=== PATIENT | female | born 1980 | race Caucasian/White ===

== ENCOUNTER 2023-03-09 13:12 | Emergency (ER) | payer OTHER, SELFPAY ==
[2023-03-09 13:35] VITALS: BP 120/80; PULSE 74; RESP 18; TEMP 36.5; O2SAT 100; BMI 46.7
--- NOTE | 2023-03-09 13:49 | ED.EXTPRO1 ---
HPI - Extremity Problem General Chief complaint: Extremity Problem, Nontraumatic Stated complaint: LOWER EXTREMITY PAIN TO RIGHT KNEE Time Seen by Provider: 03/09/23 13:18 Source: patient Mode of arrival: walk-in Limitations: no limitations History of Present Illness HPI Narrative: Patient is a 42-year-old female who presents to the emergency department for the evaluation of right knee pain for the last 3 days. She has a history of arthritis to the right knee, she has had previous imaging and MRI of the right knee and currently sees pain management. She states she is waiting for them to burn the veins in her right knee like they did in her left knee previously. She denies any new mechanism of injury or trauma. She has not had any new noted swelling or redness to the right knee. She has been using naproxen without improvement. She denies a concern for . Related Data Previous Rx's Medication Instructions Recorded ketorolac 10 mg tablet 10 mg PO TID PRN pain #10 tabs 03/09/23 methocarbamol 750 mg tablet 750 mg PO TID PRN pain #20 tabs 03/09/23 methylprednisolone 4 mg tablets in See Rx Instructions .Route 03/09/23 a dose pack (Medrol (Meliton)) .COMPLEX #21 ea Allergies Allergy/AdvReac Type Severity Reaction Status Date / Time No Known Drug Allergies Allergy Verified 03/09/23 13:42 Review of Systems ROS Constitutional Denies: fever or chills Ears, nose, mouth, and throat Denies: throat pain Cardiovascular Denies: chest pain Respiratory Denies: shortness of breath or cough Gastrointestinal Denies: nausea or vomiting Musculoskeletal Reports: extremity pain and joint pain; Denies: back pain or neck pain Integumentary/Breast Denies: rash Neurological Denies: headache Hematologic/Lymphatic Denies: easy bruising PFSH PFSH Social History Smoking status: Never smoker Exam Narrative Exam Narrative: Gen.: Awake, alert, in no distress Head: Normocephalic, atraumatic ENT: Moist mucous membranes Respiratory: No respiratory distress Extremities: Pain with flexion and extension of the right knee, no laxity of the right patella. Diffusely tender to palpation in the right anterior knee with no palpable joint effusion. No erythema or swelling of the joint. No calf tenderness of the right leg Psych: Normal mood and affect Neuro: No focal neuro deficit Skin: Warm, dry, intact Constitutional Vital Signs, click to edit/add: Last Vital Signs Temp 97.7 F 03/09/23 13:35 Pulse 74 03/09/23 13:35 Resp 18 03/09/23 13:35 BP 120/80 03/09/23 13:35 Pulse Ox 100 03/09/23 13:35 O2 Del Method Room Air 03/09/23 13:35 Course Vital Signs Vital signs: Vital Signs Temperature 97.7 F 03/09/23 13:35 Pulse Rate 74 03/09/23 13:35 Respiratory Rate 18 03/09/23 13:35 Blood Pressure 120/80 03/09/23 13:35 Pulse Oximetry 100 03/09/23 13:35 Oxygen Delivery Method Room Air 03/09/23 13:35 Temperature 97.7 F 03/09/23 13:35 Pulse Rate 74 03/09/23 13:35 Respiratory Rate 18 03/09/23 13:35 Blood Pressure 120/80 03/09/23 13:35 Pulse Oximetry 100 03/09/23 13:35 Oxygen Delivery Method Room Air 03/09/23 13:35 MDM - Extremity (Nontraumatic) MDM Narrative Medical decision making narrative: Patient with no new injury or trauma to warrant x-rays. 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 She is placed in an George bandage, and knee immobilizer will likely not fit the patient due to her body habitus. She is neurovascularly intact pre and post George wrap application. Rest, ice, elevate. She is given a Medrol Dosepak, anti-inflammatories and muscle relaxants. Follow-up with pain management and return to the ER if symptoms change or worsen. Medical Records Attestation: I reviewed the patient's medical records. Discharge Plan Discharge Chief Complaint: Extremity Problem, Nontraumatic Clinical Impression: Acute pain of right knee Patient Disposition: Home, Self-Care Time of Disposition Decision: 13:47 Condition: Good Prescriptions / Home Meds: New ketorolac 10 mg tablet 10 mg PO TID PRN (Reason: pain) Qty: 10 0RF methocarbamol 750 mg tablet 750 mg PO TID PRN (Reason: pain) Qty: 20 0RF methylprednisolone [Medrol (Meliton)] 4 mg tablets,dose pack See Rx Instructions .ROUTE .COMPLEX Qty: 21 0RF Rx Instructions: Taper as directed Instructions: Knee Pain (ED), Arthralgia (ED) Additional Instructions: Follow up with your 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
== END 2023-03-09 13:56 | disposition home or self-care (01) ==
PROVIDERS: Emergency Provider Emergency Medicine Emergency Medical Services; PCP Physician Assistant
DX: M25.561 Pain in right knee (principal)
CPT/HCPCS: 99283

== ENCOUNTER 2023-04-09 16:41 | Emergency (ER) | payer OTHER, SELFPAY ==
[2023-04-09 16:45] VITALS: BP 150/90; PULSE 76; RESP 20; TEMP 36.5; O2SAT 99; BMI 46.7
--- OUTSIDE RECORDS SUMMARY | 2023-04-09 16:55 | XMS_ITS | CCD ---
Author Name Unknown Address [address] [place] [address] Organization [facility] Care Team Providers Care Cyber Security Instructor Name Role Phone PHYSICIAN, DEFAULT Unavailable Unavailable PHYSICIAN, DEFAULT Unavailable Unavailable DANA, SUMMON Unavailable Unavailable DANA, SUMMON Unavailable Unavailable SELF, REFERRED Unavailable Unavailable SELF, REFERRED Unavailable Unavailable NON, STAFF, Primary Care Provider Unavailabl e [facility] Unava ilable KAYLEN, DR SWANN Admitting Unavailable KAYLEN, DR SWANN Attending Unavailable USAMA, DR VIRGILIO Gupta Consulting Unavailable CLAUDE MAYORGA Consulting Unavailable [facility] Unava ilable APRIL, DR ELODIA Gupta Admitting Unavailable APRIL, DR ELODIA Gupta Attending Unavailable APRIL, DR ELODIA Gupta Consulting Unavailable [facility] Unava ilable MARKER, DR LONG Admitting Unavailable MARKER, DR LONG Attending Unavailable MARKER, DR LONG Consulting Unavailable JAYLA KEBEDE Consulting Unavailable Laverne Emerson Unavailable Chiki Coombs Attending Unavailable Corin, Chiki Choudhury [facility] Unavailable Chiki Coombs Admitting Unavailable Unavailable Unavailable Unavailable Medications Current Medications Medication Drug Class(es) Dates Sig (Normalized) Sig (Original) ferrous sulfate (2 sources) Ferrous Sulfate Active 24 hr metFORMIN hydrochloride 500 mg extended release oral tablet (2 sources) Biguanide Start: 10-05-2022 take 1 tablet by mouth every week at dinner, then take 2 tablets by mouth once daily metFORMIN HCl ER 500 MG 1 tablet with evening meal 1st week, then 2 tablets with evening meal Orally Once a day for 30 day(s) Oct, Active methocarbamol 750 mg oral tablet (2 sources) Muscle Relaxant Start: 02-28-2020 take 1 tablet by mouth every eight hours Methocarbamol (Robaxin-750) 750 mg tablet Active 750 MG PO Q8H 9 3 February 28, 2020 2:02pm naproxen 500 mg oral tablet (4 sources) Nonsteroidal Anti-inflammatory Drug take 1 tablet by mouth every twenty-four hours Naproxen 375 MG 1 Tablet Orally daily Active take 1 tablet by katherine th every twelve hours at mealtime as needed Naproxen 500 MG 1 tablet with food or milk as needed Orally every 12 hrs PRN Active triamcinolone acetonide 1 mg /ml topical cream (2 sources) Corticosteroid Triamcinolone Ac etonide 0.1 % APPLY 1 APPLICATION TO AFFECTED AREA EXTERNALLY TWICE A DAY FOR 14 DAYS External for 30 Days Active Completed/Discontinued Medications Medication Drug Class(es) Dates Sig (Normalized) Sig (Original) ibuprofen 400 mg oral tablet (2 sources) Nonsteroidal Anti-inflammatory Drug Start: 12-12-2013 take 1 tablet by mouth every six hours at mealtime Ibuprofen 400 MG 1 tablet Orally every 6 hrs,ttake with food, over alcohol and all other NSAIDs while taking this medication for 10 days Dec, Not-Taking penicillin v potassium 500 mg oral tablet (2 sources) Start: 12-12-2013 take 1 tablet by mouth every eight hours Penicillin V Potassium 500 MG 1 tablet Orally Three times a day for 10 days Dec, Not-Taking Problems Active Problems Problem Classification Problem Date Documented Date Episodic/Chronic Anxiety disorders (6 sources) Anxiety; Translations: [Anxiety disorder, unspecified] Chronic Coma; stupor; and brain damage (3 sources) Excessive daytime sleepiness - normal night sleep; Translations: [Somnolence] Episodic Deficiency and other anemia (1 source) Anemia, unspecified Episodic E Codes: Natural/environment (1 source) Overexertion from strenuous movement or load, initial encounter; Translations: [OVEREXERT STRENUOUS MVMT/LOAD INIT] Onset: 02-02-2022 Episodic Mood disorders (6 sources) Bipolar disorder; Translations: [Bipolar disorder, unspecified] Chronic Osteoarthritis (7 sources) Bilateral primary osteoarthritis of knee; Translations: [Unspecified osteoarthritis, unspecified site] Onset: 10-17-2017 Chronic Other aftercare (1 source) Other fpc (current) drug therapy; Translations: [OTH MAINSPRING REVERSE WINDER CURRENT DRUG THERAPY] Onset: 02-02-2022 Episodic Other connective tissue disease (3 sources) Pain in left leg; Translations: [PAIN IN LEFT LEG] Onset: 01-17-2022 Episodic Other lower respiratory disease (1 source) Snoring Episodic Other nervous system disorders (1 source) Other chronic pain; Translations: [OTHER CHRONIC PAIN] Onset: 01-18-2022 Chronic Other non-traumatic joint disorders (3 sources) Pain in unspecified knee; Translations: [PAIN IN UNSPECIFIED KNEE] Onset: 10-17-2017 Episodic Other non-traumatic joint disorders (4 sources) Pain in right shoulder; Translations: [Acute pain of right shoulder] Onset: 02-01-2022 Episodic Other non-traumatic joint disorders (1 source) Pain in left knee; Translations: [PAIN IN LEFT KNEE] Onset: 01-18-2022 Episodic Other non-traumatic joint disorders (5 sources) Pain in right knee; Translations: [PAIN IN RIGHT KNEE] Onset: 10-19-2021 Episodic Other nutritional; endocrine; and metabolic disorders (1 source) Morbid (severe) obesity due to excess calories; Translations: [MORBID SEVERE OBES D/T EXCESS SCOTTIE] Onset: 02-02-2022 Chronic Other nutritional; endocrine; and metabolic disorders (1 source) Body mass index (BMI) 50.0-59.9, adult; Translations: [BODY MASS INDEX BMI 50.0-59.9 ADULT] Onset: 02-02-2022 Chronic Other nutritional; endocrine; and metabolic disorders (2 sources) Obesity; Translations: [Obesity, unspecified] Chronic Other nutritional; endocrine; and metabolic disorders (1 source) Obesity, unspecified Chronic Sprains and strains (1 source) Strain of unspecified muscle, fascia and tendon at shoulder and upper arm level, right arm, initial encounter; Translations: [STRN UNS MSC F TND SHLDR UA RA INIT] Onset: 02-02-2022 Episodic Unclassified (2 sources) Unknown / UNK(Unknown) Onset: 10-17-2017 Unclassified (1 source) Dietary counseling and surveillance; Translations: [Dietary counseling and surveillance] Onset: 10-05-2022 Past or Other Problems Problem Classification Problem Date Documented Da te Episodic/Chronic Other non-traumatic joint disorders (1 source) Shoulder pain; Translations: [Acute pain of right shoulder] Episodic Results Test Name Value Interpretation Reference Range Facil ity XR SHOULDER RT 2V or >on XR SHOULDER RT 2V or > EXAM: XR SHOULDER RT 2V or > HISTORY: The patient is a 41-year-old female with three-day history of right shoulder pain. COMPARISON: 04/17/2015. FINDINGS: The right shoulder is radiographically negative with no evidence of fracture, dislocation, calcific tendonitis, or other osseous or articular abnormalities. The glenohumeral joint is maintained. The acromioclavicular joint is maintained. The subacromial space is maintained. IMPRESSION: Negative. Electronically authenticated by: JAYLA KEBEDE Date: 2022-02-01 00:56 Normal [facility] KNEE LEFT 4VWSon 10-17-2017 KNEE LEFT 4VWS [facility] [address] [place] [address] ==Patient Name: DIANE HANDLEY : 1980Sex: FAge: Race: WhiteMRN: [id number]. Location: 93Patient Status: OVisit #: [id number] Date: 10/17/2017 3:25:00 PMCompleted Date: 10/17/2017 03:47 PMRequesting Provider: JOSUE CORTEZ Attending Provider: JOSUE CORTEZ Report Copy To: SELF, REFERRED Signs & Symptoms: M25.569 Pain in unspecified knee [id number]: AthenaComments: , Views (X-RAY, KNEE): AP, Lateral, Tunnel, Juarez , Weight Bearing?: Y , With Magnification Marker?: N , Views (X-RAY, KNEE): AP, Lateral, Tunnel, Juarez , Weight Bearing?: Y , With Magnification Marker?: N , , , Ordering Provider - JOSUE CORTEZ MD , Exam: KNEE LEFT 4VWSAccession #: [id number] =========PELVIS 1 OR 2 VWS, KNEE LEFT 4VWS, KNEE RIGHT 4 VWS 10/17/2017 3:47 PM EDT SIGNS AND SYMPTOMS: M25.569 Pain in unspecified knee I10 TECHNOLOGIST COMMENTS: Patient complains of severe bilateral knee pain for ten years. No known trauma. QUESTION FOR THE RADIOLOGIST: , Views (X-RAY, PELVIS): AP , Weight Bearing?: Y , With Magnification Marker?: Y , Views (X-RAY, PELVIS): AP , Weight Bearing?: Y , With Magnification Marker?: Y , , ...More In Sending System PROTOCOL: AP(PA) view was obtained. (accession [id number]), AP,Lateral,Tunnel and Tangential views were obtained. (accession [id number]), AP,Lateral,Tunnel and Tangential views were obtained. (accession [id number]) COMPARISON: None FINDINGS: Pelvis: No acute abnormality. Minimal SI joint and hip degenerative change Bilateral knees: Severe bilateral medial weightbearing osteoarthritis, worse on the right with complete joint space loss. Both sides show varus deformity and lateral subluxation of tibia on femur. Posterior sides show effusion, slightly greater on the right. IMPRESSION: 1. Bilateral severe medial weightbearing osteoarthritis, worse on the right with complete joint space loss2. Intact pelvis and hips Electronically signed by:Ernie Albert. Transcribed by: [email or web address], User Resident: Electronically Signed by: ERNIE ALBERT @ 10/17/2017 04:35 PM Normal [facility] Comment on above: Order Comment: , Views (X-RAY, KNEE): AP , Lateral, Tunnel, Juarez , Weight Bearing?: Y , With Magnification Marker?: N , Views (X-RAY, KNEE): AP, Lateral, Tunnel, Juarez , Weight Bearing?: Y , With Magnification Marker?: N , , , Ordering Provider - JOSUE CORTEZ MD , KNEE RIGHT 4 Son 8 KNEE RIGHT 4 [facility] [address] [place] [address] ==Patient Name: DIANE HANDLEY : 1980Sex: FAge: Race: WhiteMRN: [id number]. Location: 93Patient Status: OVisit #: [id number] Date: 10/17/2017 3:25:00 PMCompleted Date: 10/17/2017 03:40 PMRequesting Provider: JOSUE CORTEZ Attending Provider: JOSUE CORTEZ Report Copy To: SELF, REFERRED Signs & Symptoms: M25.569 Pain in unspecified knee [id number]: AthenaComments: , Views (X-RAY, KNEE): AP, Lateral, Tunnel, Juarez , Weight Bearing?: Y , With Magnification Marker?: N , Views (X-RAY, KNEE): AP, Lateral, Tunnel, Juarez , Weight Bearing?: Y , With Magnification Marker?: N , , , Ordering Provider - JOSUE CORTEZ MD , Exam: KNEE RIGHT 4 VWSAccession #: [id number] =========PELVIS 1 OR 2 VWS, KNEE LEFT 4VWS, KNEE RIGHT 4 VWS 10/17/2017 3:47 PM EDT SIGNS AND SYMPTOMS: M25.569 Pain in unspecified knee I10 TECHNOLOGIST COMMENTS: Patient complains of severe bilateral knee pain for ten years. No known trauma. QUESTION FOR THE RADIOLOGIST: , Views (X-RAY, PELVIS): AP , Weight Bearing?: Y , With Magnification Marker?: Y , Views (X-RAY, PELVIS): AP , Weight Bearing?: Y , With Magnification Marker?: Y , , ...More In Sending System PROTOCOL: AP(PA) view was obtained. (accession [id number]), AP,Lateral,Tunnel and Tangential views were obtained. (accession [id number]), AP,Lateral,Tunnel and Tangential views were obtained. (accession [id number]) COMPARISON: None FINDINGS: Pelvis: No acute abnormality. Minimal SI joint and hip degenerative change Bilateral knees: Severe bilateral medial weightbearing osteoarthritis, worse on the right with complete joint space loss. Both sides show varus deformity and lateral subluxation of tibia on femur. Posterior sides show effusion, slightly greater on the right. IMPRESSION: 1. Bilateral severe medial weightbearing osteoarthritis, worse on the right with complete joint space loss2. Intact pelvis and hips Electronically signed by:Ernie Albert. Transcribed by: [email or web address], User Resident: Electronically Signed by: ERNIE ALBERT @ 10/17/2017 04:35 PM Normal [facility] Comment on above: Order Comment: , Views (X-RAY, KNEE): AP , Lateral, Tunnel, Juarez , Weight Bearing?: Y , With Magnification Marker?: N , Views (X-RAY, KNEE): AP, Lateral, Tunnel, Juarez , Weight Bearing?: Y , With Magnification Marker?: N , , , Ordering Provider - JOSUE CORTEZ MD , PELVIS 1 OR 2 [facility] 10-18-19 18 PELVIS 1 OR 2 [facility] [address] [place] [address] ==Patient Name: DIANE HANDLEY : 1980Sex: FAge: Race: WhiteMRN: [id number]. Location: 93Patient Status: OVisit #: [id number] Date: 10/17/2017 3:25:00 PMCompleted Date: 10/17/2017 03:40 PMRequesting Provider: JOSUE CORTEZ Attending Provider: JOSUE CORTEZ Report Copy To: SELF, REFERRED Signs & Symptoms: M25.569 Pain in unspecified knee Q96Brnpevn: AthenaComments: , Views (X-RAY, PELVIS): AP , Weight Bearing?: Y , With Magnification Marker?: Y , Views (X-RAY, PELVIS): AP , Weight Bearing?: Y , With Magnification Marker?: Y , , , Ordering Provider - JOSUE CORTZE MD , Exam: PELVIS 1 OR 2 VWSAccession #: [id number] =========PELVIS 1 OR 2 VWS, KNEE LEFT 4VWS, KNEE RIGHT 4 VWS 10/17/2017 3:47 PM EDT SIGNS AND SYMPTOMS: M25.569 Pain in unspecified knee I10 TECHNOLOGIST COMMENTS: Patient complains of severe bilateral knee pain for ten years. No known trauma. QUESTION FOR THE RADIOLOGIST: , Views (X-RAY, PELVIS): AP , Weight Bearing?: Y , With Magnification Marker?: Y , Views (X-RAY, PELVIS): AP , Weight Bearing?: Y , With Magnification Marker?: Y , , ...More In Sending System PROTOCOL: AP(PA) view was obtained. (accession [id number]), AP,Lateral,Tunnel and Tangential views were obtained. (accession [id number]), AP,Lateral,Tunnel and Tangential views were obtained. (accession [id number]) COMPARISON: None FINDINGS: Pelvis: No acute abnormality. Minimal SI joint and hip degenerative change Bilateral knees: Severe bilateral medial weightbearing osteoarthritis, worse on the right with complete joint space loss. Both sides show varus deformity and lateral subluxation of tibia on femur. Posterior sides show effusion, slightly greater on the right. IMPRESSION: 1. Bilateral severe medial weightbearing osteoarthritis, worse on the right with complete joint space loss2. Intact pelvis and hips Electronically signed by:Ernie Albert. Transcribed by: [email or web address], User Resident: Electronically Signed by: ERNIE ALBERT @ 10/17/2017 04:35 PM Normal [facility] Comment on above: Order Comment: , Views (X-RAY, PELVIS): AP , Weight Bearing?: Y , With Magnification Marker?: Y , Views (X-RAY, PELVIS): AP , Weight Bearing?: Y , With Magnification Marker?: Y , , , Ordering Provider - JOSUE CORTEZ MD , Vital Signs Date Time Vital Sign Value Performing Clinician Facility 10-05-2022 13:15-0400 Body height 152.4 cm Laverne Missler Other [facility] Other 10-05-2022 13:15-0400 Body mass index (BMI) [Ratio] 48.25 kg/m2 Laverne Missler Other [facility] Other 10-05-2022 13:15-0400 Body weight 112.08 kg Laverne Missler Other [facility] Other 10-05-2022 13:15-0400 Diastolic blood pressure 76 mm[Hg] Laverne Missler Other [facility] Other 10-05-2022 13:15-0400 Respiratory rate 20 /min Laverne Missler Other [facility] Other 10-05-2022 13:15-0400 SaO2% (BldA) [Mass fraction] 97 % Laverne Missler Other [facility] Other 10-05-2022 13:15-0400 Systolic blood pressure 122 mm[Hg] Laverne Missler Other [facility] Other 02-28-2020 13:09-0500 Body Temperature 97.5 [degF] STAFF, [facility] 02-28-2020 13:09-0500 BP Diastolic 83 mm[Hg] STAFF, [facility] 02-28-2020 13:090500 BP Systolic 149 mm[Hg] STAFF, [facility] 02-28-2020 13:09-0500 Pulse (Heart Rate) 83 /min STAFF, [facility] 02-28-2020 13:09-0500 Pulse Oximetry 98 % STAFF, [facility] 02-28-2020 13:09-0500 Respiratory Rate 18 /min STAFF, [facility] 02-28-2020 13:06-0500 BMI (Body Mass Index) 46.3 kg/m2 STAFF, [facility] 02-28-2020 13:06-0500 Body weight 111.13 kg STAFF, [facility] 02-28-2020 13:060500 Height 154.94 cm STAFF, [facility] Encounters Encounter Date Encounter Type Care Provider Facility Start: 11-16-2022 End: 11-16-2022 ambulatory Laverne Emerson Other [facility] Other Start: 11-16-2022 Telephone encounter Laverne [facility] Start: 10-05-2022 End: 10-06-[address] [facility] Other Start: 10-05-2022 Nutrition therapy Laverne [facility] Start: 02-01-2022 End: 02-01-2022 ambulatory [facility] Facility:[facility] Start: 01-17-2022 End: 01-17-2022 ambulatory [facility] Facility:[facility] Start: 10-19-2021 End: 10-20-2021 ambulatory [facility] Facility:[facility] Start: 02-28-2020 End: 02-28-2020 Emergency department patient visit STAFF, [facility] Start: 10-17-2017 End: 10-18-2017 Patient encounter TANIA CORTEZ Facility:[facility] Start: 02-07-2017 End: 02-08-2017 Patient encounter DEFAULT PHYSICIAN Facility:[facility] Plan of Treatment Date Care Activity Detail Author Patient Education Shoulder Pain (ED) [facility] Patient referral [facility] Payers Date Payer Category Payer Medicaid [id number] 2. [id number] 2022 Self-pay [id number] 1980 Unknown [id number] [id number] 1980 Unknown [id number] 1980 Unknown [id number] [id number] [id number] 1961 Medicaid [id number] Unknown Unknown [id number] 2.16.8 [id number] Social History Date Type Detail Facility Tobacco smoking status NHIS Unknown if ever smoked [facility] Start: 1980 Sex Assigned At Female F [facility] Sex Assigned At Sex Assigned At [facility] Other Goals Date Patient Goal Desired Activity /State Evaluation note 10-05-2022 Note Date & Type Note Facility 10-05-2022 Evaluation note Encounter Date Diagnosis Assessment Notes Oct, Obesity (ICD-10 - E66.9) Findings consistent with obesity. Patient understands that this increases risk of multiple comorbidities associated with weight gain especially if there is a genetic predisposition. Discussed the complexity behind obesity and its multifactorial causes including genetics, the biological changes that occur with processed foods as well as lack of physical activity. We will assess for underlying causes of abnormal weight gain including thyroid dysfunction, poor sleep, medications, diet, etc. Discussed importance of adopting a healthier lifestyle in order to decrease or eliminate risk of impending diseases associated with excessive weight. Initial goal of modest weight loss approximately 3 to 5% can help to improve risk factors and some comorbidities. Our second goal of 10 to 15% weight loss can result in even more potentially disease modifying, remission, or improved mortality benefits. Raised patient and her efforts and success so far with the near 20 pound weight loss over the last couple months by decreasing portion sizes and eliminating Mountain Dew from her diet Initial goals include consistent mealtimes and snacks throughout the day. Concern for extreme calorie deficit as patient is only getting about 1 meal a day currently. She does struggle a little bit with decreased appetite, concern for mood disturbance Encouraged to adjust sleep schedule as feasible may be even trying to stay up until 11 or 12 noon and getting adequate consistent 7 hours of sleep instead of broken sleep and a total of 10 hours. We did discuss the U-shaped curve and detrimental effects of having excessive sleep We set a goal of 15 to 20 minutes of purposeful exercise 1 to 2 days a week initially and working up as feasible Consider mental health professional and/or counseling Oct, Anxiety (ICD-10 - F41.9) Oct, Depression (ICD-10 - F32.9) Initial PHQ-9 is positive for mild to moderate depression with a score of 7 most notable for every day of feeling down depressed or hopeless and feeling tired or little energy. Patient states mood is stable overall today and denies any significant mood swings or depressive thoughts. Continued vigilance throughout our weight loss journey. Patient is to inform provider immediately if any extreme mood changes occur or severe depressive thoughts. Mood can play a role in eating habits, food choices and overall weight regulation. Oct, Panic attacks (ICD-10 - F41.0) With her history of anxiety and panic attacks would likely avoid or use extreme caution with any phentermine containing products. Oct, Arthritis of knee (ICD-10 - M19.90) Patient admits to pain which is likely exacerbated/secon aarti to increased weight. Treat with exercise incorporating low impact exercises or modifications as needed. Advised that there are multiple different exercise programs available, many of which can be done within the home that required little to no impact. Encouraged swimming as feasible. Slowly increase activity over time to reach goal of 30 minutes most days of the week. Strongly encouraged to take advantage of our can top setter available at [facility] that can help work around limitations. Each pound of weight loss is exponentially beneficial for weight bearing joints. Oct, Daytime sleepiness (ICD-10 - R40.0) Oct, Anemia (ICD-10 - D64.9) Oct, Bipolar disorder (ICD-10 - F31.9) With history of bipolar disorder would avoid or use extreme caution with any bupropion containing products. We did briefly discuss bipolar disorder and the chemical imbalance that ensues. Despite patient stating that she is handling things on her own we did discuss and advise connecting with appropriate mental health professionals to help improve her quality of life. I do feel that she is still struggling with some depression,, sleep disturbance etc. Oct, Snoring (ICD-10 - R06.83) Patient has not had a formal sleep study. We did briefly discuss sleep apnea patient understands that sleep apnea significantly increases risk of cardiac complications as well as hypertension, daytime fatigue, and brain fog among others. Educated that CPAP compliance is of utmost importance to help prevent related comorbidities. Treat with weight loss with a goal of less positive pressure needed. Pt understands that even with moderate weight loss, often a positive pressure device may still be necessary. We will perform surveillance through out our visits. [facility] Other Clinical Note 10-20-2021 Note Date & Type Note Facility 10-20-2021 Note PROCEDURE: XR KNEE R T 4V or > HISTORY: Pain in lower limb ; chronic right knee pain increased in severity COMPARISON: XR knee right 07/18/2014 FINDINGS: BONES:Marked narrowing of the medial joint space. Moderate size degenerative osteophytes along the articular margins of all 3 compartments. No fracture, dislocation, or bone lesion. SOFT TISSUES:No visible soft tissue swelling. EFFUSION:None visible. OTHER: Negative. IMPRESSION: 1. No acute bone abnormality. 2. Moderate marked degenerative joint disease of the right knee, greatest involving the medial compartment. Electronically authenticated by: VIRGILIO FORRESTER Date: 2021-10-19 22:25 [facility] Evaluation note Note Date & Type Note Facility Evaluation note No Information [facility] Other Evaluation note Note Date & Type Note Facility Evaluation note No assessment information availa [facility] Work Phone: History general Narrative - Reported Note Date & Type Note Facility History general Narrative - Reported Type Medical History Osteoarthritis Medical History Anxiety Medical History Arthritis of bilateral knees Medical History Depression Medical History Panic attacks Medical History Anemia Medical History Bipolar Surgical History tubal ligation Surgical History Uterine ablation 11/2019 Surgical History M[place]oy teeth extraction Hospitalization History child Hospitalization History See above [facility] Other Summary Purpose Family History No Family History Records FoundNo Family History Records FoundNo Family History Records Found Advance Directives No Advanced Directives Records Found Advance Directive Response Recorded Date/ Time Advance Directives No February 1:20pm Chief Complaint and Reason for Visit Chief Complaint Right shoulder pain Assessments No Assessments Information Available Discharge Instructions Additional Instructions Use [id number] pain control as needed Robaxin is a muscle relaxer and can make you drowsy. Do not drive or drink alcohol on this medication. Follow-up with your family doctor Additional Source Comments INFORMATION SOURCE (unrecogn ized section and content) DATE CREATED AUTHOR 10/21/2017 [facility] DATE CREATED AUTHOR AUTHOR'S ORGANIZ ATION 03/02/2022 [facility] DATE CREATED AUTHOR AUTHOR'S ORGANIZ ATION 04/03/2023 [facility] REASON FOR VISIT (unrecogniz ed section and content) Initial [facility] Goals (unrecognized section and content) Goals may be documented in a n alternate section FOR RECORDS PERTAINING TO PATIENTS WHO ARE OR HAVE BEEN ENROLLED IN A CHEMICAL DEPENDENCY/SUBSTANCEABUSE PROGRAM, SOME INFORMATION MAY BE OMITTED. This clinical summary was aggregated from multiple sources. Caution should be exercised in using it in the provision of clinical care. This summary normalizes information from multiple sources, and as a consequence, information in this document may materially change the coding, format and clinical context of patient data. In addition, data may be omitted in some cases. CLINICAL DECISIONS SHOULD BE BASED ON THE PRIMARY CLINICAL RECORDS. [employer] provides no warranty or guarantee of the accuracy or completeness of information in this document.
--- NOTE | 2023-04-09 17:36 | ED_ITS ---
HPI - URI/Sore Throat General Chief Complaint: Upper Respiratory Infection Stated Complaint: SINUS Time Seen by Provider: 04/09/23 17:23 Source: patient Limitations: no limitations History of Present Illness HPI Narrative: patient is a 42-year-old female presents to the Emergency Room with concerns of nasal congestion, mild cough. States she lives with people who have been sick with upper respiratory infections and mentioned covid exposure at work. Symptoms started three days ago.she denies chest pain. Patient does not smoke or have any underlying lung conditions. She reports sinus drainage, denies significant pain. Patient appears in no distress speaking in full sentences. I just can't breathe through my nose. MD elicited complaint: Reports cough, sore throat, rhinorrhea and nasal congestion; Denies fever or sinus pain Onset (ago): day(s) (3) Severity: mild Able to tolerate fluids by mouth: Yes Exacerbating factors: Reports nothing Relieving factors: Reports nothing Context: Reports sick contacts Related Data Previous Rx's Medication Instructions Recorded ketorolac 10 mg tablet 10 mg PO TID PRN pain #10 tabs 03/09/23 methocarbamol 750 mg tablet 750 mg PO TID PRN pain #20 tabs 03/09/23 methylprednisolone 4 mg tablets in See Rx Instructions .Route 03/09/23 a dose pack (Medrol (Meliton)) .COMPLEX #21 ea Allergies Allergy/AdvReac Type Severity Reaction Status Date / Time No Known Drug Allergies Allergy Verified 03/09/23 13:42 Review of Systems ROS Constitutional Denies: fever or chills Eyes Denies: change in vision or blurry vision Ears, nose, mouth, and throat Reports: throat pain, nasal discharge and nasal congestion; Denies: neck pain, throat swelling, dry mouth or ear discharge Cardiovascular Denies: chest pain or palpitations Respiratory Reports: cough; Denies: shortness of breath or wheezing Gastrointestinal Denies: abdominal pain, nausea or vomiting Genitourinary Denies: painful urination Musculoskeletal Denies: back pain Integumentary/Breast Denies: rash Neurological Denies: headache Psychiatric Denies: anxiety Allergic/Immunologic Denies: hives PFSH [facility] Social History Smoking status: Never smoker Exam Narrative Exam Narrative: Nurses notes and vital signs reviewed and patient is not hypoxic. General: The patient appears well and in no apparent distress. Patient is resting comfortably on cart. Skin: Warm, dry, no pallor noted. Head: Normocephalic, atraumatic Neck: Supple, trachea mid-line, no tenderness, no lymphadenopathy Eye: Pupils are equal, round and reactive to light, EOMI Ears, Nose, Mouth, and Throat: TM obstructed bilaterally. Moderate cerumen. recommended [id number] disimpaction drops ( debrox) no auricle or tragal tenderness, positive postnasal drip. oral mucosa is moist, no posterior oropharynx erythema or hypertrophy, uvula is mid-line Cardiovascular: Regular Rate and Rhythm Respiratory: Patient is in no distress, no accessory muscle use, lungs are clear to auscultation, no wheezing, rales or rhonchi. Chest Wall: no tenderness Back: non-tender, no CVA tenderness Musculoskeletal: normal ROM, no tenderness, no swelling GI: Normal bowel sounds, no tenderness to palpation, no masses appreciated. No rebound, guarding, or rigidity noted. Neurological: A&O x4 Psychiatric: Cooperative Constitutional Vital Signs, click to edit/add: Last Vital Signs Temp 97.7 F 04/09/23 16:45 Pulse 76 04/09/23 16:45 Resp 20 04/09/23 16:45 BP 150/90 H 04/09/23 16:45 Pulse Ox 99 04/09/23 16:45 O2 Del Method Room Air 04/09/23 16:45 Course Vital Signs Vital signs: Vital Signs Temperature 97.7 F 04/09/23 16:45 Pulse Rate 76 04/09/23 16:45 Respiratory Rate 20 04/09/23 16:45 Blood Pressure 150/90 H 04/09/23 16:45 Pulse Oximetry 99 04/09/23 16:45 Oxygen Delivery Method Room Air 04/09/23 16:45 Temperature 97.7 F 04/09/23 16:45 Pulse Rate 76 04/09/23 16:45 Respiratory Rate 20 04/09/23 16:45 Blood Pressure 150/90 H 04/09/23 16:45 Pulse Oximetry 99 04/09/23 16:45 Oxygen Delivery Method Room Air 04/09/23 16:45 MDM - URI/Sore Throat MDM Narrative Medical decision making narrative: reviewed nasal swabs, positive for covid consistent with patient's upper respiratory infection symptoms. Do not recommend antibiotics at this time. Patient be given a note off work for the next five days. Symptoms have been present for three days. 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 We discussed exposures at home, wear a mask, wash hands. She'll avoid contact with a three month old that is living with her. Patient has other family members present. The patient is to followup with primary care physician in next 2-3 days or to return to the emergency department should any of the signs or symptoms worsen or new symptoms develop. Patient had questions answered. The patient agrees with the following Diagnosis and Treatment plan and the patient will be discharged home. Lab Data Labs: Lab Results 04/09/23 Range/Units 17:15 SARS-CoV-2 (PCR) Positive A (NEGATIVE) Influenza Type A Ag Negative Influenza Type B Ag Negative Discharge Plan Discharge Chief Complaint: Upper Respiratory Infection Clinical Impression: COVID, Upper respiratory infection Patient Disposition: Home, Self-Care Time of Disposition Decision: 17:50 Condition: Good Prescriptions / Home Meds: No Action ketorolac 10 mg tablet 10 mg PO TID PRN (Reason: pain) Qty: 10 0RF methocarbamol 750 mg tablet 750 mg PO TID PRN (Reason: pain) Qty: 20 0RF methylprednisolone [Medrol (Meliton)] 4 mg tablets,dose pack See Rx Instructions .ROUTE .COMPLEX Qty: 21 0RF Rx Instructions: Taper as directed Instructions: COVID-19 (Coronavirus Disease 2019) (ED), How to Recover from COVID-19 at Home (ED) Stand Alone Forms: Portal Instructions Referrals: Chiki Coombs [Primary Care Provider] - 1 week
[2023-04-09 17:38] LABS: Influenza Virus A Antigen Negative; Influenza Virus B Antigen Negative; Internal Control Within Normal Limits
[2023-04-09 17:39] LABS: SARS-CoV-2 Ag POSITIVE (NEGATIVE)
== END 2023-04-09 17:53 | disposition home or self-care (01) ==
PROVIDERS: Emergency Provider Emergency Medicine; PCP Physician Assistant
DX: U07.1 COVID-19 (principal); J06.9 Acute upper respiratory infection, unspecified
CPT/HCPCS: 87804; 87811; 99283

== ENCOUNTER 2023-04-23 12:37 | Emergency (ER) | payer OTHER, SELFPAY ==
[2023-04-23 12:41] VITALS: BP 138/70; PULSE 75; RESP 18; TEMP 37.2; O2SAT 97; BMI 48.2
--- NOTE | 2023-04-23 12:45 | XR_ITS ---
The [address] [address] Patient Name: MARIBELL HANDLEY MRN: [id number] date: 1980 Sex: F Assigned Patient Location: ER Current Patient Location: Accession/Order Number: [id number] Exam Date: 04/23/2023 12:50 Report Date: 04/23/2023 13:17 At the request of: ERNESTO BRUNNER Procedure: XR knee RT 2V EXAM: XR knee RT 2V HISTORY: pain COMPARISON: None. FINDINGS: 2 radiographs of the right knee were obtained. No acute fracture or dislocation. Severe degenerative changes to the patellofemoral joint. Moderate degenerative changes to the medial and lateral compartments. No joint effusion. 1 cm calcific fragment adjacent to the mid fibula, likely the sequela of remote trauma. XR/XR knee RT 2V IMPRESSION: No acute fracture or dislocation. Electronically authenticated by: AGAPITO PUGH Date: 04/23/2023 13:17
--- NOTE | 2023-04-23 12:50 | ED.LOWEXI1 ---
HPI - Extremity Injury (Lower) General Chief Complaint: Extremity Injury, Lower Stated Complaint: LOWER EXTREMITY INJURY/ FALL Time Seen by Provider: 04/23/23 12:44 Source: patient Mode of arrival: walk-in Limitations: no limitations History of Present Illness HPI Narrative: 42-year-old female presents for right knee pain. It gave out today and she twisted it. She didn't sustain any other injury. She states she has problems with her knees, arthritis, and they often give out. She sees pain management. No pain in the hip or ankle. She's been able to walk and the pain is moderate. Related Data Home Medications Medication Instructions Recorded Confirmed aripiprazole 2 mg tablet 2 mg PO .QHS 04/23/23 04/23/23 cholecalciferol (vitamin D3) 10 20 mcg PO DAILY 04/23/23 04/23/23 mcg (400 unit) tablet (Vitamin D3) duloxetine 30 mg capsule,delayed 30 mg PO DAILY 04/23/23 04/23/23 release Allergies Allergy/AdvReac Type Severity Reaction Status Date / Time No Known Drug Allergies Allergy Verified 04/23/23 12:41 Review of Systems ROS Narrative A ten point review of systems is negative except as noted above. PFSH PFSH Social History Smoking status: Never smoker Exam Narrative Exam Narrative: Nurses note and vital signs reviewed and patient is not hypoxic. General: The patient appears well and in no apparent distress. Patient is resting comfortably on cart. Skin: Warm, dry, no pallor noted. There is no rash noted. Head: Normocephalic, atraumatic Eye: Normal conjunctiva, no drainage Ears, Nose, Mouth, and Throat: oral mucosa is moist. Nares patent. Cardiovascular: Regular Rate and Rhythm Respiratory: Patient is in no distress, no accessory muscle use Back: non-tender GI: nontender Musculoskeletal: the right knee is not erythematous or visibly swollen. No bruising rash or abrasion. The knee joint is stable. Neurological: A&O, normal speech Psychiatric: Cooperative Constitutional Vital Signs, click to edit/add: Last Vital Signs Temp 98.9 F 04/23/23 12:41 Pulse 75 04/23/23 12:41 Resp 18 04/23/23 12:41 BP 138/70 04/23/23 12:41 Pulse Ox 97 04/23/23 12:41 O2 Del Method Room Air 04/23/23 12:41 Course Vital Signs Vital signs: Vital Signs Temperature 98.9 F 04/23/23 12:41 Pulse Rate 75 04/23/23 12:41 Respiratory Rate 18 04/23/23 12:41 Blood Pressure 138/70 04/23/23 12:41 Pulse Oximetry 97 04/23/23 12:41 Oxygen Delivery Method Room Air 04/23/23 12:41 Temperature 98.9 F 04/23/23 12:41 Pulse Rate 75 04/23/23 12:41 Respiratory Rate 18 04/23/23 12:41 Blood Pressure 138/70 04/23/23 12:41 Pulse Oximetry 97 04/23/23 12:41 Oxygen Delivery Method Room Air 04/23/23 12:41 MDM - Extremity Injury (Lower) MDM Narrative Medical decision making narrative: x-ray findings are discussed with the patient. George wrap applied. Application checked by me and found to be appropriate, she is neurovascularly intact. She'll follow-up with her pain management physician. Treatment diagnosis and follow-up were discussed with the patient. Differential Diagnosis Differential diagnosis: Likely other (knee sprain, knee strain, knee fracture, arthritis) Imaging Data knee x-ray: Radiologist's impression: ITS Impressions Knee X-Ray 04/23/23 12:45 IMPRESSION: No acute fracture or dislocation. Electronically authenticated by: AGAPITO PUGH Date: 04/23/2023 13:17 Discharge Plan Discharge Chief Complaint: Extremity Injury, Lower Clinical Impression: Acute pain of right knee Patient Disposition: Home, Self-Care Time of Disposition Decision: 13:26 Condition: Good Mode of Transportation: Private Vehicle Prescriptions / Home Meds: No Action aripiprazole 2 mg tablet 2 mg PO .QHS cholecalciferol (vitamin D3) [Vitamin D3] 10 mcg (400 unit) tablet 20 mcg PO DAILY duloxetine 30 mg capsule,delayed release(DR/EC) 30 mg PO DAILY Instructions: Knee Pain (ED) Stand Alone Forms: Portal Instructions Referrals: Chiki Coombs [Primary Care Provider] - 1 week
--- OUTSIDE RECORDS SUMMARY | 2023-04-23 12:56 | XMS_ITS | CCD ---
Author Name Unknown Address [address] [place] [address] Organization [facility] Care Team Providers Care Airconditioning Drafting Officer Name Role Phone PHYSICIAN, DEFAULT Unavailable Unavailable PHYSICIAN, DEFAULT Unavailable Unavailable DANA, SUMMON Unavailable Unavailable DANA, SUMMON Unavailable Unavailable SELF, REFERRED Unavailable Unavailable SELF, REFERRED Unavailable Unavailable NON, STAFF, Primary Care Provider Unavailabl e [facility] Unava ilable KAYLEN, DR SWANN Admitting Unavailable KAYLEN, DR SWANN Attending Unavailable USAMA, DR VIRGILIO Gupta Consulting Unavailable CLAUDE MAYORGA Consulting Unavailable [facility] Unava ilable APRIL, DR ELODIA Gupta Admitting Unavailable CHEN, DR ELODIA Gupta Attending Unavailable APRIL, DR ELODIA Gupta Consulting Unavailable [facility] Unava ilable MARKER, DR LONG Admitting Unavailable MARKER, DR LONG Attending Unavailable MARKER, DR LONG Consulting Unavailable JAYLA KEBEDE Consulting Unavailable Laverne Emerson Unavailable Chiki Coombs Attending Unavailable Chiki Coombs Primary Care Unavailable Chiki Coombs Admitting Unavailable Chiki Coombs PA-C Primary Care Provider Unavailable Unavailable Unavailable Medications Current Medications Medication Drug Class(es) Dates Sig (Normalized) Sig (Original) cyclobenzaprine hydrochloride 10 mg oral tablet (1 source) Muscle Relaxant cyclobenzap-irri tant cntr irr2 10 mg kit 1 tablet 0 Active diclofenac sodium 0.01 mg/mg topical gel (1 source) Nonsteroidal Anti-inflammatory Drug Start: 10-28-2022 diclofenac sodium (VOLTAREN) 1 % gel Apply 2 g topically in the morning and 2 g at noon and 2 g in the evening and 2 g before bedtime. 100 g 0 10/28/2022 Active dicyclomine hydrochloride 20 mg oral tablet (1 source) Anticholinergic Start: 08-30-2022 take 1 tablet by mouth in the morning, then take 1 tablet by mouth at bedtime dicyclomine (BENTYL) 20 mg tablet Take 1 tablet (20 mg total) by mouth in the morning and 1 tablet (20 mg total) before bedtime. 20 tablet 0 08/30/2022 Active docusate sodium 100 mg oral capsule (1 source) Start: 10-14-2019 docusate sodium (COLACE) 100 mg capsule ferrous sulfate 325 mg oral tablet (3 sources) Start: 10-08-2019 ferrous sulfate 325 (65 FE) mg tablet Ferrous Sulfate Active fluticasone propionate 0.05 mg/actuat metered dose nasal spray (1 source) Corticosteroid Start: 04-14-2021 take 1 spray(s) nasal route once daily fluticasone propionate (FLONASE) 50 mcg/actuation nasal spray Administer 1 spray into each nostril daily. 16 g 0 04/14/2021 Active ibuprofen 600 mg oral tablet (3 sources) Nonsteroidal Anti-inflammatory Drug Start: 10-28-2022 take 1 tablet by mouth every eight hours as needed for pain ibuprofen (MOTRIN) 600 mg tablet Take 1 tablet (600 mg total) by mouth every 8 (eight) hours as needed for pain. 30 tablet 0 10/28/2022 Active Start: 12-12-2013 take 1 tablet by katherine th every six hours at mealtime Ibuprofen 400 MG 1 tablet Orally every 6 hrs,ttake with food, over alcohol and all other NSAIDs while taking this medication for 10 days Dec, Not-Taking 24 hr metFORMIN hydrochloride 500 mg extended [...] 2020 2:02pm naproxen 500 mg oral tablet (5 sources) Nonsteroidal Anti-inflammatory Drug Start: 01-05-2023 take 1 tablet by mouth in the morning, then take 1 tablet by mouth at mealtime naproxen (NAPROSYN) 500 mg tablet Take 1 tablet (500 mg total) by mouth in the morning and 1 tablet (500 mg total) in the evening. Take with meals. 60 tablet 1 01/05/2023 Active take 1 tablet by katherine th every twenty-four hours Naproxen 375 MG 1 Tablet Orally daily Active take 1 tablet by katherine th every twelve hours at mealtime as needed Naproxen 500 MG 1 tablet with food or milk as needed Orally every 12 hrs PRN Active ondansetron 4 mg disintegrating oral tablet (1 source) Serotonin-3 Receptor Antagonist Start: 03-13-2023 take 1 tablet by mouth every eight hours as needed for nausea ondansetron ODT (ZOFRAN ODT) 4 mg disintegrating tablet Dissolve 1 tablet (4 mg total) on tongue every 8 (eight) hours as needed for nausea for up to 10 doses. 10 tablet 0 03/13/2023 Active sertraline 50 mg oral tablet (1 source) Serotonin Reuptake Inhibitor take 1 tablet by mouth in the morning sertraline (ZOLOFT) 50 mg tablet Take 1 tablet (50 mg total) by mouth in the morning. 0 Active triamcinolone acetonide 1 mg/ml topical cream (2 sources) Corticosteroid Triamcinolone Acetonide 0.1 % APPLY 1 APPLICATION TO AFFECTED AREA EXTERNALLY TWICE A DAY FOR 14 DAYS External for 30 Days Active Completed/Discontinued Medications Medication Drug Class(es) Dates Sig (Normalized) Sig (Original) penicillin v potassium 500 mg oral tablet [...] MVMT/LOAD INIT] Onset: 02-02-2022 Episodic Mood disorders (7 sources) Bipolar disorder; Translations: [Bipolar disorder, unspecified] Onset: 12-04-2019 Chronic Osteoarthritis (10 sources) Bilateral primary osteoarthritis of knee; Translations: [Unspecified osteoarthritis, unspecified site] Onset: 10-17-2017 Chronic Other aftercare (1 source) Other terminal manager (current) drug therapy; Translations: [OTH RESIDENTIAL CURRENT DRUG THERAPY] Onset: 02-02-2022 Episodic Other connective tissue disease (3 sources) Pain in left leg; Translations: [PAIN IN LEFT LEG] Onset: 01-17-2022 Episodic Other female genital disorders (1 source) Abnormal uterine bleeding; Translations: [Abnormal uterine and vaginal bleeding, unspecified] Onset: 05-10-2019 05-10-2019 Chronic Other lower respiratory disease (1 source) Snoring [...] IN LEFT KNEE] Onset: 01-18-2022 Episodic Other nutritional; endocrine; and metabolic disorders [...] metabolic disorders (1 source) Obesity, unspecified Chronic Other nutritional; endocrine; and metabolic disorders (1 source) Body mass index 40+ - severely obese; Translations: [Morbid (severe) obesity due to excess calories] Onset: 06-02-2020 06-02-2020 Chronic Sprains and strains (1 source) Strain [...] Classification Problem Date Documented Da te Episodic/Chronic Intestinal infection (1 source) Viral gastroenteritis; Translations: [Viral intestinal infection, unspecified] Onset: 05-25-2022 05-25-2022 Episodic Other non-traumatic joint disorders (1 source) Shoulder pain; Translations: [Acute pain of right shoulder] Episodic Other non-traumatic joint disorders (6 sources) Pain in right knee; Translations: [Pain in joint, lower leg] Onset: 10-22-2017 Episodic Results Test Name Value Interpretation Reference [...] JAYLA KEBEDE Date: 2022-02-01 00:56 Normal [facility] KNEE LEFT 4VWSon 10-17-2017 KNEE LEFT 4[facility]WS [facility] [address] [place] [address] ==Patient Name: DIANE HANDLEY : 1980Sex: FAge: Race: WhiteMRN: [id number]. Location: 93Patient Status: OVisit #: [id number] Date: 10/17/2017 3:25:00 PMCompleted Date: 10/17/2017 03:47 PMRequesting Provider: JOSUE CORTEZ Attending Provider: JOSUE CORTEZ Report Copy To: SELF, REFERRED Signs & Symptoms: M25.569 Pain in unspecified knee [id number]: AthenaComments: , Views (X-RAY, KNEE): AP, Lateral, Tunnel, [place] , Weight Bearing?: Y , With Magnification Marker?: N , Views (X-RAY, KNEE): AP, Lateral, Tunnel, [place] , Weight Bearing?: Y , With Magnification Marker?: N , , , Ordering Provider - JOSUE CORTEZ MD , Exam: KNEE LEFT 4VWSAccession #: [id number] =========PELVIS 1 OR 2 VWS, KNEE LEFT [...] System PROTOCOL: AP(PA) view was obtained. (accession [id number]), AP,Lateral,Tunnel and Tangential views were obtained. (accession [id number]), AP,Lateral,Tunnel and Tangential views were obtained. (accession [id number]) COMPARISON: None FINDINGS: Pelvis: No acute abnormality. [...] hips Electronically signed by:Ernie Albert. Transcribed by: [email or web address], User Resident: Electronically Signed by: ERNIE ALBERT @ 10/17/2017 04:35 PM Normal [facility] Comment on above: Order Comment: , Views (X-RAY, KNEE): AP , Lateral, Tunnel, [place] , Weight Bearing?: Y , With Magnification Marker?: N , Views (X-RAY, KNEE): AP, Lateral, Tunnel, [place] , Weight Bearing?: Y , With Magnification Marker?: N , , , Ordering Provider - JOSUE CORTEZ MD , KNEE RIGHT 4 [facility] 8 KNEE RIGHT 4 [facility] [address] [place], [place] [address] ==Patient Name: DIANE HANDLEY : 1980Sex: FAge: Race: WhiteMRN: [id number]. Location: 93Patient Status: OVisit #: [id number] Date: 10/17/2017 3:25:00 PMCompleted Date: 10/17/2017 03:40 PMRequesting Provider: JOSUE CORTEZ Attending Provider: JOSUE CORTEZ Report Copy To: SELF, REFERRED Signs & Symptoms: M25.569 Pain in unspecified knee T60Hzkumat: AthenaComments: , Views (X-RAY, KNEE): AP, Lateral, Tunnel, [place] , Weight Bearing?: Y , With Magnification Marker?: N , Views (X-RAY, KNEE): AP, Lateral, Tunnel, [place] , Weight Bearing?: Y , With Magnification Marker?: N , , , Ordering Provider - JOSUE CORTEZ MD , Exam: KNEE RIGHT 4 VWSAccession #: [id number] =========PELVIS 1 OR 2 VWS, KNEE LEFT [...] System PROTOCOL: AP(PA) view was obtained. (accession [id number]), AP,Lateral,Tunnel and Tangential views were obtained. (accession [id number]), AP,Lateral,Tunnel and Tangential views were obtained. (accession [id number]) COMPARISON: None FINDINGS: Pelvis: No acute abnormality. [...] hips Electronically signed by:Ernie Albert. Transcribed by: [email or web address], User Resident: Electronically Signed by: ERNIE ALBERT @ 10/17/2017 04:35 PM Normal [facility] Comment on above: Order Comment: , Views (X-RAY, KNEE): AP , Lateral, Tunnel, [place] , Weight Bearing?: Y , With Magnification Marker?: N , Views (X-RAY, KNEE): AP, Lateral, Tunnel, [place] , Weight Bearing?: Y , With Magnification Marker?: N , , , Ordering Provider - JOSUE CORTEZ MD , PELVIS 1 OR 2 VWSon 10-18-19 18 PELVIS 1 OR 2 VWS [facility] [address] [place] [address] ==Patient Name: DIANE HANDLEY : 1980Sex: FAge: Race: WhiteMRN: [id number]. Location: 93Patient Status: OVisit #: [id number] Date: 10/17/2017 3:25:00 PMCompleted Date: 10/17/2017 03:40 PMRequesting Provider: JOSUE CORTEZ Attending Provider: JOSUE CORTEZ Report Copy To: SELF, REFERRED Signs & Symptoms: M25.569 Pain in unspecified knee V82Stttosi: AthenaComments: , Views (X-RAY, PELVIS): AP , Weight Bearing?: Y , With Magnification Marker?: Y , Views (X-RAY, PELVIS): AP , Weight Bearing?: Y , With Magnification Marker?: Y , , , Ordering Provider - JOSUE CORTEZ MD , Exam: PELVIS 1 OR 2 VWSAccession #: [id number] =========PELVIS 1 OR 2 VWS, KNEE LEFT [...] System PROTOCOL: AP(PA) view was obtained. (accession [id number]), AP,Lateral,Tunnel and Tangential views were obtained. (accession [id number]), AP,Lateral,Tunnel and Tangential views were obtained. (accession [id number]) COMPARISON: None FINDINGS: Pelvis: No acute abnormality. [...] hips Electronically signed by:Ernie Albert. Transcribed by: [email or web address], User Resident: Electronically Signed by: ERNIE ALBERT @ 10/17/2017 04:35 PM Normal [facility] Comment on above: Order Comment: , Views (X-RAY, PELVIS): AP , Weight Bearing?: Y , With Magnification Marker?: Y , Views (X-RAY, PELVIS): AP , Weight Bearing?: Y , With Magnification Marker?: Y , , , Ordering Provider - JOSUE CORTEZ MD , Vital Signs Date Time Vital Sign Value Performing Clinician Facility 10-05-2022 13:15-0400 Body height 152.4 cm Laverne Emerson Other [facility] Other 10-05-2022 13:15-0400 Body mass index (BMI) [Ratio] 48.25 kg/m2 Laverne Emerson Other [facility] Other 10-05-2022 13:15-0400 Body weight 112.08 kg Laverne Missler Other [facility] Other 10-05-2022 13:15-0400 Diastolic blood pressure 76 mm[Hg] Laverne Missler Other [facility] Other 10-05-2022 13:15-0400 Respiratory rate 20 /min Laverne Missler Other [facility] Other 10-05-2022 13:15-0400 SaO2% (BldA) [Mass fraction] 97 % Laverne Missler Other [facility] Other 10-05-2022 13:15-0400 Systolic blood pressure 122 mm[Hg] Laverne Missler Other [facility] Other 02-28-2020 13:09-0500 Body Temperature 97.5 [degF] STAFF, [facility] 02-28-2020 13:09-0500 BP Diastolic 83 mm[Hg] STAFF, [facility] 02-28-2020 13:09-0500 BP Systolic 149 mm[Hg] STAFF, [facility] 02-28-2020 13:09-0500 [facility]ulse ([facility] Rate) 83 /[facility]-28-2020 13:09-0500 Pulse Oximetry 98 % STAFF, [facility] 02-28-2020 13:09-0500 [facility] Rate 18 /[facility]-28-2020 13:06-0500 BMI (Body Mass Index) 46.3 kg/m2 [facility] 02-28-2020 13:06-0500 Body weight 111.13 kg STAFF, [facility] 02-28-2020 13:06-0500 Height 154.94 cm [facility]FF, [facility] Encounters Encounter Date Encounter Type Care Provider Facility Start: 03-22-2023 Telephone encounter Imani Wood RN [facility] Start: 11-16-2022 End: 11-16-2022 ambulatory Laverne Emerson Other [facility] Audience Other Start: 11-16-2022 Telephone encounter Laverne [facility] Start: 10-05-2022 End: 10-06-2022 ambulatory Chiki Coombs [facility] Cursogram Other Start: 10-05-2022 Nutrition therapy Laverne Emerson [facility] Start: 02-01-2022 End: 02-01-2022 [facility] Facility:H[facility] Start: 01-17-2022 End: 01-17-2022 [facility] Facility:H[facility] Start: 10-19-2021 End: 10-20-2021 [facility] Facility:[facility] Start: 02-28-2020 End: 02-28-2020 Emergency department patient visit STAFF, [facility] Start: 10-17-2017 End: 10-18-2017 Patient encounter CARMENKIMBERLY DANA Facility:[facility] Start: 02-07-2017 End: 02-08-2017 Patient encounter DEFAULT PHYSICIAN Facility:[facility] Plan of Treatment Date Care Activity Detail Author Start: 03-22-2024 Tobacco Screening Tobacco Screening [facility] Start: 03-13-2024 Adult BMI Screening Adult BMI Screening [facility] Start: 12-02-2022 Influenza vaccination Influenza Vaccine [facility] Start: 11-03-1999 Screening for malignant neoplasm of cervix Pap Smear [facility] Start: 1997 DTaP,Tdap and Td Vaccines ( - Tdap) DTaP,Tdap and Td Vaccines ( - Tdap) [facility] Start: 1996 Adult BMI Follow Up Plan Adult BMI Follow Up Plan [facility] Start: 1990 Depression Screening Depression Screening [facility] Injection aa&/strd genicular nrv branches w/img INJECTION BLOCK NERVE KNEE Primary osteoarthritis of right knee [facility] Patient Education Shoulder Pain (ED) [facility] Patient referral [facility] Payers Date Payer Category Payer Medicaid [id number] 2022 Self-pay [id number] 2022 [facility] MEDICA[facility] [id number] 2022-Present [phone] [address] [place] [address] [id number] 1980 Unknown [id number] 1980 Unknown [id number] 1980 Unknown [id number] 1961 Medicaid [id number] Unknown Unknown [id number] Social History Date Type Detail [facility] Start: 1980 Sex Assigned At Female [facility] Start: 05-14-2020 End: 03-22-2023 Sex Assigned At [facility] [employer] Other Start: 01-26-2022 [facility] Start: 01-26-2022 Tobacco use and exposure Smokeless tobacco non-user [facility] Start: 03-22-2023 Alcohol intake Current non-dr cell liner of alcohol (finding) [facility] Start: 05-14-2020 End: 03-22-2023 History of Social function [facility] Housing Instability Unknown [facility] Start: 08-02-1979 Sex Assigned At Not on file [facility] Goals Date Patient Goal Desired Activity /State Note 03-22-2023 Telephone Encounter - Imani Wood RN - 03/22/2023 1:42 PM EST Note Date & Type Note Facility 03-22-2023 Miscellaneous Notes Formattin g of this note might be different from the original. Patient called to request a work note for today. Patient states she did not go to work today. Disbursing Officer spoke with [employer] who approves work note for today. Patient asks that note be sent to [email or web address] Assignment. Done. documented in this encounter [facility] [employer] [facility] Telephone encounter Note 03-22-2023 Telephone Encounter - Imani Wood RN - 03/22/2023 1:42 PM EST Note Date & Type Note Facility 03-22-2023 Telephone encount er Note Patient called to request a work note for today. Patient states she did not go to work today. Disbursing Officer spoke with [employer] who approves work note for today. Patient asks that note be sent to [email or web address] Assignment. Done. [facility] [employer] [facility] Evaluation note 10-05-2022 Note Date & Type [...] Strongly encouraged to take advantage of our appellate law clerk available at [facility] that can help work around limitations. Each [...] will perform surveillance through out our visits. [facility] [facility] Other Clinical Note 10-20-2021 Note Date & [...] involving the medial compartment. Electronically authenticated by: VRIGILIO FORRESTER Date: 2021-10-19 22:25 [facility] Evaluation note Note Date & Type Note Facility Evaluation note No Information [employer] Other Evaluation note Note Date & Type Note Facility Evaluation note No assessment information [facility] Work Phone: History general Narrative - Reported Note Date & Type Note Facility History general Narrative - Reported Type Medical History Osteoarthritis Medical History Anxiety Medical History Arthritis of bilateral knees Medical History Depression Medical History Panic attacks Medical History Anemia Medical History Bipolar Surgical History tubal ligation Surgical History Uterine ablation 11/2019 Surgical History [place] teeth extraction Hospitalization History child Hospitalization History See above [facility] [facility] Other Instructions Note Date & Type Note Facility Instructions Not on filedocumented in this en counter [facility] Summary Purpose Family History No Family History Records FoundNo Family History Records FoundNo Family History Records Found Advance Directives Advance Directive Response Recorded Date/ Time Advance Directives No February 1:20pm Chief Complaint and Reason for Visit Chief Complaint Right shoulder pain Assessments No Assessments Information Available Discharge Instructions Additional Instructions Use [id number] pain control as needed Robaxin is a muscle relaxer and can make you drowsy. Do not drive or drink alcohol on this medication. Follow-up with your family doctor Additional Source Comments INFORMATION SOURCE (unrecogn ized section and content) DATE CREATED AUTHOR 10/21/2017 [facility] DATE CREATED AUTHOR AUTHOR'S ORGANIZ ATION 03/02/2022 [facility] DATE CREATED AUTHOR AUTHOR'S ORGANIZ ATION 04/03/2023 [facility] REASON FOR VISIT (unrecogniz ed section and content) Initial [facility] Goals (unrecognized section and content) Goals may be documented in a n alternate section Care Teams (unrecognized sec tion and content) Airconditioning Drafting Officer Relationship Specialty Start Date End Date Chiki Coombs PA-C [address] [place], [place] [id number] PCP - General Physician Certified First Assistant 09/06/22 FOR RECORDS PERTAINING TO PATIENTS WHO ARE [...] BE BASED ON THE PRIMARY CLINICAL RECORDS. [employer] [facility]. provides no warranty or guarantee of the accuracy or completeness of information in this document.
[2023-04-23] MEDS: KETOROLAC TROMETHAMINE 60 MG/2 ML VIAL IM (13:48)
== END 2023-04-23 13:50 | disposition home or self-care (01) ==
PROVIDERS: Emergency Provider Emergency Medicine; PCP Physician Assistant
DX: M25.561 Pain in right knee (principal); Z79.899 Other long term (current) drug therapy
CPT/HCPCS: 73560; 96372; 99284; J1885

== ENCOUNTER 2023-05-09 22:28 | Outpatient (REF) | payer OTHER, SELFPAY ==
--- OUTSIDE RECORDS SUMMARY | 2023-05-09 22:32 | XMS_ITS | CCD ---
Author Name Unknown Address [address] [place] [address] Organization [facility] Care Team Providers Care Home Day Care Provider Name Role Phone PHYSICIAN, DEFAULT Unavailable Unavailable PHYSICIAN, DEFAULT Unavailable Unavailable DANA, SUMMON Unavailable Unavailable DANA, SUMMON Unavailable Unavailable SELF, REFERRED Unavailable Unavailable SELF, REFERRED Unavailable Unavailable NON, STAFF, Primary Care Provider Unavailabl e [facility] Unava ilable KAYLEN, DR SWANN Admitting Unavailable KAYLEN, DR SWANN Attending Unavailable USAMA, DR VIRGILIO Gupta Consulting Unavailable CLAUDE MAYORGA Consulting Unavailable [facility] Unava ilable APRIL, DR ELODIA Gupta Admitting Unavailable CHEN, DR ELODIA Gupta Attending Unavailable APRIL, DR ELODIA Gupta Consulting Unavailable [facility] Unava ilable MARKER, DR LONG Admitting Unavailable MARKER, DR LONG Attending Unavailable MARKER, DR LONG Consulting Unavailable JAYLA KEBEDE Consulting Unavailable Laverne Emerson Unavailable Belem Coombs Attending Unavailable Belem Coombs Primary Care Unavailable Belem Coombs Admitting Unavailable Belem Coombs PA-C Primary Care Provider [phone] ILIANA MCWILLIAMS Attending Unavailable BELEM COOMBS Referring Unavailable BELEM COOMBS Primary Care Unavailable ELMO GIRON Attending Unavailable BELEM COOMBS Referring Unavailable BELEM COOMBS Primary Care Unavailable BELEM COOMBS Referring Unavailable BELEM COOMBS Primary Care Unavailable MIGUEL ACEVEDO Admitting Unavailable MIGUEL ACEVEDO Attending Unavailable BELEM COOMBS Referring Unavailable BELEM COOMBS Primary Care Unavailable MIGUEL ACEVEDO Attending Unavailable MIGUEL ACEVEDO Referring Unavailable BELEM COOMBS Primary Care Unavailable GIACOMO PICKARD Attending Unavailable BELEM COOMBS Primary Care Unavailable Unavailable Unavailable Unavailable Medications Current Medications [...] tablet Active 750 MG PO Q8H 9 February 28, 2020 2:02pm naproxen 500 mg [...] [Bipolar disorder, unspecified] Onset: 12-04-2019 Chronic Osteoarthritis (12 sources) Bilateral primary osteoarthritis of knee; Translations: [Unspecified osteoarthritis, unspecified site] Onset: 10-17-2017 Chronic Other aftercare (1 source) Other [place] ([facility] drug therapy; Translations: [OTH JAIL CURRENT DRUG THERAPY] Onset: 02-02-2022 Episodic Other [...] Onset: 01-18-2022 Episodic Other non-traumatic joint disorders (1 source) Knee pain Onset: 03-22-2023 Episodic Other nutritional; endocrine; and metabolic disorders [...] to excess calories] Onset: 06-02-2020 06-02-2020 Chronic Other screening for suspected conditions (not mental disorders or infectious disease) (1 source) Encounter for screening mammogram for malignant neoplasm of breast; Translations: [Encounter for screening mammogram for malignant neoplasm of breast] Onset: 04-28-2023 Episodic Sprains and strains (1 source) Strain of unspecified muscle, fascia and tendon at shoulder and upper arm level, right arm, initial encounter; Translations: [STRN UNS MSC F TND SHLDR UA RA INIT] Onset: 02-02-2022 Episodic Unclassified (2 sources) Unknown / UNK(Unknown) Onset: 10-17-2017 Unclassified (1 source) Dietary counseling and surveillance; Translations: [Dietary counseling and surveillance] Onset: 10-05-2022 Unclassified (1 source) Primary osteoarthritis of right knee [M17.11] Onset: 05-05-2023 Past or Other Problems Problem Classification Problem [...] Name Value Interpretation Reference Range Facil ity MAMM SCREENING BILATERAL W C agronomist 05-01-2023 MAMM SCREENING BILATERAL W CAD MAMM SCREENING BILATERAL W CAD EXAM: MAMM SCREENING BILATERAL W CAD, 04/28/2023 9:13 AM CLINICAL INDICATIONS: Screening, Visit for screening mammogram. COMPARISON: No prior studies currently available for comparison. TECHNIQUE: Bilateral digital tomosynthesis MLO and CC views of the breasts were obtained, with creation of synthetic 2D views. Computer aided detection was utilized. FINDINGS: There are scattered areas of fibroglandular density. There is a 4 mm mass within the 9:00 left breast 3 cm from the nipple. There are no other suspicious masses, calcifications, or areas of architectural distortions. IMPRESSION: There is a 4 mm mass within the medial left breast for which spot compression views and possible ultrasound are recommended for further characterization. BI-RADS: BI-RADS 0 - Incomplete. Needs additional imaging evaluation. Recommendation: Additional imaging required. Finalized by Irina Cuello MD on 05/01/2023 3:33 PM 0A b ADDITIONAL I Normal [facility] XR SHOULDER RT 2V or >on XR [...] by: JAYLA KEBEDE Date: 2022-02-01 00:56 Normal [facility] KNEE LEFT 4VWSon 10-17-2017 KNEE [facility] [address] [place] [address] =====Patient Name: MARIBELL HANDLEY : 1980Sex: FAge: Race: WhiteMRN: [id number]. Location: 93Patient Status: OVisit #: [id number] Date: 10/17/2017 3:25:00 PMCompleted Date: 10/17/2017 03:47 PMRequesting Provider: JOSUE CORTEZ Attending Provider: JSOUE CORTEZ Report Copy To: SELF, REFERRED Signs & Symptoms: M25.569 Pain in unspecified knee [id number]: AthenaComments: , Views (X-RAY, KNEE): AP, Lateral, Tunnel, [place] , Weight Bearing?: Y , With Magnification Marker?: N , Views (X-RAY, KNEE): AP, Lateral, Tunnel, [place] , Weight Bearing?: Y , With Magnification Marker?: N , , , Ordering Provider - JOSUE CORTEZ MD , Exam: KNEE LEFT 4VWSAccession #: [id number] PELVIS 1 OR 2 VWS, KNEE LEFT 4VWS, [...] System PROTOCOL: AP(PA) view was obtained. (accession [id number]), AP,Lateral,Tunnel and Tangential views were obtained. (accession [id number]), AP,Lateral,Tunnel and Tangential views were obtained. (accession [id number]) COMPARISON: None FINDINGS: Pelvis: No acute abnormality. [...] hips Electronically signed by:Ernie Albert. Transcribed by: [email or web address], User Resident: Electronically Signed by: ERNIE ALBERT @ 10/17/2017 04:35 PM Normal [facility] Comment on above: Order Comment: , Views (X-RAY, KNEE): AP , Lateral, Tunnel, [place] , Weight Bearing?: Y , With Magnification Marker?: N , Views (X-RAY, KNEE): AP, Lateral, Tunnel, [place] , Weight Bearing?: Y , With Magnification Marker?: N , , , Ordering Provider - JOSUE CORTEZ MD , [facility]NEE RIGHT 4 [facility] [address] [place] [address] =====Patient Name: MARIBELL HANDLEY : 1980Sex: FAge: Race: WhiteMRN: [id number]. Location: 93Patient Status: OVisit #: [id number] Date: 10/17/2017 3:25:00 PMCompleted Date: 10/17/2017 03:40 PMRequesting Provider: JOSUE CORTEZ Attending Provider: JOSUE CORTEZ Report Copy To: SELF, REFERRED Signs & Symptoms: M25.569 Pain in unspecified knee [id number]: AthenaComments: , Views (X-RAY, KNEE): AP, Lateral, Tunnel, [place] , Weight Bearing?: Y , With Magnification Marker?: N , Views (X-RAY, KNEE): AP, Lateral, Tunnel, [place] , Weight Bearing?: Y , With Magnification Marker?: N , , , Ordering Provider - JOSUE CORTEZ MD , Exam: KNEE RIGHT 4 VWSAccession #: [id number] PELVIS 1 OR 2 VWS, KNEE LEFT 4VWS, [...] System PROTOCOL: AP(PA) view was obtained. (accession [id number]), AP,Lateral,Tunnel and Tangential views were obtained. (accession [id number]), AP,Lateral,Tunnel and Tangential views were obtained. (accession [id number]) COMPARISON: None FINDINGS: Pelvis: No acute abnormality. [...] hips Electronically signed by:Ernie Albert. Transcribed by: [email or web address], User Resident: Electronically Signed by: ERNIE ALBERT @ 10/17/2017 04:35 PM Normal [facility] Comment on above: Order Comment: , Views (X-RAY, KNEE): AP , Lateral, Tunnel, [place] , Weight Bearing?: Y , With Magnification Marker?: N , Views (X-RAY, KNEE): AP, Lateral, Tunnel, [place] , Weight Bearing?: Y , With Magnification Marker?: N , , , Ordering Provider - JOSUE CORTEZ MD , PELVIS 1 OR 2 VWSon 10-18-19 18 PELVIS 1 OR 2 VWS [facility] [address] [place] [address] =====Patient Name: MARIBELL HANDLEY : 1980Sex: FAge: Race: WhiteMRN: [id number]. Location: 93Patient Status: OVisit #: [id number] Date: 10/17/2017 3:25:00 PMCompleted Date: 10/17/2017 03:40 PMRequesting Provider: JOSUE CORTEZ Attending Provider: JOSUE CORTEZ Report Copy To: SELF, REFERRED Signs & Symptoms: M25.569 Pain in unspecified knee [id number]: AthenaComments: , Views (X-RAY, PELVIS): AP , Weight Bearing?: Y , With Magnification Marker?: Y , Views (X-RAY, PELVIS): AP , Weight Bearing?: Y , With Magnification Marker?: Y , , , Ordering Provider - JOSUE CORTEZ MD , Exam: PELVIS 1 OR 2 VWSAccession #: [id number] PELVIS 1 OR 2 VWS, KNEE LEFT 4VWS, [...] System PROTOCOL: AP(PA) view was obtained. (accession [id number]), AP,Lateral,Tunnel and Tangential views were obtained. (accession [id number]), AP,Lateral,Tunnel and Tangential views were obtained. (accession [id number]) COMPARISON: None FINDINGS: Pelvis: No acute abnormality. [...] hips Electronically signed by:Ernie Albert. Transcribed by: [email or web address], User Resident: Electronically Signed by: ERNIE ALBERT @ 10/17/2017 04:35 PM Normal [facility] Comment on above: Order Comment: , Views (X-RAY, PELVIS): AP , Weight Bearing?: Y , With Magnification Marker?: Y , Views (X-RAY, PELVIS): AP , Weight Bearing?: Y , With Magnification Marker?: Y , , , Ordering Provider - JOSUE CORTEZ MD , Vital Signs Date Time Vital Sign Value Performing Clinician Facility 10-05-2022 13:15-0400 Body height 152.4 cm Laverne Emerson Other [facility] Other 10-05-2022 13:15-0400 Body mass index (BMI) [Ratio] 48.25 kg/m2 Laverne Emerson Other [facility] Other 10-05-2022 13:15-0400 Body weight 112.08 kg Laverneher Emerson Other [facility] Other 10-05-2022 13:15-0400 Diastolic blood pressure 76 mm[Hg] Laverne Missler Other [facility] Other 10-05-2022 13:15-0400 Respiratory rate 20 /min Laverne Missler Other [facility] Other 10-05-2022 13:15-0400 SaO2% (BldA) [Mass fraction] 97 % Laverne Missler Other [facility] Other 10-05-2022 13:15-0400 Systolic blood pressure 122 mm[Hg] Laverne ler Other [facility] Other 02-28-2020 13:09-0500 Body Temperature 97.5 [degF] STAFF, [facility] 02-28-2020 13:09-0500 BP Diastolic 83 mm[Hg] STAFF, [facility] 02-28-2020 13:09-0500 BP Systolic 149 mm[Hg] STAFF, [facility] 02-28-2020 13:09-0500 Pulse (Heart Rate) 83 /min STAFF, [facility] 02-28-2020 13:09-0500 Pulse Oximetry 98 % STAFF, [facility] 02-28-2020 13:09-0500 Respiratory Rate 18 /min STAFF, [facility] 02-28-2020 13:06-0500 BMI (Body Mass Index) 46.3 kg/m2 STAFF, [facility] 02-28-2020 13:06-0500 Body weight 111.13 kg STAFF, [facility] 02-28-2020 13:06-0500 Height 154.94 cm STAFF, [facility] Encounters Encounter Date Encounter Type Care Provider Facility Start: 05-06-2023 End: 05-06-2023 ambulatory GIACOMO PICKARD [facility] Start: 05-05-2023 End: 05-06-2023 ambulatory MIGUEL Santana ACEVEDO [facility] Start: 04-28-2023 End: 04-29-2023 ambulatory BELEM COOMBS [facility] Start: 04-25-2023 ambulatory ILIANA MCWILLIAMS [facility] Start: 03-22-2023 Telephone encounter Imani Wood RN [facility] Start: 03-22-2023 End: 03-22-2023 ambulatory ELMO N BREE [facility] Start: 11-16-2022 End: 11-16-2022 ambulatory Laverne Emerson Other [facility] Other Start: 11-16-2022 Telephone encounter Laverne Emerson [facility] Start: 10-05-2022 End: 10-06-2022 ambulatory Belem Choudhury Coombs [facility] Other Start: 10-05-2022 Nutrition therapy Laverne Emerson [facility] Start: 02-01-2022 End: 02-01-2022 [facility] Start: 01-17-2022 End: 01-17-2022 [facility]ulatory [facility] Start: 10-19-2021 End: 10-20-2021 ambulatory [facility] Start: 02-28-2020 End: 02-28-2020 Emergency department patient visit STAFF, [facility] Start: 10-17-2017 End: 10-18-2017 Patient encounter SUMMON DANA Facility:[facility] Start: 02-07-2017 End: 02-08-2017 Patient encounter DEFAULT PHYSICIAN Facility:[facility] Plan of Treatment Date Care Activity Detail Author Start: 03-22-2024 Tobacco Screening Tobacco Screening [facility] Start: 03-13-2024 Adult BMI Screening Adult BMI Screening [facility] Start: 12-02-2022 Influenza vaccination Influenza Vaccine [facility] Start: 11-03-1999 Screening for malignant neoplasm of cervix Pap Smear [facility] Start: 1997 DTaP,Tdap and Td Vaccines (1 - Tdap) DTaP,Tdap and Td Vaccines (1 - Tdap) [facility] Start: 1996 Adult BMI Follow Up Plan Adult BMI Follow Up Plan [facility] Start: 1990 Depression Screening Depression Screening [facility] Injection aa&/strd genicular nrv branches w/img INJECTION BLOCK NERVE KNEE Primary osteoarthritis of right knee [facility] Patient Education Shoulder Pain (ED) [facility] Patient referral [facility] Payers Date Payer Category Payer Self-pay [id number] 2022 Medicaid [id number] 2022 Medicaid [employer] O [id number] 2022-Present [phone] [address] [place] [address] [id number] 1980 Unknown [id number] 1980 Unknown [id number] [id number] 1980 Unknown [id number] [id number] 1980 Unknown [id number] [id number] 1980 Unknown [id number] [id number] 1978 Unknown [id number] [id number] 1980 Unknown [id number] [id number] 1980 Unknown [id number] [id number] 1978 Unknown [id number] 2.16.840.1.598438.3.579.2.1286 1978 Unknown [id number] [id number] 1961 Medicaid [id number] Unknown Unknown [id number] Social History Date Type Detail Facility [facility] Start: 1980 Sex Assigned At Female F [facility] Start: 05-14-2020 End: 03-22-2023 Sex Assigned At [facility] [employer] Other Start: 01-26-2022 Tobacco smoking stat [facility] Never smoked tobacco [facility] Start: 01-26-2022 Tobacco use and exposure Smokeless tobacco non-user [facility] Start: 03-22-2023 Alcohol intake 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 Goals Date Patient Goal Desired Activity /State Note 03-22-2023 Telephone Encounter - Imani Wood RN - 03/22/2023 1:42 PM EST Note Date & Type Note Facility 03-22-2023 Miscellaneous Notes Formattin g of this note might be different from the original. Patient called to request a work note for today. Patient states she did not go to work today. [employer] Assistant spoke with Elmo who approves work note for today. Patient asks that note be sent to [email or web address]. Done. documented in this encounter [facility] Telephone encounter Note 03-22-2023 Telephone Encounter - Imani Wood RN - 03/22/2023 1:42 PM EST Note Date & Type Note Facility 03-22-2023 Telephone encount er Note Patient called to request a work note for today. Patient states she did not go to work today. [employer] Assistant spoke with Elmo who approves work note for today. Patient asks that note be sent to [email or web address]. Done. [facility] Evaluation note 10-05-2022 Note Date & Type [...] Strongly encouraged to take advantage of our health technician hearing available at [facility] that can help work around limitations. Each [...] will perform surveillance through out our visits. [facility] Other Clinical Note 10-20-2021 Note Date & [...] by: VIRGILIO FORRESTER Date: 2021-10-19 22:25 [facility] Evaluation note Note Date & Type Note Facility Evaluation note No Information [employer] Other Evaluation note Note Date & Type Note Facility Evaluation note No assessment information [facility] Work Phone: History general Narrative - Reported Note Date & Type Note Facility History general Narrative - Reported Type Medical History Osteoarthritis Medical History Anxiety Medical History Arthritis of bilateral knees Medical History Depression Medical History Panic attacks Medical History Anemia Medical History Bipolar Surgical History tubal ligation Surgical History Uterine ablation 11/2019 Surgical History [place] teeth extraction Hospitalization History child Hospitalization History See above [facility] Other Instructions Note Date & Type Note [...] Information Available Discharge Instructions Additional Instructions Use [id number] pain control as needed Robaxin is a muscle relaxer and can make you drowsy. Do not drive or drink alcohol on this medication. Follow-up with your family doctor Additional Source Comments INFORMATION SOURCE (unrecogn ized section and content) DATE CREATED AUTHOR 10/21/[address] [facility] DATE CREATED AUTHOR AUTHOR'S ORGANIZ ATION 03/02/2022 [facility] DATE CREATED AUTHOR AUTHOR'S ORGANIZ ATION 04/03/2023 [facility] DATE CREATED AUTHOR AUTHOR'S ORGANIZ ATION 05/07/2023 [facility] REASON FOR VISIT (unrecogniz ed section and content) Initial [facility] Goals (unrecognized section and content) Goals may be documented in a n alternate section Care Teams (unrecognized sec tion and content) Home Day Care Provider Relationship Specialty Start Date End Date Belem Coombs PA-C [address] [place] [address] PCP - General Physician Special Education Curriculum Specialist 09/06/22 FOR RECORDS PERTAINING TO PATIENTS WHO [...] BE BASED ON THE PRIMARY CLINICAL RECORDS. [employer] [facility]. provides no warranty or guarantee of the accuracy or completeness of information in this document.
== END 2023-05-09 22:29 | disposition home or self-care (01) ==
LOC: LAB 22:28
PROVIDERS: PCP Physician Assistant; Visit Provider Physician Assistant
DX: N39.0 Urinary tract infection, site not specified (principal)
CPT/HCPCS: 87086; 87150; 87186

== ENCOUNTER 2023-06-08 08:15 | Emergency (ER) | payer OTHER, SELFPAY ==
[2023-06-08 08:20] VITALS: BP 135/76; PULSE 68; RESP 18; TEMP 36.6; O2SAT 97; BMI 49.1
--- OUTSIDE RECORDS SUMMARY | 2023-06-08 08:24 | XMS_ITS | CCD ---
Author Name Unknown Address [address] [place] [address] Organization [facility] Care Team Providers Care Olive Brine Tester Name Role Phone PHYSICIAN, DEFAULT Unavailable Unavailable PHYSICIAN, DEFAULT Unavailable Unavailable DANA, SUMMON Unavailable Unavailable DANA, SUMMON Unavailable Unavailable SELF, REFERRED Unavailable Unavailable SELF, REFERRED Unavailable Unavailable NON, STAFF, Primary Care Provider Unavailabl e [facility] Unava ilable KAYLEN, DR SWANN Admitting Unavailable KAYLEN, DR SWANN Attending Unavailable USAMA, DR VIRGILIO Gupta Consulting Unavailable CLAUDE MAYORGA Consulting Unavailable [facility] Unava ilable APRIL, DR ELODIA Gupta Admitting Unavailable APRIL, DR ELODIA Gupta Attending Unavailable APRIL, DR ELODIA Gupta Consulting Unavailable [facility] Unava ilable MARKER, DR LONG Admitting Unavailable MARKER, DR LONG Attending Unavailable MARKER, DR LONG Consulting Unavailable JAYLA KEBEDE Consulting Unavailable Laverne Emerson Unavailable Belem Coombs Attending Unavailable Belem Coombs Primary Care Unavailable Belem Coombs Admitting Unavailable Belem Coombs PA-C Primary Care Provider [phone] Belem Coombs PA-C Primary Care Provider [phone] ILIANA STEVENS Attending Unavailable BELEM COOMBS Referring Unavailable BELEM COOMBS Primary Care Unavailable ELMO GIRON Attending Unavailable BELEM COOMBS Referring Unavailable BELEM COOMBS Primary Care Unavailable BELEM COOMBS Referring Unavailable BELEM COOMBS Primary Care Unavailable MIGUEL MENDEZ Admitting Unavailable MIGUEL MENDEZ Attending Unavailable BELEM COOMBS Referring Unavailable BELEM COOMBS Primary Care Unavailable MIGUEL MENDEZ Attending Unavailable MIGUEL MENDEZ Referring Unavailable BELEM COOMBS Primary Care Unavailable GIACOMO PICKARD Attending Unavailable BELEM COOMBS Primary Care Unavailable BELEM COOMBS Primary Care Unavailable RICA BRENNER Attending Unavailable RICA BRENNER Attending Unavailable RICA BRENNER Referring Unavailable BELEM COOMBS Primary Care Unavailable ILIANA STEVENS Attending Unavailable BELEM COOMBS Referring Unavailable BELEM COOMBS Primary Care Unavailable KADIE SHAH Attending Unavailable Unavailable Unavailable Unavailable Medications Current Medications Medication Drug Class(es) Dates Sig (Normalized) Sig (Original) acetaminophen 500 mg oral tablet (1 source) Start: 05-15-2023 take 2 tablets by mouth every six hours as needed for pain acetaminophen (TYLENOL EXTRA STRENGTH) 500 mg tablet Take 2 tablets (1,000 mg total) by mouth every 6 (six) hours as needed for pain. 30 tablet 0 05/15/2023 Active cyclobenzaprine hydrochloride 10 mg oral tablet (2 sources) Muscle Relaxant cyclobenzap-irri ta nt cntr irr2 10 mg kit 1 tablet 0 Active diclofenac sodium 0.01 mg/mg topical gel (2 sources) Nonsteroidal Anti-inflammatory Drug Start: 10-28-2022 diclofenac sodium (VOLTAREN) 1 % gel Apply 2 g topically in the morning and 2 g at noon and 2 g in the evening and 2 g before bedtime. 100 g 0 10/28/2022 Active dicyclomine hydrochloride 20 mg oral tablet (2 sources) Anticholinergic Start: 08-30-2022 take 1 tablet by mouth in the morning, then take 1 tablet by mouth at bedtime dicyclomine (BENTYL) 20 mg tablet Take 1 tablet (20 mg total) by mouth in the morning and 1 tablet (20 mg total) before bedtime. 20 tablet 0 08/30/2022 Active docusate sodium 100 mg oral capsule (2 sources) Start: 10-14-2019 docusate sodium (COLACE) 100 mg capsule ferrous sulfate 325 mg oral tablet (4 sources) Start: 10-08-2019 ferrous sulfate 325 (65 FE) mg tablet Ferrous Sulfate Active fluticasone propionate 0.05 mg/actuat metered dose nasal spray (2 sources) Corticosteroid Start: 04-14-2021 take 1 spray(s) nasal route once daily fluticasone propionate (FLONASE) 50 mcg/actuation nasal spray Administer 1 spray into each nostril daily. 16 g 0 04/14/2021 Active ibuprofen 600 mg oral tablet (4 sources) Nonsteroidal Anti-inflammatory Drug Start: 10-28-2022 take [...] 2020 2:02pm naproxen 500 mg oral tablet (6 sources) Nonsteroidal Anti-inflammatory Drug Start: 01-05-2023 take [...] Active ondansetron 4 mg disintegrating oral tablet (2 sources) Serotonin-3 Receptor Antagonist Start: 03-13-2023 take 1 tablet by mouth every eight hours as needed for nausea ondansetron ODT (ZOFRAN ODT) 4 mg disintegrating tablet Dissolve 1 tablet (4 mg total) on tongue every 8 (eight) hours as needed for nausea for up to 10 doses. 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) drug therapy; Translations: [OTH MCC CURRENT DRUG THERAPY] Onset: 02-02-2022 Episodic Other connective tissue disease (3 sources) Pain in left leg; Translations: [PAIN IN LEFT LEG] Onset: 01-17-2022 Episodic Other female genital disorders (2 sources) Abnormal uterine bleeding; Translations: [Abnormal uterine and vaginal bleeding, unspecified] Onset: 05-10-2019 05-10-2019 Chronic Other lower respiratory disease (1 source) Snoring Episodic Other nervous system disorders (2 sources) Other chronic pain; Translations: [OTHER CHRONIC PAIN] [...] Onset: 01-18-2022 Episodic Other non-traumatic joint disorders (8 sources) Pain in right knee; Translations: [Pain in joint, lower leg] Onset: 10-22-2017 Episodic Other non-traumatic joint disorders (1 source) [...] nutritional; endocrine; and metabolic disorders (2 sources) Body mass index 40+ - severely obese; [...] Date Documented Da te Episodic/Chronic Intestinal infection (2 sources) Viral gastroenteritis; Translations: [Viral intestinal infection, unspecified] Onset: 05-25-2022 05-25-2022 Episodic Other non-traumatic joint disorders (1 source) Shoulder pain; Translations: [Acute pain of right shoulder] Episodic Results Test Name Value Interpretation Reference Range Facil ity XR KNEE RT 3 VWSon 4 XR KNEE RT 3 VWS XR KNEE RT 3 VWS XR KNEE RT 3 VWS Clinical history:Chronic right knee pain, fell 2 weeks ago injuring the knee further acute knee pain, fall Comparison: 01/19/2022 Findings: Tricompartmental joint degenerative change and joint space loss and narrowing osteophyte formation of all 3 compartments. No joint effusion fracture or dislocation. Impression: Severe tricompartmental joint degenerative change without acute process identified. 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 Location: 93Patient Status: OVisit #: [id number] Date: 10/17/2017 3:25:00 PMCompleted Date: 10/17/2017 03:47 PMRequesting Provider: JOSUE CORTEZ Attending Provider: JOSUE CORTEZ Report Copy To: SELF, REFERRED Signs & Symptoms: M25.569 Pain in unspecified knee [id number]: AthenaComments: , Views (X-RAY, KNEE): AP, Lateral, Tunnel, [place] , Weight Bearing?: Y , With Magnification Marker?: N , Views (X-RAY, KNEE): AP, Lateral, Tunnel, [place] , Weight Bearing?: Y , With Magnification Marker?: N , , , Ordering Provider - JOSUE CORTEZ MD , Exam: KNEE LEFT 4VWSAccession #: [id number] PELVIS 1 OR 2 VWS, KNEE LEFT [...] System PROTOCOL: AP(PA) view was obtained. (accession [id number]), AP,Lateral,Tunnel and Tangential views were obtained. (accession [id number]), AP,Lateral,Tunnel and Tangential views were obtained. (accession [id number]) COMPARISON: None FINDINGS: Pelvis: No acute abnormality. [...] hips Electronically signed by:Ernie Albert. Transcribed by: [email or web address], User Resident: Electronically Signed by: ERNIE ALBERT @ 10/17/2017 04:35 PM Normal [facility] Comment on above: Order Comment: , Views (X-RAY, KNEE): AP , Lateral, Tunnel, [place] , Weight Bearing?: Y , With Magnification Marker?: N , Views (X-RAY, KNEE): AP, Lateral, Tunnel, [place] , Weight Bearing?: Y , With Magnification Marker?: N , , , Ordering Provider - JOSUE CORTEZ MD , KNEE RIGHT 4 VWSon 8 KNEE RIGHT 4 VWS [facility] [address] [place] [address] =====Patient Name: DIANE HANDLEY : 1980Sex: FAge: Race: WhiteMRN: [id number]. Location: 93Patient Status: OVisit #: [id number] Date: 10/17/2017 3:25:00 PMCompleted Date: 10/17/2017 03:40 PMRequesting Provider: JOSUE CORTEZ Attending Provider: JOSUE CORTEZ Report Copy To: SELF, REFERRED Signs & Symptoms: M25.569 Pain in unspecified knee [id number]: AthenaComments: , Views (X-RAY, KNEE): AP, Lateral, Tunnel, [place] , Weight Bearing?: Y , With Magnification Marker?: N , Views (X-RAY, KNEE): AP, Lateral, Tunnel, [place] , Weight Bearing?: Y , With Magnification Marker?: N , , , Ordering Provider - JOSUE CORTEZ MD , Exam: KNEE RIGHT 4 VWSAccession #: [id number] PELVIS 1 OR 2 VWS, KNEE LEFT [...] System PROTOCOL: AP(PA) view was obtained. (accession [id number]), AP,Lateral,Tunnel and Tangential views were obtained. (accession [id number]), AP,Lateral,Tunnel and Tangential views were obtained. (accession [id number]) COMPARISON: None FINDINGS: Pelvis: No acute abnormality. [...] hips Electronically signed by:Ernie Albert. Transcribed by: [email or web address], User Resident: Electronically Signed by: ERNIE ALBERT @ 10/17/2017 04:35 PM Normal [facility] Comment on above: Order Comment: , Views (X-RAY, KNEE): AP , Lateral, Tunnel, [place] , Weight Bearing?: Y , With Magnification Marker?: N , Views (X-RAY, KNEE): AP, Lateral, Tunnel, [place] , Weight Bearing?: Y , With Magnification Marker?: N , , , Ordering Provider - JOSUE CORTEZ MD , PELVIS 1 OR 2 [facility] 10-18-19 18 PELVIS 1 OR 2 [facility] [address] [place] [address] =====Patient Name: DIANE HANDLEY : 1980Sex: FAge: Race: WhiteMRN: [id number]. Location: 93Patient Status: OVisit #: [id number] Date: 10/17/2017 3:25:00 PMCompleted Date: 10/17/2017 03:40 PMRequesting Provider: JOSUE CORTEZ Attending Provider: JOSUE CORTEZ Report Copy To: SELF, REFERRED Signs & Symptoms: M25.569 Pain in unspecified knee [id number]: AthenaComments: , Views (X-RAY, PELVIS): AP , Weight Bearing?: Y , With Magnification Marker?: Y , Views (X-RAY, PELVIS): AP , Weight Bearing?: Y , With Magnification Marker?: Y , , , Ordering Provider - JOSUE CORTEZ MD , Exam: PELVIS 1 OR 2 VWSAccession #: [id number] PELVIS 1 OR 2 VWS, KNEE LEFT [...] System PROTOCOL: AP(PA) view was obtained. (accession [id number]), AP,Lateral,Tunnel and Tangential views were obtained. (accession [id number]), AP,Lateral,Tunnel and Tangential views were obtained. (accession [id number]) COMPARISON: None FINDINGS: Pelvis: No acute abnormality. [...] hips Electronically signed by:Ernie Albert. Transcribed by: [email or web address], User Resident: Electronically Signed by: ERNIE ALBERT @ 10/17/2017 04:35 PM Normal [facility] Comment on above: Order Comment: , Views (X-RAY, PELVIS): AP , Weight Bearing?: Y , With Magnification Marker?: Y , Views (X-RAY, PELVIS): AP , Weight Bearing?: Y , With Magnification Marker?: Y , , , Ordering Provider - JOSUE CORTEZ MD , Vital Signs Date Time Vital Sign Value Performing Clinician Facility 05-18-2023 12:56-0500 Diastolic blood pressure 89 mm[Hg] [facility] 05-18-2023 12:56-0500 Heart rate 85 /min Iliana ARCE [facility] 05-18-2023 12:56-0500 Respiratory rate 16 /min Iliana ARCE [facility] 05-18-2023 12:56-0500 SaO2% (BldA) [Mass fraction] 100 % Iliana ARCE Work Phone: [facility] 05-18-2023 12:56-0500 Systolic blood pressure 137 mm[Hg] Iliana ARCE Work Phone: [employer] 10-05-2022 13:15-0400 Body height 152.4 cm Laverne Emerson Other [facility] Other 10-05-2022 13:15-0400 Body mass index (BMI) [Ratio] 48.25 kg/m2 Laverne Emerson Other [facility] Other 10-05-2022 13:15-0400 Body weight 112.08 kg Laverneher Emerson Other [facility] Other 10-05-2022 13:15-0400 Diastolic blood pressure 76 mm[Hg] Laverne Missler Other [facility] Other 10-05-2022 13:15-0400 Respiratory rate 20 /min Laverne Missler Other [facility] Other 10-05-2022 13:15-0400 SaO2% (BldA) [Mass fraction] 97 % Laverne Missler Other [facility] Other 10-05-2022 13:15-0400 Systolic blood pressure 122 mm[Hg] Laverne ler Other [facility] Other 02-28-2020 13:09-0500 Body Temperature 97.5 [degF] STAFF, [facility] 02-28-2020 13:09-0500 BP Diastolic 83 mm[Hg] STAFF, [facility] 02-28-2020 13:09-0500 BP Systolic 149 mm[Hg] STAFF, [facility] 02-28-2020 13:09-0500 Pulse (Heart Rate) 83 /min STAFF, [facility] 02-28-2020 13:09-0500 Pulse Oximetry 98 % STAFF, [facility] 02-28-2020 13:09-0500 Respiratory Rate 18 /min STAFF, [facility] 02-28-2020 13:06-0500 BMI (Body Mass Index) [facility]-28-[facility] 13:06-0500 Body weight 111.13 kg STAFF, [facility] 02-28-2020 13:06-0500 Height 154.94 cm STAFF, [facility] Encounters Encounter Date Encounter Type Care Provider Facility Start: 05-22-2023 End: 05-22-2023 ambulatory KADIE SHAH Not Available Start: 05-18-2023 End: 05-18-2023 ambulatory ILIANA STEVENS [facility] Start: 05-18-2023 End: 05-18-2023 Office outpatient visit 25 minutes Iliana Stevens PA Work Phone: [facility] Comment on above: Primary osteoarthrit is of right knee (Primary Dx) Start: 05-16-2023 End: 05-16-2023 Emergency department patient visit RICA Pennington ELIDIA [facility] Start: 05-06-2023 End: 05-06-2023 ambulatory GIACOMO PICKARD [facility] Start: 05-05-2023 End: 05-06-2023 ambulatory MIGUEL MENDEZ [facility] Start: 04-28-2023 End: 04-29-2023 ambulatory BELEM COOMBS [facility] Start: 04-25-2023 ambulatory ILIANA Mendoza [facility] Start: 03-22-2023 Telephone encounter Imani Wood RN [facility] Start: 03-22-2023 End: 03-22-2023 ambulatory ELMO GIRON [facility] Start: 11-16-2022 End: 11-16-2022 ambulatory Laverne Emerson Other [facility] Other Start: 11-16-2022 Telephone encounter Laverne Emerson [facility] Start: 10-05-2022 End: 10-06-2022 ambulatory Belem Coombs [facility] Other Start: 10-05-2022 Nutrition therapy [facility] Start: 02-01-2022 End: 02-01-2022 ambulatory [facility] Facility:H1 Start: 01-17-2022 End: 01-17-2022 ambulatory [facility] Facility:[facility] Start: 10-19-2021 End: 10-20-2021 ambulatory [facility] Facility:[facility]1 Start: 02-28-2020 End: 02-28-2020 Emergency department patient visit STAFF, NON [facility] Start: 10-17-2017 End: 10-18-2017 Patient encounter TANIA CORTEZ Facility:[facility] Start: 02-07-2017 End: 02-08-2017 Patient encounter DEFAULT PHYSICIAN Facility:[facility] Plan of Treatment Date Care Activity Detail Author Start: 05-18-2024 Tobacco Screening Tobacco Screening [facility] Start: 05-15-2024 Adult BMI Screening Adult BMI Screening [facility] Start: 03-22-2024 Tobacco Screening Tobacco Screening [facility] Start: 03-13-2024 Adult BMI Screening Adult BMI Screening [facility] Start: 05-30-2023 End: 05-30-2023 Patient encounter procedure [facility]A Start: 12-02-2022 Influenza vaccination Influenza Vaccine [facility] Start: 11-03-1999 Screening for malignant neoplasm of cervix Pap Smear [facility] Start: 1997 DTaP,Tdap and Td Vaccines (1 - Tdap) DTaP,Tdap and Td Vaccines (1 - Tdap) [facility] Start: 1996 Adult BMI Follow Up Plan Adult BMI Follow Up Plan [facility] Start: 1990 Depression Screening Depression Screening [facility] Injection aa&/strd genicular nrv branches w/img INJECTION BLOCK NERVE KNEE Primary osteoarthritis of right knee [facility] Patient Education Shoulder Pain (ED) [facility] Patient referral [facility] Payers Date Payer Category Payer Self-pay [id number] 2022 Medicaid [id number] 2022 Medicaid [employer] HMO [id number] 2022-Present [phone] [address] [place] [address] [id number] 1980 Unknown [id number] 1980 Unknown [id number] [id number] 1978 Unknown [id number] [id number] 1978 Unknown [id number] [id number] 1978 Unknown [id number] 2.840.1.474822.3.579.2.1286 1978 Unknown [id number] 2.840.1.747643.3.579.2.1286 1978 Unknown [id number] 2.840.1.887322.3.579.2.1286 1978 Unknown [id number] 2.0.1.773851.3.579.2.1286 1978 Unknown [id number] 2.840.1.787525.3.579.2.1286 1978 Unknown [id number] 2.840.1.564810.3.579.2.1286 1978 Unknown [id number] 2.840.1.792192.3.579.2.1286 1978 Unknown [id number] 2.840.1.341815.3.579.2.1286 1978 Unknown [id number] 2.840.1.403658.3.579.2.1286 1980 Unknown [id number] 2.840.1.658041.3.579.2.1259 1961 Medicaid [id number] Unknown Unknown [id number] [id number] Social History Date Type Detail Facility Tobacco smoking stat [facility] Unknown if ever smoked [facility] Start: 1980 Sex Assigned At Female F [facility] Start: 05-14-2020 End: 03-22-2023 Sex Assigned At [facility] Aleksandra [facility] Other Start: 01-26-2022 Tobacco smoking stat [facility] Never smoked tobacco [facility] Start: 01-26-2022 Tobacco use and exposure Smokeless tobacco non-user [facility] Start: 03-22-2023 End: 05-18-2023 Alcohol intake Current non-drinker of alcohol (finding) [facility] Start: 05-14-2020 End: 03-22-2023 History of Social function [facility] Housing Instability Unknown [facility] Start: 1980 Sex Assigned At Not on file P [facility] Goals Date Patient Goal Desired Activity /State Clinical Notes 10-20-2021 to 05-18-2023 CLAUDE Ivan - 05/18/2023 12:45 PM ESTPatient InstructionsTelephone Encounter - Imani Wood RN - 03/22/2023 1:42 PM EST Note Date & Type Note Facility 05-18-2023 History of Presen t illness Narrative [facility] [address] [place] [address] Patient: Diane Handley Sex: female : 1980 Age: 42 y.o. PCP: Belem Coombs PA-C 05/18/2023 Diane Handley is here for a(n) post procedure follow up 05/05/2023 right genicular nerve block with 100% relief thru 05/14/2023. Patient reports pain returned suddenly on 05/15/2023. The pain was so severe that she went to the ED to seek treatment. Pre-procedural pain was reported as 01/10. Chief Complaint Patient presents with Knee Pain HPI: 05/05/2023 right genicular nerve block with 100% relief thru 05/14/2023 pre-proc pain 01/1012-14-22 bilateral steroid knee injections in clinic with 0% relief 04/29/2022 Left Genicular inj - no relief Patient reports she does HEP 2-3 times per week since January 2023 Patient reports she takes Naproxen with very mild relief. She has tried and failed Mobic, Ibuprofen, Voltaren gel, Flexeril. Lyrica and Zanaflex. Knee Pain Incident onset: 2007 The injury mechanism is unknown. The pain is present in the left knee and right knee (Rt > Lt). The quality of the pain is described as aching (sharp shooting down from right knee to foot). The pain is at a severity of 10/10. The pain is severe. The pain has been Worsening (wakes her up at night) since onset. Associated symptoms include an inability to bear weight (BLE) and muscle weakness (BLE). Pertinent negatives include no numbness or tingling. It is unknown if a foreign body is present. The symptoms are aggravated by movement, weight bearing and palpation. Treatments tried: Synvisc, cortisone inj,NSAIDs: (meloxicam, naproxen,volteran) ibuprofen, tiz/flexiril, with no relief. 11/15/2019 Left knee NB 80-90% relief, anibal no relief, lyrica. mobic no relief. The treatment provided no relief. The effect of pain on patient's ADLS: Severe Impairment. Past Medical History: Diagnosis Date Arthritis Arthritis Chronic pain disorder Depression Joint pain marcia knees Knee pain Migraines Obesity Past Surgical History: Procedure Laterality Date ABLATION ENDOMETRIAL NOVASURE N/A 05/10/2019 Performed by Josefina Murguia MD at [facility] D AND C HYSTEROSCOPY N/A 05/10/2019 Performed by Josefina Murguia MD at [facility] D AND C HYSTEROSCOPY N/A 03/08/2019 Performed by Josefina Murguia MD at [facility] INJECTION BLOCK KNEE GENICULAR Left 11/15/2019 Performed by Miguel Mendez MD at [facility] INJECTION BLOCK NERVE KNEE Right Genicular Right 05/05/2023 Performed by Miguel Mendez MD at [facility] INJECTION BLOCK NERVE KNEE Left Genicular Left 03/04/2022 Performed by Miguel Mendez MD at [facility] INJECTION BLOCK NERVE KNEE Left Genicular Left 06/25/2021 Performed by Miguel Mendez MD at [facility] RADIOFREQUENCY ABLATION GENICULAR Left 04/29/2022 Performed by Miguel Mendez MD at [facility] TUBAL LIGATION No Known Allergies Family History Problem Relation Age of Onset Hypertension Mother No Known Problems Father Breast cancer Neg Hx Social History Socioeconomic History Marital status: Spouse name: Not on file Number of children: Not on file Years of education: Not on file Highest education level: Not on file Occupational History Not on file Tobacco Use Smoking status: Never Smokeless tobacco: Never Vaping Use Vaping Use: Never used Substance and Sexual Activity Alcohol use: No Drug use: No Sexual activity: Defer Other Topics Concern Not on file Social History Narrative Not on file Social Determinants of Health Financial Resource Strain: Not on file Food Insecurity: No Food Insecurity (05/18/2023) Hunger Screening Food Insecurity - Worry: Never True Food Insecurity - Inability: Never True Transportation Needs: Not on file Physical Activity: Not on file Stress: Not on file Social Connections: Not on file Interpersonal Safety: Not on file Housing Instability: Not on file Review of Systems HENT: Negative. Respiratory: Negative for cough and shortness of breath. Cardiovascular: Negative for chest pain. Gastrointestinal: Negative for constipation and diarrhea. Genitourinary: Negative for difficulty urinating and frequency. Musculoskeletal: Knee pain bilaterally Skin: Negative for rash and wound. Neurological: Positive for weakness (legs). Negative for tingling and numbness. Psychiatric/Behavioral: Negative for agitation and suicidal ideas. Vital Signs: BP 137/89 Pulse 85 Resp 16 SpO2 100% Physical Exam: GENERAL - Healthy patient that appears stated age. HEENT - Normocephalic / Atraumatic, Extraoccular movements intact, trachea midline, thyroid within normal limits. CV - pulse regular, Warm extremities with appropriate color of nailbeds. RESP - No obvious wheezing, No Shortness of Breath, No overexertion response to exam maneuvers. COORDINATION - remains intact. PSYCH - Alert and Oriented x4, Attentive and appropriate, constitutionally normal, displays normal mood and affect per situation, answered questions appropriately during examination, demonstrated appropriate attention during discussion, demonstrated appropriate cognitive reasoning and understanding of the medical condition by asking appropriate questions regarding the diagnosis and risks/benefits/alternatives of treatment modalities. No obvious deficits in memory, reasoning, or intellect. Distal Joint Exam - Lower Extremity: SKIN - No rashes or bruising in the area of the patient s pain. EXTREMITIES - Lower extremities are warm, with minimal edema and palpable pulses. Strength is 5/5 all muscle groups of the bilateral lower extremities. There is no obvious atrophy, fasciculations, or spasms. There are no notable sensory deficits in the overlying dermatomal distributions. Gait remains antalgic and assisted with ambulatory aid(s): W/C. Examination of the Right knee reveals tenderness to palpation over the superior, inferior, lateral, and medial aspect of the knee. Some swelling is noted without significant erythema. Pain is elicited with flexion and extension of the knee both actively and passively. Some grinding is noted with these motions. There is no notable ligamental laxity or instability and drawer test is negative. Assessment/Treatment Plan: Diane was seen today for knee pain. Diagnoses and all orders for this visit: Primary osteoarthritis of right knee - Case request operating room: INJECTION BLOCK NERVE KNEE Right Genicular Nerve Block - under fluoroscopy It is hopeful that the described procedure will provide symptomatic pain relief. It is felt to be medically necessary noting that the patient has tried and failed more conservative modalities of therapy and this is the next most appropriate step. The procedure was described in detail to the patient as well as the potential benefits of pain reduction alongside risks of the procedure and alternatives. Risks were described as including, but not limited to bleeding, infection, nerve damage, spinal cord injury, paralysis, stroke, dural puncture headache, and medication reaction. The patient expressed understanding regarding the risks and benefits and wishes to proceed. Diagnostic Genicular Nerve injections should provide information to confirm that the noted knee arthropathy and associated genicular neuritis is the most significant pain generator. If this provides significant but only temporary pain relief, the patient may in the future be a candidate for radiofrequency denervation of the Genicular Nerves to provide pain relief for approximately 1 year. Follow up 2 weeks after procedure DISCUSSION: Treatment options discussed with patient and all questions answered to patient's satisfaction. Discussed the rules and regulations surrounding prescription of opioids and compliance at length. Failure to follow the rules and regulation will result in tapering and discontinuation of medications if applicable. Prescribed medication that requires intensive monitoring for toxicity We do not currently prescribe any controlled substance from this practice. Treatment plans discussed but not opted for at this time: Genicular RFA. Patient would like to proceed with the current outlined treatment plan before moving forward with any other options. It is noted that the patient did have good response from the previously performed procedure. It is felt that the patient would benefit from an additional procedure of the same nature in that the same symptoms have returned. It is hopeful that this additional injection will provide additional benefit and duration when combined with the previous injection. Xray was reviewed and used to explain the condition. Chronic conditions not treated during this visit that affected my overall medical decision making: Comorbidity- Obesity The patient does have a comorbid condition of obesity. This will be taken into account in that obesity will contribute to certain pain conditions. It can contribute to pain from degenerative disc disease as well as osteoarthritis of the joints. Many neuropathic symptoms are also amplified due to axial spine loading. Special benefits will also need to be given to procedures. Many procedures are technically more difficult in the light of severe obesity. I will also consider the possibility of undiagnosed obstructive sleep apnea (which often accompanies obesity) when prescribing any narcotic medications. I will weigh the risks and benefits and fully discuss them with the patient for these reasons. Comorbidity- Depression The patient has an ongoing issue with depression and currently feels these symptoms are under control and further feels that appropriate pain management would also help these symptoms. The patient is optimistic about the treatment plan we have laid out. We will continue to monitor these symptoms and remain cogniscent that they may affect the patients perceived improvement from the treatment and willingness to pursue further treatment. At this time the patient appears to be mentally and emotionally stable to undergo procedural and medical therapy. If any warning signs become present, I may refer the patient to a mental health professional for further evaluation. OARRS: Reviewed. Scribe Statement: Scribed for and in the presence of CLAUDE IVAN by Dorcas Gottlieb CNA. Provider Statement: I, CLAUDE IVAN, personally performed the services described in the documentation, as scribed by Dorcas Gottlieb CNA in my presence, and it is both accurate and complete. Dorcas Gottlieb CNA 05/18/23 1401 CLAUDE Ivan 05/18/23 1536 documented in this encounter [facility] 05-18-2023 Instructions Dorcas Gottlieb CNA - 05/18/2023 12:45 PM EST Epidural Steroid Injection (TONYA) / Nerve Root Injection / Nerve Block These procedure(s) involve the injection of a steroid and anesthetic into the epidural space or the nerve sheath that is both diagnostic and potentially therapeutic for alleviating discomfort of the legs and arms secondary to compression of the respective nerves due to bulging discs, bone spurs and other potential causes. Steroids are potent anti-inflammatory drugs that act to decrease the swollen and inflamed nerves thus relieving your clinical symptoms. How Long Will This Procedure Last? The extent and duration of pain relief may depend on the amount of inflammation and how many areas are involved. Other coexisting factors may be responsible for your pain. You and your physician will discuss expected results of procedure(s). After Your Injection You may experience soreness and tenderness at the area of treatment. This pain may not occur until later today after the numbing medicine wears off. The steroid can take 3-5 days to work and provide noticeable improvement. Activity You may feel temporary numbness, weakness or tingling: In the neck, arm, or fingertips (if your procedure was done in your neck) In the legs (if your procedure was done in your lower back) These symptoms are normal, and should subside within 3-4 hours. In that time, be careful to avoid falls. As a safety precaution, you must have a tour driver after a lumbar nerve root injection, even if you do not receive sedation. Resume activity as tolerated when function has returned. Medications Resume your routine medications after your procedure. You may resume blood thinners per your regular schedule after the procedure. If you received sedation: If you received sedation for your procedure, you may feel sleepy or not yourself for several hours today. For the next 24 hours avoid activities that requires alertness or coordination. This includes: Driving or operating heavy machinery Using power tools Consuming alcohol Do not make important or complex decisions or sign legal documents in the next 24 hours. Other Instructions: If you feel severe pain at the injection site with swelling and redness, increased leg weakness, a fever of 101 or higher, headache (or worsening headache), changes in vision or urinary retention: Please call the office at , or have someone take you to the nearest emergency room. Tell the emergency room staff that you recently had a spine injection. A doctor must evaluate you for bleeding and injection complications. If you lose control over bowel, bladder, or legs: Go to the nearest emergency room. If you are diabetic, the steroids used in this procedure can increase your blood sugar. If your blood sugar is 250mg/dL or higher, contact your primary care physician, or the doctor who manages your diabetes, to discuss how to get it back to normal. documented in this encounter [facility] 03-22-2023 Miscellaneous Notes Patient called to request a work note for today. Patient states she did not go to work today. Chief Communications Officer spoke with Elmo who approves work note for today. Patient asks that note be sent to [email or web address]. Done. documented in this encounter [facility] [employer] [facility] 03-22-2023 Telephone encounter Note Patient called to request a work note for today. Patient states she did not go to work today. Chief Communications Officer spoke with Elmo who approves work note for today. Patient asks that note be sent to [email or web address]. Done. 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 Each [...] will perform surveillance through out our visits. [facility] Other 07-20-2022 NotePROCEDURE: XR KNEE RT 4V or > HISTORY: Pain in lower [...] Electronically authenticated by: VIRGILIO FORRESTER Date: 2021-10-19 22:25[facility] noteNo InformationNort [employer] Other Evaluation noteNo assessment information available [facility] Work Phone: Evaluation note* Diagnosis Primary osteoarthritis of right knee- Primary [facility] - [facility]* Type Description Date Medical History Osteoarthritis Medical History Anxiety Medical History Arthritis of bilateral knees Medical History Depression Medical History Panic attacks Medical History Anemia Medical History Bipolar Surgical History tubal ligation Surgical History Uterine ablation 11/2019 Surgical History [place] teeth extraction Hospitalization History child Hospitalization History See above [facility] Other InstructionsNot on filedocumented in this encounter [facility] [employer] [facility] Summary Purpose Family History No Family [...] Information Available Discharge Instructions Additional Instructions Use [id number] pain control as needed Robaxin is a muscle relaxer and can make you drowsy. Do not drive or drink alcohol on this medication. Follow-up with your family doctor Reason for Referral Specialty Diagnoses / Procedures Referred By Alexandr berman Referred To Contact Diagnoses Primary osteoarthritis of right knee Procedures Case request operating room: INJECTION BLOCK NERVE KNEE Iliana Stevens PA [address] [place] [address] Referral ID Status Reason Start Date Expiration Date V isits Requested Visits Authorized [id number] Pending Review 05/18/2023 05/17/2024 1 1 Additional Source Comments INFORMATION SOURCE (unrecogn ized section and content) DATE CREATED AUTHOR 10/21/2017 [facility] DATE CREATED AUTHOR AUTHOR'S ORGANIZ ATION 03/02/2022 [facility] DATE CREATED AUTHOR AUTHOR'S ORGANIZ ATION 04/03/2023 [facility] DATE CREATED AUTHOR AUTHOR'S ORGANIZ ATION 05/20/2023 [facility] DATE CREATED AUTHOR AUTHOR'S ORGANIZ ATION 05/22/2023 [facility] EPIC REASON FOR VISIT (unrecogniz ed section and content) Reason Comments Knee Pain Goals (unrecognized section and content) Goals may be documented in a n alternate section Care Teams (unrecognized sec tion and content) [employer] Br[employer] Tester Relationship Specialty Start Date End Date Belem Coombs PA-C [address] [place] [address] PCP - General Physician [employer] 09/06/22 Olive Brine Tester Relationship Specialty Start Date End Date Belem Coombs PA-C [address] [place], [place] [id number] PCP - General Physician [employer] 05/15/23 FOR RECORDS PERTAINING TO PATIENTS WHO ARE [...] BE BASED ON THE PRIMARY CLINICAL RECORDS. [employer] [facility]. provides no warranty or guarantee of the accuracy or completeness of information in this document.
--- NOTE | 2023-06-08 08:48 | ED.GENADUL1 ---
HPI - General Adult General Chief complaint: Nausea/Vomiting/Diarrhea Stated complaint: NAUSEA/WEAKNESS Time Seen by Provider: 06/08/23 08:32 Source: patient Mode of arrival: walk-in History of Present Illness HPI narrative: The patient here complaining of nausea. She came to emergency room because she does not have insurance and the family doctor makes theraplay. Nausea is the isolated symptom. No other family members are ill. They all ate and she had the same fluid. She has not had any vomiting. She has not had upper respiratory symptoms such as cough runny nose sore throat headache or influenza aches and pains are all negative. She has not had previous hepatitis gastritis pancreatitis or bowel problems. Her bowel movements are normal in color shape size and consistency. She has no urinary symptomatology such as frequency urgency or dysuria. She has not had any surgeries to her abdomen. She has no abdominal pain cramping or discomfort. She has no travel history. She has not been on any antibiotics recently. She did denies , had her tubal ligation a number of years ago and absolutely denies any possibility of nausea of . She does not have any vaginal bleeding or spotting. Does not have any chest pain or shortness of breath. There is no change in the color of her urine. She denies any type of drug or alcohol use in the past. Related Data Home Medications Medication Instructions Recorded Confirmed aripiprazole 2 mg tablet 2 mg PO .QHS 04/23/23 04/23/23 cholecalciferol (vitamin D3) 10 20 mcg PO DAILY 04/23/23 04/23/23 mcg (400 unit) tablet (Vitamin D3) duloxetine 30 mg capsule,delayed 30 mg PO DAILY 04/23/23 04/23/23 release Allergies Allergy/AdvReac Type Severity Reaction Status Date / Time No Known Drug Allergies Allergy Verified 04/23/23 12:41 [facility] Social History Smoking status: Never smoker Exam Narrative Exam Narrative: Awake alert appears in no distress. Moves about comfortably. Her vital signs are stable. HEENT showed no evidence of scleral icterus or anemia. Her lungs were clear there is no respiratory distress or coughing. Her abdomen is benign with no guarding rebound rigidity. She has normal bowel sounds. Johnson sign is negative there is no appreciable splenomegaly. There is no peritoneal findings or rebound. No tenderness to palpation in the left or the right lower quadrants. Constitutional Vital Signs, click to edit/add: Last Vital Signs Temp 97.8 F 06/08/23 08:20 Pulse 68 06/08/23 08:20 Resp 18 06/08/23 08:20 BP 135/76 06/08/23 08:20 Pulse Ox 97 06/08/23 08:20 O2 Del Method Room Air 06/08/23 08:20 Course Vital Signs Vital signs: Vital Signs Temperature 97.8 F 06/08/23 08:20 Pulse Rate 68 06/08/23 08:20 Respiratory Rate 18 06/08/23 08:20 Blood Pressure 135/76 06/08/23 08:20 Pulse Oximetry 97 06/08/23 08:20 Oxygen Delivery Method Room Air 06/08/23 08:20 Temperature 97.8 F 06/08/23 08:20 Pulse Rate 68 06/08/23 08:20 Respiratory Rate 18 06/08/23 08:20 Blood Pressure 135/76 06/08/23 08:20 Pulse Oximetry 97 06/08/23 08:20 Oxygen Delivery Method Room Air 06/08/23 08:20 Medical Decision Making MDM Narrative Medical decision making narrative: This patient has isolated finding of nausea without vomiting and no other symptoms whatsoever. Her screening laboratory test did not disclose any obvious abnormalities. I am will treat her with some Zofran. If symptoms were to persist she should probably have GI referral but her laboratory testing does not disclose any immediate concerns. Discharge Plan Discharge Chief Complaint: Nausea/Vomiting/Diarrhea Clinical Impression: Nausea Patient Disposition: Home, Self-Care Time of Disposition Decision: 11:20 Prescriptions / Home Meds: No Action aripiprazole 2 mg tablet 2 mg PO .QHS cholecalciferol (vitamin D3) [Vitamin D3] 10 mcg (400 unit) tablet 20 mcg PO DAILY duloxetine 30 mg capsule,delayed release(DR/EC) 30 mg PO DAILY Additional Instructions: May use Zofran as needed for nausea. Follow-up with GI if symptoms persist. Clear fluid diet only today Referrals: Chiki Coombs [Primary Care Provider] - 1 week Stand Alone Forms: Portal Instructions
[2023-06-08 09:34] LABS: Basophils Absolute Auto 0.1 10^3/uL (0.0-0.1); Basophils Percent Auto 0.9 % (0.2-2.0); Eosinophils Absolute Auto 0.1 10^3/uL (0.0-0.7); Eosinophils Percent Auto 1.9 % (0.9-7.0); Hematocrit 36.3 % (36.0-48.0); Hemoglobin 11.7 g/dL (12.0-16.0); Immature Granulocytes Abs Auto 0.02 10^3/uL (0.00-0.03); Immature Granulocytes Pct Auto 0.3 % (0.0-0.5); Lymphocytes Absolute Auto 1.9 10^3/uL (1.2-3.8); Lymphocytes Percent Auto 28.1 % (20.5-60.0); Mean Corpuscular HGB Conc 32.2 g/dL (29.9-35.2); Mean Corpuscular Hemoglobin 30.2 pg (26.7-34.0); Mean Corpuscular Volume 93.6 fL (81.0-99.0); Mean Platelet Volume 9.7 fL (9.5-13.5); Monocytes Absolute Auto 0.7 10^3/uL (0.3-0.8); Monocytes Percent Auto 10.1 % (1.7-12.0); Neutrophils Percent Auto 58.7 % (43.0-75.0); Platelet Count 292 10^3/uL (150-450); Red Blood Count 3.88 10^6/uL (4.20-5.40); Red Cell Distribution Width 12.5 % (11.0-15.0); White Blood Count 6.9 10^3/uL (4.0-11.0)
[2023-06-08 09:54] LABS: Lactate/Lactic Acid 0.7 mmol/L (0.4-2.0)
[2023-06-08 10:08] LABS: Bilirubin Urine NEGATIVE (NEGATIVE); Blood Urine NEGATIVE (NEGATIVE); Clarity Urine CLEAR (CLEAR); Color Urine YELLOW (YELLOW); Glucose Urine UA NEGATIVE (NEGATIVE); Ketones Urine TRACE mg/dL (NEGATIVE); Leukocyte Esterase Urine NEGATIVE (NEGATIVE); Nitrite Urine POSITIVE (NEGATIVE); Protein Urine NEGATIVE (NEG/TRACE); Specific Gravity Urine >=1.030 (1.005-1.025); Urobilinogen Urine 0.2 EU/dL (0.2-1.0); pH Urine 5.5 (5.0-9.0)
[2023-06-08 10:09] LABS: HCG Qualitative Urine* NEGATIVE (NEGATIVE)
[2023-06-08 10:10] LABS: Urine Microscopic Indicated YES
[2023-06-08 10:20] LABS: Bacteria Urine MODERATE #/HPF (NONE SEEN); Cast Seen? NONE SEEN #/LPF (NONE SEEN); Crystals Seen? None Seen #/HPF (None Seen); Mucus Urine SMALL (NONE SEEN); RBC Urine 0-2 #/HPF (0-2); Squamous Epithelial Cell Urine MANY #/LPF (NONE/RARE); Urine Culture Indicated YES; WBC Urine 0-2 #/HPF (NONE SEEN)
[2023-06-08 10:35] LABS: Alanine Aminotransferase 18 U/L (14-59); Albumin Globulin Ratio 0.8; Alkaline Phosphatase 83 U/L (46-116); Anion Gap 12.4; Aspartate Amino Transferase 16 U/L (15-37); BUN Creatinine Ratio 23.8; Bilirubin Total 0.4 mg/dL (0.2-1.0); Calcium 8.3 mg/dL (8.5-10.1); Carbon Dioxide 28.2 mmol/L (21.0-32.0); Chloride 105 mmol/L (98-107); Estimated GFR (African America >60 (>=60); Estimated GFR (Non-African Ame >60 (>=60); Glucose 80 mg/dL (74-106); Potassium 3.6 mmol/L (3.5-5.1); Sodium 142 mmol/L (136-145)
--- NOTE | 2023-06-10 09:50 | PC.NURSE ---
06/10/23 0981 called pt updated on UTI, called in Levquin 500 mg po daily times [address] mata to [facility] in [place]. pt denies any further needs or concerns at this time. Reji Garza RN
== END 2023-06-08 11:31 | disposition home or self-care (01) ==
PROVIDERS: Emergency Provider Emergency Medicine Emergency Medical Services; PCP Physician Assistant
DX: R11.0 Nausea (principal); Z79.899 Other long term (current) drug therapy
CPT/HCPCS: 36415; 80053; 81001; 83605; 83690; 84703; 85025; 87086; 87150; 87186; 99283

== ENCOUNTER 2023-06-28 02:21 | Emergency (ER) | payer OTHER, MEDICAID, SELFPAY ==
[2023-06-28 02:23] VITALS: BP 116/76; PULSE 83; RESP 16; TEMP 36.4; O2SAT 98; BMI 51.0
[2023-06-28 02:30] VITALS: PULSE 82
--- OUTSIDE RECORDS SUMMARY | 2023-06-28 02:30 | XMS_ITS | CCD ---
Author Organization [facility] Care Team Providers Care Fruit Or Nut Picker Name Role Phone PHYSICIAN, DEFAULT Unavailable Unavailable PHYSICIAN, DEFAULT Unavailable Unavailable DANA, SUMMON Unavailable Unavailable DANA, SUMMON Unavailable Unavailable SELF, REFERRED Unavailable Unavailable SELF, REFERRED Unavailable Unavailable NON, STAFF, Primary Care Provider Unavailabl e [facility] Unava ilable KAYLEN, DR SWANN Admitting Unavailable KAYLEN, DR WSANN Attending Unavailable USAMA, DR VIRGILIO Gupta Consulting Unavailable CLAUDE MAYORGA Consulting Unavailable [facility] Unava ilable APRIL, DR ELODIA Gupta Admitting Unavailable APRIL, DR ELODIA Gupta Attending Unavailable APRIL, DR ELODIA Gupta Consulting Unavailable [facility] Unava ilable MARKER, DR LONG Admitting Unavailable MARKER, DR LONG Attending Unavailable MARKER, DR LONG Consulting Unavailable JAYLA KEBEDE Consulting Unavailable Laverne Emerson Unavailable Belem Coombs Attending Unavailable Belem Coombs Primary Care Unavailable Belem Coombs Admitting Unavailable Belem Coombs PA-C Primary Care Provider [phone] Belem Coombs PA-C Primary Care Provider ILIANA STEVENS Attending Unavailable BELEM COOMBS Referring [...] Attending Unavailable BELEM COOMBS Primary Care Unavailable COOMBS, BELEM A Primary Care Unavailable RICA BRENNER Attending Unavailable [...] 10-17-2017 Chronic Other aftercare (1 source) Other senior living (current) drug therapy; Translations: [OTH LONGTERM CURRENT DRUG THERAPY] Onset: 02-02-2022 Episodic Other [...] Facil ity XR KNEE RT 3 VWSon XR KNEE RT 3 VWS XR KNEE [...] Marion MD on 05/15/2023 10:58 PM Normal [facility] 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 Location: 93Patient Status: OVisit #: [id number] Date: 10/17/2017 3:25:00 PMCompleted Date: 10/17/2017 03:47 PMRequesting Provider: JOSUE CORTEZ Attending Provider: JOSUE CORTEZ Report Copy To: SELF, REFERRED Signs & Symptoms: M25.569 Pain in unspecified knee O07Objhacb: AthenaComments: , Views (X-RAY, KNEE): AP, Lateral, Tunnel, [place] , Weight Bearing?: Y , With Magnification Marker?: N , Views (X-RAY, KNEE): AP, Lateral, Tunnel, [place] , Weight Bearing?: Y , With Magnification Marker?: N , , , Ordering Provider - JOSUE CORTEZ MD , Exam: KNEE LEFT 4VWSAccession #: [id number] PELVIS 1 OR 2 VWS, KNEE LEFT [...] System PROTOCOL: AP(PA) view was obtained. (accession [id number]), AP,Lateral,Tunnel and Tangential views were obtained. (accession [id number]), AP,Lateral,Tunnel and Tangential views were obtained. (accession [id number]) COMPARISON: None FINDINGS: Pelvis: No acute abnormality. [...] hips Electronically signed by:Ernie Albert. Transcribed by: [email or web address], User Resident: Electronically Signed by: ERNIE ALBERT @ 10/17/2017 04:35 PM Normal [facility] Comment on above: Order Comment: , Views (X-RAY, KNEE): AP , Lateral, Tunnel, [place] , Weight Bearing?: Y , With Magnification Marker?: N , Views (X-RAY, KNEE): AP, Lateral, Tunnel, [place] , Weight Bearing?: Y , With Magnification Marker?: N , , , Ordering Provider - JOSUE CORTEZ MD , KNEE RIGHT [address] [facility] 8 KNEE RIGHT 4 [facility] [address] [place] [address] =====Patient Name: DIANE HANDLEY : 1980Sex: FAge: Race: WhiteMRN: [id number]. Location: 93Patient Status: OVisit #: [id number] Date: 10/17/2017 3:25:00 PMCompleted Date: 10/17/2017 03:40 PMRequesting Provider: JOSUE CORTEZ Attending Provider: JOSUE CORTEZ Report Copy To: SELF, REFERRED Signs & Symptoms: M25.569 Pain in unspecified knee D33Yeqmtev: AthenaComments: , Views (X-RAY, KNEE): AP, Lateral, Tunnel, [place] , Weight Bearing?: Y , With Magnification Marker?: N , Views (X-RAY, KNEE): AP, Lateral, Tunnel, [place] , Weight Bearing?: Y , With Magnification Marker?: N , , , Ordering Provider - JOSUE CORTEZ MD , Exam: KNEE RIGHT 4 VWSAccession #: [id number] PELVIS 1 OR 2 VWS, KNEE LEFT [...] System PROTOCOL: AP(PA) view was obtained. (accession [id number]), AP,Lateral,Tunnel and Tangential views were obtained. (accession [id number]), AP,Lateral,Tunnel and Tangential views were obtained. (accession [id number]) COMPARISON: None FINDINGS: Pelvis: No acute abnormality. [...] hips Electronically signed by:Ernie Albert. Transcribed by: [email or web address], User Resident: Electronically Signed by: ERNIE ALBERT @ 10/17/2017 04:35 PM Normal [facility] Comment on above: Order Comment: , Views (X-RAY, KNEE): AP , Lateral, Tunnel, [place] , Weight Bearing?: Y , With Magnification Marker?: N , Views (X-RAY, KNEE): AP, Lateral, Tunnel, [place] , Weight Bearing?: Y , With Magnification Marker?: N , , , Ordering Provider - JOSUE CORTEZ MD , PELVIS 1 OR [address] [facility] 10-18-19 18 PELVIS 1 OR 2 [facility] [address] [place] [address] =====Patient Name: DIANE HANDLEY : 1980Sex: FAge: Race: WhiteMRN: [id number]. Location: 93Patient Status: OVisit #: [id number] Date: 10/17/2017 3:25:00 PMCompleted Date: 10/17/2017 03:40 PMRequesting Provider: JOSUE CORTEZ Attending Provider: JOSUE CORTEZ Report Copy To: SELF, REFERRED Signs & Symptoms: M25.569 Pain in unspecified knee A10Rgtidvh: AthenaComments: , Views (X-RAY, PELVIS): AP , Weight Bearing?: Y , With Magnification Marker?: Y , Views (X-RAY, PELVIS): AP , Weight Bearing?: Y , With Magnification Marker?: Y , , , Ordering Provider - JOSUE CORTEZ MD , Exam: PELVIS 1 OR 2 VWSAccession #: [id number] PELVIS 1 OR 2 VWS, KNEE LEFT [...] System PROTOCOL: AP(PA) view was obtained. (accession [id number]), AP,Lateral,Tunnel and Tangential views were obtained. (accession [id number]), AP,Lateral,Tunnel and Tangential views were obtained. (accession [id number]) COMPARISON: None FINDINGS: Pelvis: No acute abnormality. [...] hips Electronically signed by:Ernie Albert. Transcribed by: [email or web address], User Resident: Electronically Signed by: ERNIE ALBERT @ 10/17/2017 04:35 PM Normal [facility] Comment on above: Order Comment: [...] pressure 89 mm[Hg] Iliana ARCE Work Phone: [employer] 05-18-2023 12:56-0500 Heart rate 85 /min Iliana ARCE Work Phone: [employer] 05-18-2023 12:56-0500 Respiratory rate 16 /min Iliana ARCE Work Phone: [employer] 05-18-2023 12:56-0500 SaO2% (BldA) [Mass fraction] 100 % Iliana ARCE Work Phone: [employer] 05-18-2023 12:56-0500 Systolic blood pressure 137 mm[Hg] Iliana ARCE Work Phone: [employer] 10-05-2022 13:15-0400 Body height 152.4 cm Laverne Emerson Other [employer] Other 10-05-2022 13:15-0400 Body mass index (BMI) [Ratio] 48.25 kg/m2 Laverne Rogelgale Other [employer] Other 10-05-2022 13:15-0400 Body weight 112.08 kg Laverneher Rogelgale Other [employer] Other 10-05-2022 13:15-0400 Diastolic blood pressure 76 mm[Hg] Laverne Missler Other [employer] Other 10-05-2022 13:15-0400 Respiratory rate 20 /min Laverne Missler Other [employer] Other 10-05-2022 13:15-0400 SaO2% (BldA) [Mass fraction] 97 % Laverne Missler Other [employer] Other 10-05-2022 13:15-0400 Systolic blood pressure 122 mm[Hg] Laverne Missler Other [employer] Other 02-28-2020 13:09-0500 Body Temperature 97.5 [degF] STAFF, [facility] 02-28-2020 13:09-0500 BP Diastolic 83 mm[Hg] STAFF, [facility] 02-28-2020 13:09-0500 BP Systolic 149 mm[Hg] STAFF, [facility] 02-28-2020 13:09-0500 Pulse (Heart Rate) 83 /min STAFF, [place] [facility] 02-28-2020 13:09-0500 Pulse Oximetry 98 % STAFF, [facility] 02-28-2020 13:09-0500 Respiratory Rate 18 /min STAFF, [facility] 02-28-2020 13:06-0500 BMI (Body Mass Index) 46.3 kg/m2 STAFF, [facility] 02-28-2020 13:06-0500 Body weight 111.13 kg STAFF, [facility] 02-28-2020 13:06-0500 Height 154.94 cm STAFF, [facility] Encounters Encounter Date Encounter Type Care Provider Facility Start: 05-22-2023 End: 05-22-2023 ambulatory KADIE SHAH Not Available Start: 05-18-2023 End: 05-18-2023 ambulatory ILIANA Reji POPPY [facility] Start: 05-18-2023 End: 05-18-2023 Office outpatient visit 25 minutes Iliana ARCE Work Phone: [facility] Comment on above: Primary osteoarthrit is of right knee (Primary Dx) Start: 05-16-2023 End: 05-16-2023 Emergency department patient visit RICA BRENNER [facility] Start: 05-06-2023 End: 05-06-2023 ambulatory GIACOMO PICKARD [facility] Start: 05-05-2023 End: 05-06-2023 ambulatory MIGUEL MENDEZ [facility] Start: 04-28-2023 End: 04-29-2023 ambulatory BELEM COOMBS [facility] Start: 04-25-2023 ambulatory ILIANA STEVENS [facility] Start: 03-22-2023 Telephone encounter Imani Wood RN [facility] Start: 03-22-2023 End: 03-22-2023 ambulatory ELMO EDMONDSPAT [facility] Start: 11-16-2022 End: 11-16-2022 ambulatory Laverne Emerson Other [facility] [employer] Other Start: 11-16-2022 [facility] Start: 10-05-2022 End: 10-06-2022 ambulatory Belem Coombs [facility] [employer] Other Start: 10-05-2022 Nutrition therapy Laverne Emerson [employer] [facility] Start: 02-01-2022 End: 02-01-2022 ambulatory [facility] Facility:[facility] Start: 01-17-2022 End: 01-17-2022 ambulatory [facility] Facility:[facility] Start: 10-19-2021 End: 10-20-2021 ambulatory [facility] Facility:[facility] Start: 02-28-2020 End: 02-28-2020 Emergency department patient visit STAFF, [facility] Start: 10-17-2017 End: 10-18-2017 Patient encounter TANIA CORTEZ Facility:[facility] Start: 02-07-2017 End: 02-08-2017 Patient encounter DEFAULT PHYSICIAN Facility:[facility] Plan of Treatment Date Care Activity Detail Author Start: 05-18-2024 Tobacco Screening Tobacco Screening [facility] Start: 05-15-2024 Adult BMI Screening Adult BMI Screening [facility] Start: 03-22-2024 Tobacco Screening Tobacco Screening [facility] Start: 03-13-2024 Adult BMI Screening Adult BMI Screening [facility] Start: 05-30-2023 End: 05-30-2023 Patient encounter procedure [facility] DEXA Start: 12-02-2022 Influenza vaccination Influenza Vaccine [facility] Start: 11-03-1999 Screening for malignant neoplasm of cervix Pap Smear [facility] Start: 1997 DTaP,Tdap and Td Vaccines (1 - Tdap) DTaP,Tdap and Td Vaccines (1 - Tdap) [facility] Start: 1996 Adult BMI Follow Up Plan Adult BMI Follow Up Plan [facility] Start: 1990 Depression Screening Depression Screening [facility] Injection aa&/strd genicular nrv branches w/img INJECTION BLOCK NERVE KNEE Primary osteoarthritis of right knee [facility] Patient Education Shoulder Pain (ED) [facility] Patient referral [facility] Payers Date Payer Category Payer Self-pay [id number] 2022 Medicaid [id number] 2022 Medicaid [employer] HMO [id number] 2022-Present [phone] [address] [place] [address] [id number] 1978 Unknown [id number] [id number] 1978 Unknown [id number] [id number]3 1978 Unknown [id number] 2.16.840.1.250381.3.579.2.593 1978 Unknown [id number] 2.16.840.1.307236.3.579.2.1286 1978 Unknown [id number] 2.16.840.1.654847.3.579.2.1286 1978 Unknown [id number] 2.16.840.1.744744.3.579.2.1286 1978 Unknown [id number] 2.16840.1.734961.3.579.2.1286 1978 Unknown [id number] 2.16840.1.368086.3.579.2.1286 1978 Unknown [id number] 2.16840.1.834050.3.579.2.1286 1978 Unknown [id number] 2.16840.1.045735.3.579.2.1286 1978 Unknown [id number] 2.16.840.1.090097.3.579.2.1286 1978 Unknown [id number] 2.16840.1.981546.3.579.2.1286 1978 Unknown [id number] 2.16840.1.192066.3.579.2.1286 1978 Unknown [id number] 2.16840.1.163907.3.579.2.1259 1959 Medicaid [id number] Unknown Unknown [id number] [id number] Social History Date Type Detail [facility] Start: 1980 Sex Assigned At Female [facility] Start: 05-14-2020 End: 03-22-2023 Sex Assigned At [facility] [employer] Other Start: 01-26-2022 Tobacco smoking stat [facility] Never smoked tobacco [facility] Start: 01-26-2022 Tobacco use and exposure Smokeless tobacco non-user [facility] Start: 03-22-2023 End: 05-18-2023 Alcohol intake Current non-drinker of alcohol (finding) [facility] Start: 05-14-2020 End: 03-22-2023 History of Social function [facility] Housing Instability Unknown [facility] Start: 1980 Sex Assigned At Not on file [facility] Goals Date Patient Goal Desired Activity /State Clinical Notes 10-20-2021 to 05-18-2023 CLAUDE Ivan - 05/18/2023 12:45 PM ESTPatient InstructionsTelephone Encounter - Imani Wood RN - 03/22/2023 1:42 PM EST Note Date & Type Note Facility 05-18-2023 History of Presen t illness Narrative [facility] [address] [place] [address] Patient: Diane Handley Sex: female : 1980 [...] 05/10/2019 Performed by Josefina Murguia MD at [facility] D AND C HYSTEROSCOPY N/A 05/10/2019 Performed by Josefina Murguia MD at [facility] D AND C HYSTEROSCOPY N/A 03/08/2019 Performed by Josefina Murguia MD at [facility] INJECTION BLOCK KNEE GENICULAR Left 11/15/2019 Performed by Miguel Mendez MD at [facility] INJECTION BLOCK NERVE KNEE Right Genicular Right 05/05/2023 Performed by Miguel Mendez MD at [facility] INJECTION BLOCK NERVE KNEE Left Genicular Left 03/04/2022 Performed by Miguel Mendez MD at [facility] INJECTION BLOCK NERVE KNEE Left Genicular Left 06/25/2021 Performed by Miguel Mendez MD at [facility] RADIOFREQUENCY ABLATION GENICULAR Left 04/29/2022 Performed by Miguel Mendez MD at [facility] TUBAL LIGATION No Known Allergies Family [...] Ivan 05/18/23 1536 [facility] this [facility] [employer] 05-18-2023 Instructions Dorcas Gottlieb CNA - 05/18/2023 [...] a safety precaution, you must have a minibus driver after a lumbar nerve root injection, [...] back to normal. [facility] Miscellaneous Notes Patient called to request a work note for today. Patient states she did not go to work today. [employer] Director spoke with Elmo who approves work note for today. Patient asks that note be sent to [email or web address]. Done. [facility] Telephone encounter Note Patient called to request a work note for today. Patient states she did not go to work today. [employer] Director spoke with Elmo who approves work note for today. Patient asks that note be sent to [email or web address]. Done. [facility]-2022 Evaluation note Encounter Date Diagnosis Assessment [...] Strongly encouraged to take advantage of our supplier quality engineering manager available at [facility] that can help work around limitations. [...] will perform surveillance through out our visits. [employer] Other 07-20-2022 NotePROCEDURE: XR KNEE RT 4V [...] authenticated by: VIRGILIO FORRESTER Date: 2021-10-19 22:25[facility] noteNo InformationNort Mandae Other Evaluation noteNo assessment information available [facility] Work Phone: Evaluation note* Diagnosis Primary osteoarthritis of right knee- Primary documented in this encounter [facility] general Narrative - Reported* Type Description Date Medical History Osteoarthritis Medical History Anxiety Medical History Arthritis of bilateral knees Medical History Depression Medical History Panic attacks Medical History Anemia Medical History Bipolar Surgical History tubal ligation Surgical History Uterine ablation 11/2019 Surgical History [place] teeth extraction Hospitalization History child Hospitalization History See above [employer] Other InstructionsNot on filedocumented in this encounter [facility] Summary Purpose Family History No Family History [...] Information Available Discharge Instructions Additional Instructions Use [id number] pain control as needed Robaxin is a [...] PA [address] [place] [address] Referral ID Status Reason Start Date Expiration Date V isits Requested Visits Authorized [id number] Pending Review 05/18/2023 05/17/2024 1 1 Additional Source Comments INFORMATION SOURCE (unrecogn ized section and content) DATE CREATED AUTHOR 10/21/2017 [facility] DATE CREATED AUTHOR AUTHOR'S ORGANIZ ATION 03/02/2022 [facility] DATE CREATED AUTHOR AUTHOR'S ORGANIZ ATION 04/03/2023 [facility] DATE CREATED AUTHOR AUTHOR'S ORGANIZ ATION 05/20/2023 [facility] DATE CREATED AUTHOR AUTHOR'S ORGANIZ ATION 05/22/2023 [facility] dical Specialists EPIC REASON FOR VISIT (unrecogniz ed section and content) Reason Comments Knee Pain Goals (unrecognized section and content) Goals may be documented in a n alternate section Care Teams (unrecognized sec tion and content) [employer] Relationship Specialty Start Date End Date Belem Coombs PA-C [address] [place] [address] [phone] PCP - General Physician Die Repairer Forging 09/06/22 [employer] Nut [employer] Relationship Specialty Start Date End Date Belem Coombs PA-C [address] [place] [address] [phone] PCP - General Physician Die Repairer Forging 05/15/23 FOR RECORDS PERTAINING TO PATIENTS WHO [...] BE BASED ON THE PRIMARY CLINICAL RECORDS. [facility] [employer] [facility]. provides no warranty or guarantee of the accuracy or completeness of information in this document.
--- NOTE | 2023-06-28 02:32 | ED_ITS ---
HPI - Dizziness General Chief Complaint: Dizziness Stated Complaint: light headed Time Seen by Provider: 06/28/23 02:26 Source: patient Mode of arrival: walk-in Limitations: no limitations History of Present Illness HPI Narrative: [id number] female presents for dizziness. She felt like she was going to pass out but did not. She was not spinning. No palpitations or chest pain. No recent fever or vomiting or diarrhea and she had a normal day. She was at work when this started. 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 Related Data Home Medications ?Medication ?Instructions ?Recorded ?Confirmed aripiprazole 2 mg tablet 2 mg PO .QHS 04/23/23 04/23/23 cholecalciferol (vitamin D3) 10 20 mcg PO DAILY 04/23/23 04/23/23 mcg (400 unit) tablet (Vitamin D3) duloxetine 30 mg capsule,delayed 30 mg PO DAILY 04/23/23 04/23/23 release acetaminophen 500 mg tablet mg 06/28/23 aripiprazole 5 mg tablet mg 06/28/23 duloxetine 60 mg capsule,delayed mg PO 06/28/23 release hydroxyzine pamoate 25 mg capsule mg 06/28/23 Allergies Allergy/AdvReac Type Severity Reaction Status Date / Time No Known Drug Allergies Allergy Verified 06/28/23 02:26 Review of Systems ROS Narrative A ten point review of systems is negative except as noted above. PFSH PFS Social History Smoking status: Never smoker Exam Narrative Exam Narrative: Nurses note and vital signs reviewed and patient is not hypoxic. General: The patient appears well and in no apparent distress. Patient is resting comfortably on cart. Skin: Warm, dry, no pallor noted. There is no rash noted. Head: Normocephalic, atraumatic Eye: Normal conjunctiva, no drainage Ears, Nose, Mouth, and Throat: oral mucosa is moist. Nares patent. Cardiovascular: Regular Rate and Rhythm Respiratory: Patient is in no distress, no accessory muscle use, lungs are clear to auscultation, no wheezing, rales or rhonchi Back: non-tender GI: Soft and nontender Musculoskeletal: The patient has no evidence of calf tenderness, no pitting edema, symmetrical pulses noted bilaterally Neurological: A&O, normal speech, upper and lower extremity strength symmetric and intact Psychiatric: Cooperative Constitutional Vital Signs, click to edit/add: Last Vital Signs Temp 97.6 F 06/28/23 02:23 Pulse 83 06/28/23 02:23 Resp 16 06/28/23 02:23 BP 116/76 06/28/23 02:23 Pulse Ox 98 06/28/23 02:23 O2 Del Method Room Air 06/28/23 02:23 Course Vital Signs Vital signs: Vital Signs Temperature 97.6 F 06/28/23 02:23 Pulse Rate 83 06/28/23 02:23 Respiratory Rate 16 06/28/23 02:23 Blood Pressure 116/76 06/28/23 02:23 Pulse Oximetry 98 06/28/23 02:23 Oxygen Delivery Method Room Air 06/28/23 02:23 Temperature 97.6 F 06/28/23 02:23 Pulse Rate 83 06/28/23 02:23 Respiratory Rate 16 06/28/23 02:23 Blood Pressure 116/76 06/28/23 02:23 Pulse Oximetry 98 06/28/23 02:23 Oxygen Delivery Method Room Air 06/28/23 02:23 MDM - Dizziness MDM Narrative Medical decision making narrative: Her workup including EKG and blood work is negative. She feels a little better after being given some IV fluids and she is able to be discharged home. Treatment diagnosis and follow-up were discussed with the patient. Differential Diagnosis Differential diagnosis: Likely benign paroxysmal positional vertigo, orthostatic hypotension and other (Anemia, dehydration) Lab Data Attestation: I reviewed the patient's lab results. Labs: Lab Results 06/28/23 Range/Units 02:52 WBC 8.7 (4.0-11.0) 10^3/uL RBC 4.70 (4.20-5.40) 10^6/uL Hgb 14.2 (12.0-16.0) g/dL Hct 43.7 (36.0-48.0) % MCV 93.0 (81.0-99.0) fL MCH 30.2 (26.7-34.0) pg MCHC 32.5 (29.9-35.2) g/dL RDW 12.2 (11.0-15.0) % Plt Count 308 (150-450) 10^3/uL MPV 9.7 (9.5-13.5) fL Neut % (Auto) 52.9 (43.0-75.0) % Lymph % (Auto) 33.4 (20.5-60.0) % [place] % (Auto) 10.8 (1.7-12.0) % Eos % (Auto) 1.5 (0.9-7.0) % Baso % (Auto) 1.2 (0.2-2.0) % Neut # (Auto) 4.6 (1.4-6.5) 10^3/uL Lymph # (Auto) 2.9 (1.2-3.8) 10^3/uL [place] # (Auto) 0.9 H (0.3-0.8) 10^3/uL Eos # (Auto) 0.1 (0.0-0.7) 10^3/uL Baso # (Auto) 0.1 (0.0-0.1) 10^3/uL Abs Immat Gran (auto) 0.02 (0.00-0.03) 10^3/uL Imm/Tot Granulo (auto) 0.2 (0.0-0.5) % Sodium 139 (136-145) mmol/L Potassium 3.7 (3.5-5.1) mmol/L Chloride 105 (98-107) mmol/L Carbon Dioxide 22.6 (21.0-32.0) mmol/L Anion Gap 15.1 BUN 20.0 H (7.0-18.0) mg/dL Creatinine 0.90 (0.55-1.02) mg/dL Est GFR ( Amer) >60 (>=60) Est GFR (Non-Af Amer) >60 (>=60) BUN/Creatinine Ratio 22.2 Glucose 81 (74-106) mg/dL Calcium 9.2 (8.5-10.1) mg/dL Serum HCG, Qual Negative (NEGATIVE) ECG Data Attestation: I personally reviewed and interpreted this ECG as follows: (EKG on my interpretation shows normal sinus rhythm with a rate of 82.) Discharge Plan Discharge Stand Alone Forms: Portal Instructions Chief Complaint: Dizziness Clinical Impression: Dizziness Patient Disposition: Home, Self-Care Time of Disposition Decision: 03:18 Condition: Good Mode of Transportation: Private Vehicle Prescriptions / Home Meds: No Action arimarisaprazole 2 mg tablet 2 mg PO .QHS cholecalciferol (vitamin D3) [Vitamin D3] 10 mcg (400 unit) tablet 20 mcg PO DAILY duloxetine 30 mg capsule,delayed release(DR/EC) 30 mg PO DAILY acetaminophen 500 mg tablet hydroxyzine pamoate 25 mg capsule aripiprazole 5 mg tablet duloxetine 60 mg capsule,delayed release(DR/EC) PO Print Language: Syriac Instructions: Dizziness (ED) Referrals: Chiki Coombs [Primary Care Provider] - 1 week
--- NOTE | 2023-06-28 02:32 | ECG_ITS ---
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
[2023-06-28] MEDS: 0.9 % SODIUM CHLORIDE 1,000 ML 1000 ML IV (02:48)
[2023-06-28 03:01] LABS: Basophils Absolute Auto 0.1 10^3/uL (0.0-0.1); Basophils Percent Auto 1.2 % (0.2-2.0); Eosinophils Absolute Auto 0.1 10^3/uL (0.0-0.7); Eosinophils Percent Auto 1.5 % (0.9-7.0); Hematocrit 43.7 % (36.0-48.0); Hemoglobin 14.2 g/dL (12.0-16.0); Immature Granulocytes Abs Auto 0.02 10^3/uL (0.00-0.03); Immature Granulocytes Pct Auto 0.2 % (0.0-0.5); Lymphocytes Absolute Auto 2.9 10^3/uL (1.2-3.8); Lymphocytes Percent Auto 33.4 % (20.5-60.0); Mean Corpuscular HGB Conc 32.5 g/dL (29.9-35.2); Mean Corpuscular Hemoglobin 30.2 pg (26.7-34.0); Mean Platelet Volume 9.7 fL (9.5-13.5); Monocytes Absolute Auto 0.9 10^3/uL (0.3-0.8); Monocytes Percent Auto 10.8 % (1.7-12.0); Neutrophils Absolute Auto 4.6 10^3/uL (1.4-6.5); Neutrophils Percent Auto 52.9 % (43.0-75.0); Platelet Count 308 10^3/uL (150-450); Red Cell Distribution Width 12.2 % (11.0-15.0); White Blood Count 8.7 10^3/uL (4.0-11.0)
[2023-06-28 03:10] LABS: Anion Gap 15.1; BUN Creatinine Ratio 22.2; Calcium 9.2 mg/dL (8.5-10.1); Carbon Dioxide 22.6 mmol/L (21.0-32.0); Chloride 105 mmol/L (98-107); Estimated GFR (African America >60 (>=60); Estimated GFR (Non-African Ame >60 (>=60); Glucose 81 mg/dL (74-106); Potassium 3.7 mmol/L (3.5-5.1); Sodium 139 mmol/L (136-145)
[2023-06-28 03:11] LABS: HCG Qualitative NEGATIVE (NEGATIVE)
[2023-06-28 03:34] VITALS: RESP 16; O2SAT 99
== END 2023-06-28 03:36 | disposition home or self-care (01) ==
PROVIDERS: Emergency Provider Emergency Medicine; PCP Physician Assistant
DX: R42 Dizziness and giddiness (principal); Z79.899 Other long term (current) drug therapy
CPT/HCPCS: 36415; 80048; 84703; 85025; 93005; 99284

== ENCOUNTER 2023-08-04 02:14 | Emergency (ER) | payer OTHER, SELFPAY ==
[2023-08-04 02:18] VITALS: BP 150/88; PULSE 79; TEMP 36.3; O2SAT 96; BMI 48.8
--- NOTE | 2023-08-04 02:25 | XR_ITS ---
The [address] [address] Patient Name: MARIBELL HANDLEY MRN: [id number] date: 1980 Sex: F Assigned Patient Location: ER Current Patient Location: Accession/Order Number: [id number] Exam Date: 08/04/2023 02:35 Report Date: 08/04/2023 03:44 At the request of: ERNESTO BRUNNER Procedure: XR abdomen 1V EXAM: XR abdomen 1V HISTORY: Possible constipation . Right read blood in stools since 0100 hours COMPARISON: Abdominal x-rays, 10/13/2019. TECHNIQUE: AP abdominal x-ray. FINDINGS: There is a large volume of colonic stool extending from the ascending colon to the rectum. The bowel gas pattern is otherwise unremarkable. There is no bowel wall thickening, pneumatosis or free air. No urinary tract calculi are seen. The imaged lung bases are clear. The imaged axial skeleton appears intact. XR/XR abdomen 1V IMPRESSION: 1. Large volume of colonic stool. 2. No acute findings. Electronically authenticated by: MIGUEL MONIQUE Date: 08/04/2023 03:44
--- NOTE | 2023-08-04 02:26 | ED.GENADUL1 ---
HPI HPI - General Adult General Chief complaint: GI Bleed Stated complaint: constipation Time Seen by Provider: 08/04/23 02:22 Source: patient Mode of arrival: ambulance History of Present Illness HPI narrative: 42-year-old female presents for possible constipation. She has a pressure at her rectum. No abdominal pain vomiting fever or dysuria. She had a bowel movement yesterday. Related Data Home Medications ?Medication ?Instructions ?Recorded ?Confirmed aripiprazole 2 mg tablet 2 mg PO .QHS 04/23/23 04/23/23 cholecalciferol (vitamin D3) 10 20 mcg PO DAILY 04/23/23 04/23/23 mcg (400 unit) tablet (Vitamin D3) duloxetine 30 mg capsule,delayed 30 mg PO DAILY 04/23/23 04/23/23 release acetaminophen 500 mg tablet mg 06/28/23 aripiprazole 5 mg tablet mg 06/28/23 duloxetine 60 mg capsule,delayed mg PO 06/28/23 release hydroxyzine pamoate 25 mg capsule mg 06/28/23 Allergies Allergy/AdvReac Type Severity Reaction Status Date / Time No Known Drug Allergies Allergy Verified 08/04/23 02:25 Opioid HPI Opioid Management Most Recent Opioid Data: Last Pain Scale 4 03/09/23 13:44 Review of Systems ROS Narrative A ten point review of systems is negative except as noted above. PFSH PFSH Social History Smoking status: Never smoker Exam Narrative Exam Narrative: Nurses note and vital signs reviewed and patient is not hypoxic. General: The patient appears well and in no apparent distress. Skin: Warm, dry, no pallor noted. There is no rash noted. Head: Normocephalic, atraumatic Eye: Normal conjunctiva, no drainage Ears, Nose, Mouth, and Throat: oral mucosa is moist. Nares patent. Cardiovascular: Regular Rate and Rhythm Respiratory: Patient is in no distress, no accessory muscle use, lungs are clear to auscultation, no wheezing, rales or rhonchi Back: non-tender GI: Obese soft and nontender. No external hemorrhoids Musculoskeletal: The patient has no evidence of calf tenderness, no pitting edema, symmetrical pulses noted bilaterally Neurological: A&O, normal speech Psychiatric: Cooperative Constitutional Vital Signs, click to edit/add: Last Vital Signs Temp 97.4 F L 08/04/23 02:18 Pulse 79 08/04/23 02:18 Resp 18 08/04/23 02:18 BP 150/88 H 08/04/23 02:18 Pulse Ox 96 08/04/23 02:18 O2 Del Method Room Air 08/04/23 02:18 Course Vital Signs Vital signs: Vital Signs Temperature 97.4 F L 08/04/23 02:18 Pulse Rate 79 08/04/23 02:18 Respiratory Rate 18 08/04/23 02:18 Blood Pressure 150/88 H 08/04/23 02:18 Pulse Oximetry 96 08/04/23 02:18 Oxygen Delivery Method Room Air 08/04/23 02:18 Temperature 97.4 F L 08/04/23 02:18 Pulse Rate 79 08/04/23 02:18 Respiratory Rate 18 08/04/23 02:18 Blood Pressure 150/88 H 08/04/23 02:18 Pulse Oximetry 96 08/04/23 02:18 Oxygen Delivery Method Room Air 08/04/23 02:18 Medical Decision Making MDM Narrative Medical decision making narrative: Abdominal x-ray my interpretation shows constipation. She was given Dulcolax here and a bottle of magnesium citrate to take home with her. Treatment diagnosis and follow-up were discussed with the patient. Differential Diagnosis Differential Diagnosis: Constipation Imaging Data Abdominal x-ray: My impression: Constipation Discharge Plan Discharge Stand Alone Forms: Portal Instructions Chief Complaint: GI Bleed Clinical Impression: Constipation Patient Disposition: Home, Self-Care Time of Disposition Decision: 02:47 Condition: Good Mode of Transportation: Private Vehicle Prescriptions / Home Meds: No Action aripiprazole 2 mg tablet 2 mg PO .QHS cholecalciferol (vitamin D3) [Vitamin D3] 10 mcg (400 unit) tablet 20 mcg PO DAILY duloxetine 30 mg capsule,delayed release(DR/EC) 30 mg PO DAILY acetaminophen 500 mg tablet hydroxyzine pamoate 25 mg capsule aripiprazole 5 mg tablet duloxetine 60 mg capsule,delayed release(DR/EC) PO Print Language: Citizen Of [place] Instructions: Constipation (ED) Referrals: Chiki Coombs [Primary Care Provider] - 1 week
--- OUTSIDE RECORDS SUMMARY | 2023-08-04 02:26 | XMS_ITS | CCD ---
Author Organization [facility] Care Team Providers Care Warp Worker Name Role Phone PHYSICIAN, DEFAULT Unavailable Unavailable PHYSICIAN, DEFAULT Unavailable Unavailable DANA, SUMMON Unavailable Unavailable DANA, SUMMON Unavailable Unavailable SELF, REFERRED Unavailable Unavailable SELF, REFERRED Unavailable Unavailable NON, STAFF, Primary Care Provider Unavailabl e [facility] Unava ilable KAYLEN, DR SWANN Admitting Unavailable KAYLEN, DR SWANN Attending Unavailable USAMA, DR VIRGILIO Gupta Consulting Unavailable CLAUDE MAYORGA Consulting Unavailable [facility] Unava ilable APRIL, DR ELODIA Gupta Admitting Unavailable APRIL, DR ELODIA Gupta Attending Unavailable APRIL, DR ELODIA Gupta Consulting Unavailable [facility] Unava ilable MARKER, DR LONG Admitting Unavailable MARKER, DR LONG Attending Unavailable MARKER, DR LONG Consulting Unavailable JAYLA KEBEDE Consulting Unavailable Laverne Emerson Unavailable Belem Coombs Attending Unavailable Belem Coombs Primary Care Unavailable Belem Coombs Admitting Unavailable Belem Coombs PA-C Primary Care Provider [phone] Belem Coombs PA-C Primary Care Provider KADIE SHAH Attending Unavailable BELEM COOMBS Referring Unavailable BELEM COOMBS Primary Care Unavailable BELEM COOMBS Primary Care Unavailable ROZ DUKES Attending Unavailable ILIANA STEVENS Attending Unavailable BELEM COOMBS Referring Unavailable BELEM COOMBS Primary Care Unavailable ELMO GRION Attending Unavailable BELEM COOMBS Referring Unavailable BELEM [...] Attending Unavailable RICA BRENNER Attending Unavailable RICA BERNNER Referring Unavailable BELEM COOMBS Primary Care Unavailable ILIANA STEVENS Attending Unavailable BELEM COOMBS Referring Unavailable BELEM COOMBS Primary Care Unavailable BELEM COOMBS Referring Unavailable BELEM COOMBS Primary Care Unavailable Unavailable [...] 10-17-2017 Chronic Other aftercare (1 source) Other snf (current) drug therapy; Translations: [OTH SHELTER CURRENT DRUG THERAPY] Onset: 02-02-2022 Episodic Other [...] joint disorders (1 source) Knee pain Onset: 07-13-2023 Episodic Other nutritional; endocrine; and metabolic disorders [...] malignant neoplasm of breast] Onset: 04-28-2023 Episodic Spondylosis; intervertebral disc disorders; other back problems (2 sources) Dorsalgia, unspecified; Translations: [Backache] Onset: 07-13-2023 Episodic Sprains and strains (1 source) Strain of unspecified muscle, fascia and tendon at shoulder and upper arm level, right arm, initial encounter; Translations: [STRN UNS MSC F TND SHLDR UA RA INIT] Onset: 02-02-2022 Episodic Unclassified (2 sources) Unknown / UNK(Unknown) Onset: 10-17-2017 Unclassified (1 source) Dietary counseling and surveillance; Translations: [Dietary counseling and surveillance] Onset: 10-05-2022 Unclassified (1 source) Pain Back & Rt Knee Onset: 07-13-2023 Unclassified (1 source) Unspecified lump in the left breast, overlapping quadrants; Translations: [Unspecified lump in the left breast, overlapping quadrants] Onset: 05-30-2023 Past or Other Problems Problem Classification Problem Date Documented Da te Episodic/Chronic Intestinal infection (2 sources) Viral gastroenteritis; Translations: [Viral intestinal infection, unspecified] Onset: 05-25-2022 05-25-2022 Episodic Other non-traumatic joint disorders (1 source) Shoulder pain; Translations: [Acute pain of right shoulder] Episodic Results Test Name Value Interpretation Reference Range Facil ity MAMM DIAGNOSTIC UNILAT LT W CADon 05-30-2023 MAMM DIAGNOSTIC UNILAT LT W CAD MAMM DIAGNOSTIC UNILAT LT W CAD EXAM: MAMM DIAGNOSTIC UNILAT LT W CAD, 05/30/2023 10:46 AM CLINICAL INDICATIONS: Mass overlapping multiple quadrants of left breast, COMPARISON: Screening exam 04/28/2023 TECHNIQUE: Supplemental views of the left breast were obtained for diagnostic workup. Digital tomosynthesis images were obtained, with creation of synthetic 2D views. Computer aided detection was utilized. FINDINGS: There are scattered areas of fibroglandular density. Region of interest demonstrated on the recent screening examination is not reproduced with today's additional imaging. Presumed overlapping structure or resolved process. IMPRESSION: No mammographic evidence of malignancy. BI-RADS: BI-RADS 1 - Negative Recommendation: Routine screening mammogram in 1 year Patient was given the results before leaving the department. Finalized by Wilfrid Mott DO on 05/30/2023 11:48 AM 1 b MAMM 1 YR Normal [facility] XR KNEE RT 3 VWSon 4 XR [...] Marion MD on 05/15/2023 10:58 PM Normal [facility] MAMM SCREENING BILATERAL W C cook sauce 05-01-2023 MAMM SCREENING BILATERAL W CAD MAMM [...] 3:33 PM 0A b ADDITIONAL I Normal [facility] XR SHOULDER RT 2V or >on [...] by: JAYLA KEBEDE Date: 2022-02-01 00:[address] [facility] KNEE LEFT 4VWSon 10-17-2017 KNEE [facility]WS [facility] [address] [place] [address] =====Patient Name: DIANE HANDLEY : 1980Sex: FAge: Race: WhiteMRN: [id number]. Location: 93Patient Status: OVisit #: [id number] Date: 10/17/2017 3:25:00 PMCompleted Date: 10/17/2017 03:47 PMRequesting Provider: JOSUE CORTEZ Attending Provider: JOSUE CORTEZ Report Copy To: SELF, REFERRED Signs & Symptoms: M25.569 Pain in unspecified knee I91Ciassef: AthenaComments: , Views (X-RAY, KNEE): AP, Lateral, Tunnel, [place] , Weight Bearing?: Y , With Magnification Marker?: N , Views (X-RAY, KNEE): AP, Lateral, Tunnel, [place] , Weight Bearing?: Y , With Magnification Marker?: N , , , Ordering Provider - JOSUE CORTEZ MD , Exam: KNEE LEFT 4VWSAccession #: [id number] PELVIS 1 OR 2 VWS, KNEE LEFT [...] System PROTOCOL: AP(PA) view was obtained. (accession [id number]), AP,Lateral,Tunnel and Tangential views were obtained. (accession [id number]), AP,Lateral,Tunnel and Tangential views were obtained. (accession [id number]) COMPARISON: None FINDINGS: Pelvis: No acute abnormality. [...] loss2. Intact pelvis and hips Electronically signed by:Erine Albert. Transcribed by: [email or web address], User Resident: Electronically Signed by: ERNIE ALBERT @ 10/17/2017 04:35 PM Normal [facility] Comment on above: Order Comment: , Views (X-RAY, KNEE): AP , Lateral, Tunnel, [place] , Weight Bearing?: Y , With Magnification Marker?: N , Views (X-RAY, KNEE): AP, Lateral, Tunnel, [place] , Weight Bearing?: Y , With Magnification Marker?: N , , , Ordering Provider - JOSUE CORTEZ MD , KNEE RIGHT 4 [facility] 8 KNEE RIGHT 4 [facility] [address] [place] [address] =====Patient Name: DIANE HANDLEY : 1980Sex: FAge: Race: WhiteMRN: [id number]. Location: 93Patient Status: OVisit #: [id number] Date: 10/17/2017 3:25:00 PMCompleted Date: 10/17/2017 03:40 PMRequesting Provider: JOSUE CORTEZ Attending Provider: JOSUE CORTEZ Report Copy To: SELF, REFERRED Signs & Symptoms: M25.569 Pain in unspecified knee M21Qgqyyir: AthenaComments: , Views (X-RAY, KNEE): AP, Lateral, Tunnel, [place] , Weight Bearing?: Y , With Magnification Marker?: N , Views (X-RAY, KNEE): AP, Lateral, Tunnel, [place] , Weight Bearing?: Y , With Magnification Marker?: N , , , Ordering Provider - JOSUE CORTEZ MD , Exam: KNEE RIGHT 4 VWSAccession #: [id number] PELVIS 1 OR 2 VWS, KNEE LEFT [...] System PROTOCOL: AP(PA) view was obtained. (accession [id number]), AP,Lateral,Tunnel and Tangential views were obtained. (accession [id number]), AP,Lateral,Tunnel and Tangential views were obtained. (accession [id number]) COMPARISON: None FINDINGS: Pelvis: No acute abnormality. [...] hips Electronically signed by:Ernie Albert. Transcribed by: [email or web address], User Resident: Electronically Signed by: ERNIE ALBERT @ 10/17/2017 04:35 PM Normal [facility] Comment on above: Order Comment: , Views (X-RAY, KNEE): AP , Lateral, Tunnel, [place] , Weight Bearing?: Y , With Magnification Marker?: N , Views (X-RAY, KNEE): AP, Lateral, Tunnel, [place] , Weight Bearing?: Y , With Magnification Marker?: N , , , Ordering Provider - JOSUE CORTEZ MD , PELVIS 1 OR 2 VWSon 10-18-19 18 PELVIS 1 OR 2 [address] [facility] [address] [place] [address] =====Patient Name: DIANE HANDLEY : 1980Sex: FAge: Race: WhiteMRN: [id number]. Location: 93Patient Status: OVisit #: [id number] Date: 10/17/2017 3:25:00 PMCompleted Date: 10/17/2017 03:40 PMRequesting Provider: JOSUE CORTEZ Attending Provider: JOSUE CORTEZ Report Copy To: SELF, REFERRED Signs & Symptoms: M25.569 Pain in unspecified knee Y60Tynwqmu: AthenaComments: , Views (X-RAY, PELVIS): AP , Weight Bearing?: Y , With Magnification Marker?: Y , Views (X-RAY, PELVIS): AP , Weight Bearing?: Y , With Magnification Marker?: Y , , , Ordering Provider - JOSUE CORTEZ MD , Exam: PELVIS 1 OR 2 VWSAccession #: [id number] PELVIS 1 OR 2 VWS, KNEE LEFT [...] System PROTOCOL: AP(PA) view was obtained. (accession [id number]), AP,Lateral,Tunnel and Tangential views were obtained. (accession [id number]), AP,Lateral,Tunnel and Tangential views were obtained. (accession [id number]) COMPARISON: None FINDINGS: Pelvis: No acute abnormality. [...] hips Electronically signed by:Ernie Albert. Transcribed by: [email or web address], User Resident: Electronically Signed by: ERNIE ALBERT @ 10/17/2017 04:35 PM Normal [facility] Comment on above: Order Comment: , [...] pressure 89 mm[Hg] Iliana ARCE Work Phone: [employer] 05-18-2023 12:56-0500 Heart rate 85 /min Iliana Stevens PA Work Phone: [employer] 05-18-2023 12:56-0500 Respiratory rate 16 /min Iliana Stevens PA Work Phone: [employer] 05-18-2023 12:56-0500 SaO2% (BldA) [Mass fraction] 100 % Iliana Stevens PA Work Phone: [employer] 05-18-2023 12:56-0500 Systolic blood pressure 137 mm[Hg] Iliana Stevens PA Work Phone: [employer] 10-05-2022 13:15-0400 Body height 152.4 cm Laverne Missler Other [facility] Other 10-05-2022 13:15-0400 Body mass index (BMI) [Ratio] 48.25 kg/m2 Laverne Missler Other [facility] Other 10-05-2022 13:15-0400 Body weight 112.08 kg Laverne Missler Other [facility] Other 10-05-2022 13:15-0400 Diastolic blood pressure 76 mm[Hg] Laverne Missler Other [facility] Other 10-05-2022 13:15-0400 Respiratory rate 20 /min Laverne Missler Other [facility] Other 10-05-2022 13:15-0400 SaO2% (BldA) [Mass fraction] 97 % Laverne Missler Other [facility] Other 10-05-2022 13:15-0400 Systolic blood pressure 122 mm[Hg] Laverne Emerson Other [facility] Other 02-28-2020 13:09-0500 Body Temperature 97.5 [degF] STAFF, [facility] 02-28-2020 13:09-0500 BP Diastolic 83 mm[Hg] STAFF, [facility] 02-28-2020 13:09-0500 BP Systolic 149 mm[Hg] STAFF, [facility] 02-28-2020 13:09-0500 Pulse (Heart Rate) 83 /min STAFF, [facility] 02-28-2020 13:09-0500 Pulse Oximetry 98 % STAFF, [facility] 02-28-2020 13:09-0500 Respiratory Rate 18 /min STAFF, [facility] 02-28-2020 13:06-0500 BMI (Body Mass Index) 46.3 kg/m2 STAFF, [facility] 02-28-2020 13:06-0500 Body weight 111.13 kg STAFF, [facility] 02-28-2020 13:06-0500 Height 154.94 cm STAFF, [facility] Encounters Encounter Date Encounter Type Care Provider Facility Start: 07-13-2023 End: 07-13-2023 Emergency department patient visit BELEM Junior [facility] Start: 05-30-2023 End: 05-31-[address] [facility] Start: 05-22-2023 End: 05-22-2023 ambulatory KADIE SHAH Not Available Start: 05-18-2023 End: 05-18-2023 ambulatory ILIANA STEVENS [facility] Start: 05-18-2023 End: 05-18-2023 Office outpatient visit 25 minutes Iliana Stevens PA Work Phone: [facility] Comment on above: Primary osteoarthrit is of right knee (Primary Dx) Start: 05-16-2023 End: 05-16-2023 Emergency department patient visit RICA BRENNER [facility] Start: 05-06-2023 End: 05-06-2023 ambulatory GIACOMO PICKARD [facility] Start: 05-05-2023 End: 05-06-2023 ambulatory MIGUEL Santana MENDEZ [facility] Start: 04-28-2023 End: 04-29-2023 ambulatory BELEM Junior COOMBS [facility] Start: 04-25-2023 ambulatory ILIANA Mendoza [facility]CO[facility] Start: 03-22-2023 Telephone encounter Imani Wood RN [facility] Start: 03-22-2023 End: 03-22-2023 ambulatory ELMO GIRON [facility] Start: 11-16-2022 End: 11-16-2022 ambulatory Laverne Emerson Other [facility] Other Start: 11-16-2022 Telephone encounter Laverne Emerson [facility] Start: 10-05-2022 End: 10-06-2022 ambulatory Belem Choudhury Corin [facility] Other Start: 10-05-2022 Nutrition therapy Laverne Emerson [facility] Start: 02-01-2022 End: 02-01-2022 ambulatory [facility] Facility:[facility]1 Start: 01-17-2022 End: 01-17-2022 ambulatory [facility] Facility:[facility] Start: 10-19-2021 End: 10-20-2021 ambulatory [facility] Facility:[facility]1 Start: 02-28-2020 End: 02-28-2020 Emergency department patient visit STAFF, [facility] Start: 10-17-2017 End: 10-18-2017 Patient encounter TANIA CORTEZ Facility:[facility] Start: 02-07-2017 End: 02-08-2017 Patient encounter DEFAULT PHYSICIAN Facility:[facility] Plan of Treatment Date Care Activity Detail Author Start: 05-18-2024 Tobacco Screening Tobacco Screening [facility] Start: 05-15-2024 Adult BMI Screening Adult BMI Screening [facility] Start: 03-22-2024 Tobacco Screening Tobacco Screening [facility] Start: 03-13-2024 Adult BMI Screening Adult BMI Screening [facility] Start: 05-30-2023 End: 05-30-2023 Patient encounter procedure [facility] DEXA Start: 12-02-2022 Influenza vaccination Influenza Vaccine [facility] Start: 11-03-1999 Screening for malignant neoplasm of cervix Pap Smear [facility] Start: 1997 DTaP,Tdap and Td Vaccines (1 - Tdap) DTaP,Tdap and Td Vaccines (1 - Tdap) [facility] Start: 1996 Adult BMI Follow Up Plan Adult BMI Follow Up Plan [facility] Start: 1990 Depression Screening Depression Screening [facility] Injection aa&/strd genicular nrv branches w/img INJECTION BLOCK NERVE KNEE Primary osteoarthritis of right knee [facility] Patient Education Shoulder Pain (ED) [facility] Patient referral [facility] Payers Date Payer Category Payer Unknown [id number] 2022 Self-pay [id number] 2022 Medicaid [id number] 2022 Medicaid [employer] [facility] [id number] 2022-Present [phone] [address] [place] [address] [id number] 1978 Unknown [id number] [id number]3 1978 Unknown [id number] 2.16.840.1.947330.3.579.2.593 1978 Unknown [id number] 2.16.840.1.253721.3.579.2.593 1978 Unknown [id number] 2.16.840.1.788856.3.579.2.1259 1978 Unknown [id number] 2.16.840.1.510950.3.579.2.128 1978 Unknown [id number] 2.16.840.1.479647.3.579.2.128 1978 Unknown [id number] 2.16.840.1.651736.3.579.2.1285 1978 Unknown [id number] 2.16.840.1.987085.3.579.2.128 1978 Unknown [id number] 2.16.840.1.269490.3.579.2.1285 1978 Unknown [id number] 2.16.840.1.100333.3.579.2.1285 1978 Unknown [id number] 2.16.840.1.140611.3.579.2.1285 1978 Unknown [id number] 2.16.840.1.589773.3.579.2.128 1978 Unknown [id number] 2.16.840.1.069976.3.579.2.128 1978 Unknown [id number] 2.16.840.1.369351.3.579.2.1285 1978 Unknown [id number] 2.16840.1.923352.3.579.2.128 1978 Unknown [id number] 2.16840.1.738994.3.579.2.128 1978 Unknown [id number] 2.16840.1.814674.3.579.2.1286 1961 Medicaid [id number] Unknown Unknown [id number] 2.16840.1.629435.3.579.2.531 Social History Date Type Detail Facility Tobacco smoking stat [facility] Unknown if ever smoked [facility] Start: 1980 Sex Assigned At Female [facility] Start: 05-14-2020 End: 03-22-2023 Sex Assigned At [facility] [employer] Other Start: 01-26-2022 Tobacco smoking stat [facility] Never smoked tobacco [facility] Start: 01-26-2022 Tobacco use and exposure Smokeless tobacco non-user [facility] Start: 03-22-2023 End: 05-18-2023 Alcohol intake Current non-drinker of alcohol (finding) [facility] Start: 05-14-2020 End: 03-22-2023 History of Social function [facility] Housing Instability Unknown [facility] Start: 1980 Sex Assigned At Not on file P [facility] Goals Date Patient Goal Desired Activity /State Clinical Notes 10-20-2021 to 05-18-2023 CLAUDE Ivan - 05/18/2023 12:45 PM ESTPatient InstructionsTelephone Encounter - Imani Wood RN - 03/22/2023 1:42 PM EST Note Date & Type Note Facility 05-18-2023 History of Presen t illness Narrative [facility] [address] [place] [address] Patient: Diane Handley Sex: female : 1980 [...] 05/10/2019 Performed by Josefina Murguia MD at [facility] D AND C HYSTEROSCOPY N/A 05/10/2019 Performed by Josefina Murguia MD at [facility] D AND C HYSTEROSCOPY N/A 03/08/2019 Performed by Josefina Murguia MD at [facility] INJECTION BLOCK KNEE GENICULAR Left 11/15/2019 Performed by Miguel Mendez MD at [facility] INJECTION BLOCK NERVE KNEE Right Genicular Right 05/05/2023 Performed by Miguel Mendez MD at [facility] INJECTION BLOCK NERVE KNEE Left Genicular Left 03/04/2022 Performed by Miguel Mendez MD at [facility] INJECTION BLOCK NERVE KNEE Left Genicular Left 06/25/2021 Performed by Miguel Mendez MD at [facility] RADIOFREQUENCY ABLATION GENICULAR Left 04/29/2022 Performed by Miguel Mendez MD at [facility] TUBAL LIGATION No Known Allergies Family History [...] Ivan 05/18/23 1536 [facility] Instructions Dorcas Gottlieb CNA - 05/18/2023 [...] a safety precaution, you must have a emt driver after a lumbar nerve root injection, [...] back to normal. [facility]-22[facility]2023 Miscellaneous Notes Patient called to request a work note for today. Patient states she did not go to work today. Technical Support Representative spoke with Elmo who approves work note for today. Patient asks that note be sent to [email or web address]. Done. [facility]-22-2023 Telephone encounter Note Patient called to request a work note for today. Patient states she did not go to work today. Technical Support Representative spoke with Elmo who approves work note for today. Patient asks that note be sent to [email or web address]. Done. [facility] 10-05-2022 Evaluation note Encounter Date Diagnosis Assessment [...] Strongly encouraged to take advantage of our sterile processing technician available at [facility] that can help work around limitations. [...] will perform surveillance through out our visits. [facility] Other 07-20-2022 NotePROCEDURE: XR KNEE RT 4V [...] authenticated by: VIRGILIO FORRESTER Date: 2021-10-19 22:25[facility] note[facility] InformationN[facility] Other Evaluation noteNo assessment information available [facility] Work Phone: Evaluation note* Diagnosis Primary osteoarthritis of right knee- Primary documented in this encounter [employer] SystemHistory general Narrative - Reported* Type Description Date Medical History Osteoarthritis Medical History Anxiety Medical History Arthritis of bilateral knees Medical History Depression Medical History Panic attacks Medical History Anemia Medical History Bipolar Surgical History tubal ligation Surgical History Uterine ablation 11/2019 Surgical History [place] teeth extraction Hospitalization History child Hospitalization History See above [facility] Other InstructionsNot on filedocumented in this encounter [facility] Summary Purpose Family History No Family History [...] Information Available Discharge Instructions Additional Instructions Use [id number]-yle-[id number] pain control as needed Robaxin is a [...] PA [address] [place] [address] Referral ID Status Reason Start Date Expiration Date V isits Requested Visits Authorized [id number] Pending Review 05/18/2023 05/17/2024 1 1 Additional Source Comments INFORMATION SOURCE (unrecogn ized section and content) DATE CREATED AUTHOR 10/21/2017 [facility] DATE CREATED AUTHOR AUTHOR'S ORGANIZ ATION 03/02/2022 [facility] DATE CREATED AUTHOR AUTHOR'S ORGANIZ ATION 04/03/2023 [facility] DATE CREATED AUTHOR AUTHOR'S ORGANIZ ATION 05/22/2023 [facility] EPIC DATE CREATED AUTHOR AUTHOR'S ORGANIZ ATION 07/14/2023 [facility] REASON FOR VISIT (unrecogniz ed section and content) Reason Comments Knee Pain Goals (unrecognized section and content) Goals may be documented in a n alternate section Care Teams (unrecognized sec tion and content) War[employer] Worker Relationship Specialty Start Date End Date Belem Coombs PA-C [facility] [place] [address] PCP - General Physician [employer] 09/06/22 Warp Worker Relationship Specialty Start Date End Date Belem Coombs PA-C [address] [place] [address] PCP - General Physician [employer] 05/15/23 FOR RECORDS PERTAINING TO PATIENTS WHO [...] BE BASED ON THE PRIMARY CLINICAL RECORDS. [facility] [employer] [facility]. provides no warranty or guarantee of the accuracy or completeness of information in this document.
--- NOTE | 2023-08-04 02:32 | PC.NURSE ---
Patient states she has been constipated today. Had BM at 1 am at states there was bright red blood in toilet. patient states she moved and hasnt been able to find her stool softener.
--- NOTE | 2023-08-04 02:36 | PC.NURSE ---
nurse at bedside for rectal exam with Dr. Carrillo.
[2023-08-04] MEDS: BISACODYL 5 MG TABLET 10 MG PO (03:03)
[2023-08-04] MEDS: MAGNESIUM CITRATE 296 ML SOLUTION PO (03:03)
== END 2023-08-04 03:09 | disposition home or self-care (01) ==
PROVIDERS: Emergency Provider Emergency Medicine; PCP Physician Assistant
DX: K59.00 Constipation, unspecified (principal); E66.9 Obesity, unspecified; Z68.42 Body mass index [BMI] 45.0-49.9, adult; Z79.899 Other long term (current) drug therapy
CPT/HCPCS: 74018; 99283

== ENCOUNTER 2023-09-11 07:19 | Emergency (ER) | payer SELFPAY ==
[2023-09-11 07:23] VITALS: BP 145/98; PULSE 70; TEMP 37; O2SAT 95; BMI 48.8
--- NOTE | 2023-09-11 07:28 | PC.NURSE ---
patient reports chronic bilateral knee pain, has been ongoing for quite a while. Patient reports she sees pain management in [place] but does not have an appointment until the 18 of September. States I kept trying to fall last night at work, but didn't.
--- OUTSIDE RECORDS SUMMARY | 2023-09-11 07:35 | XMS_ITS ---
Patient Summarization (C-CDA 2.1 CCD) Created on: September 11, 2023 DIANE HANDLEY DIANE : 1980 Sex: Undifferentiated Author Organization Sample organization Care Team Providers Care Agriculture Technician Name Role Phone PHYSICIAN, DEFAULT Unavailable Unavailable PHYSICIAN, DEFAULT Unavailable Unavailable DANA, SUMMON Unavailable Unavailable DANA, SUMMON Unavailable Unavailable SELF, REFERRED Unavailable Unavailable SELF, REFERRED Unavailable Unavailable NON, STAFF, Primary Care Provider Unavailabl e [facility] Unava ilable KAYLEN, DR SWANN Admitting Unavailable KAYLEN, DR SWANN Attending Unavailable USAMA, DR VIRGILIO Gupta Consulting Unavailable CLAUDE MAYORGA Consulting Unavailable [facility] Unava ilable APRIL, DR ELODIA Gupta Admitting Unavailable APRIL, DR ELODIA Gupta Attending Unavailable APRIL, DR ELODIA Gupta Consulting Unavailable [facility] Unava ilable MARKER, DR LONG Admitting Unavailable MARKER, DR LONG Attending Unavailable MARKER, DR LONG Consulting Unavailable JAYLA KEBEDE Consulting Unavailable Laverne Emerson Unavailable Belem Coombs Attending Unavailable Belem Coombs Primary Care Unavailable Belem Coombs Admitting Unavailable Belem Coombs PA-C Primary Care Provider Belem Coombs PA-C Primary Care Provider KADIE SHAH Attending Unavailable BELEM COOMBS Referring Unavailable BELEM COOMBS Primary Care Unavailable BELEM COOMBS Primary Care Unavailable ROZ DUKES Attending Unavailable ELMO GIRON Attending Unavailable BELEM COOMBS [...] Primary Care Unavailable GIACOMO PICKARD Attending Unavailable NORA, BELEM Junior Primary Care Unavailable NORA, BELEM Junior Primary Care Unavailable RICA BRENNER Attending Unavailable RICA BRENNER Attending Unavailable RICA BRENNER Referring Unavailable NORA, BELEM Junior Primary Care Unavailable ILIANA STEVENS Attending Unavailable BELEM COOMBS Referring Unavailable NORA, BELEM Junior Primary Care Unavailable NORA, BELEM Junior Referring Unavailable COOMBS, BELEM Junior Primary Care Unavailable Unavailable Unavailable Unavailable Encounters Encounter Date Encounter Type Care Provider Facility Start: 08-10-2023 End: 08-10-2023 ambulatory ILIANA Mendoza [facility] Start: 07-13-2023 End: 07-13-2023 Emergency department patient visit BELEM COOMBS [facility] Start: 05-30-2023 End: 05-31-2023 ambulatory BELEM Junior [facility] Start: 05-22-2023 End: 05-22-2023 ambulatory KADIE SHAH Not Available Start: 05-18-2023 End: 05-18-2023 ambulatory [facility] Start: 05-18-2023 End: 05-18-2023 Office outpatient visit 25 minutes Iliana ARCE Work Phone: [facility] Comment on above: Primary osteoarthrit is of right knee (Primary Dx) Start: 05-16-2023 End: 05-16-2023 Emergency department patient visit RICA BRENNER [facility] Start: 05-06-2023 End: 05-06-2023 ambulatory GIACOMO PICKARD [facility] Start: 05-05-2023 End: 05-06-2023 ambulatory MIGUEL MENDEZ [facility] Start: 04-28-2023 End: 04-29-2023 ambulatory BELEM Junior [facility] Start: 04-25-2023 ambulatory ILIANA S [facility] Start: 03-22-2023 Telephone encounter Imani Wood RN [facility] Start: 03-22-2023 End: 03-22-2023 ambulatory ELMO GIRON [facility] Start: 11-16-2022 End: 11-16-2022 ambulatory Lavrene Emerson Other [facility] Other Start: 11-16-2022 Telephone encounter Laverne Bright [facility] Start: 10-05-2022 End: 10-06-2022 ambulatory Belem Coombs [place] [employer] Other Start: 10-05-2022 Nutrition therapy Laverne [facility] Start: 02-01-2022 End: 02-01-2022 [facility] Start: 01-17-2022 End: 01-17-2022 [facility] Start: 10-19-2021 End: 10-20-2021 [facility]: Start: 02-28-2020 End: 02-28-2020 Emergency department patient visit STAFF, [facility] Start: 10-17-2017 End: 10-18-2017 Patient encounter TANIA CORTEZ Facility:[facility] Start: 02-07-2017 End: 02-08-2017 Patient encounter DEFAULT PHYSICIAN Facility:[facility] Goals Date Patient Goal Desired Activity /State Medications Current Medications Medication Drug Class(es) Dates [...] a day for 10 days Dec, Not-Taking Payers Date Payer Category Payer Unknown [id number] 2022 Self-pay [id number] 2022 Medicaid [id number] 2022 Medicaid [employer] [facility] O [id number] 2022-Present [phone] [address] [place] [address] [id number] 1980 Unknown [id number] 2.16.840.1.292900.3.579.2.593 1978 Unknown [id number] 2.16.840.1.070363.3.579.2.593 1978 Unknown [id number] 2.16.840.1.449531.3.579.2.593 1978 Unknown [id number] 2.16.840.1.223816.3.579.2.1259 1978 Unknown [id number] 2.16.840.1.769581.3.579.2.1286 1978 Unknown [id number] 2.16.840.1.844474.3.579.2.1286 1978 Unknown [id number] 2.16.840.1.124387.3.579.2.1286 1978 Unknown [id number] 2.16.840.1.132321.3.579.2.1286 1978 Unknown [id number] 2.16.840.1.725807.3.579.2.1286 1978 Unknown [id number] 2.16.840.1.351141.3.579.2.1286 1978 Unknown [id number] 2.16.840.1.781573.3.579.2.1286 1978 Unknown [id number] 2.16.840.1.767096.3.579.2.1286 1978 Unknown [id number] 2.16.840.1.467996.3.579.2.1286 1978 Unknown [id number] 2.16.840.1.001291.3.579.2.1286 1978 Unknown [id number] 2.16.840.1.065013.3.579.2.1286 1978 Unknown [id number] 2.16.840.1.616960.3.579.2.1286 1978 Unknown [id number] 2.16.840.1.614473.3.579.2.1286 1959 Medicaid [id number] Unknown Unknown [id number] 2.16.840.1.777850.3.579.2.531 Plan of Treatment Date Care Activity Detail Author Start: 05-18-2024 Tobacco Screening Tobacco Screening [facility] Start: 05-15-2024 Adult BMI Screening Adult BMI Screening [facility] Start: 03-22-2024 Tobacco Screening Tobacco Screening [facility] Start: 03-13-2024 Adult BMI Screening Adult BMI Screening [facility] Start: 05-30-2023 End: 05-30-2023 Patient encounter procedure [facility] Mammogram DEXA Start: 12-02-2022 Influenza vaccination Influenza Vaccine [facility] Start: 11-03-1999 Screening for malignant neoplasm of cervix Pap Smear [facility] Start: 1997 DTaP,Tdap and Td Vaccines (1 - Tdap) DTaP,Tdap and Td Vaccines (1 - Tdap) [facility] Start: 1996 Adult BMI Follow Up Plan Adult BMI Follow Up Plan [facility] Start: 1990 Depression Screening Depression Screening [facility] Injection aa&/strd genicular nrv branches w/img INJECTION BLOCK NERVE KNEE Primary osteoarthritis of right knee [facility] Patient Education Shoulder Pain (ED) [facility] Patient referral [facility] Problems Active Problems Problem Classification Problem Date [...] 10-17-2017 Chronic Other aftercare (1 source) Other fci (current) drug therapy; Translations: [OTH TILE CLASSIFIER CURRENT DRUG THERAPY] Onset: 02-02-2022 Episodic Other [...] to excess calories] Onset: 06-02-2020 06-02-2020 Chronic Spondylosis; intervertebral disc disorders; other back problems [...] [Acute pain of right shoulder] Episodic Other screening for suspected conditions (not mental disorders or infectious disease) (1 source) Encounter for screening mammogram for malignant neoplasm of breast; Translations: [Encounter for screening mammogram for malignant neoplasm of breast] Onset: 04-28-2023 Episodic Results Test Name Value Interpretation Reference [...] AM 1 b MAMM 1 YR [facility] XR KNEE RT 3 VWSon 4 [...] Marion MD on 05/15/2023 10:58 PM Normal [facility] MAMM SCREENING 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 Location: 93Patient Status: OVisit #: [id number] Date: 10/17/2017 3:25:00 PMCompleted Date: 10/17/2017 03:47 PMRequesting Provider: JOSUE CORTEZ Attending Provider: JOSUE CORTEZ Report Copy To: SELF, REFERRED Signs & Symptoms: M25.569 Pain in unspecified knee [id number]: AthenaComments: , Views (X-RAY, KNEE): AP, Lateral, Tunnel, [place] , Weight Bearing?: Y , With Magnification Marker?: N , Views (X-RAY, KNEE): AP, Lateral, Tunnel, [place] , Weight Bearing?: Y , With Magnification Marker?: N , , , Ordering Provider - JOSUE CORTEZ MD , Exam: KNEE LEFT 4VWSAccession #: [id number] PELVIS 1 OR 2 VWS, KNEE LEFT [...] System PROTOCOL: AP(PA) view was obtained. (accession [id number]), AP,Lateral,Tunnel and Tangential views were obtained. (accession [id number]), AP,Lateral,Tunnel and Tangential views were obtained. (accession [id number]) COMPARISON: None FINDINGS: Pelvis: No acute abnormality. [...] hips Electronically signed by:Ernie Albert. Transcribed by: [email or web address], User Resident: Electronically Signed by: ERNIE ALBERT @ 10/17/2017 04:35 PM Normal [facility] Comment on above: Order Comment: , Views (X-RAY, KNEE): AP , Lateral, Tunnel, [place] , Weight Bearing?: Y , With Magnification Marker?: N , Views (X-RAY, KNEE): AP, Lateral, Tunnel, [place] , Weight Bearing?: Y , With Magnification Marker?: N , , , Ordering Provider - JOSUE CORTEZ MD , KNEE RIGHT 4 VWSon 8 KNEE RIGHT 4 VWS [facility] [address] [place] [address] =====Patient Name: DIANE HANDLEY : 1980Sex: FAge: Race: WhiteMRN: [id number]. Location: 93Patient Status: OVisit #: [id number] Date: 10/17/2017 3:25:00 PMCompleted Date: 10/17/2017 03:40 PMRequesting Provider: JOSUE CORTEZ Attending Provider: JOSUE CORTEZ Report Copy To: SELF, REFERRED Signs & Symptoms: M25.569 Pain in unspecified knee [id number]: AthenaComments: , Views (X-RAY, KNEE): AP, Lateral, Tunnel, [place] , Weight Bearing?: Y , With Magnification Marker?: N , Views (X-RAY, KNEE): AP, Lateral, Tunnel, [place] , Weight Bearing?: Y , With Magnification Marker?: N , , , Ordering Provider - JOSUE CORTEZ MD , Exam: KNEE RIGHT 4 VWSAccession #: [id number] PELVIS 1 OR 2 VWS, KNEE LEFT [...] System PROTOCOL: AP(PA) view was obtained. (accession [id number]), AP,Lateral,Tunnel and Tangential views were obtained. (accession [id number]), AP,Lateral,Tunnel and Tangential views were obtained. (accession [id number]) COMPARISON: None FINDINGS: Pelvis: No acute abnormality. [...] hips Electronically signed by:Ernie Albert. Transcribed by: [email or web address], User Resident: Electronically Signed by: ERNIE ALBERT @ 10/17/2017 04:35 PM Normal [facility] Comment on above: Order Comment: , Views (X-RAY, KNEE): AP , Lateral, Tunnel, [place] , Weight Bearing?: Y , With Magnification Marker?: N , Views (X-RAY, KNEE): AP, Lateral, Tunnel, [place] , Weight Bearing?: Y , With Magnification Marker?: N , , , Ordering Provider - JOSUE CORTEZ MD , PELVIS 1 OR 2 [facility] 10-18-19 18 PELVIS 1 OR 2 [facility] [address] [place] [address] =====Patient Name: DIANE HANDLEY : 1980Sex: FAge: Race: WhiteMRN: [id number]. Location: 93Patient Status: OVisit #: [id number] Date: 10/17/2017 3:25:00 PMCompleted Date: 10/17/2017 03:40 PMRequesting Provider: JOSUE CORTEZ Attending Provider: JOSUE CORTEZ Report Copy To: SELF, REFERRED Signs & Symptoms: M25.569 Pain in unspecified knee [id number]: AthenaComments: , Views (X-RAY, PELVIS): AP , Weight Bearing?: Y , With Magnification Marker?: Y , Views (X-RAY, PELVIS): AP , Weight Bearing?: Y , With Magnification Marker?: Y , , , Ordering Provider - JOSUE CORTEZ MD , Exam: PELVIS 1 OR 2 VWSAccession #: [id number] PELVIS 1 OR 2 VWS, KNEE LEFT [...] System PROTOCOL: AP(PA) view was obtained. (accession [id number]), AP,Lateral,Tunnel and Tangential views were obtained. (accession [id number]), AP,Lateral,Tunnel and Tangential views were obtained. (accession [id number]) COMPARISON: None FINDINGS: Pelvis: No acute abnormality. [...] hips Electronically signed by:Ernie Albert. Transcribed by: [email or web address], User Resident: Electronically Signed by: ERNIE ALBERT @ 10/17/2017 04:35 PM Normal [facility] Comment on above: Order Comment: , Views (X-RAY, PELVIS): AP , Weight Bearing?: Y , With Magnification Marker?: Y , Views (X-RAY, PELVIS): AP , Weight Bearing?: Y , With Magnification Marker?: Y , , , Ordering Provider - JOSUE CORTEZ MD , Social History Date Type Detail Facility Start: 05-14-2020 End: 03-22-2023 Sex Assigned At [facility] [employer] Other Start: 03-22-2023 End: 05-18-2023 Alcohol intake Current non-drinker of alcohol (finding) [facility] Start: 05-14-2020 End: 03-22-2023 History of Social function [facility] Start: 01-26-2022 Tobacco smoking stat [facility] Never smoked tobacco [facility] Start: 01-26-2022 Tobacco use and exposure Smokeless tobacco non-user [facility] Start: 1980 Sex Assigned At Female F [facility] Start: 1980 Sex Assigned At Not on file P [facility] Instability Unknown [facility] Vital Signs Date Time Vital Sign Value Performing Clinician Facility 05-18-2023 12:56-0500 Diastolic blood pressure 89 mm[Hg] Iliana ARCE Work Phone: [facility] 05-18-2023 12:56-0500 Heart rate 85 /min Iliana ARCE Work Phone: [facility] 05-18-2023 12:56-0500 Respiratory rate 16 /min Iliana ARCE Work Phone: [employer] 05-18-2023 12:56-0500 SaO2% (BldA) [Mass fraction] 100 % Iliana ARCE Work Phone: [employer] 05-18-2023 12:56-0500 Systolic blood pressure 137 mm[Hg] Iliana ARCE Work Phone: [employer] 10-05-2022 13:15-0400 Body height 152.4 cm Laverne Missler Other [facility] Other 10-05-2022 13:15-0400 Body mass index (BMI) [Ratio] 48.25 kg/m2 Laverne Missler Other [facility] Other 10-05-2022 13:15-0400 Body weight 112.08 kg Laverne Missler Other [facility] Other 10-05-2022 13:15-0400 Diastolic blood pressure 76 mm[Hg] Laverne Missler Other [facility] Other 10-05-2022 13:15-0400 Respiratory rate 20 /min Laverne Missler Other [facility] Other 10-05-2022 13:15-0400 SaO2% (BldA) [Mass fraction] 97 % Laverne Missler Other [facility] Other 10-05-2022 13:15-0400 Systolic blood pressure 122 mm[Hg] Laverne Missler Other [facility] Other 02-28-2020 13:09-0500 Body Temperature 97.5 [degF] STAFF, [facility] 02-28-2020 13:09-0500 BP Diastolic 83 mm[Hg] STAFF, [facility] 02-28-2020 13:090500 BP Systolic 149 mm[Hg] STAFF, [facility] 02-28-2020 13:09-0500 Pulse (Heart Rate) 83 /min [facility], [facility] 02-28-2020 13:090500 Pulse Oximetry 98 % STAFF, [facility] 02-28-2020 13:090500 Respiratory Rate 18 /min STAFF, [facility] 02-28-2020 13:06-0500 BMI (Body Mass Index) 46.3 kg/m2 STAFF, [facility] 02-28-2020 13:060500 Body weight 111.13 kg STAFF, [facility] 02-28-2020 13:060500 Height 154.94 cm STAFF, [facility] Clinical Notes 10-20-2021 to 05-18-2023 CLAUDE Ivan - 05/18/2023 12:45 PM ESTPatient InstructionsTelephone Encounter - Imani Wood RN - 03/22/2023 1:42 PM EST Note Date & Type Note Facility 05-18-2023 History of Presen t illness Narrative [facility] [address] [place] [address] Patient: Diane Handley Sex: female : 1980 [...] with 100% relief thru 05/14/2023 pre-proc pain 10/10 9-13-23 bilateral steroid knee injections in clinic with [...] relief. 11/15/2019 Left knee NB 80-90% relief, anibla no relief, lyrica. mobic no relief. The treatment provided no relief. The effect of pain on patient's ADLS: Severe Impairment. Past Medical History: Diagnosis Date Arthritis Arthritis Chronic pain disorder Depression Joint pain marcia knees Knee pain Migraines Obesity Past Surgical History: Procedure Laterality Date ABLATION ENDOMETRIAL NOVASURE N/A 05/10/2019 Performed by Josefina Murguia MD at [facility] D AND C HYSTEROSCOPY N/A 05/10/2019 Performed by Josefina Murguia MD at [facility] D AND C HYSTEROSCOPY N/A 03/08/2019 Performed by Josefina Murguia MD at [facility] INJECTION BLOCK KNEE GENICULAR Left 11/15/2019 Performed by Miguel Mendez MD at [facility] IN[facility] BLOCK NERVE KNEE Right Genicular Right 05/05/2023 Performed by Miguel Mendez MD at [facility] IN[facility] BLOCK NERVE KNEE Left Genicular Left 03/04/2022 Performed by Miguel Mendez MD at [facility] INJECTION BLOCK NERVE KNEE Left Genicular Left 06/25/2021 Performed by Miguel Mendez MD at [facility] RADIOFREQUENCY ABLATION GENICULAR Left 04/29/2022 Performed by Miguel Mendez MD at [facility] TUBAL LIGATION No Known Allergies Family [...] for and in the presence of CLAUDE IVNA by Dorcas Gottlieb CNA. Provider Statement: I, CLAUDE IVAN, personally performed the services described in the documentation, as scribed by Dorcas Gottlieb CNA in my presence, and it is both accurate and complete. Dorcas Gottlieb CNA 05/18/23 1401 CLAUDE Ivan 05/18/23 1536 documented in this encounter [facility] [employer] 05-18-2023 Instructions Dorcas Gottlieb CNA - 05/18/2023 [...] a safety precaution, you must have a highway truck driver after a lumbar nerve root injection, [...] normal. [facility] 03-22-2023 Miscellaneous Notes Patient called to request a work note for today. Patient states she did not go to work today. Car Sales Associate spoke with Elmo who approves work note for today. Patient asks that note be sent to [email or web address]. Done. documented in this encounter [facility] 03-22-2023 Telephone encounter Note Patient called to request a work note for today. Patient states she did not go to work today. Car Sales Associate spoke with Elmo who approves work note for today. Patient asks that note be sent to [email or web address]. Done. [facility] 10-05-2022 Evaluation note Encounter Date Diagnosis Assessment [...] Strongly encouraged to take advantage of our refrigerator room clerk available at [facility] that can help work around limitations. Each [...] will perform surveillance through out our visits. [facility] Other 07-20-2022 NotePROCEDURE: XR KNEE RT 4V [...] authenticated by: VIRGILIO FORRESTER Date: 2021-10-19 22:25[facility] note[facility] InformationNort [employer] [place] Other Evaluation noteNo assessment information available [facility] Work Phone: Evaluation note* Diagnosis Primary osteoarthritis of right knee- Primary documented in this [facility] N[facility]ative - Reported* Type Description Date Medical History Osteoarthritis Medical History Anxiety Medical History Arthritis of bilateral knees Medical History Depression Medical History Panic attacks Medical History Anemia Medical History Bipolar Surgical History tubal ligation Surgical History Uterine ablation 11/2019 Surgical History [place] teeth extraction Hospitalization History child Hospitalization History See above [facility] Other InstructionsNot on filedocumented in this encounter [facility] Summary Purpose Family History No Family History [...] Information Available Discharge Instructions Additional Instructions Use [id number] pain control as needed Robaxin is a muscle relaxer and can make you drowsy. Do not drive or drink alcohol on this medication. Follow-up with your family doctor Reason for Referral Specialty Diagnoses / Procedures Referred By Alexandr berman Referred To Contact Diagnoses Primary osteoarthritis of right knee Procedures Case request operating room: INJECTION BLOCK NERVE KNEE Iliana Stevens PA [address] [facility] [place] [phone] Referral ID Status Reason Start Date Expiration Date V isits Requested Visits Authorized [id number] Pending Review 05/18/2023 05/17/2024 1 1 Additional Source Comments INFORMATION SOURCE (unrecogn ized section and content) DATE CREATED AUTHOR 10/[facility]/2017 [facility] DATE CREATED AUTHOR AUTHOR'S ORGANIZ ATION 03/02/2022 [facility] DATE CREATED AUTHOR AUTHOR'S ORGANIZ ATION 04/03/2023 [facility] DATE CREATED AUTHOR AUTHOR'S ORGANIZ ATION 05/22/2023 [facility] DATE CREATED AUTHOR AUTHOR'S ORGANIZ ATION 08/12/2023 [facility] REASON FOR VISIT (unrecogniz ed section and content) Reason Comments Knee Pain Goals (unrecognized section and content) Goals may be documented in a n alternate section Care Teams (unrecognized sec tion and content) Agriculture Technician Relationship Specialty Start Date End Date Belem Coombs PA-C [address] [place] [address] PCP - General Physician Post Manager 09/06/22 Agriculture Technician Relationship Specialty Start Date End Date Belem Coombs PA-C [address] [place] [address] PCP - General Physician Post Manager 05/15/23 FOR RECORDS PERTAINING TO PATIENTS WHO [...] BE BASED ON THE PRIMARY CLINICAL RECORDS. [employer]. provides no warranty or guarantee of the accuracy or completeness of information in this document.
--- NOTE | 2023-09-11 09:02 | ED.GENADUL1 ---
HPI HPI - General Adult General Chief complaint: Extremity Problem, Nontraumatic Stated complaint: BILATERAL LOWER EXTREMITY PAIN Time Seen by Provider: 09/11/23 07:26 Source: patient Mode of arrival: Wheelchair Limitations: no limitations History of Present Illness HPI narrative: Patient is a 42-year-old female who is presenting to the ER today with chief complaint of acute on chronic right knee pain. Patient states that she is never seen orthopedic surgery for her chronic right knee pain which does not seem appropriate. Patient has been seeing chronic pain management out of [place] and has been receiving injections into her right knee to help with her pain. Patient has no new injury, no new fall, no new events causing the right knee pain. 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 Patient has no redness, no new swelling or effusion, no other new complaints. This is chronic right knee pain that is getting worse. Patient has appointment with pain management on September 18 in [place]. Patient says she has never seen orthopedic surgery for this before. All systems are negative except as noted/marked. All systems reviewed and otherwise negative. Nurses note and vital signs reviewed and patient is not hypoxic. General: The patient appears well and in no apparent distress. Patient is resting comfortably on cart. Patient is not toxic, lethargic, or listless Skin: Warm, dry, no pallor noted. There is no rash noted. No petechiae, purpura. Head: Normocephalic, atraumatic Eye: Normal conjunctiva, no drainage, EOMI. PERRL Ears, Nose, Mouth, and Throat: oral mucosa is moist. Nares patent. Mouth without vesicles. Cardiovascular: Regular Rate and Rhythm, no murmur, gallop, rub Respiratory: Patient is in no distress, no accessory muscle use, lungs are clear to auscultation, no wheezing, rales or rhonchi Back: non-tender, GI: Obese, soft, no tenderness to palpation, no masses appreciated. Musculoskeletal: Patient has full range of motion of all of the extremities. Patient has mild to moderate tenderness to palpation with passive range of motion to the right knee. Patient has mild tenderness to palpation with varus or valgus stress, patient has no redness, no new swelling, no signs of septic joint. Patient has no pain to the proximal fibular head. Patient has full range of motion of the right knee and right ankle. Patient has no pain to the right hip with internal/external rotation. no motor, sensory, or focal neurological deficits Neurological: A&O x4, normal speech Psychiatric: Cooperative Related Data Home Medications ?Medication ?Instructions ?Recorded ?Confirmed aripiprazole 2 mg tablet 2 mg PO .QHS 04/23/23 04/23/23 cholecalciferol (vitamin D3) 10 20 mcg PO DAILY 04/23/23 04/23/23 mcg (400 unit) tablet (Vitamin D3) duloxetine 30 mg capsule,delayed 30 mg PO DAILY 04/23/23 04/23/23 release acetaminophen 500 mg tablet mg 06/28/23 aripiprazole 5 mg tablet mg 06/28/23 duloxetine 60 mg capsule,delayed mg PO 06/28/23 release hydroxyzine pamoate 25 mg capsule mg 06/28/23 Previous Rx's ?Medication ?Instructions ?Recorded diclofenac sodium 1 % topical gel 2 g topical QID #100 grams 09/11/23 (Voltaren Arthritis Pain) meloxicam 7.5 mg tablet 7.5 mg PO DAILY #14 tabs 09/11/23 Allergies Allergy/AdvReac Type Severity Reaction Status Date / Time No Known Drug Allergies Allergy Verified 08/04/23 02:25 Opioid HPI Opioid Management Most Recent Opioid Data: Last Pain Scale 4 03/09/23 13:44 PFSH PFSH Social History Smoking status: Never smoker Exam Constitutional Vital Signs, click to edit/add: Last Vital Signs Temp 98.6 F 09/11/23 07:23 Pulse 70 09/11/23 07:23 Resp 20 09/11/23 07:23 BP 145/98 H 09/11/23 07:23 Pulse Ox 95 09/11/23 07:23 Course Vital Signs Vital signs: Vital Signs Temperature 98.6 F 09/11/23 07:23 Pulse Rate 70 09/11/23 07:23 Respiratory Rate 20 09/11/23 07:23 Blood Pressure 145/98 H 09/11/23 07:23 Pulse Oximetry 95 09/11/23 07:23 Temperature 98.6 F 09/11/23 07:23 Pulse Rate 70 09/11/23 07:23 Respiratory Rate 20 09/11/23 07:23 Blood Pressure 145/98 H 09/11/23 07:23 Pulse Oximetry 95 09/11/23 07:23 Medical Decision Making MDM Narrative Medical decision making narrative: Stop taking Naprosyn, patient will start taking Mobic. Patient was also prescribed Voltaren gel. I attempted to set up an appointment with patient with Dr. Alvarez, who does total joint surgery. Patient has no insurance, Dr. Alvarez needed 200 hours and valencia to see the patient without insurance. Patient says that she does not have this money at this time. Dr. Aquino will see the patient on September 24Monday, at 9:20 AM. He will see the patient without insurance, so that patient does not need to wait. Patient is given this information. Patient has an appointment with pain management on September. She is enrolled in pain management at this time. No questions at discharge. Patient is here with acute on chronic right knee pain. Patient was educated on using ice. Patient will follow-up with PCP as needed as well. Discharge Plan Discharge Stand Alone Forms: Portal Instructions Chief Complaint: Extremity Problem, Nontraumatic Clinical Impression: Chronic pain of right knee Patient Disposition: Home, Self-Care Time of Disposition Decision: 08:44 Condition: Fair Prescriptions / Home Meds: New meloxicam 7.5 mg tablet 7.5 mg PO DAILY Qty: 14 0RF diclofenac sodium [Voltaren Arthritis Pain] 1 % gel 2 g topical QID Qty: 100 0RF Rx Instructions: apply to single elbow, wrist or hand; for hand includes palm/fingers/back of hand No Action aripiprazole 2 mg tablet 2 mg PO .QHS cholecalciferol (vitamin D3) [Vitamin D3] 10 mcg (400 unit) tablet 20 mcg PO DAILY duloxetine 30 mg capsule,delayed release(DR/EC) 30 mg PO DAILY acetaminophen 500 mg tablet hydroxyzine pamoate 25 mg capsule aripiprazole 5 mg tablet duloxetine 60 mg capsule,delayed release(DR/EC) PO Print Language: Vincentian Instructions: Pain Management (ED), Chronic Pain (ED), Knee Pain (ED) Additional Instructions: Use ice 20 minutes on, 20 minutes off. You need to follow-up with orthopedic surgery. Orthopedic surgery will help you with your chronic right knee pain and help with definitive treatment. Referrals name and information has been given to you. DR AQUINO WILL SEE YOU AT 920AM ON September. HE WILL SEE YOU WITH NO INSURANCE TO START THE PROCESS TO HELP YOU!!!!! Use Voltaren gel as needed for pain. Start using Mobic and stop using Naprosyn to help with pain Referrals: Jonh Escobar MD [Physician] - 1 week Terrence Aquino MD [Physician] - 1 week Chiki Coombs [Primary Care Provider] - 1 week
[2023-09-11 09:24] VITALS: BP 148/88; PULSE 78; O2SAT 98
== END 2023-09-11 09:26 | disposition home or self-care (01) ==
PROVIDERS: Emergency Provider Emergency Medicine; PCP Physician Assistant
DX: M25.561 Pain in right knee (principal); G89.29 Other chronic pain; E66.9 Obesity, unspecified; Z68.42 Body mass index [BMI] 45.0-49.9, adult
CPT/HCPCS: 99283

== ENCOUNTER 2023-09-25 09:48 | Outpatient (OUT) | payer OTHER, SELFPAY ==
--- NOTE | 2023-09-25 | XR_ITS ---
[address] [address] Patient Name: MARIBELL HANDLEY MRN: [id number] date: 1980 Sex: F Assigned Patient Location: Current Patient Location: Accession/Order Number: [id number] Exam Date: 09/25/2023 09:55 Report Date: 09/25/2023 10:35 At the request of: VIRGILIO READ Procedure: XR knee CIARRA 4V EXAMINATION: XR knee CIARRA 4V HISTORY: BILATERAL KNEE PAIN COMPARISON: No relevant comparison available. FINDINGS: RIGHT FINDINGS: BONES: No acute fracture or dislocation. Moderate to severe tricompartmental osteoarthropathy with [id number] articulation. Marginal osteophyte formation SOFT TISSUES: Negative. No visible soft tissue swelling. OTHER: Negative. LEFT FINDINGS: BONES: No acute fracture or dislocation. Moderate to severe tricompartmental osteoarthropathy with [id number] articulation. Marginal osteophyte formation SOFT TISSUES: Negative. No visible soft tissue swelling. OTHER: Negative. 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
--- OUTSIDE RECORDS SUMMARY | 2023-09-25 10:08 | XMS_ITS | CCD ---
Author Organization [facility] Care Team Providers Care Top Spotter Name Role Phone PHYSICIAN, DEFAULT Unavailable Unavailable PHYSICIAN, DEFAULT Unavailable Unavailable DANA, SUMMON Unavailable Unavailable DANA, SUMMON Unavailable Unavailable SELF, REFERRED Unavailable Unavailable SELF, REFERRED Unavailable Unavailable NON, STAFF, Primary Care Provider Unavailabl e [facility] Unava ilable KAYLEN, DR SWANN Admitting Unavailable KAYLEN, DR SWANN Attending Unavailable USAMA, DR VIRGILIO Gupta Consulting Unavailable CLAUDE MAYORGA Consulting Unavailable [facility] Unava ilable APRIL, DR ELODIA Gupta Admitting Unavailable APRIL, DR ELODIA Gupta Attending Unavailable APRIL, DR ELODIA Gupta Consulting Unavailable [facility] Unava ilable MARKER, DR LONG Admitting Unavailable [...] MENDEZ Admitting Unavailable MIGUEL MENDEZ Attending Unavailable COOMBS, BELEM A Referring Unavailable BELEM COOMBS Primary Care Unavailable [...] 10-17-2017 Chronic Other aftercare (1 source) Other nursing home (current) drug therapy; Translations: [[facility] CURRENT DRUG THERAPY] Onset: 02-02-2022 Episodic Other [...] AM 1 b MAMM 1 YR Normal [facility] XR KNEE RT 3 VWSon 4 [...] Marion MD on 05/15/2023 10:58 PM Normal [facility] 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 Location: 93Patient Status: OVisit #: [id number] Date: 10/17/2017 3:25:00 PMCompleted Date: 10/17/2017 03:47 PMRequesting Provider: JOSUE CORTEZ Attending Provider: JOSUE CORTEZ Report Copy To: SELF, REFERRED Signs & Symptoms: M25.569 Pain in unspecified knee [id number]: AthenaComments: , Views (X-RAY, KNEE): AP, Lateral, Tunnel, Eleele , Weight Bearing?: Y , With Magnification Marker?: N , Views (X-RAY, KNEE): AP, Lateral, Tunnel, Eleele , Weight Bearing?: Y , With Magnification Marker?: N , , , Ordering Provider - JOSUE CORTEZ MD , Exam: KNEE LEFT 4VWSAccession #: [id number] PELVIS 1 OR 2 VWS, KNEE LEFT [...] System PROTOCOL: AP(PA) view was obtained. (accession [id number]), AP,Lateral,Tunnel and Tangential views were obtained. (accession [id number]), AP,Lateral,Tunnel and Tangential views were obtained. (accession [id number]) COMPARISON: None FINDINGS: Pelvis: No acute abnormality. [...] hips Electronically signed by:Ernie Albert. Transcribed by: [email or web address], User Resident: Electronically Signed by: ERNIE ALBERT @ 10/17/2017 04:35 PM Normal [facility] Comment on above: Order Comment: , Views (X-RAY, KNEE): AP , Lateral, Tunnel, Eleele , Weight Bearing?: Y , With Magnification Marker?: N , Views (X-RAY, KNEE): AP, Lateral, Tunnel, Eleele , Weight Bearing?: Y , With Magnification Marker?: N , , , Ordering Provider - JOSUE CORTEZ MD , KNEE RIGHT 4 [facility] 8 [facility]NEE RIGHT 4 [facility] [address] [place] [address] =====Patient Name: DIANE HANDLEY : 1980Sex: FAge: Race: WhiteMRN: [id number]. Location: 93Patient Status: OVisit #: [id number] Date: 10/17/2017 3:25:00 PMCompleted Date: 10/17/2017 03:40 PMRequesting Provider: JOSUE CORTEZ Attending Provider: JOSUE CORTEZ Report Copy To: SELF, REFERRED Signs & Symptoms: M25.569 Pain in unspecified knee [id number]: AthenaComments: , Views (X-RAY, KNEE): AP, Lateral, Tunnel, Eleele , Weight Bearing?: Y , With Magnification Marker?: N , Views (X-RAY, KNEE): AP, Lateral, Tunnel, Eleele , Weight Bearing?: Y , With Magnification Marker?: N , , , Ordering Provider - JOSUE CORTEZ MD , Exam: KNEE RIGHT 4 VWSAccession #: [id number] PELVIS 1 OR 2 VWS, KNEE LEFT [...] System PROTOCOL: AP(PA) view was obtained. (accession [id number]), AP,Lateral,Tunnel and Tangential views were obtained. (accession [id number]), AP,Lateral,Tunnel and Tangential views were obtained. (accession [id number]) COMPARISON: None FINDINGS: Pelvis: No acute abnormality. [...] hips Electronically signed by:Ernie Albert. Transcribed by: [email or web address], User Resident: Electronically Signed by: ERNIE ALBERT @ 10/17/2017 04:35 PM Normal [facility] Comment on above: Order Comment: , Views (X-RAY, KNEE): AP , Lateral, Tunnel, Eleele , Weight Bearing?: Y , With Magnification Marker?: N , Views (X-RAY, KNEE): AP, Lateral, Tunnel, Eleele , Weight Bearing?: Y , With Magnification Marker?: N , , , Ordering Provider - JOSUE CORTEZ MD , PELVIS 1 OR 2 VWSon 10-18-19 18 PELVIS 1 OR 2 S [facility] [address] [place] [address] =====Patient Name: DIANE HANDLEY : 1980Sex: FAge: Race: WhiteMRN: [id number]. Location: 93Patient Status: OVisit #: [id number] Date: 10/17/2017 3:25:00 PMCompleted Date: 10/17/2017 03:40 PMRequesting Provider: JOSUE CORTEZ Attending Provider: JOSUE CORTEZ Report Copy To: SELF, REFERRED Signs & Symptoms: M25.569 Pain in unspecified knee [id number]: AthenaComments: , Views (X-RAY, PELVIS): AP , Weight Bearing?: Y , With Magnification Marker?: Y , Views (X-RAY, PELVIS): AP , Weight Bearing?: Y , With Magnification Marker?: Y , , , Ordering Provider - JOSUE CORTEZ MD , Exam: PELVIS 1 OR 2 VWSAccession #: [id number] PELVIS 1 OR 2 VWS, KNEE LEFT [...] System PROTOCOL: AP(PA) view was obtained. (accession [id number]), AP,Lateral,Tunnel and Tangential views were obtained. (accession [id number]), AP,Lateral,Tunnel and Tangential views were obtained. (accession [id number]) COMPARISON: None FINDINGS: Pelvis: No acute abnormality. [...] hips Electronically signed by:Ernie Albert. Transcribed by: [email or web address], User Resident: Electronically Signed by: ERNIE ALBERT @ 10/17/2017 04:35 PM Normal [facility] Comment on above: Order Comment: , [...] pressure 89 mm[Hg] Iliana ARCE Work Phone: [employer] 05-18-2023 12:56-0500 Heart rate 85 /min Iliana ARCE Work Phone: [employer] 05-18-2023 12:56-0500 Respiratory rate 16 /min Iliana ARCE Work Phone: [facility] 05-18-2023 12:56-0500 SaO2% (BldA) [Mass fraction] 100 % Iliana ARCE Work Phone: [employer] 05-18-2023 12:56-0500 Systolic blood pressure 137 mm[Hg] Iliana ARCE Work Phone: [employer] 10-05-2022 13:15-0400 Body height 152.4 cm Laverne Missler Other [employer] Other 10-05-2022 13:15-0400 Body mass index (BMI) [Ratio] 48.25 kg/m2 Laverne Missler Other [employer] Other 10-05-2022 13:15-0400 Body weight 112.08 kg Laverne Missler Other [employer] Other 10-05-2022 13:15-0400 Diastolic blood pressure 76 mm[Hg] Laverne Missler Other [employer] Other 10-05-2022 13:15-0400 Respiratory rate 20 /min Laverne Missler Other [employer] Other 10-05-2022 13:15-0400 SaO2% (BldA) [Mass fraction] 97 % Laverne Missler Other [employer] Other 10-05-2022 13:15-0400 Systolic blood pressure 122 mm[Hg] Laverne Emerson Other [employer] [facility] Other 02-28-2020 13:09-0500 Body Temperature 97.5 [degF] STAFF, [facility] 02-28-2020 13:09-0500 BP Diastolic 83 mm[Hg] STAFF, [facility] 02-28-2020 13:09-0500 BP Systolic 149 mm[Hg] STAFF, [facility] 02-28-2020 13:09-0500 Pulse (Heart Rate) 83 /min STAFF, [facility] 02-28-2020 13:09-0500 Pulse Oximetry 98 % STAFF, [facility] 02-28-2020 13:09-0500 Respiratory Rate 18 /min STAFF, [facility] 02-28-2020 13:06-0500 BMI (Body Mass Index) 46.3 kg/m2 STAFF, [facility] 02-28-2020 13:06-0500 Body weight 111.13 kg STAFF, [facility] 02-28-2020 13:06-0500 Height 154.94 cm STAFF, [facility] Encounters Encounter Date Encounter Type Care Provider Facility Start: 08-10-2023 End: 08-10-2023 ambulatory ILIANA Mendoza [facility] Start: 07-13-2023 End: 07-13-2023 Emergency department patient visit BELEM [facility] Start: 05-30-2023 End: 05-31-2023 ambulatory BELEM [facility] Start: 05-22-2023 End: 05-22-2023 ambulatory KADIE SHAH Not Available Start: 05-18-2023 End: 05-18-2023 ambulatory ILIANA Reji [facility] Start: 05-18-2023 End: 05-18-2023 Office outpatient visit 25 minutes Iliana Stevens PA Work Phone: [facility] Comment on above: Primary osteoarthrit is of right knee (Primary Dx) Start: 05-16-2023 End: 05-16-2023 Emergency department patient visit RICA BRENNER [facility] Start: 05-06-2023 End: 05-06-2023 ambulatory GIACOMO Kasie PICKARD [facility] Start: 05-05-2023 End: 05-06-2023 ambulatory MIGUEL MENDEZ [facility] Start: 04-28-2023 End: 04-29-2023 ambulatory BELEM COOMBS [facility] Start: 04-25-2023 ambulatory ILIANA Reji STEV[facility] Start: 03-22-2023 Telephone encounter Imani Wood RN [facility] Start: 03-22-2023 End: 03-22-2023 ambulatory ELMO GIRON [facility] Start: 11-16-2022 End: 11-16-2022 ambulatory Laverne Emerson Other [employer] Other Start: 11-16-2022 Telephone encounter Laverne Idania [facility] Start: 10-05-2022 End: 10-06-2022 ambulatory Belem Coombs [facility] Other Start: 10-05-2022 [facility] Start: 02-01-2022 End: 02-01-2022 ambulatory [facility] Facility:H1 Start: 01-17-2022 End: 01-17-2022 ambulatory [facility] Facility:[facility]1 Start: 10-19-2021 End: 10-20-2021 ambulatory [facility] Facility:[facility]1 Start: 02-28-2020 End: 02-28-2020 Emergency department patient visit STAFF, [facility] Start: 10-17-2017 End: 10-18-2017 Patient encounter TANIA CORTEZ Facility:[facility] Start: 02-07-2017 End: 02-08-2017 Patient encounter DEFAULT PHYSICIAN Facility:[facility] Plan of Treatment Date Care Activity Detail Author Start: 05-18-2024 Tobacco Screening Tobacco Screening [facility] Start: 05-15-2024 Adult BMI Screening Adult BMI Screening [facility] Start: 03-22-2024 Tobacco Screening Tobacco Screening [facility] Start: 03-13-2024 Adult BMI Screening Adult BMI Screening [facility] Start: 05-30-2023 End: 05-30-2023 Patient encounter procedure [facility] DEXA Start: 12-02-2022 Influenza vaccination Influenza Vaccine [facility] Start: 11-03-1999 Screening for malignant neoplasm of cervix Pap Smear [facility] Start: 1997 DTaP,Tdap and Td Vaccines (1 - Tdap) DTaP,Tdap and Td Vaccines (1 - Tdap) [facility] Start: 1996 Adult BMI Follow Up Plan Adult BMI Follow Up Plan [facility] Start: 1990 Depression Screening Depression Screening [facility] Injection aa&/strd genicular nrv branches w/img INJECTION BLOCK NERVE KNEE Primary osteoarthritis of right knee [facility] Patient Education Shoulder Pain (ED) [facility] Patient referral [facility] Payers Date Payer Category Payer Unknown [id number] 2022 Self-pay [id number] 2022 Medicaid [id number] 2022 Medicaid [employer] [facility] [employer] O [id number] 2022-Present [phone] [address] [place] [address] [id number] 1980 Unknown [id number] [id number]3 1978 Unknown [id number] 2.16.840.1.970732.3.579.2.593 1978 Unknown [id number] 2.16840.1.579454.3.579.2.593 1978 Unknown [id number] 2.16.840.1.364961.3.579.2.1259 1978 Unknown [id number] 2.16.840.1.720647.3.579.2.1286 1978 Unknown [id number] 2.16.840.1.792404.3.579.2.128 1978 Unknown [id number] 2.16.840.1.060651.3.579.2.1286 1978 Unknown [id number] 2.16840.1.071877.3.579.2.1285 1978 Unknown [id number] 2.16840.1.336888.3.579.2.1285 1978 Unknown [id number] 2.840.1.966256.3.579.2.1285 1978 Unknown [id number] 2.840.1.461477.3.579.2.128 1978 Unknown [id number] 2.840.1.566422.3.579.2.128 1978 Unknown [id number] 2.16840.1.413420.3.579.2.1286 1978 Unknown [id number] 2.840.1.346215.3.579.2.128 1978 Unknown [id number] 2.840.1.482992.3.579.2.1286 1978 Unknown [id number] 2.16840.1.601740.3.579.2.128 1978 Unknown [id number] 2.16840.1.608823.3.579.2.1286 1961 Medicaid [id number] Unknown Unknown [id number] 2.16840.1.992027.3.579.2.531 Social History Date Type Detail Facility [facility] Start: 1980 Sex Assigned At Female F [facility] Start: 05-14-2020 End: 03-22-2023 Sex Assigned At [facility] Aleksandra Cage Other Start: 01-26-2022 Tobacco smoking stat [facility] Never smoked tobacco [facility] Start: 01-26-2022 Tobacco use and exposure Smokeless tobacco non-user [facility] Start: 03-22-2023 End: 05-18-2023 Alcohol intake Current non-drinker of alcohol (finding) [facility] Start: 05-14-2020 End: 03-22-2023 History of Social function [facility] Housing Instability Unknown [facility] Start: 1980 Sex Assigned At Not on file P [facility] Goals Date Patient Goal Desired Activity /State Clinical Notes 10-20-2021 to 05-18-2023 CLAUDE Ivan - 05/18/2023 12:45 PM ESTPatient InstructionsTelephone Encounter - Imani Wood RN - 03/22/2023 1:42 PM EST Note Date & Type Note Facility 05-18-2023 History of Presen t illness Narrative [facility] [address] [place] [address] Patient: Diane Handley Sex: female : 1980 Age: 42 y.o. PCP: Belem Coombs PA-C 05/18/2023 Diane Newton Cong is here for a(n) post procedure follow [...] 05/10/2019 Performed by Josefina Murguia MD at [facility] D AND C HYSTEROSCOPY N/A 05/10/2019 Performed by Josefina Murguia MD at [facility] D AND C HYSTEROSCOPY N/A 03/08/2019 Performed by Josefina Murguia MD at [facility] INJECTION BLOCK KNEE GENICULAR Left 11/15/2019 Performed by Miguel Mendez MD at [facility] INJECTION BLOCK NERVE KNEE Right Genicular Right 05/05/2023 Performed by Miguel Mendez MD at [facility] INJECTION BLOCK NERVE KNEE Left Genicular Left 03/04/2022 Performed by Miguel Mendez MD at [facility] INJECTION BLOCK NERVE KNEE Left Genicular Left 06/25/2021 Performed by Miguel Mendez MD at [facility] RADIOFREQUENCY ABLATION GENICULAR Left 04/29/2022 Performed by Miguel Mendez MD at [facility] TUBAL LIGATION No Known Allergies Family [...] Ivan 05/18/23 1536 documented in this encounter [facility] 05-18-2023 Instructions Dorcas Gottlieb CNA - 05/18/2023 [...] a safety precaution, you must have a bulk driver after a lumbar nerve root injection, [...] back to normal. [facility] 03-22-2023 Miscellaneous Notes Patient called to request a work note for today. Patient states she did not go to work today. Line Lead spoke with Elmo who approves work note for today. Patient asks that note be sent to [email or web address]. Done. [facility]2023 Telephone encounter Note Patient called to request a work note for today. Patient states she did not go to work today. Line Lead spoke with Elmo who approves work note for today. Patient asks that note be sent to [email or web address]. Done. [facility] 10-05-2022 Evaluation note Encounter Date Diagnosis [...] Strongly encouraged to take advantage of our dice manager available at [facility] that can help work around limitations. [...] will perform surveillance through out our visits. [employer] Other 07-20-2022 NotePROCEDURE: XR KNEE RT 4V [...] authenticated by: VIRGILIO FORRESTER Date: 2021-10-19 22:25[facility] noteNo InformationNort [employer] Other Evaluation noteNo assessment information available [facility] Work Phone: Evaluation note* Diagnosis Primary osteoarthritis of right knee- Primary [facility] N[facility] - Reported* Type Description Date Medical History Osteoarthritis Medical History Anxiety Medical History Arthritis of bilateral knees Medical History Depression Medical History Panic attacks Medical History Anemia Medical History Bipolar Surgical History tubal ligation Surgical History Uterine ablation 11/2019 Surgical History [place] teeth extraction Hospitalization History child Hospitalization History See above [employer] Other InstructionsNot on filedocumented in this encounter [facility] [employer] [facility] Summary Purpose Family History No Family [...] Information Available Discharge Instructions Additional Instructions Use kyor-ofl-jfofwrr pain control as needed Robaxin is a muscle relaxer and can make you drowsy. Do not drive or drink alcohol on this medication. Follow-up with your family doctor Reason for Referral Specialty Diagnoses / Procedures Referred By Alexandr berman Referred To Contact Diagnoses Primary osteoarthritis of right knee Procedures Case request operating room: INJECTION BLOCK NERVE KNEE Iliana Stevens PA [address] [facility] [place] [address] Referral ID Status Reason Start Date Expiration Date V isits Requested Visits Authorized [id number] Pending Review 05/18/2023 05/17/2024 1 1 Additional Source Comments INFORMATION SOURCE (unrecogn ized section and content) DATE CREATED AUTHOR 10/21/2017 [facility] DATE CREATED AUTHOR AUTHOR'S ORGANIZ ATION 03/02/2022 [facility] DATE CREATED AUTHOR AUTHOR'S ORGANIZ ATION 04/03/2023 [facility] DATE CREATED AUTHOR AUTHOR'S ORGANIZ ATION 05/22/2023 [facility] EPIC DATE CREATED AUTHOR AUTHOR'S ORGANIZ ATION 08/12/2023 [facility] REASON FOR VISIT (unrecogniz ed section and content) Reason Comments Knee Pain Goals (unrecognized section and content) Goals may be documented in a n alternate section Care Teams (unrecognized sec tion and content) Top Spotter Relationship Specialty Start Date End Date Belem Coombs PA-C [address] [place] [address] PCP - General Physician Insurance Sales Agent 09/06/22 Top Spotter Relationship Specialty Start Date End Date Belem Coombs PA-C [address] [place] [address] PCP - General Physician Insurance Sales Agent 05/15/23 FOR RECORDS PERTAINING TO PATIENTS WHO [...] BE BASED ON THE PRIMARY CLINICAL RECORDS. [employer] [facility]. provides no warranty or guarantee of the accuracy or completeness of information in this document.
== END 2023-09-25 09:49 | disposition home or self-care (01) ==
LOC: EC 09:51
PROVIDERS: PCP Physician Assistant; Visit Provider Orthopaedic Surgery
DX: M25.562 Pain in left knee (principal); M25.561 Pain in right knee; M17.0 Bilateral primary osteoarthritis of knee
CPT/HCPCS: 73564

== ENCOUNTER 2023-09-25 22:26 | Emergency (ER) | payer OTHER, SELFPAY ==
--- OUTSIDE RECORDS SUMMARY | 2023-09-25 22:45 | XMS_ITS ---
Patient Summarization (C-CDA 2.1 CCD) Created on: September 25, 2023 DIANE HANDLEY DIANE : 1980 Sex: Undifferentiated Author Organization Sample organization Care Team Providers Care Therapy Administrative Assistant Name Role Phone PHYSICIAN, DEFAULT Unavailable Unavailable PHYSICIAN, DEFAULT Unavailable Unavailable DANA, SUMMON Unavailable Unavailable DANA, SUMMON Unavailable Unavailable SELF, REFERRED Unavailable Unavailable SELF, REFERRED Unavailable Unavailable NON, STAFF, Primary Care Provider Unavailabl e [facility] Unava ilable KAYLEN, DR SWANN Admitting Unavailable KAYLEN, DR SWANN Attending Unavailable USAMA, DR VIRGILIO Gupta Consulting Unavailable CLAUDE MAYORGA Consulting Unavailable [facility] Unava ilable APRIL, DR ELODIA Gupta Admitting Unavailable APRIL, DR ELODIA Gupta Attending Unavailable APRIL, DR ELODIA Gupta Consulting Unavailable [facility] Unava ilable MARKER, DR LONG Admitting Unavailable MARKER, DR LONG Attending Unavailable MARKER, DR LONG Consulting Unavailable JAYLA KEBEDE Consulting Unavailable Laverne Emerson Unavailable Belem Coombs Attending Unavailable Belem Coombs Primary Care Unavailable Belem Coombs Admitting Unavailable Belem Coombs PA-C Primary Care Provider [phone] Belem Coombs PA-C Primary Care Provider [phone] KADIE SHAH Attending Unavailable BELEM COOMBS Referring [...] MENDEZ Attending Unavailable BELEM COOMBS Referring Unavailable COOMBS, BELEM A Primary Care Unavailable MIGUEL MENDEZ Attending Unavailable MIGUEL MENDEZ Referring Unavailable BELEM COOMBS Primary Care Unavailable GIACOMO PICKARD Attending Unavailable BELEM COOMBS Primary Care Unavailable BELEM COOMBS Primary Care Unavailable RICA BRENNER Attending Unavailable RICA BRENNER Attending Unavailable RICA BRENNER Referring Unavailable NORA, BELEM Junior Primary Care Unavailable ILIANA STEVENS Attending Unavailable BELEM COOMBS Referring Unavailable NORA, BELEM Junior Primary Care Unavailable BELEM COOMBS Referring Unavailable NORA, BELEM Junior Primary Care Unavailable Unavailable Unavailable Unavailable Encounters Encounter Date Encounter Type Care Provider Facility Start: 08-10-2023 End: 08-10-2023 ambulatory ILIANA Mendoza COLETTE [facility] Start: 07-13-2023 End: 07-13-2023 Emergency department patient visit BELEM COOMBS [facility] Start: 05-30-2023 End: 05-31-2023 ambulatory BELEM Junior [facility] Start: 05-22-2023 End: 05-22-2023 ambulatory KADIE SHAH Not Available Start: 05-18-2023 End: 05-18-[address] [facility] Start: 05-18-2023 End: 05-18-2023 Office outpatient visit 25 minutes Iliana Stevens PA Work Phone: [facility] Comment on above: Primary osteoarthrit is of right knee (Primary Dx) Start: 05-16-2023 End: 05-16-2023 Emergency department patient visit RICA BRENNER [facility] Start: 05-06-2023 End: 05-06-2023 ambulatory GIAOCMO PICKARD [facility] Start: 05-05-2023 End: 05-06-2023 ambulatory MIGUEL MENDEZ [facility] Start: 04-28-2023 End: 04-29-2023 ambulatory BELEM Sandi [facility] Start: 04-25-2023 ambulatory ILIANA [facility] Start: 03-22-2023 Telephone encounter Imani Wood RN [facility] Start: 03-22-2023 End: 03-22-2023 ambulatory ELMO GIRON [facility] Start: 11-16-2022 End: 11-16-2022 ambulatory Laverne Emerson Other [employer] Other Start: 11-16-2022 Telephone encounter Laverne Bright [facility] Start: 10-05-2022 End: 10-06-2022 ambulatory Belem Coombs [employer] Other Start: 10-05-2022 Nutrition therapy Laverne servinnds [facility] Start: 02-01-2022 End: 02-01-2022 [facility] Facility:[facility] Start: 01-17-2022 End: 01-17-2022 [facility] Start: 10-19-2021 End: 10-20-2021 [facility] Facility: Start: 02-28-2020 End: 02-28-2020 Emergency department patient visit STAFF, [facility] Start: 10-17-2017 End: 10-18-2017 Patient encounter TANIA CORTEZ Facility:[facility] Start: 02-07-2017 End: 02-08-2017 Patient encounter DEFAULT PHYSICIAN Facility:[facility] Goals Date Patient Goal Desired Activity [...] Not-Taking Payers Date Payer Category Payer Unknown [id number] 2022 Self-pay [id number] 2022 Medicaid [id number] 2022 Medicaid [facility] [facility] MEDICA[facility] O [id number] 2022-Present [phone] [facility] [address] [place] [address] [id number] 1980 Unknown [id number] 2.16.840.1.259674.3.579.2.593 1978 Unknown [id number] 2.16.840.1.254870.3.579.2.593 1978 Unknown [id number] 2.16.840.1.544075.3.579.2.593 1978 Unknown [id number] 2.16.840.1.412462.3.579.2.1259 1978 Unknown [id number] 2.16.840.1.894587.3.579.2.1286 1978 Unknown [id number] 2.16.840.1.146718.3.579.2.1286 1978 Unknown [id number] 2.16.840.1.138931.3.579.2.1286 1978 Unknown [id number] 2.16.840.1.941934.3.579.2.1286 1978 Unknown [id number] 2.16.840.1.360418.3.579.2.1286 1978 Unknown [id number] 2.16.840.1.747410.3.579.2.1286 1978 Unknown [id number] 2.16.840.1.382912.3.579.2.1286 1978 Unknown [id number] 2.16.840.1.213076.3.579.2.1286 1978 Unknown [id number] 2.16.840.1.016536.3.579.2.1286 1978 Unknown [id number] 2.16.840.1.951065.3.579.2.1286 1978 Unknown [id number] 2.16.840.1.608758.3.579.2.1286 1978 Unknown [id number] 2.16.840.1.736800.3.579.2.1286 1978 Unknown [id number] 2.16.840.1.317536.3.579.2.1286 1959 Medicaid [id number] Unknown Unknown [id number] 2.16.840.1.112732.3.579.2.531 Plan of Treatment Date Care Activity Detail Author Start: 05-18-2024 Tobacco Screening Tobacco Screening [facility] Start: 05-15-2024 Adult BMI Screening Adult BMI Screening [facility] Start: 03-22-2024 Tobacco Screening Tobacco Screening [facility] Start: 03-13-2024 Adult BMI Screening Adult BMI Screening [facility] Start: 05-30-2023 End: 05-30-2023 Patient encounter procedure [facility] DEXA Start: 12-02-2022 Influenza vaccination Influenza Vaccine [facility] Start: 11-03-1999 Screening for malignant neoplasm of cervix Pap Smear [facility] Start: 1997 DTaP,Tdap and Td Vaccines (1 - Tdap) DTaP,Tdap and Td Vaccines (1 - Tdap) [facility] Start: 1996 Adult BMI Follow Up Plan Adult BMI Follow Up Plan [facility] Start: 1990 Depression Screening Depression Screening [facility] Injection aa&/strd genicular nrv branches w/img INJECTION BLOCK NERVE KNEE Primary osteoarthritis of right knee [facility] Patient Education Shoulder Pain (ED) [facility] Patient referral [facility] Problems Active Problems Problem [...] 10-17-2017 Chronic Other aftercare (1 source) Other custodial (current) drug therapy; Translations: [OTH ALF CURRENT DRUG THERAPY] Onset: 02-02-2022 Episodic Other [...] AM 1 b MAMM 1 YR Normal [facility] XR KNEE RT 3 VWSon 4 XR [...] Marion MD on 05/15/2023 10:58 PM Normal [facility] 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 Location: 93Patient Status: OVisit #: [id number] Date: 10/17/2017 3:25:00 PMCompleted Date: 10/17/2017 03:47 PMRequesting Provider: JOSUE CORTEZ Attending Provider: JOSUE CORTEZ Report Copy To: SELF, REFERRED Signs & Symptoms: M25.569 Pain in unspecified knee [id number]: AthenaComments: , Views (X-RAY, KNEE): AP, Lateral, Tunnel, Othello , Weight Bearing?: Y , With Magnification Marker?: N , Views (X-RAY, KNEE): AP, Lateral, Tunnel, Othello , Weight Bearing?: Y , With Magnification Marker?: N , , , Ordering Provider - JOSUE CORTEZ MD , Exam: KNEE LEFT 4VWSAccession #: [id number] PELVIS 1 OR 2 VWS, KNEE LEFT [...] System PROTOCOL: AP(PA) view was obtained. (accession [id number]), AP,Lateral,Tunnel and Tangential views were obtained. (accession [id number]), AP,Lateral,Tunnel and Tangential views were obtained. (accession [id number]) COMPARISON: None FINDINGS: Pelvis: No acute abnormality. [...] hips Electronically signed by:Ernie Albert. Transcribed by: [email or web address], User Resident: Electronically Signed by: ERNIE ALBERT @ 10/17/2017 04:35 PM Normal [facility] Comment on above: Order Comment: , Views (X-RAY, KNEE): AP , Lateral, Tunnel, Othello , Weight Bearing?: Y , With Magnification Marker?: N , Views (X-RAY, KNEE): AP, Lateral, Tunnel, Othello , Weight Bearing?: Y , With Magnification Marker?: N , , , Ordering Provider - JOSUE CORTEZ MD , KNEE RIGHT 4 VWSon 8 KNEE RIGHT 4 VWS [facility] [address] [place] [address] =====Patient Name: DIANE HANDLEY : 1980Sex: FAge: Race: WhiteMRN: [id number]. Location: 93Patient Status: OVisit #: [id number] Date: 10/17/2017 3:25:00 PMCompleted Date: 10/17/2017 03:40 PMRequesting Provider: JOSUE CORTEZ Attending Provider: JOSUE CORTEZ Report Copy To: SELF, REFERRED Signs & Symptoms: M25.569 Pain in unspecified knee [id number]: AthenaComments: , Views (X-RAY, KNEE): AP, Lateral, Tunnel, Othello , Weight Bearing?: Y , With Magnification Marker?: N , Views (X-RAY, KNEE): AP, Lateral, Tunnel, Othello , Weight Bearing?: Y , With Magnification Marker?: N , , , Ordering Provider - JOSUE CORTEZ MD , Exam: KNEE RIGHT 4 VWSAccession #: [id number] PELVIS 1 OR 2 VWS, KNEE LEFT [...] System PROTOCOL: AP(PA) view was obtained. (accession [id number]), AP,Lateral,Tunnel and Tangential views were obtained. (accession [id number]), AP,Lateral,Tunnel and Tangential views were obtained. (accession [id number]) COMPARISON: None FINDINGS: Pelvis: No acute abnormality. [...] hips Electronically signed by:Ernie Albert. Transcribed by: [email or web address], User Resident: Electronically Signed by: ERNIE ALBERT @ 10/17/2017 04:35 PM Normal [facility] Comment on above: Order Comment: , Views (X-RAY, KNEE): AP , Lateral, Tunnel, Othello , Weight Bearing?: Y , With Magnification Marker?: N , Views (X-RAY, KNEE): AP, Lateral, Tunnel, Othello , Weight Bearing?: Y , With Magnification Marker?: N , , , Ordering Provider - JOSUE CORTEZ MD , PELVIS 1 OR 2 [facility] 10-18-19 18 PELVIS 1 OR 2 [facility] [address] [place] [address] =====Patient Name: DIANE HANDLEY : 1980Sex: FAge: Race: WhiteMRN: [id number]. Location: 93Patient Status: OVisit #: [id number] Date: 10/17/2017 3:25:00 PMCompleted Date: 10/17/2017 03:40 PMRequesting Provider: JOSUE CORTEZ Attending Provider: JOSUE CORTEZ Report Copy To: SELF, REFERRED Signs & Symptoms: M25.569 Pain in unspecified knee [id number]: AthenaComments: , Views (X-RAY, PELVIS): AP , Weight Bearing?: Y , With Magnification Marker?: Y , Views (X-RAY, PELVIS): AP , Weight Bearing?: Y , With Magnification Marker?: Y , , , Ordering Provider - JOSUE CORTEZ MD , Exam: PELVIS 1 OR 2 VWSAccession #: [id number] PELVIS 1 OR 2 VWS, KNEE LEFT [...] System PROTOCOL: AP(PA) view was obtained. (accession [id number]), AP,Lateral,Tunnel and Tangential views were obtained. (accession [id number]), AP,Lateral,Tunnel and Tangential views were obtained. (accession [id number]) COMPARISON: None FINDINGS: Pelvis: No acute abnormality. [...] hips Electronically signed by:Ernie Albert. Transcribed by: [email or web address], User Resident: Electronically Signed by: ERNIE ALBERT @ 10/17/2017 04:35 PM Normal [facility] Comment on above: Order Comment: , Views (X-RAY, PELVIS): AP , Weight Bearing?: Y , With Magnification Marker?: Y , Views (X-RAY, PELVIS): AP , Weight Bearing?: Y , With Magnification Marker?: Y , , , Ordering Provider - JOSUE CORTEZ MD , Social History Date Type Detail Facility Start: 05-14-2020 End: 03-22-2023 Sex Assigned At [facility] Other Start: 03-22-2023 End: 05-18-2023 Alcohol intake Current non-drinker of alcohol (finding) [facility] Start: 05-14-2020 End: 03-22-2023 History of Social function [facility] Start: 01-26-2022 Tobacco smoking stat [facility] Never smoked tobacco [facility] Start: 01-26-2022 Tobacco use and exposure Smokeless tobacco non-user [facility] Start: 1980 Sex Assigned At Female F [facility] Start: 1980 Sex Assigned At Not on file P [facility] Vital Signs Date Time Vital Sign Value Performing Clinician Facility 05-18-2023 12:56-0500 Diastolic blood pressure 89 mm[Hg] Iliana ARCE Work Phone: [facility] 05-18-2023 12:56-0500 Heart rate 85 /min Iliana ARCE Work Phone: [facility] 05-18-2023 12:56-0500 Respiratory rate 16 /min Iliana ARCE Work Phone: [employer] 05-18-2023 12:56-0500 SaO2% (BldA) [Mass fraction] 100 % Iliana ARCE Work Phone: [employer] 05-18-2023 12:56-0500 Systolic blood pressure 137 mm[Hg] [facility]CE [facility] 10-05-2022 13:15-0400 Body height 152.4 cm Laverne Missler Other [employer] Other 10-05-2022 13:15-0400 Body mass index (BMI) [Ratio] 48.25 kg/m2 Laverne Missler Other [employer] Other 10-05-2022 13:15-0400 Body weight 112.08 kg Laverne Missler Other [employer] Other 10-05-2022 13:15-0400 Diastolic blood pressure 76 mm[Hg] Laverne Missler Other [employer] Other 10-05-2022 13:15-0400 Respiratory rate 20 /min Laverne Missler Other [employer] Other 10-05-2022 13:15-0400 SaO2% (BldA) [Mass fraction] 97 % Laverne Missler Other [employer] Other 10-05-2022 13:15-0400 Systolic blood pressure 122 mm[Hg] Laverne Missler Other [employer] Other 02-28-2020 13:09-0500 Body Temperature 97.5 [degF] [facility] 02-28-2020 13:09-0500 BP Diastolic 83 mm[Hg] STAFF, [facility] 02-28-2020 13:090500 BP Systolic 149 mm[Hg] STAFF, [facility] 02-28-2020 13:090500 Pulse (Heart Rate) 83 /min [facility] 02-28-2020 13:090500 Pulse Oximetry 98 % STAFF, [facility] 02-28-2020 13:0500 Respiratory Rate 18 /min STAFF, [facility] 02-28-2020 13:060500 BMI (Body Mass Index) 46.3 kg/m2 STAFF, [facility] 02-28-2020 13:050 Body weight 111.13 kg STAFF, [facility] 02-28-2020 13:0500 Height 154.94 cm STAFF, [facility] Clinical Notes 10-20-2021 to 05-18-2023 CLAUDE Ivan - 05/18/2023 12:45 PM ESTPatient InstructionsTelephone Encounter - Imani Wood RN - 03/22/2023 1:42 PM EST Note Date & Type Note Facility 05-18-2023 History of Presen t illness Narrative [facility] [address] [place] [address] Patient: Diane Handley Sex: female : 1980 [...] 11/15/2019 Performed by Miguel Mendez MD at [facility] BLOCK NERVE KNEE Right Genicular Right 05/05/2023 Performed by Miguel Mendez MD at [facility] INJE[facility] BLOCK NERVE KNEE Left Genicular Left 03/04/2022 Performed by Miguel Mendez MD at [facility] INJE[facility] BLOCK NERVE KNEE Left Genicular Left 06/25/2021 Performed by Miguel Mendez MD at [facility] RADIOFREQUENCY ABLATION GENICULAR Left 04/29/2022 Performed by Miguel Mendez MD at [facility] TUBAL LIGATION No Known Allergies [...] Ivan 05/18/23 1536 documented in this encounter [facility] [employer] 05-18-2023 Instructions Dorcas Gottlieb CNA - 05/18/2023 [...] a safety precaution, you must have a jukebox route driver after a lumbar nerve root injection, [...] back to normal. documented in this encounter [facility]-22-2023 Miscellaneous Notes Patient called to request a work note for today. Patient states she did not go to work today. [employer] spoke with Elmo who approves work note for today. Patient asks that note be sent to [email or web address]. Done. documented in this encounter [facility]-22-2023 Telephone encounter Note Patient called to request a work note for today. Patient states she did not go to work today. [employer] spoke with Elmo who approves work note for today. Patient asks that note be sent to [email or web address]. Done. [facility] 10-05-2022 Evaluation note Encounter Date Diagnosis [...] Strongly encouraged to take advantage of our data collection technician available at [facility] that can help work around limitations. [...] will perform surveillance through out our visits. [employer] Other 07-20-2022 NotePROCEDURE: XR KNEE RT [...] VIRGILIO FORRESTER Date: 2021-10-19 22:25[facility] Center[facility] noteNo InformationNort [employer] Other Evaluation noteNo assessment information available [facility] Work Phone: Evaluation note* Diagnosis Primary osteoarthritis of right knee- Primary [facility] - Reported* Type Description Date Medical History Osteoarthritis Medical History Anxiety Medical History Arthritis of bilateral knees Medical History Depression Medical History Panic attacks Medical History Anemia Medical History Bipolar Surgical History tubal ligation Surgical History Uterine ablation 11/2019 Surgical History [place] teeth extraction Hospitalization History child Hospitalization History See above [employer] Other InstructionsNot on filedocumented in this encounter [facility] Summary Purpose Family History No Family History [...] Information Available Discharge Instructions Additional Instructions Use mctc-iay-[id number] pain control as needed Robaxin is a muscle relaxer and can make you drowsy. Do not drive or drink alcohol on this medication. Follow-up with your family doctor Reason for Referral Specialty Diagnoses / Procedures Referred By Alexandr berman Referred To Contact Diagnoses Primary osteoarthritis of right knee Procedures Case request operating room: INJECTION BLOCK NERVE KNEE Iliana Stevens PA [address] [facility] Referral ID Status Reason Start Date Expiration Date V isits Requested Visits Authorized [id number] Pending Review 05/18/2023 05/17/2024 1 1 Additional Source Comments INFORMATION SOURCE (unrecogn ized section and content) DATE CREATED AUTHOR 10/21/2017 [facility] DATE CREATED AUTHOR AUTHOR'S ORGANIZ ATION 03/02/2022 [facility] DATE CREATED AUTHOR AUTHOR'S ORGANIZ ATION 04/03/2023 [facility] DATE CREATED AUTHOR AUTHOR'S ORGANIZ ATION 05/22/2023 [facility] DATE CREATED AUTHOR AUTHOR'S ORGANIZ ATION 08/12/2023 [facility] REASON FOR VISIT (unrecogniz ed section and content) Reason Comments Knee Pain Goals (unrecognized section and content) Goals may be documented in a n alternate section Care Teams (unrecognized sec tion and content) Therapy Administrative Assistant Relationship Specialty Start Date End Date Belem Coombs, [facility] [address] [place] [address] PCP - General Physician Cab Starter 09/06/22 Therapy Administrative Assistant Relationship Specialty Start Date End Date Belem Coombs PA-C [address] [place] [address] PCP - General Physician Cab Starter 05/15/23 FOR RECORDS PERTAINING TO PATIENTS WHO [...] BE BASED ON THE PRIMARY CLINICAL RECORDS. [employer]. provides no warranty or guarantee of the accuracy or completeness of information in this document.
[2023-09-25 23:17] VITALS: BP 169/75; PULSE 69; TEMP 36.4; O2SAT 97; BMI 47.8
--- NOTE | 2023-09-25 23:32 | ED_ITS ---
HPI - Extremity Problem General Chief complaint: Extremity Problem, Nontraumatic Stated complaint: Lower Extremity Pain Time Seen by Provider: 09/25/23 22:29 Source: patient Mode of arrival: Wheelchair Limitations: no limitations History of Present Illness HPI Narrative: This 42-year-old female who has chronic bilateral knee pain and osteoarthritis in both knees presents for evaluation of pain in the right knee joint after receiving injections from Dr. Rowan earlier today. She states she is being evaluated for knee replacement surgery. She denies any injury. She has had joint injections in the past but states she has never had pain like she is having today. There is some mild bruising over the lateral aspect of the right knee. She is able to bend the knee. There is no calf swelling or tenderness. He denies any chest pain or shortness of breath. She denies any injury. She states she usually takes NSAIDs and has taken some Aleve earlier today without clinical improvement. She states she does not take Tylenol because it constipates her but is agreeable to taking a Percocet. Related Data Home Medications ?Medication ?Instructions ?Recorded ?Confirmed cholecalciferol (vitamin D3) 10 20 mcg PO DAILY 04/23/23 09/25/23 mcg (400 unit) tablet (Vitamin D3) duloxetine 30 mg capsule,delayed 30 mg PO DAILY 04/23/23 09/25/23 release aripiprazole 5 mg tablet 5 mg PO DAILY 06/28/23 09/25/23 hydroxyzine pamoate 25 mg capsule 25 mg PO BID PRN anxiety 06/28/23 09/25/23 ferrous sulfate 325 mg (65 mg 325 mg PO DAILY 09/25/23 09/25/23 iron) tablet Previous Rx's ?Medication ?Instructions ?Recorded diclofenac sodium 1 % topical gel 2 g topical QID #100 grams 09/11/23 (Voltaren Arthritis Pain) meloxicam 7.5 mg tablet 7.5 mg PO DAILY #14 tabs 09/11/23 Allergies Allergy/AdvReac Type Severity Reaction Status Date / Time acetaminophen [From Tylenol] AdvReac Mild constipatio Verified 09/25/23 23:22 n Review of Systems ROS Status of ROS 10 or more systems reviewed and unremark able except as noted in history and below PFSH PFSH Social History Smoking status: Never smoker Exam Narrative Exam Narrative: Vital signs and Nursing Notes reviewed: Patient is afebrile with a normal pulse, blood pressure is elevated at 169/75, she is not hypoxic with pulse ox of 97% on room air General: Awake, alert, oriented, no acute distress, lying comfortably on the stretcher HEENT: Normocephalic atraumatic, mucous membranes are moist and pink, eyes are clear, normal conjunctiva, vision is grossly intact Neck: Supple, no meningeal signs, no anterior or posterior cervical lymphadenopathy Chest: Lungs are clear to auscultation with good air entry, there is no wheezing rhonchi or rales appreciated no accessory muscle use, patient is speaking in complete sentences-no chest wall tenderness to palpation CVS: Regular rate and rhythm S1-S2, no murmurs rubs or gallops, pulses are brisk and equal bilaterally ABD: Soft, nondistended, nontender, no rebound guarding or rigidity, bowel sounds are normal, no pulsatile masses appreciated Extremities: There is tenderness across the anterior aspect of the right knee. There is a small bruise where the patient had an injection earlier today. There is no appreciable effusion or sign of infection. Calfs are soft with no sign of DVT. Feet are warm and sensate. Skin: Normal in appearance without rash,pallor, petechiae or purpura Neuro: No focal deficits Constitutional Vital Signs, click to edit/add: Last Vital Signs Temp 97.5 F L 09/25/23 23:17 Pulse 69 09/25/23 23:17 Resp 18 09/25/23 23:17 BP 169/75 H 09/25/23 23:17 Pulse Ox 97 09/25/23 23:17 O2 Del Method Room Air 09/25/23 23:17 Course Vital Signs Vital signs: Vital Signs Temperature 97.5 F L 09/25/23 23:17 Pulse Rate 69 09/25/23 23:17 Respiratory Rate 18 09/25/23 23:17 Blood Pressure 169/75 H 09/25/23 23:17 Pulse Oximetry 97 09/25/23 23:17 Oxygen Delivery Method Room Air 09/25/23 23:17 Temperature 97.5 F L 09/25/23 23:17 Pulse Rate 69 09/25/23 23:17 Respiratory Rate 18 09/25/23 23:17 Blood Pressure 169/75 H 09/25/23 23:17 Pulse Oximetry 97 09/25/23 23:17 Oxygen Delivery Method Room Air 09/25/23 23:17 MDM - Extremity (Nontraumatic) MDM Narrative Medical decision making narrative: This 42-year-old female with a history of osteoarthritis of both knees presents for evaluation of right-sided knee pain after having an injection at Dr. Rowan's office earlier today. She has pain in the entire knee joint. She is able to bend the knee. There is no appreciable infection or effusion. There is no calf swelling or tenderness. She has taken Naprosyn without relief. The joint is stable. She denies any injury. X-ray from earlier today shows moderate to severe bilateral tricompartmental osteoarthritis. The patient was given a dose of Percocet in the emergency department and will be given 2 Percocet to take home. She was encouraged to follow-up closely with Dr. Rowan and return to the emergency department as needed for ongoing or worsening symptoms. I reviewed her OARRS and it is negative for any recent activity. Discharge Plan Discharge Stand Alone Forms: Portal Instructions Chief Complaint: Extremity Problem, Nontraumatic Clinical Impression: Knee osteoarthritis Patient Disposition: Home, Self-Care Time of Disposition Decision: 23:32 Condition: Good Prescriptions / Home Meds: No Action cholecalciferol (vitamin D3) [Vitamin D3] 10 mcg (400 unit) tablet 20 mcg PO DAILY duloxetine 30 mg capsule,delayed release(DR/EC) 30 mg PO DAILY hydroxyzine pamoate 25 mg capsule 25 mg PO BID PRN (Reason: anxiety) aripiprazole 5 mg tablet 5 mg PO DAILY ferrous sulfate 325 mg (65 mg iron) tablet 325 mg PO DAILY meloxicam 7.5 mg tablet 7.5 mg PO DAILY Qty: 14 0RF diclofenac sodium [Voltaren Arthritis Pain] 1 % gel 2 g topical QID Qty: 100 0RF Rx Instructions: apply to single elbow, wrist or hand; for hand includes palm/fingers/back of hand Print Language: Armenian Instructions: Osteoarthritis (ED), Steroid Joint Injection (DC) Referrals: Chiki Coombs [Primary Care Provider] - 1 week
[2023-09-25] MEDS: OXYCODONE HCL/ACETAMINOPHEN 5MG/325MG 1 TAB PO (23:54)
[2023-09-25] MEDS: ONDANSETRON 4 MG RAPDIS TABLET SL (23:54)
[2023-09-25] MEDS: OXYCODONE HCL/ACETAMINOPHEN 5MG/325MG 2 TAB PO (23:54)
[2023-09-25 23:59] VITALS: BP 158/90
== END 2023-09-26 00:02 | disposition home or self-care (01) ==
PROVIDERS: Emergency Provider Emergency Medicine; PCP Physician Assistant
DX: M25.562 Pain in left knee (principal); M25.561 Pain in right knee; M17.0 Bilateral primary osteoarthritis of knee
CPT/HCPCS: 73564; 99283; Q0162

== ENCOUNTER 2024-01-10 01:36 | Emergency (ER) | payer OTHER, SELFPAY ==
--- OUTSIDE RECORDS SUMMARY | 2024-01-10 01:42 | XMS_ITS | CCD ---
Author Organization [facility] Care Team Providers Care Transition Specialist Name Role Phone PHYSICIAN, DEFAULT Unavailable Unavailable PHYSICIAN, DEFAULT Unavailable Unavailable DANA, SUMMON Unavailable Unavailable DANA, SUMMON Unavailable Unavailable SELF, REFERRED Unavailable Unavailable SELF, REFERRED Unavailable Unavailable NON, STAFF, Primary Care Provider Unavailabl e [facility] Unava ilable KAYLEN, DR SWANN Admitting Unavailable KAYLEN, DR SWANN Attending Unavailable USAMA, DR VIRGILIO Gupta Consulting Unavailable CLAUDE MAYORGA Consulting Unavailable [facility] Unava ilable APRIL, DR ELODIA Gupta Admitting Unavailable APRIL, DR ELODIA Gupta Attending Unavailable APRIL, DR ELODIA Gupta Consulting Unavailable [facility] Unava ilable MARKER, DR LONG Admitting Unavailable MARKER, DR LONG Attending Unavailable MARKER, DR LONG Consulting Unavailable JAYLA KEBEDE Consulting Unavailable Laverne Emerson Unavailable Belem Coombs Attending Unavailable Belem Coombs Primary Care Unavailable Belem Coombs Admitting Unavailable Belem Coombs PA-C Primary Care Provider Belem Coombs PA-C Primary Care Provider [phone] KADIE SHAH Attending Unavailable BELEM COOMBS Referring [...] Referring Unavailable BELEM COOMBS Primary Care Unavailable EBLEM COOMBS Referring Unavailable BELEM COOMBS Primary Care [...] care facility (current) drug therapy; Translations: [OTH HYDRATE CONTROL TENDER CURRENT DRUG THERAPY] Onset: 02-02-2022 Episodic Other [...] source) Pain Back & Rt Knee Onset: 07-12-2023 Unclassified (1 source) Unspecified lump in the [...] right shoulder] Episodic Other non-traumatic joint disorders (8 sources) Pain in right knee; Translations: [Pain in joint, lower leg] Onset: 10-22-2017 Episodic Other non-traumatic joint disorders (1 source) Knee pain Onset: 07-12-2023 Episodic Other screening for suspected conditions (not mental disorders or infectious disease) (1 source) Encounter for screening mammogram for malignant neoplasm of breast; Translations: [Encounter for screening mammogram for malignant neoplasm of breast] Onset: 04-28-2023 Episodic Spondylosis; intervertebral disc disorders; other back problems (2 sources) Dorsalgia, unspecified; Translations: [Backache] Onset: 07-12-2023 Episodic Results Test Name Value Interpretation Reference [...] AM 1 b MAMM [address] [facility] XR KNEE RT 3 VWSon 4 [...] Marion MD on 05/15/2023 10:[address] [facility] MAMM SCREENING 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 Location: 93Patient Status: OVisit #: [id number] Date: 10/17/2017 3:25:00 PMCompleted Date: 10/17/2017 03:47 PMRequesting Provider: JOSUE CORTEZ Attending Provider: JOSUE CORTEZ Report Copy To: SELF, REFERRED Signs & Symptoms: M25.569 Pain in unspecified knee [id number]: AthenaComments: , Views (X-RAY, KNEE): AP, Lateral, Tunnel, [place] , Weight Bearing?: Y , With Magnification Marker?: N , Views (X-RAY, KNEE): AP, Lateral, Tunnel, [place] , Weight Bearing?: Y , With Magnification Marker?: N , , , Ordering Provider - JOSUE CORTEZ MD , Exam: KNEE LEFT 4VWSAccession #: [id number] PELVIS 1 OR 2 VWS, KNEE LEFT [...] System PROTOCOL: AP(PA) view was obtained. (accession [id number]), AP,Lateral,Tunnel and Tangential views were obtained. (accession [id number]), AP,Lateral,Tunnel and Tangential views were obtained. (accession [id number]) COMPARISON: None FINDINGS: Pelvis: No acute abnormality. [...] hips Electronically signed by:Ernie Albert. Transcribed by: [email or web address], User Resident: Electronically Signed by: ERNIE ALBERT @ 10/17/2017 04:35 PM Normal [facility] Comment on above: Order Comment: , Views (X-RAY, KNEE): AP , Lateral, Tunnel, [place] , Weight Bearing?: Y , With Magnification Marker?: N , Views (X-RAY, KNEE): AP, Lateral, Tunnel, [place] , Weight Bearing?: Y , With Magnification Marker?: N , , , Ordering Provider - JOSUE CORTEZ MD , KNEE RIGHT 4 [facility] 8 KNEE RIGHT 4 [facility] [address] [place] [address] =====Patient Name: DIANE HANDLEY : 1980Sex: FAge: Race: WhiteMRN: [id number]. Location: 93Patient Status: OVisit #: [id number] Date: 10/17/2017 3:25:00 PMCompleted Date: 10/17/2017 03:40 PMRequesting Provider: JOSUE CORTEZ Attending Provider: JOSUE CORTEZ Report Copy To: SELF, REFERRED Signs & Symptoms: M25.569 Pain in unspecified knee [id number]: AthenaComments: , Views (X-RAY, KNEE): AP, Lateral, Tunnel, [place] , Weight Bearing?: Y , With Magnification Marker?: N , Views (X-RAY, KNEE): AP, Lateral, Tunnel, [place] , Weight Bearing?: Y , With Magnification Marker?: N , , , Ordering Provider - JOSUE CORTEZ MD , Exam: KNEE RIGHT 4 VWSAccession #: [id number] PELVIS 1 OR 2 VWS, KNEE LEFT [...] System PROTOCOL: AP(PA) view was obtained. (accession [id number]), AP,Lateral,Tunnel and Tangential views were obtained. (accession [id number]), AP,Lateral,Tunnel and Tangential views were obtained. (accession [id number]) COMPARISON: None FINDINGS: Pelvis: No acute abnormality. [...] hips Electronically signed by:Ernie Albert. Transcribed by: [email or web address], User Resident: Electronically Signed by: ERNIE ALBERT @ 10/17/2017 04:35 PM Normal [facility] Comment on above: Order Comment: , Views (X-RAY, KNEE): AP , Lateral, Tunnel, [place] , Weight Bearing?: Y , With Magnification Marker?: N , Views (X-RAY, KNEE): AP, Lateral, Tunnel, [place] , Weight Bearing?: Y , With Magnification Marker?: N , , , Ordering Provider - JOSUE CORTEZ MD , PELVIS 1 OR 2 [facility] 10-18-19 18 PELVIS 1 OR 2 [facility] [address] [place] [address] =====Patient Name: DIANE HANDLEY : 1980Sex: FAge: Race: WhiteMRN: [id number]. Location: 93Patient Status: OVisit #: [id number] Date: 10/17/2017 3:25:00 PMCompleted Date: 10/17/2017 03:40 PMRequesting Provider: JOSUE CORTEZ Attending Provider: JOSUE CORTEZ Report Copy To: SELF, REFERRED Signs & Symptoms: M25.569 Pain in unspecified knee [id number]: AthenaComments: , Views (X-RAY, PELVIS): AP , Weight Bearing?: Y , With Magnification Marker?: Y , Views (X-RAY, PELVIS): AP , Weight Bearing?: Y , With Magnification Marker?: Y , , , Ordering Provider - JOSUE CORTEZ MD , Exam: PELVIS 1 OR 2 VWSAccession #: [id number] PELVIS 1 OR 2 VWS, KNEE LEFT [...] System PROTOCOL: AP(PA) view was obtained. (accession [id number]), AP,Lateral,Tunnel and Tangential views were obtained. (accession [id number]), AP,Lateral,Tunnel and Tangential views were obtained. (accession [id number]) COMPARISON: None FINDINGS: Pelvis: No acute abnormality. [...] hips Electronically signed by:Ernie Albert. Transcribed by: [email or web address], User Resident: Electronically Signed by: ERNIE ALBERT @ 10/17/2017 04:35 PM Normal [facility] Comment on above: Order Comment: , Views (X-RAY, PELVIS): AP , Weight Bearing?: Y , With Magnification Marker?: Y , Views (X-RAY, PELVIS): AP , Weight Bearing?: Y , With Magnification Marker?: Y , , , Ordering Provider - JOSUE CORTEZ MD , Vital Signs Date Time Vital Sign Value Performing Clinician Facility 05-18-2023 12:56-0500 Diastolic blood pressure 89 mm[Hg] Iliana Roquecolette PA [facility] 05-18-2023 12:56-0500 Heart rate 85 /min Iliana Roquecolette PA Work Phone[facility] 05-18-2023 12:56-0500 Respiratory rate 16 /min Il[facility]ecolette [facility] 05-18-2023 12:56-0500 SaO2% (BldA) [Mass fraction] 100 % Iliana Roquecolette PA Work Phone[facility] 05-18-2023 12:56-0500 Systolic blood pressure 137 mm[Hg] Iliana Stevens [facility] 10-05-2022 13:15-0400 Body height 152.4 cm Laverne Missler Other [employer] Other 10-05-2022 13:15-0400 Body mass index (BMI) [Ratio] 48.25 kg/m2 Laverne Missler Other [employer] Other 10-05-2022 13:15-0400 Body weight 112.08 kg Laverne Missler Other [employer] Other 10-05-2022 13:15-0400 Diastolic blood pressure 76 mm[Hg] Laverne Missler Other [employer] Other 10-05-2022 13:15-0400 Respiratory rate 20 /min Laverne Missler Other [employer] Other 10-05-2022 13:15-0400 SaO2% (BldA) [Mass fraction] 97 % Laverne Missler Other [facility] [employer] Other 10-05-2022 13:15-0400 Systolic blood pressure 122 mm[Hg] Laverne Emerson Other [facility] [employer] Other 02-28-2020 13:09-0500 Body Temperature 97.5 [degF] STAFF, [facility] 02-28-2020 13:09-0500 BP Diastolic 83 mm[Hg] STAFF, [facility] 02-28-2020 13:09-0500 BP Systolic 149 mm[Hg] STAFF, [facility] 02-28-2020 13:09-0500 Pulse (Heart Rate) 83 /min STAFF, [facility] 02-28-2020 13:09-0500 Pulse Oximetry 98 % STAFF, [facility] 02-28-2020 13:09-0500 Respiratory Rate 18 /min STAFF, [facility] 02-28-2020 13:06-0500 BMI (Body Mass Index) 46.3 kg/m2 STAFF, [facility] 02-28-2020 13:06-0500 Body weight 111.13 kg STAFF, [facility] 02-28-2020 13:06-0500 Height 154.94 cm STAFF, [facility] Encounters Encounter Date Encounter Type Care Provider Facility Start: 08-10-2023 End: 08-10-[address] [facility] Start: 07-12-2023 End: 07-12-2023 Emergency department patient visit [facility] Start: 05-30-2023 End: 05-30-2023 ambulatory BELEM [facility] Start: 05-30-2023 End: 05-31-2023 ambulatory BELEM [facility] Start: 05-22-2023 End: 05-22-2023 ambulatory KADIE SHAH Not Available Start: 05-18-2023 End: 05-18-2023 Office outpatient visit 25 minutes Iliana ARCE Work Phone: [facility] Comment on above: Primary osteoarthrit is of right knee (Primary Dx) Start: 05-18-2023 End: 05-18-2023 ambulatory ILIANA Mendoza COLETTE [facility] Start: 05-15-2023 End: 05-16-2023 Emergency department patient visit RICA Pennington ELIDIA [facility] Start: 05-06-2023 End: 05-06-20[address] [facility] Start: 05-05-2023 End: 05-05-20[address]UEL MENDEZ [facility] Start: 04-28-2023 End: 04-28-[address]LEM COOM[address] [facility] Start: 04-25-2023 ambulatory ILIANA S [facility] Start: 03-22-2023 Telephone encounter Imani Wood RN [facility] Start: 03-22-2023 End: 03-22-[address] [facility] Start: 11-16-2022 End: 11-16-2022 ambulatory Laverne Emerson Other [employer] Other Start: 11-16-2022 Telephone encounter Laverne Emerson [facility] Start: 10-05-2022 End: 10-06-2022 ambulatory Belem Coombs [facility] [employer] Other Start: 10-05-2022 Nutrition therapy [facility] Start: 02-01-2022 End: 02-01-2022 ambulatory [facility] Facility:H1 Start: 01-17-2022 End: 01-17-2022 ambulatory [facility] Facility:H[facility] Start: 10-19-2021 End: 10-20-2021 ambulatory [facility] Facility:H[facility] Start: 02-28-2020 End: 02-28-2020 Emergency department patient visit STAFF, [facility] Start: 10-17-2017 End: 10-18-2017 Patient encounter CARMENKIMBERLY DANA Facility:[facility] Start: 02-07-2017 End: 02-08-2017 Patient encounter DEFAULT PHYSICIAN Facility:[facility] Plan of Treatment Date Care Activity Detail Author Start: 05-18-2024 Tobacco Screening Tobacco Screening [facility] Start: 05-15-2024 Adult BMI Screening Adult BMI Screening [facility] Start: 03-22-2024 Tobacco Screening Tobacco Screening [facility] Start: 03-13-2024 Adult BMI Screening Adult BMI Screening [facility] Start: 05-30-2023 End: 05-30-2023 Patient encounter procedure [facility] DEXA Start: 12-02-2022 Influenza vaccination Influenza Vaccine [facility] Start: 11-03-1999 Screening for malignant neoplasm of cervix Pap Smear [facility] Start: 1997 DTaP,Tdap and Td Vaccines (1 - Tdap) DTaP,Tdap and Td Vaccines (1 - Tdap) [facility] Start: 1996 Adult BMI Follow Up Plan Adult BMI Follow Up Plan [facility] Start: 1990 Depression Screening Depression Screening [facility] Injection aa&/strd genicular nrv branches w/img INJECTION BLOCK NERVE KNEE Primary osteoarthritis of right knee [facility] Patient Education Shoulder Pain (ED) [facility] Patient referral [facility] Payers Date Payer Category Payer Unknown [id number] 2022 Self-pay [id number] 2022 Medicaid [employer] O [id number] 2022-Present [phone] [address] [place] [address] [id number] 2022 Medicaid [id number] [id number] 1978 Unknown [id number] 2.16.840.1.289149.3.579.2.593 1978 Unknown [id number] 2.16.840.1.285441.3.579.2.593 1978 Unknown [id number] 2.16.840.1.739145.3.579.2.593 1978 Unknown [id number] 2.16.840.1.356178.3.579.2.1259 1978 Unknown [id number] 2.16.840.1.087168.3.579.2.1285 1978 Unknown [id number] 2.16.840.1.741270.3.579.2.1285 1978 Unknown [id number] 2.16.840.1.246012.3.579.2.1285 1978 Unknown [id number] 2.16.840.1.243480.3.579.2.1285 1978 Unknown [id number] 2.16.840.1.232512.3.579.2.1285 1978 Unknown [id number] 2.16.840.1.135571.3.579.2.1285 1978 Unknown [id number] 2.16.840.1.870420.3.579.2.1285 1978 Unknown [id number] 2.16.840.1.505233.3.579.2.1285 1978 Unknown [id number] 2.16.840.1.210250.3.579.2.1285 1978 Unknown [id number] 2.16.840.1.645017.3.579.2.128 1978 Unknown [id number] 2.16.840.1.773120.3.579.2.1285 1978 Unknown [id number] 2.16.840.1.249981.3.579.2.1285 1978 Unknown [id number] 2.16.840.1.465428.3.579.2.128 1959 Medicaid [id number] Unknown Unknown [id number] 2.16.840.1.524368.3.579.2.531 Social History Date Type Detail Facility [facility] Start: 1980 Sex Assigned At Female [facility] Start: 05-14-2020 End: 03-22-2023 [facility]igned At [facility] [employer] Other Start: 01-26-2022 Tobacco smoking stat [facility] Never smoked tobacco [facility] Start: 01-26-2022 Tobacco use and exposure Smokeless tobacco non-user [facility] Start: 03-22-2023 End: 05-18-2023 Alcohol intake Current non-drinker of alcohol (finding) [facility] Start: 05-14-2020 End: 03-22-2023 History of Social function [facility] Housing Instability Unknown [facility] [employer] Start: 1980 Sex Assigned At Not on file P [facility] Goals Date Patient Goal Desired Activity /State Clinical Notes 10-20-2021 to 05-18-2023 CLAUDE Ivan - 05/18/2023 12:45 PM ESTPatient InstructionsTelephone Encounter - Imani Wood RN - 03/22/2023 1:42 PM EST Note Date & Type Note Facility 05-18-2023 History of Presen t illness Narrative [facility] [address] [place] [address] Patient: Diane Handley Sex: female : 1980 [...] 05/10/2019 Performed by Josefina Murguia MD at [facility] D AND C HYSTEROSCOPY N/A 05/10/2019 Performed by Josefina Murguia MD at [facility] D AND C HYSTEROSCOPY N/A 03/08/2019 Performed by Josefina Murguia MD at [facility] INJECTION BLOCK KNEE GENICULAR Left 11/15/2019 Performed by Miguel Mendez MD at [facility] INJECTION BLOCK NERVE KNEE Right Genicular Right 05/05/2023 Performed by Miguel Mendez MD at [facility] INJECTION BLOCK NERVE KNEE Left Genicular Left 03/04/2022 Performed by Miguel Mendez MD at [facility] INJECTION BLOCK NERVE KNEE Left Genicular Left 06/25/2021 Performed by Miguel Mendez MD at [facility] RADIOFREQUENCY ABLATION GENICULAR Left 04/29/2022 Performed by Miguel Mendez MD at [facility] TUBAL LIGATION No Known Allergies Family [...] Gottlieb CNA 05/18/23 1401 CLAUDE Ivan 05/18/23 [id number] documented in this encounter [facility] 05-18-2023 Instructions Dorcas Gottlieb, [employer]URING [employer]OCI[employer] - 05/18/2023 12:45 PM EST Epidural Steroid [...] a safety precaution, you must have a hook up driver after a lumbar nerve root injection, [...] back to normal. documented in this encounter [facility] 03-22-2023 Miscellaneous Notes Patient called to request a work note for today. Patient states she did not go to work today. Residential Substance Abuse Counselor spoke with Elmo who approves work note for today. Patient asks that note be sent to [email or web address]. Done. documented in this encounter [facility] 03-22-2023 Telephone encounter Note Patient called to request a work note for today. Patient states she did not go to work today. Residential Substance Abuse Counselor spoke with Elmo who approves work note for today. Patient asks that note be sent to [email or web address]. Done. [facility] 10-05-2022 Evaluation note Encounter Date Diagnosis [...] Strongly encouraged to take advantage of our industrial services worker available at [facility] that can help work around [...] will perform surveillance through out our visits. [employer] Other 07-20-2022 NotePROCEDURE: XR KNEE RT 4V [...] authenticated by: VIRGILIO FORRESTER Date: 2021-10-19 22:25[facility] noteNo InformationNort [employer] Other Evaluation noteNo assessment information available [facility] Work Phone: Evaluation note* Diagnosis Primary osteoarthritis of right knee- Primary [facility] - Reported* Type Description Date Medical History Osteoarthritis Medical History Anxiety Medical History Arthritis of bilateral knees Medical History Depression Medical History Panic attacks Medical History Anemia Medical History Bipolar Surgical History tubal ligation Surgical History Uterine ablation 11/2019 Surgical History [place] teeth extraction Hospitalization History child Hospitalization History See above [employer] Other InstructionsNot on filedocumented in this encounter [facility] [employer] [facility] Summary Purpose Family History No Family [...] Information Available Discharge Instructions Additional Instructions Use igci-[id number]-[id number] pain control as needed Robaxin is a muscle relaxer and can make you drowsy. Do not drive or drink alcohol on this medication. Follow-up with your family doctor Reason for Referral Specialty Diagnoses / Procedures Referred By Alexandr berman Referred To Contact Diagnoses Primary osteoarthritis of right knee Procedures Case request operating room: INJECTION BLOCK NERVE KNEE Iliana Stevens PA [address] [place] [address] Referral ID Status Reason Start Date Expiration Date V isits Requested Visits Authorized [id number] Pending Review 05/18/2023 05/17/2024 1 1 Additional Source Comments INFORMATION SOURCE (unrecogn ized section and content) DATE CREATED AUTHOR 10/21/2017 [facility] DATE CREATED AUTHOR AUTHOR'S ORGANIZ ATION 03/02/2022 [facility] DATE CREATED AUTHOR AUTHOR'S ORGANIZ ATION 04/03/2023 [facility] DATE CREATED AUTHOR AUTHOR'S ORGANIZ ATION 05/22/2023 [facility] EPIC DATE CREATED AUTHOR AUTHOR'S ORGANIZ ATION 11/23/2023 [facility] REASON FOR VISIT (unrecogniz ed section and content) Reason Comments Knee Pain Goals (unrecognized section and content) Goals may be documented in a n alternate section Care Teams (unrecognized sec tion and content) Transition Specialist Relationship Specialty Start Date End Date Belem Coombs PA-C [address] [place] [address] [place] [address] PCP - General Physician Geological Technician 09/06/22 Transition Specialist Relationship Specialty Start Date End Date Belem Coombs PA-C [address] [place], [place] [id number] PCP - General Physician Geological Technician 05/15/23 FOR RECORDS PERTAINING TO PATIENTS WHO [...] BE BASED ON THE PRIMARY CLINICAL RECORDS. [employer] [facility]. provides no warranty or guarantee of the accuracy or completeness of information in this document.
[2024-01-10 01:45] VITALS: BP 147/85; PULSE 68; TEMP 36.5; O2SAT 96; BMI 50.8
--- NOTE | 2024-01-10 01:59 | ED_ITS ---
HPI HPI - Extremity Injury (Lower) General Chief Complaint: Extremity Injury, Lower Stated Complaint: BACK OF R KNEE PAIN Time Seen by Provider: 01/10/24 02:00 Source: patient Mode of arrival: walk-in History of Present Illness HPI Narrative: This 43-year-old female presents for evaluation of pain behind her right knee. She states the pain has been present for the past 2 weeks. She states she was diagnosed with osteoarthritis in her 20s and has chronic knee pain. She states that she cannot be seen by the orthopedic doctor locally because she does not have health insurance at this time. She has no calf pain or swelling. Denies any numbness or tingling in the extremity. She denies any chest pain or shortness of breath. She states that her machine at work went down so she figured she would come to the emergency department to get her knee checked out. She is not on any control and she does not smoke. Related Data Home Medications ?Medication ?Instructions ?Recorded ?Confirmed cholecalciferol (vitamin D3) 10 20 mcg PO DAILY 04/23/23 09/25/23 mcg (400 unit) tablet (Vitamin D3) duloxetine 30 mg capsule,delayed 30 mg PO DAILY 04/23/23 09/25/23 release aripiprazole 5 mg tablet 5 mg PO DAILY 06/28/23 09/25/23 hydroxyzine pamoate 25 mg capsule 25 mg PO BID PRN anxiety 06/28/23 09/25/23 ferrous sulfate 325 mg (65 mg 325 mg PO DAILY 09/25/23 09/25/23 iron) tablet Previous Rx's ?Medication ?Instructions ?Recorded diclofenac sodium 1 % topical gel 2 g topical QID #100 grams 09/11/23 (Voltaren Arthritis Pain) meloxicam 7.5 mg tablet 7.5 mg PO DAILY #14 tabs 09/11/23 Allergies Allergy/AdvReac Type Severity Reaction Status Date / Time acetaminophen [From Tylenol] AdvReac Mild constipatio Verified 09/25/23 23:22 n Opioid HPI Opioid Management Most Recent Pain and Opioid Data: Last Pain Scale 10 01/10/24 01:50 Last ED Pain Assessment 01/10/24 01:50 Review of Systems ROS Status of ROS 10 or more systems reviewed and unremark able except as noted in history and below PFSH PFSH Social History Smoking status: Never smoker Little interest or pleasure in doing things: not at all Feeling down, depressed, or hopeless: not at all Exam Narrative Exam Narrative: Vital signs and Nursing Notes reviewed: Patient is afebrile with a normal pulse, blood pressure is mildly elevated 147/85, she is not hypoxic with pulse ox of 96% on room air General: Awake, alert, oriented, overweight female, no acute distress, lying comfortably on the stretcher HEENT: Normocephalic atraumatic, mucous membranes are moist and pink, eyes are clear, normal conjunctiva, vision is grossly intact, posterior pharynx is normal in appearance. Chest: Lungs are clear to auscultation with good air entry, there is no wheezing rhonchi or rales appreciated no accessory muscle use, patient is speaking in complete sentences-no chest wall tenderness to palpation CVS: Regular rate and rhythm S1-S2, no murmurs rubs or gallops, pulses are brisk and equal bilaterally ABD: Soft, nondistended, nontender, no rebound guarding or rigidity, bowel sounds are normal, no pulsatile masses appreciated Extremities: Moving all extremities, there is no redness or swelling or notable effusion to the right knee. Right and left legs were compared [id number] and there is no size discrepancy. There is no appreciable reproducible tenderness in the posterior popliteal area of the right knee. Negative anterior draw. There is no valgus or varus strain. Feet are warm and sensate. Pulses are gerard sk and equal bilaterally Skin: Normal in appearance without rash,pallor, petechiae or purpura Neuro: No focal deficits Constitutional Vital Signs, click to edit/add: Last Vital Signs Temp 97.7 F 01/10/24 01:45 Pulse 68 01/10/24 01:45 Resp 16 01/10/24 01:45 BP 147/85 H 01/10/24 01:45 Pulse Ox 96 01/10/24 01:45 O2 Del Method Room Air 01/10/24 01:45 Course Vital Signs Vital signs: Vital Signs Temperature 97.7 F 01/10/24 01:45 Pulse Rate 68 01/10/24 01:45 Respiratory Rate 16 01/10/24 01:45 Blood Pressure 147/85 H 01/10/24 01:45 Pulse Oximetry 96 01/10/24 01:45 Oxygen Delivery Method Room Air 01/10/24 01:45 Temperature 97.7 F 01/10/24 01:45 Pulse Rate 68 01/10/24 01:45 Respiratory Rate 16 01/10/24 01:45 Blood Pressure 147/85 H 01/10/24 01:45 Pulse Oximetry 96 01/10/24 01:45 Oxygen Delivery Method Room Air 01/10/24 01:45 MDM - Extremity Injury (Lower) MDM Narrative Medical decision making narrative: This 43 year old female with a history of osteoarthritis since her 20s presents for evaluation of right sided knee pain. She denies any injury. This is ongoing knee pain which has been worse for the past 2 weeks. She has been using ibuprofen with minimal relief. She has no calf swelling or tenderness but she is overweight. She declined an x-ray stating she knows that she has arthritis but wanted to get it checked out. Her physical exam is benign with no notable redness, swelling effusion. The joint is stable. D-dimer was negative at 0.19. She was medicated with ibuprofen and Tylenol but refused the Tylenol stating that it makes her constipated. The results of her D-dimer was discussed with her. She was discharged home with a prescription for Mobic. She declined any narcotic analgesics because she is currently on probation. Discharge Plan Discharge Chief Complaint: Extremity Injury, Lower Clinical Impression: Knee osteoarthritis Patient Disposition: Home, Self-Care Time of Disposition Decision: 02:49 Condition: Good Prescriptions / Home Meds: No Action cholecalciferol (vitamin D3) [Vitamin D3] 10 mcg (400 unit) tablet 20 mcg PO DAILY duloxetine 30 mg capsule,delayed release(DR/EC) 30 mg PO DAILY hydroxyzine pamoate 25 mg capsule 25 mg PO BID PRN (Reason: anxiety) aripiprazole 5 mg tablet 5 mg PO DAILY ferrous sulfate 325 mg (65 mg iron) tablet 325 mg PO DAILY meloxicam 7.5 mg tablet 7.5 mg PO DAILY Qty: 14 0RF diclofenac sodium [Voltaren Arthritis Pain] 1 % gel 2 g topical QID Qty: 100 0RF Rx Instructions: apply to single elbow, wrist or hand; for hand includes palm/fingers/back of hand Print Language: Croatian Instructions: Osteoarthritis (ED) Referrals: Physician,Non-Staff, MD [Primary Care Provider] - 1 week
[2024-01-10] MEDS: IBUPROFEN 600 MG TABLET PO (02:21)
[2024-01-10 02:36] LABS: D Dimer <0.19 mg/L FEU (<=0.59)
[2024-01-10 02:55] VITALS: BP 148/95; PULSE 71; O2SAT 99
== END 2024-01-10 03:00 | disposition home or self-care (01) ==
PROVIDERS: Emergency Provider Emergency Medicine
DX: M17.11 Unilateral primary osteoarthritis, right knee (principal)
CPT/HCPCS: 36415; 85378; 99283

== ENCOUNTER 2024-03-31 15:53 | Emergency (ER) | payer OTHER, SELFPAY ==
--- OUTSIDE RECORDS SUMMARY | 2024-03-31 16:00 | XMS_ITS | CCD ---
Author Organization [facility] Care Team Providers Care Product/Device Technologist Name Role Phone PHYSICIAN, DEFAULT Unavailable Unavailable PHYSICIAN, DEFAULT Unavailable Unavailable DANA, SUMMON Unavailable Unavailable DANA, SUMMON Unavailable Unavailable SELF, REFERRED Unavailable Unavailable SELF, REFERRED Unavailable Unavailable NON, STAFF, Primary Care Provider Unavailabl e [facility] Unava ilable KAYLEN, DR SWANN Admitting Unavailable KAYLEN, DR SWANN Attending Unavailable USAMA, DR VIRGILIO Gupta Consulting Unavailable CLAUDE MAYORGA Consulting Unavailable [facility] Unava ilable APRIL, DR ELODIA Gupta Admitting Unavailable APRIL, DR ELODIA Gupta Attending Unavailable APRIL, DR ELODIA Gupta Consulting Unavailable [facility] Unava ilable MARKER, DR LONG [...] Referring Unavailable BELEM COOMBS Primary Care Unavailable NO PCP, NO PCP Primary Care Unavailable JOANN RAYGOZA Attending Unavailable ILIANA STEVENS Attending Unavailable BELEM [...] [Bipolar disorder, unspecified] Onset: 12-04-2019 Chronic Osteoarthritis (17 sources) Bilateral primary osteoarthritis of knee; Translations: [Unspecified osteoarthritis, unspecified site] Onset: 10-17-2017 Chronic Other aftercare (1 source) Other penitentiary (current) drug therapy; Translations: [OTH [facility] CURRENT DRUG THERAPY] Onset: 02-02-2022 Episodic Other [...] AM 1 b MAMM 1 YR Normal [facility] XR KNEE RT 3 VWSon 4 [...] Marion MD on 05/15/2023 10:58 PM Normal [facility] MAMM SCREENING 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 KNEE LEFT 4VWSon 10-17-2017 KNEE LEFT 4VWS [facility] [address] [place] [address] =====Patient Name: DIANE HANDLEY : 1980Sex: FAge: Race: WhiteMRN: [id number]. Location: 93Patient Status: OVisit #: [id number] Date: 10/17/2017 3:25:00 PMCompleted Date: 10/17/2017 03:47 PMRequesting Provider: JOSUE CORTEZ Attending Provider: JOSUE CORTEZ Report Copy To: SELF, REFERRED Signs & Symptoms: M25.569 Pain in unspecified knee Q82Mloikzp: AthenaComments: , Views (X-RAY, KNEE): AP, Lateral, Tunnel, [place] , Weight Bearing?: Y , With Magnification Marker?: N , Views (X-RAY, KNEE): AP, Lateral, Tunnel, [place] , Weight Bearing?: Y , With Magnification Marker?: N , , , Ordering Provider - JOSUE CORTEZ MD , Exam: KNEE LEFT 4VWSAccession #: [id number] PELVIS 1 OR 2 VWS, KNEE LEFT [...] System PROTOCOL: AP(PA) view was obtained. (accession [id number]), AP,Lateral,Tunnel and Tangential views were obtained. (accession [id number]), AP,Lateral,Tunnel and Tangential views were obtained. (accession [id number]) COMPARISON: None FINDINGS: Pelvis: No acute abnormality. [...] hips Electronically signed by:Ernie Albert. Transcribed by: [email or web address], User Resident: Electronically Signed by: ERNIE ALBERT @ 10/17/2017 04:35 PM Normal [facility] Comment on above: Order Comment: , Views (X-RAY, KNEE): AP , Lateral, Tunnel, [place] , Weight Bearing?: Y , With Magnification Marker?: N , Views (X-RAY, KNEE): AP, Lateral, Tunnel, [place] , Weight Bearing?: Y , With Magnification Marker?: N , , , Ordering Provider - JOSUE CORTEZ MD , KNEE RIGHT 4 [facility] 8 KNEE RIGHT 4 [facility] [address] [place] [address] =====Patient Name: DIANE HANDLEY : 1980Sex: FAge: Race: WhiteMRN: [id number]. Location: 93Patient Status: OVisit #: [id number] Date: 10/17/2017 3:25:00 PMCompleted Date: 10/17/2017 03:40 PMRequesting Provider: JOSUE CORTEZ Attending Provider: JOSUE CORTEZ Report Copy To: SELF, REFERRED Signs & Symptoms: M25.569 Pain in unspecified knee Q73Jotzkaq: AthenaComments: , Views (X-RAY, KNEE): AP, Lateral, Tunnel, [place] , Weight Bearing?: Y , With Magnification Marker?: N , Views (X-RAY, KNEE): AP, Lateral, Tunnel, [place] , Weight Bearing?: Y , With Magnification Marker?: N , , , Ordering Provider - JOSUE CORTEZ MD , Exam: KNEE RIGHT 4 VWSAccession #: [id number] PELVIS 1 OR 2 VWS, KNEE LEFT [...] System PROTOCOL: AP(PA) view was obtained. (accession [id number]), AP,Lateral,Tunnel and Tangential views were obtained. (accession [id number]), AP,Lateral,Tunnel and Tangential views were obtained. (accession [id number]) COMPARISON: None FINDINGS: Pelvis: No acute abnormality. [...] hips Electronically signed by:Ernie Albert. Transcribed by: [email or web address], User Resident: Electronically Signed by: ERNIE ALBERT @ 10/17/2017 04:35 PM Normal [facility] Comment on above: Order Comment: , Views (X-RAY, KNEE): AP , Lateral, Tunnel, [place] , Weight Bearing?: Y , With Magnification Marker?: N , Views (X-RAY, KNEE): AP, Lateral, Tunnel, [place] , Weight Bearing?: Y , With Magnification Marker?: N , , , Ordering Provider - JOSUE CORTEZ MD , PELVIS 1 OR 2 [facility] 10-18-19 18 PELVIS 1 OR 2 [facility] [address] [place] [address] =====Patient Name: DIANE HANDLEY : 1980Sex: FAge: Race: WhiteMRN: [id number]. Location: 93Patient Status: OVisit #: [id number] Date: 10/17/2017 3:25:00 PMCompleted Date: 10/17/2017 03:40 PMRequesting Provider: JOSUE CORTEZ Attending Provider: JOSUE CORTEZ Report Copy To: SELF, REFERRED Signs & Symptoms: M25.569 Pain in unspecified knee P67Qzbpini: AthenaComments: , Views (X-RAY, PELVIS): AP , Weight Bearing?: Y , With Magnification Marker?: Y , Views (X-RAY, PELVIS): AP , Weight Bearing?: Y , With Magnification Marker?: Y , , , Ordering Provider - JOSUE CORTEZ MD , Exam: PELVIS 1 OR 2 VWSAccession #: [id number] PELVIS 1 OR 2 VWS, KNEE LEFT [...] System PROTOCOL: AP(PA) view was obtained. (accession [id number]), AP,Lateral,Tunnel and Tangential views were obtained. (accession [id number]), AP,Lateral,Tunnel and Tangential views were obtained. (accession [id number]) COMPARISON: None FINDINGS: Pelvis: No acute abnormality. [...] hips Electronically signed by:Ernie Albert. Transcribed by: [email or web address], User Resident: Electronically Signed by: ERNIE ALBERT @ 10/17/2017 04:35 PM Normal [facility] Comment on above: Order Comment: , Views (X-RAY, PELVIS): AP , Weight Bearing?: Y , With Magnification Marker?: Y , Views (X-RAY, PELVIS): AP , Weight Bearing?: Y , With Magnification Marker?: Y , , , Ordering Provider - JOSUE CORTEZ MD , Vital Signs Date Time Vital Sign Value Performing Clinician Facility 05-18-2023 12:56-0500 Diastolic blood pressure 89 mm[Hg] [facility] Stevens [facility] 05-18-2023 12:56-0500 Heart rate 85 /min Iliana Stevens PA [facility] 05-18-2023 12:56-0500 Respiratory rate 16 /min [facility] 05-18-2023 12:56-0500 SaO2% (BldA) [Mass fraction] 100 % Iliana Stevens PA [facility] 05-18-2023 12:56-0500 Systolic blood pressure 137 mm[Hg] Iliana Stevens PA [facility] 10-05-2022 13:15-0400 Body height 152.4 cm Laverne Rogeller Other [employer] Other 10-05-2022 13:15-0400 Body mass index (BMI) [Ratio] 48.25 kg/m2 Laverneher Rogeller Other [employer] Other 10-05-2022 13:15-0400 Body weight 112.08 kg Laverneher Rogeller Other [employer] Other 10-05-2022 13:15-0400 Diastolic blood pressure 76 mm[Hg] Laverne Missler Other [employer] Other 10-05-2022 13:15-0400 Respiratory rate 20 /min Laverneher Rogeller Other [employer] Other 10-05-2022 13:15-0400 SaO2% (BldA) [Mass fraction] 97 % Laverne Emerson Other [employer] [facility] [employer] Other 10-05-2022 13:15-0400 Systolic blood pressure 122 mm[Hg] Laverne Emerson Other [employer] [facility] [employer] Other 02-28-2020 13:09-0500 Body Temperature 97.5 [degF] STAFF, [facility] 02-28-2020 13:09-0500 BP Diastolic 83 mm[Hg] STAFF, [facility] 02-28-2020 13:09-0500 BP Systolic 149 mm[Hg] STAFF, [facility] 02-28-2020 13:09-0500 Pulse (Heart Rate) 83 /min STAFF, [facility] 02-28-2020 13:09-0500 Pulse Oximetry 98 % STAFF, [facility] 02-28-2020 13:09-0500 Respiratory Rate 18 /min STAFF, [facility] 02-28-2020 13:06-0500 BMI (Body Mass Index) 46.3 kg/m2 STAFF, [facility] 02-28-2020 13:06-0500 Body weight 111.13 kg STAFF, [facility] 02-28-2020 13:06-0500 Height 154.94 cm STAFF, [facility] Encounters Encounter Date Encounter Type Care Provider Facility Start: 01-29-2024 End: 01-29-2024 Emergency department patient visit NO PCP NO PCP [facility] Start: 08-10-2023 End: 08-10-2023 ambulatory ILIANA STEVENS [facility] Start: 07-12-2023 End: 07-12-2023 Emergency department patient visit [facility] Start: 05-30-2023 End: 05-30-2023 ambulatory [facility] Start: 05-30-2023 End: 05-31-2023 ambulatory [facility] Start: 05-22-2023 End: 05-22-2023 ambulatory KADIE SHAH Not Available Start: 05-18-2023 End: 05-18-2023 Office outpatient visit 25 minutes Iliana Stevens PA Work Phone: [facility] Comment on above: Primary osteoarthrit is of right knee (Primary Dx) Start: 05-18-2023 End: 05-18-2023 ambulatory ILIANA Reji POPPY [facility] Start: 05-15-2023 End: 05-16-2023 Emergency department patient visit RICA Pennington ELIDIA [facility] Start: 05-06-2023 End: 05-06-2023 ambulatory GIACOMO PICKARD [facility] Start: 05-05-2023 End: 05-05-2023 ambulatory MIGUEL MENDEZ [facility] Start: 04-28-2023 End: 04-28-2023 ambulatory BELEM COOMBS [facility] Start: 04-25-2023 ambulatory ILIANA STEVENS [facility] Start: 03-22-2023 Telephone encounter Imani Wood RN [facility] Start: 03-22-2023 End: 03-22-2023 ambulatory ELMO GIRON [facility] Start: 11-16-2022 End: 11-16-2022 ambulatory Laverne Emerson Other [employer] [facility] [employer] Other Start: 11-16-2022 Telephone encounter Laverne [facility] Start: 10-05-2022 End: 10-06-2022 ambulatory Belem Coom[facility] [employer] Other Start: 10-05-2022 Nutrition therapy Laverne Emerson [facility]placed by [facility] Start: 02-01-2022 End: 02-01-2022 ambulatory [facility] Facility:H1 Start: 01-17-2022 End: 01-17-2022 ambulatory [facility] Facility:H1 Start: 10-19-2021 End: 10-20-2021 ambulatory [facility] Facility: Start: 02-28-2020 End: 02-28-2020 Emergency department patient visit STAFF, NON [facility] Start: 10-17-2017 End: 10-18-2017 Patient encounter TANIA CORTEZ Facility:[facility] Start: 02-07-2017 End: 02-08-2017 Patient encounter DEFAULT PHYSICIAN Facility:[facility] Plan of Treatment Date Care Activity Detail Author Start: 05-18-2024 Tobacco Screening Tobacco Screening [facility] Start: 05-15-2024 Adult BMI Screening Adult BMI Screening [facility] Start: 03-22-2024 Tobacco Screening Tobacco Screening [facility] Start: 03-13-2024 Adult BMI Screening Adult BMI Screening [facility] Start: 05-30-2023 End: 05-30-2023 Patient encounter procedure [facility] D[facility]A Start: 12-02-2022 Influenza vaccination Influenza Vaccine [facility] Start: 11-03-1999 Screening for malignant neoplasm of cervix Pap Smear [facility] Start: 1997 DTaP,Tdap and Td Vaccines (1 - Tdap) DTaP,Tdap and Td Vaccines (1 - Tdap) [facility] Start: 1996 Adult BMI Follow Up Plan Adult BMI Follow Up Plan [facility] Start: 1990 Depression Screening Depression Screening [facility] Injection aa&/strd genicular nrv branches w/img INJECTION BLOCK NERVE KNEE Primary osteoarthritis of right knee [facility] Patient Education Shoulder Pain (ED) [facility] Patient referral [facility] Payers Date Payer Category Payer Unknown [id number] 2023 Unknown [id number] 2022 Self-pay [id number] 2022 Medicaid [employer] HMO [id number] 2022-Present [phone] [address] [place] [address] [id number] 2022 Medicaid [id number] 1978 Unknown [id number] 2.16840.1.850274.3.579.2.593 1978 Unknown [id number] 2.16.840.1.874223.3.579.2.593 1978 Unknown [id number] 2.840.1.477079.3.579.2.593 1978 Unknown [id number] 2.16840.1.778336.3.579.2.1259 1978 Unknown [id number] 2.840.1.553389.3.579.2.1285 1978 Unknown [id number] 2.840.1.893392.3.579.2.1285 1978 Unknown [id number] 2.840.1.760307.3.579.2.128 1978 Unknown [id number] 2.840.1.077102.3.579.2.1285 1978 Unknown [id number] 2.840.1.014416.3.579.2.1285 1978 Unknown [id number] 2.840.1.816637.3.579.2.1285 1978 Unknown [id number] 1978 Unknown [id number] 2.840.1.980274.3.579.2.128 1978 Unknown [id number] 2.840.1.026589.3.579.2.1285 1978 Unknown [id number] 2.16840.1.941866.3.579.2.128 1978 Unknown [id number] 2.840.1.133154.3.579.2.1285 1978 Unknown [id number] 2.840.1.815903.3.579.2.1286 1978 Unknown [id number] 2.16.840.1.144218.3.579.2.1286 1978 Unknown [id number] 2.16.840.1.237459.3.579.2.1286 1959 Medicaid [id number] Unknown Unknown [id number] 2.16.840.1.099329.3.579.2.531 Social History Date Type Detail Facility [facility] Start: 1980 Sex Assigned At Female F [facility] Start: 05-14-2020 End: 03-22-2023 [facility] [employer] Other Start: 01-26-2022 [facility] tobacco [facility] Start: 01-26-2022 Tobacco use and exposure Smokeless tobacco non-user [facility] Start: 03-22-2023 End: 05-18-2023 Alcohol intake Current non-drinker of alcohol (finding) [facility] Start: 05-14-2020 End: 03-22-2023 History of Social function [facility] Housing Instability Unknown [facility] Start: 1980 Sex Assigned At Not on file P [facility] Goals Date Patient Goal Desired Activity /State Clinical Notes 10-20-2021 to 05-18-2023 CLAUDE Ivan - 05/18/2023 12:45 PM ESTPatient InstructionsTelephone Encounter - Imani Wood RN - 03/22/2023 1:42 PM EST Note Date & Type Note Facility 05-18-2023 History of Presen t illness Narrative [facility] [address] [place] [address] Patient: Diane Kirke Cong Sex: female : 1980 Age: 42 y.o. PCP: Belem Coombs PA-C 05/18/2023 Diane Handley is here for a(n) post procedure follow up 05/05/2023 right genicular nerve block with 100% relief thru 05/14/2023. Patient reports pain returned suddenly on 05/15/2023. The pain was so severe that she went to the ED to seek treatment. Pre-procedural pain was reported as 10/10. Chief Complaint Patient presents with Knee Pain [...] 05/10/2019 Performed by Josefina Murguia MD at [facility] D AND C HYSTEROSCOPY N/A 05/10/2019 Performed by Josefina Murguia MD at [facility] D AND C HYSTEROSCOPY N/A 03/08/2019 Performed by Josefina Murguia MD at [facility] INJECTION BLOCK KNEE GENICULAR Left 11/15/2019 Performed by Miguel Mendez MD at [facility] INJECTION BLOCK NERVE KNEE Right Genicular Right 05/05/2023 Performed by Miguel Mendez MD at [facility] INJECTION BLOCK NERVE KNEE Left Genicular Left 03/04/2022 Performed by Miguel Mendez MD at [facility] INJECTION BLOCK NERVE KNEE Left Genicular Left 06/25/2021 Performed by Miguel Mendez MD at [facility] RADIOFREQUENCY ABLATION GENICULAR Left 04/29/2022 Performed by Miguel Mendez MD at [facility] TUBAL LIGATION No Known Allergies Family History [...] Ivan 05/18/23 1536 documented in this encounter [facility] [employer] 05-18-2023 Instructions Dorcas Gottlieb CNA - 05/18/2023 [...] a safety precaution, you must have a stud driver after a lumbar nerve root injection, [...] back to normal. documented in this encounter [facility] 03-22-2023 Miscellaneous Notes Patient called to request a work note for today. Patient states she did not go to work today. [employer] spoke with Elmo who approves work note for today. Patient asks that note be sent to [email or web address]. Done. documented in this encounter [facility] 03-22-2023 Telephone encounter Note Patient called to request a work note for today. Patient states she did not go to work today. [employer] spoke with Elmo who approves work note for today. Patient asks that note be sent to [email or web address]. Done. [facility] 10-05-2022 Evaluation note Encounter Date Diagnosis [...] Strongly encouraged to take advantage of our it service delivery manager available at [facility] that can help work around limitations. [...] will perform surveillance through out our visits. [employer] Other 07-20-2022 NotePROCEDURE: XR KNEE RT 4V [...] authenticated by: VIRGILIO FORRESTER Date: 2021-10-19 22:25[facility] noteNo InformationN[facility] [employer] Other Evaluation noteNo assessment information available [facility] Work Phone: Evaluation note* Diagnosis Primary osteoarthritis of right knee- Primary documented in this encounter [employer] SystemHistory general Narrative - Reported* Type Description Date Medical History Osteoarthritis Medical History Anxiety Medical History Arthritis of bilateral knees Medical History Depression Medical History Panic attacks Medical History Anemia Medical History Bipolar Surgical History tubal ligation Surgical History Uterine ablation 11/2019 Surgical History [place] teeth extraction Hospitalization History child Hospitalization History See above [employer] Other InstructionsNot on filedocumented in this encounter [employer] Summary Purpose Family History No Family History [...] Information Available Discharge Instructions Additional Instructions Use atbm-fny-eeetaor pain control as needed Robaxin is a [...] PA [address] [place] [id number] Referral ID Status Reason Start Date Expiration Date V isits Requested Visits Authorized [id number] Pending Review 05/18/2023 05/17/2024 1 1 Additional Source Comments INFORMATION SOURCE (unrecogn ized section and content) DATE CREATED AUTHOR 10/21/2017 [facility] DATE CREATED AUTHOR AUTHOR'S ORGANIZ ATION 03/02/2022 [facility] DATE CREATED AUTHOR AUTHOR'S ORGANIZ ATION 04/03/2023 [facility] DATE CREATED AUTHOR AUTHOR'S ORGANIZ ATION 05/22/2023 [facility] EPIC DATE CREATED AUTHOR AUTHOR'S ORGANEMMA ATION 01/29/2024 [facility] REASON FOR VISIT (unrecogniz ed section and content) Reason Comments Knee Pain Goals (unrecognized section and content) Goals may be documented in a n alternate section Care Teams (unrecognized sec tion and content) Product/Device Technologist Relationship Specialty Start Date End Date Belem Coombs PA-C [address] [place] [address] PCP - General Physician Jacquard Loom Card Changer 09/06/22 Product/Device Technologist Relationship Specialty Start Date End Date Belem Coombs PA-C [address], [place] [id number] PCP - General Physician Jacquard Loom Card Changer 05/15/23 FOR RECORDS PERTAINING TO PATIENTS WHO [...] BE BASED ON THE PRIMARY CLINICAL RECORDS. [facility] [employer] [facility] provides no warranty or guarantee of the accuracy or completeness of information in this document.
[2024-03-31 16:23] VITALS: BP 134/84; PULSE 79; TEMP 37.6; O2SAT 95; BMI 49.1
--- NOTE | 2024-03-31 16:28 | XR_ITS ---
The [place] [id number] Patient Name: MARIBELL HANDLEY MRN: [id number] date: 1980 Sex: F Assigned Patient Location: ER Current Patient Location: ER Accession/Order Number: [id number] Exam Date: 03/31/2024 17:15 Report Date: 03/31/2024 18:21 At the request of: NATHANIEL LEBLANC Procedure: XR chest 2V EXAM: XR chest 2V HISTORY: cough COMPARISON: 03/09/2020 TECHNIQUE: Frontal and lateral views of the chest. FINDINGS: No focal consolidations or pleural effusions. Cardiac mediastinal silhouette is unremarkable. No acute osseous abnormality. XR/XR chest 2V IMPRESSION: No acute disease. Electronically authenticated by: ELIANE DONLADSON Date: 03/31/2024 18:21
[2024-03-31 17:41] LABS: Influenza Virus A Antigen Negative; Influenza Virus B Antigen Negative; Internal Control Within Normal Limits; SARS-CoV-2 Ag NEGATIVE (NEGATIVE)
--- NOTE | 2024-03-31 18:31 | ED.URI1 ---
HPI - URI/Sore Throat General Chief Complaint: Upper Respiratory Infection Stated Complaint: cough Time Seen by Provider: 03/31/24 18:30 Source: patient History of Present Illness HPI Narrative: This is a very pleasant 43-year-old here with cough congestion since around . Does not have any travel history. Has not had purulent sputum. Does not have any sore throat today but she did initially but that has gotten better. She does not have any underlying cardiopulmonary disease asthma or C or COPD. She is a non-smoker. She has not had aches and pains and chills. The ER was extremely busy, nursing staff triage some laboratory testing. She is negative for influenza negative for COVID and her chest x-ray is negative. Related Data Home Medications ?Medication ?Instructions ?Recorded ?Confirmed cholecalciferol (vitamin D3) 10 20 mcg PO DAILY 04/23/23 09/25/23 mcg (400 unit) tablet (Vitamin D3) duloxetine 30 mg capsule,delayed 30 mg PO DAILY 04/23/23 09/25/23 release aripiprazole 5 mg tablet 5 mg PO DAILY 06/28/23 09/25/23 hydroxyzine pamoate 25 mg capsule 25 mg PO BID PRN anxiety 06/28/23 09/25/23 ferrous sulfate 325 mg (65 mg 325 mg PO DAILY 09/25/23 09/25/23 iron) tablet Previous Rx's ?Medication ?Instructions ?Recorded diclofenac sodium 1 % topical gel 2 g topical QID #100 grams 09/11/23 (Voltaren Arthritis Pain) meloxicam 7.5 mg tablet 7.5 mg PO DAILY #14 tabs 09/11/23 Allergies Allergy/AdvReac Type Severity Reaction Status Date / Time acetaminophen (From Tylenol) AdvReac Mild constipatio Verified 09/25/23 23:22 n PFSH PFSH Social History Smoking status: Never smoker Little interest or pleasure in doing things: not at all Feeling down, depressed, or hopeless: not at all Exam Narrative Exam Narrative: Awake alert very pleasant appears in no extreme distress does not appear ill or toxic. Pulse oximetry is 95%. On auscultation of her lungs even with forced exhalation they are clear with no wheeze rales or rhonchi. There is no upper respiratory distress or stridor. Phonation is normal. Nasal area is not congested. Skin and integument are normal with no evidence of pallor or anemia or dehydration. Constitutional Vital Signs, click to edit/add: Last Vital Signs Temp 99.6 F 03/31/24 16:23 Pulse 79 03/31/24 16:23 Resp 18 03/31/24 16:23 BP 134/84 03/31/24 16:23 Pulse Ox 95 03/31/24 16:23 O2 Del Method Room Air 03/31/24 16:23 Course Vital Signs Vital signs: Vital Signs Temperature 99.6 F 03/31/24 16:23 Pulse Rate 79 03/31/24 16:23 Respiratory Rate 18 03/31/24 16:23 Blood Pressure 134/84 03/31/24 16:23 Pulse Oximetry 95 03/31/24 16:23 Oxygen Delivery Method Room Air 03/31/24 16:23 Temperature 99.6 F 03/31/24 16:23 Pulse Rate 79 03/31/24 16:23 Respiratory Rate 18 03/31/24 16:23 Blood Pressure 134/84 03/31/24 16:23 Pulse Oximetry 95 03/31/24 16:23 Oxygen Delivery Method Room Air 03/31/24 16:23 MDM - URI/Sore Throat MDM Narrative Medical decision making narrative: Patient with classic upper respiratory symptoms not responding to [id number] Zyrtec. X-ray was negative as was COVID and influenza testing. Recommendations were discussed Lab Data Labs: Lab Results 03/31/24 Range/Units 16:27 Influenza Type A Ag Negative Influenza Type B Ag Negative SARS-CoV-2 Ag (CV2AG) Negative (NEGATIVE) Discharge Plan Discharge Chief Complaint: Upper Respiratory Infection Clinical Impression: Bronchitis Patient Disposition: Home, Self-Care Time of Disposition Decision: 18:33 Prescriptions / Home Meds: No Action cholecalciferol (vitamin D3) [Vitamin D3] 10 mcg (400 unit) tablet 20 mcg PO DAILY duloxetine 30 mg capsule,delayed release(DR/EC) 30 mg PO DAILY hydroxyzine pamoate 25 mg capsule 25 mg PO BID PRN (Reason: anxiety) aripiprazole 5 mg tablet 5 mg PO DAILY ferrous sulfate 325 mg (65 mg iron) tablet 325 mg PO DAILY meloxicam 7.5 mg tablet 7.5 mg PO DAILY Qty: 14 0RF diclofenac sodium [Voltaren Arthritis Pain] 1 % gel 2 g topical QID Qty: 100 0RF Rx Instructions: apply to single elbow, wrist or hand; for hand includes palm/fingers/back of hand Print Language: Martiniquais Additional Instructions: Use [id number] Mucinex. For severe nighttime cough may use Phenergan with codeine on a limited basis. Referrals: Physician,Non-Staff, MD [Primary Care Provider] - 1 week
== END 2024-03-31 18:54 | disposition home or self-care (01) ==
PROVIDERS: Emergency Provider Emergency Medicine Emergency Medical Services
DX: J40 Bronchitis, not specified as acute or chronic (principal)
CPT/HCPCS: 71046; 87804; 87811; 99285

== ENCOUNTER 2024-05-27 03:45 | Emergency (ER) | payer OTHER, SELFPAY ==
[2024-05-27 03:49] VITALS: BP 152/102; PULSE 82; TEMP 36.6; O2SAT 98; BMI 48.8
--- NOTE | 2024-05-27 04:07 | ED.LOWEXI1 ---
HPI HPI - Extremity Injury (Lower) General Chief Complaint: Extremity Injury, Lower Stated Complaint: FALL, [facility] Time Seen by Provider: 05/27/24 04:03 Source: patient Mode of arrival: walk-in History of Present Illness HPI Narrative: This 43 female with a history of osteoarthritis presents for evaluation of right hip and femur pain. 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 She finished this and was walking back around when she lost her footing and fell onto her right side. She has pain in the right hip and femur. She was able to walk after the fall. She denies striking her head. She denies any neck or back pain. She takes Naprosyn for her arthritis and took Naprosyn after her fall. She has no weakness numbness or tingling. She states she has pain in her hip and femur with ambulation but is able to walk. She denies any knee or ankle or foot pain. She has no chest pain or shortness of breath. She denies any dizziness or syncope leading to her fall. Related Data Home Medications ?Medication ?Instructions ?Recorded ?Confirmed cholecalciferol (vitamin D3) 10 20 mcg PO DAILY 04/23/23 05/27/24 mcg (400 unit) tablet (Vitamin D3) duloxetine 30 mg capsule,delayed 30 mg PO DAILY 04/23/23 05/27/24 release aripiprazole 5 mg tablet 5 mg PO DAILY 06/28/23 05/27/24 ferrous sulfate 325 mg (65 mg 325 mg PO DAILY 09/25/23 05/27/24 iron) tablet naproxen 500 mg tablet mg 05/27/24 Allergies Allergy/AdvReac Type Severity Reaction Status Date / Time acetaminophen (From Tylenol) AdvReac Mild constipatio Verified 09/25/23 23:22 n Opioid HPI Opioid Management Most Recent Pain and Opioid Data: Last Pain Scale 0 01/10/24 02:56 01/10/24 Review of Systems ROS Status of ROS 10 or more systems reviewed and unremarkable except as noted in history and below PFSH PFSH Social History Smoking status: Never smoker Little interest or pleasure in doing things: not at all Feeling down, depressed, or hopeless: not at all Exam Narrative Exam Narrative: Vital signs and Nursing Notes reviewed: Patient is afebrile with a normal pulse, blood pressure is elevated 152/102, she is not hypoxic with pulse ox of 98% on room air General: Awake, alert, oriented, obese female, GCS 15, no respiratory distress HEENT: Normocephalic atraumatic, mucous membranes are moist and pink, eyes are clear, normal conjunctiva, vision is grossly intact Neck: Supple, no midline bony vertebral tenderness or step-off Chest: Lungs are clear to auscultation with good air entry, there is no wheezing rhonchi or rales appreciated no accessory muscle use, patient is speaking in complete sentences-no chest wall tenderness to palpation CVS: Regular rate and rhythm S1-S2, no murmurs rubs or gallops, pulses are brisk and equal bilaterally ABD: Soft, nondistended, nontender, no rebound guarding or rigidity, stable pelvic rock Extremities: Tenderness to palpation in the right lateral hip and has a femur without notable erythema ecchymosis abrasion or other abnormality. She is able to flex at the hip and knee. There is no knee swelling or tenderness. Lower extremity strength and sensation is intact. There is no foot, calf or ankle tenderness or notable deformity. Skin: Normal in appearance without rash,pallor, petechiae or purpura Neuro: No focal deficits Constitutional Vital Signs, click to edit/add: Last Vital Signs Temp 97.8 F 05/27/24 03:49 Pulse 82 05/27/24 03:49 Resp 16 05/27/24 03:49 BP 152/102 H 05/27/24 03:49 Pulse Ox 98 05/27/24 03:49 O2 Del Method Room Air 05/27/24 03:49 Course Vital Signs Vital signs: Vital Signs Temperature 97.8 F 05/27/24 03:49 Pulse Rate 82 05/27/24 03:49 Respiratory Rate 16 05/27/24 03:49 Blood Pressure 152/102 H 05/27/24 03:49 Pulse Oximetry 98 05/27/24 03:49 Oxygen Delivery Method Room Air 05/27/24 03:49 Temperature 97.8 F 05/27/24 03:49 Pulse Rate 82 05/27/24 03:49 Respiratory Rate 16 05/27/24 03:49 Blood Pressure 152/102 H 05/27/24 03:49 Pulse Oximetry 98 05/27/24 03:49 Oxygen Delivery Method Room Air 05/27/24 03:49 MDM - Extremity Injury (Lower) MDM Narrative Medical decision making narrative: This 43-year-old female with a history of arthritis presents for evaluation of right hip and femur pain after falling at work. The patient states she lost her footing and fell onto her right side. She has been able to walk since falling but states she has pain in her femur and hip wound she weightbears. Her physical exam is benign. She is able to flex at her hip and knee. There is no redness swelling abrasion contusion or other notable deformity. She declined the need for anything for pain because she had taken Naprosyn prior to coming to the emergency department and states Tylenol constipates her. X-rays of the right hip and pelvis and right femur were ordered and reviewed by myself. There is no fracture or dislocation soft tissue swelling or foreign body noted. Discharge Plan Discharge Chief Complaint: Extremity Injury, Lower Clinical Impression: Fall from standing, Contusion of hip, right Patient Disposition: Home, Self-Care Time of Disposition Decision: 04:53 Condition: Good Prescriptions / Home Meds: No Action cholecalciferol (vitamin D3) [Vitamin D3] 10 mcg (400 unit) tablet 20 mcg PO DAILY duloxetine 30 mg capsule,delayed release(DR/EC) 30 mg PO DAILY aripiprazole 5 mg tablet 5 mg PO DAILY ferrous sulfate 325 mg (65 mg iron) tablet 325 mg PO DAILY naproxen 500 mg tablet Print Language: Romansh Instructions: Contusion in Adults (ED), Fall Prevention (ED), Hip Contusion (ED) Referrals: [facility] [Other] - 1 week Physician,Non-Staff, MD [Primary Care Provider] - 1 week
[2024-05-27 04:47] VITALS: BP 159/86
[2024-05-27 04:48] VITALS: BP 145/89
== END 2024-05-27 05:04 | disposition home or self-care (01) ==
PROVIDERS: Emergency Provider Emergency Medicine
DX: S70.01XA Contusion of right hip, initial encounter (principal); W18.39XA Other fall on same level, initial encounter
CPT/HCPCS: 73502; 73552; 99283

== ENCOUNTER 2024-07-23 01:55 | Emergency (ER) | payer OTHER, SELFPAY ==
[2024-07-23 02:02] VITALS: BP 139/83; PULSE 79; TEMP 36.7; O2SAT 99; BMI 45.1
--- NOTE | 2024-07-23 02:28 | ED_ITS ---
HPI HPI - Extremity Injury (Upper) General Chief Complaint: Extremity Injury, Upper Stated Complaint: RIGHT SHOULDER PAIN Time Seen by Provider: 07/23/24 02:11 History of Present Illness HPI narrative: This 43-year-old female who is right-hand dominant presents for evaluation of right shoulder pain has been bothering her for the past several days. She states that she typically takes naproxen for her aches and pains including osteoarthritis of her knees but is out of her naproxen until she gets paid on . 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 She states the entire shoulder hurts. It hurts in the anterior and posterior aspect of the shoulder. She does have good range of motion but states this hurts as well. She denies any numbness or tingling. There is no pain in her humerus elbow forearm wrist or hand. Related Data Home Medications ?Medication ?Instructions ?Recorded ?Confirmed cholecalciferol (vitamin D3) 10 20 mcg PO DAILY 04/23/23 05/27/24 mcg (400 unit) tablet (Vitamin D3) duloxetine 30 mg capsule,delayed 30 mg PO DAILY 04/23/23 05/27/24 release aripiprazole 5 mg tablet 5 mg PO DAILY 06/28/23 05/27/24 ferrous sulfate 325 mg (65 mg 325 mg PO DAILY 09/25/23 05/27/24 iron) tablet naproxen 500 mg tablet mg 05/27/24 Allergies Allergy/AdvReac Type Severity Reaction Status Date / Time codeine Allergy Unknown constipatio Verified 07/23/24 02:07 n Opioid HPI Opioid Management Most Recent Pain and Opioid Data: Last Pain Scale 0 01/10/24 02:56 01/10/24 Review of Systems ROS Status of ROS 10 or more systems reviewed and unremark able except as noted in history and below PFSH PFSH Social History Smoking status: Never smoker Little interest or pleasure in doing things: not at all Feeling down, depressed, or hopeless: not at all Exam Narrative Exam Narrative: Vital signs and Nursing Notes reviewed: Patient is afebrile with a normal pulse, blood pressure is mildly elevated 139/83, she is not hypoxic with pulse ox of 99% on room air General: Awake, alert, oriented, no acute distress, lying comfortably on the stretcher HEENT: Normocephalic atraumatic, mucous membranes are moist and pink, eyes are clear, normal conjunctiva, vision is grossly intact, posterior pharynx is normal in appearance. Tympanic membranes are normal bilaterally Neck: Supple, no meningeal signs, no anterior or posterior cervical lymphadenopathy Chest: Lungs are clear to auscultation with good air entry, there is no wheezing rhonchi or rales appreciated no accessory muscle use, patient is speaking in complete sentences-no chest wall tenderness to palpation CVS: Regular rate and rhythm S1-S2, no murmurs rubs or gallops, pulses are brisk and equal bilaterally ABD: Soft, nondistended, nontender, no rebound guarding or rigidity, bowel sounds are normal, no pulsatile masses appreciated Extremities: Moving all extremities, full range of motion of the right shoulder is appreciated. There is tenderness in the anterior and posterior aspect of the shoulder without any step-off or notable bony deformity. There is no tenderness to the humerus elbow forearm hand or fingers. Skin: Normal in appearance without rash,pallor, petechiae or purpura Neuro: No focal deficits Constitutional Vital Signs, click to edit/add: Last Vital Signs Temp 98.1 F 07/23/24 02:02 Pulse 79 07/23/24 02:02 Resp 18 07/23/24 02:02 BP 139/83 07/23/24 02:02 Pulse Ox 99 07/23/24 02:02 O2 Del Method Room Air 07/23/24 02:02 Course Vital Signs Vital signs: Vital Signs Temperature 98.1 F 07/23/24 02:02 Pulse Rate 79 07/23/24 02:02 Respiratory Rate 18 07/23/24 02:02 Blood Pressure 139/83 07/23/24 02:02 Pulse Oximetry 99 07/23/24 02:02 Oxygen Delivery Method Room Air 07/23/24 02:02 Temperature 98.1 F 07/23/24 02:02 Pulse Rate 79 07/23/24 02:02 Respiratory Rate 18 07/23/24 02:02 Blood Pressure 139/83 07/23/24 02:02 Pulse Oximetry 99 07/23/24 02:02 Oxygen Delivery Method Room Air 07/23/24 02:02 MDM - Extremity Injury (Upper) MDM Narrative Medical decision making narrative: This 43-year-old female who is right-hand dominant presents for evaluation of right shoulder pain. She has diffuse pain in the entire shoulder girdle. Pain is worse with range of motion. 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 She states the totes are not heavy but when they are filled they can weigh up to 25 to 30 pounds. She denies any injury. She is tender in the anterior and posterior aspect of the shoulder with full rotatory movement of the shoulder. She is out of her Naprosyn which she typically takes for pain. She was given a dose of Naprosyn in the emergency department. X-ray of the right shoulder is normal with no acute fracture, dislocation, normal soft tissues. The portion of the lung that is seen in the shoulder film is also normal. The results of the x-rays were discussed with her. She will be discharged home with an additional dose of Naprosyn to take tomorrow as needed. Discharge Plan Discharge Chief Complaint: Extremity Injury, Upper Clinical Impression: Arthralgia of right shoulder region Patient Disposition: Home, Self-Care Time of Disposition Decision: 03:03 Condition: Good Prescriptions / Home Meds: No Action cholecalciferol (vitamin D3) [Vitamin D3] 10 mcg (400 unit) tablet 20 mcg PO DAILY duloxetine 30 mg capsule,delayed release(DR/EC) 30 mg PO DAILY aripiprazole 5 mg tablet 5 mg PO DAILY ferrous sulfate 325 mg (65 mg iron) tablet 325 mg PO DAILY naproxen 500 mg tablet Print Language: Frisian Instructions: Arthralgia (ED), Shoulder Pain (ED) Referrals: Physician,Non-Staff, MD [Primary Care Provider] - 1 week
[2024-07-23] MEDS: NAPROXEN 250 MG TABLET 500 MG PO ×2 (02:50→03:15)
== END 2024-07-23 03:18 | disposition home or self-care (01) ==
PROVIDERS: Emergency Provider Emergency Medicine
DX: M25.511 Pain in right shoulder (principal)
CPT/HCPCS: 73030; 99283

== ENCOUNTER 2024-08-07 01:15 | Emergency (ER) | payer SELFPAY ==
[2024-08-07] VITALS (17 sets, daily range): BP systolic 118–142; BP diastolic 67–89; PULSE 60–74; TEMP 36.8; O2SAT 97–100; BMI 50.8
--- NOTE | 2024-08-07 01:30 | ECG_ITS ---
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 Measurements Intervals [place] Rate: 68 P: 6 MT: 160 QRS: 33 QRSD: 90 T: 1 QT: 404 QTc: 421 Interpretive Statements 1100 Sinus rhythm 9110 normal ECG Compared to ECG 06/28/2023 02:28:44 No significant changes Electronically Signed On 08-07-2024 7:40:34 EDT by SENG AYALA M.D.
--- NOTE | 2024-08-07 01:40 | ED.CHESTPAI1 ---
HPI - Chest Pain General Chief Complaint: Chest Pain Stated Complaint: CHEST PAIN Time Seen by Provider: 08/07/24 01:38 Source: patient Mode of arrival: walk-in History of Present Illness HPI narrative: left sided chest pain while at work. Lasted about 20 min. no associated nausea or vomiting. neg dyspnea or abdominal pain. No past history of heart disease. Related Data Home Medications ?Medication ?Instructions ?Recorded ?Confirmed cholecalciferol (vitamin D3) 10 20 mcg PO DAILY 04/23/23 08/07/24 mcg (400 unit) tablet (Vitamin D3) duloxetine 30 mg capsule,delayed 30 mg PO DAILY 04/23/23 08/07/24 release aripiprazole 5 mg tablet 5 mg PO DAILY 06/28/23 08/07/24 ferrous sulfate 325 mg (65 mg 325 mg PO DAILY 09/25/23 08/07/24 iron) tablet naproxen 500 mg tablet 500 mg 05/27/24 Allergies Allergy/AdvReac Type Severity Reaction Status Date / Time codeine Allergy Unknown constipatio Verified 08/07/24 01:20 n Review of Systems ROS Status of ROS 10 or more systems reviewed and unremarkable except as noted in history and below [facility] Social History Smoking status: Never smoker Little interest or pleasure in doing things: not at all Feeling down, depressed, or hopeless: not at all Exam Constitutional Vital Signs, click to edit/add: Last Vital Signs Temp 98.3 F 08/07/24 01:20 Pulse 74 08/07/24 03:10 Resp 16 08/07/24 03:10 BP 139/67 08/07/24 03:01 Pulse Ox 97 08/07/24 02:50 O2 Del Method Room Air 08/07/24 01:20 Common normals: no apparent distress, average body habitus, oriented x3, no limitations, healthy appearing, alert and well nourished [facility] Common normals: normocephalic Eye Common normals: PERRL and EOMs intact bilaterally Respiratory Common normals: normal respiratory effort, no retractions, no use of accessory muscles and clear to auscultation bilaterally Cardio Common normals: regular rate, regular rhythm, S1 normal heart sound and S2 normal heart sound Extremity Common normals: normal to inspection and full ROM Neuro Common normals: oriented x3, CN's II-XII intact bilaterally and moves all extremities Psych Appearance: grossly normal Course Vital Signs Vital signs: Vital Signs Pulse Oximetry 97 08/07/24 01:19 Temperature 98.3 F 08/07/24 01:20 Pulse Rate 74 08/07/24 03:10 Respiratory Rate 16 08/07/24 03:10 Blood Pressure 139/67 08/07/24 03:01 Pulse Oximetry 97 08/07/24 02:50 Oxygen Delivery Method Room Air 08/07/24 01:20 MDM - Chest Pain MDM Narrative Medical decision making narrative: presents with left sided chest pain that resolved spontaneously . she has no history of heart disease and heart score 1. Serial troponin neg and d-dimer neg. cxray clear. Normal EKG. Discharged asymptomatic to follow up with her family doctor Lab Data Labs: Lab Results 08/07/24 08/07/24 Range/Units 01:30 03:42 WBC 7.4 (4.0-11.0) 10^3/uL RBC 4.24 (4.20-5.40) 10^6/uL Hgb 12.8 (12.0-16.0) g/dL Hct 39.1 (36.0-48.0) % MCV 92.2 (81.0-99.0) fL MCH 30.2 (26.7-34.0) pg MCHC 32.7 (29.9-35.2) g/dL RDW 12.8 (11.0-15.0) % Plt Count 312 (150-450) 10^3/uL MPV 10.0 (9.5-13.5) fL Neut % (Auto) 53.3 (43.0-75.0) % Lymph % (Auto) 33.6 (20.5-60.0) % Mcintosh % (Auto) 9.4 (1.7-12.0) % Eos % (Auto) 2.3 (0.9-7.0) % Baso % (Auto) 1.1 (0.2-2.0) % Neut # (Auto) 3.9 (1.4-6.5) 10^3/uL Lymph # (Auto) 2.5 (1.2-3.8) 10^3/uL Mcintosh # (Auto) 0.7 (0.3-0.8) 10^3/uL Eos # (Auto) 0.2 (0.0-0.7) 10^3/uL Baso # (Auto) 0.1 (0.0-0.1) 10^3/uL Abs Immat Gran (auto) 0.02 (0.00-0.03) 10^3/uL Imm/Tot Granulo (auto) 0.3 (0.0-0.5) % D-Dimer <0.19 (<=0.59) mg/L FEU Sodium 138 (136-145) mmol/L Potassium 3.6 (3.5-5.1) mmol/L Chloride 104 (98-107) mmol/L Carbon Dioxide 27.9 (21.0-32.0) mmol/L Anion Gap 9.7 BUN 14.0 (7.0-18.0) mg/dL Creatinine 0.78 (0.55-1.02) mg/dL Est GFR ( Amer) >60 (>=60 mL/min/1.73m^2) Est GFR (Non-Af Amer) >60 (>=60 mL/min/1.73m^2) BUN/Creatinine Ratio 17.9 Glucose 81 (74-106) mg/dL Calcium 9.0 (8.5-10.1) mg/dL Troponin I High Sens <4.0 L <4.0 L (4.0-51.3) pg/mL Discharge Plan Discharge Chief Complaint: Chest Pain Clinical Impression: Chest pain Patient Disposition: Home, Self-Care Prescriptions / Home Meds: No Action cholecalciferol (vitamin D3) [Vitamin D3] 10 mcg (400 unit) tablet 20 mcg PO DAILY duloxetine 30 mg capsule,delayed release(DR/EC) 30 mg PO DAILY aripiprazole 5 mg tablet 5 mg PO DAILY ferrous sulfate 325 mg (65 mg iron) tablet 325 mg PO DAILY naproxen 500 mg tablet 500 mg Print Language: Maltese Instructions: Chest Pain (ED) Additional Instructions: follow up with your doctor in a couple of days for recheck Referrals: Physician,Non-Staff, [Physician] - 1 week
[2024-08-07 01:53] LABS: Basophils Absolute Auto 0.1 10^3/uL (0.0-0.1); Basophils Percent Auto 1.1 % (0.2-2.0); Eosinophils Absolute Auto 0.2 10^3/uL (0.0-0.7); Eosinophils Percent Auto 2.3 % (0.9-7.0); Hematocrit 39.1 % (36.0-48.0); Hemoglobin 12.8 g/dL (12.0-16.0); Immature Granulocytes Abs Auto 0.02 10^3/uL (0.00-0.03); Immature Granulocytes Pct Auto 0.3 % (0.0-0.5); Lymphocytes Absolute Auto 2.5 10^3/uL (1.2-3.8); Lymphocytes Percent Auto 33.6 % (20.5-60.0); Mean Corpuscular HGB Conc 32.7 g/dL (29.9-35.2); Mean Corpuscular Hemoglobin 30.2 pg (26.7-34.0); Mean Corpuscular Volume 92.2 fL (81.0-99.0); Monocytes Absolute Auto 0.7 10^3/uL (0.3-0.8); Monocytes Percent Auto 9.4 % (1.7-12.0); Neutrophils Absolute Auto 3.9 10^3/uL (1.4-6.5); Neutrophils Percent Auto 53.3 % (43.0-75.0); Platelet Count 312 10^3/uL (150-450); Red Blood Count 4.24 10^6/uL (4.20-5.40); Red Cell Distribution Width 12.8 % (11.0-15.0); White Blood Count 7.4 10^3/uL (4.0-11.0)
[2024-08-07 02:07] LABS: D Dimer <0.19 mg/L FEU (<=0.59)
[2024-08-07 02:11] LABS: Anion Gap 9.7; BUN Creatinine Ratio 17.9; Carbon Dioxide 27.9 mmol/L (21.0-32.0); Chloride 104 mmol/L (98-107); Estimated GFR (African America >60 (>=60 mL/min/1.73m^2); Estimated GFR (Non-African Ame >60 (>=60 mL/min/1.73m^2); Glucose 81 mg/dL (74-106); Potassium 3.6 mmol/L (3.5-5.1); Sodium 138 mmol/L (136-145); Troponin I High Sensitivity <4.0 pg/mL (4.0-51.3)
[2024-08-07 04:09] LABS: Troponin I High Sensitivity <4.0 pg/mL (4.0-51.3)
== END 2024-08-07 05:55 | disposition home or self-care (01) ==
PROVIDERS: Emergency Provider Internal Medicine; PCP Nurse Practitioner Family
DX: R07.9 Chest pain, unspecified (principal)
CPT/HCPCS: 36415; 71045; 80048; 84484; 85025; 85378; 93005; 99285

== ENCOUNTER 2024-12-30 21:54 | Emergency (ER) | payer MEDICAID, SELFPAY ==
--- OUTSIDE RECORDS SUMMARY | 2012-07-10 05:30 | XMS_ITS | Continuity of Care Document ---
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 Name Role Phone Unavailable Unavailable Unavailable Procedures Procedure Date DRAIN/INJECT, JOINT/BURSA METHYLPRENDISONE UP TO 80 MG DRAIN/INJECT, JOINT/BURSA METHYLPRENDISONE UP TO 80 MG OFFICE/OUTPATIENT VISIT, EST DRAIN/INJECT, JOINT/BURSA METHYLPRENDISONE UP TO 80 MG VOID TICKET OFFICE/OUTPATIENT VISIT, EST DRAIN/INJECT, JOINT/BURSA METHYLPRENDISONE UP TO 80 MG OFFICE/OUTPATIENT VISIT, EST DRAIN/INJECT, JOINT/BURSA METHYLPRENDISONE UP TO 80 MG DRAIN/INJECT, JOINT/BURSA METHYLPRENDISONE UP TO 80 MG Advance Directives Directive Yes / No Effective Date File Name No Information Encounters Encounter Description Practice Location Reason(s) For Visit Diagnoses Date Provider Providers Copied on Encounter [employer] [facility], [address] [place] [address] B, [place], [place], [id number], [place] tel:[phone] [facility] No Information No Information OFFICE/OUTPAT IENT VISIT, [facility] [employer] [facility], [address] [place] [address] [address], [place], [place], [id number], [place] tel:[phone] [facility] No Information No Information [facility], [address] [place] [address], [place], [place], [id number], [place] tel:[phone] [facility] No Information No Information OFFICE/OUTPAT IENT VISIT, [facility], [address] [place] [address], [place], [place], [id number], [place] tel:[phone] [facility] No Information No Information OFFICE/OUTPAT IENT VISIT, [facility], [address] [place] [address], [place], [place], [id number], [place] tel:[phone] [facility] No Information No Information [facility], [address] [place] [address], [place], [place], [id number], [place] tel:[phone] [facility] No Information No Information Family History Family Member Type Diagnosis Age At Onset No Information Payers Payer name Insurance type Covered libertarian ID Authoriza tidavid(s) No Information Social History Type Description Quantity Date Captured Comments Sex Female Smoking Status No Information Chief Complaint And Reason For Visit No Information Reason For Referral Reason For Referral No Information History Of Present Illness Encounter Date Complaint History Of Prese nt Illness No Information Functional Status Date Functional Assessmen t No Information Instructions Date Instruction Additional Infor mation No Information Assessments Type Assessment Date No Information Patient Care Teams Name Effective Dates (start - stop) Status Members No Information
--- OUTSIDE RECORDS SUMMARY | 2023-10-23 09:50 | XMS_ITS ---
Author Organization [facility] Address [address] [place] [address] Care Team Providers Care Lining Machine Operator Name Role Phone Physician, Non-Staff Primary Care Provider Jonh Cohn Unavailable [phone] REASON FOR VISIT REFERRAL FROM [facility] - RIGHT KNEE OA Encounters Encounter Location Date Provider Diagnosis [facility] [address] [place] [address] [place] [address] 10/23/2023 Jonh Escobar Plan Of Treatment No Information Progress Notes * MARIBELL HANDLEYDOB:1980 (44 yo F)Acc No.[id number]:10/23/2023 Patient: MARIBELL HENSLEY Provider: Jose Escobar DO :1980 A ge:42 Y S ex:Female Date:10/23/2023 Address:[address] [place], [place] [id number] Pcp:Non-Staff Physician Subjective: * Chief Complaints: * 1 . REFERRAL FROM [facility] - RIGHT KNEE OA. * Medical History: Objective: * Vitals: Assessment: Plan: * Treatment: Forms: * Images: * Electronic signature of Rupa Escobar DO on 12/30/2024 at 10:37 PM EDT Sign off status: Pending * Provider: Jose Escobar DO Date: 10/23/2023 Generated for Printi ng/Faxing/eTransmitting on: 0 12/30/2024 10:37 PM EDT
--- OUTSIDE RECORDS SUMMARY | 2023-11-13 09:20 | XMS_ITS ---
Author Organization [facility] Address [address] [place] [address] Care Team Providers Care Rotating Equipment Engineer Name Role Phone Physician, Non-Staff Primary Care Provider Jonh Cohn Unavailable [phone] REASON FOR VISIT RT KNEE - REFERRAL FROM [facility] Encounters Encounter Location Date Provider Diagnosis [facility] [facility] [address] [place] [address] [place] [address] 11/13/2023 Jonh Escobar Plan Of Treatment No Information Progress Notes * MARIBELL HANDLEYDOB:1980 (44 yo F)Acc No.[id number]:11/13/2023 Patient: MARIBELL HENSLEY Provider: Jose Escobar DO :1980 A ge:43 Y S ex:Female Date:11/13/2023 Address:[address] [place], [place] [id number] Pcp:Non-Staff Physician Subjective: * Chief Complaints: * 1 . RT KNEE - REFERRAL FROM [facility]. * Medical History: Objective: * Vitals: Assessment: Plan: * Treatment: Forms: * Images: * Electronic signature of Rupa Escobar DO on 12/30/2024 at 10:37 PM EDT Sign off status: Pending * Provider: Jose Escobar DO Date: 0 11/13/2023 Generated for Printi ng/Faxing/eTransmitting on: 0 12/30/2024 10:37 PM EDT
--- OUTSIDE RECORDS SUMMARY | 2023-11-28 06:00 | XMS_ITS ---
Author Organization [facility] Address [address] [place] [address] Care Team Providers Care Detective Private Eye Name Role Phone Physician, Non-Staff Primary Care Provider Jonh Cohn Unavailable [phone] REASON FOR VISIT RT KNEE - REFERRAL FROM [facility] Encounters Encounter Location Date Provider Diagnosis [facility] [facility] [address] [place] [id number] 11/28/2023 Jonh Escobar Primary osteoarthrit is of right knee M17.11 Assessments Encounter Date Diagnosis (ICD Code) Assessment Notes Treatment Notes Treatment Clinical Notes Section Notes 11/28/2023 Primary osteoarthritis of right knee (ICD-10 - M17.11) Plan Of Treatment Pending Test Test Name Order Date Knee, marcia 4v ap,lat.sunrise,tunnel - 735 64 X2 11/28/2023 Progress Notes * MARIBELL HANDLEYDOB:1980 (44 yo F)Acc No.[id number]:11/28/2023 Patient: Shaniqua ERNESTINE MARIBELL Provider: Jose Escobar DO :1980 A ge:43 Y S ex:Female Date:11/28/2023 Address:[address] [place] [address], [id number] Pcp:Non-Staff Physician Subjective: * Chief Complaints: * 1 . RT KNEE - REFERRAL FROM [facility]. * Medical History: Objective: * Vitals: Assessment: * Assessment: 1. P rimary osteoarthritis of right knee - M17.11 (Primary) Plan: * Treatment: * Procedure Codes: 7 3564 X-ray Knee, complete 4 views Forms: * Images: * Electronic signature of Rupa Escobar DO on 12/30/2024 at 10:37 PM EDT Sign off status: Pending * Provider: Jose Escobar DO Date: 0 11/28/2023 Generated for Shobha regan/Kalyn/Chelsea on: 0 12/30/2024 10:37 PM EDT
--- OUTSIDE RECORDS SUMMARY | 2023-12-11 10:20 | XMS_ITS ---
Author Organization [facility] Address [address] [place] [address] Care Team Providers Care Blow Mold Operator Name Role Phone Physician, Non-Staff Primary Care Provider Jonh Cohn Unavailable [phone] REASON FOR VISIT RT KNEE - REFERRAL FROM [facility] Encounters Encounter Location Date Provider Diagnosis [facility] [facility] [address] [place] [address] [place] [address] 12/11/2023 Jonh Escobar Plan Of Treatment No Information Progress Notes * MARIBELL HANDLEYDOB:1980 (44 yo F)Acc No.[id number]:12/11/2023 Patient: MARIBELL HENSLEY Provider: Jose Escobar DO :1980 A ge:43 Y S ex:Female Date:12/11/2023 Address:[address] [place], [place] [phone] Pcp:Non-Staff Physician Subjective: * Chief Complaints: * 1 . RT KNEE - REFERRAL FROM [facility]. * Medical History: Objective: * Vitals: Assessment: Plan: * Treatment: Forms: * Images: * Electronic signature of Rupa Escobar DO on 12/30/2024 at 10:38 PM EDT Sign off status: Pending * Provider: Jose Escobar DO Date: 12/11/2023 Generated for Printi ng/Faxing/eTransmitting on: 0 12/30/2024 10:38 PM EDT
--- OUTSIDE RECORDS SUMMARY | 2023-12-25 10:20 | XMS_ITS ---
Author Organization [facility] Address [address] [place] [address] Care Team Providers Care Clerk Checker Name Role Phone Physician, Non-Staff Primary Care Provider Jonh Cohn Unavailable [phone] REASON FOR VISIT RT KNEE - REFERRAL FROM [facility] Encounters Encounter Location Date Provider Diagnosis [facility] [facility] [address] [place] [address] [place] [address] 12/25/2023 Jonh Escobar Plan Of Treatment No Information Progress Notes * MARIBELL HANDLEYDOB:1980 (44 yo F)Acc No.[id number]:12/25/2023 Patient: MARIBELL HENSLEY Provider: Jose Escobar DO :1980 A ge:43 Y S ex:Female Date:12/25/2023 Address:[address] [place], [place] [phone] Pcp:Non-Staff Physician Subjective: * Chief Complaints: * 1 . RT KNEE - REFERRAL FROM [facility]. * Medical History: Objective: * Vitals: Assessment: Plan: * Treatment: Forms: * Images: * Electronic signature of Rupa Escobar DO on 12/30/2024 at 10:38 PM EDT Sign off status: Pending * Provider: Jose Escobar DO Date: 12/25/2023 Generated for Printi ng/Faxing/eTransmitting on: 0 12/30/2024 10:38 PM EDT
--- OUTSIDE RECORDS SUMMARY | 2024-11-28 07:00 | XMS_ITS ---
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 Name Role Phone Von Marx Primary Care Provider REASON FOR VISIT Anxiety / Arthritis Social History Sex Assigned At : Social History Observation Description Sex Assigned At Unknown Encounters Encounter Location Date Provider Diagnosis Main [address], [place] [id number] 11/28/2024 Von Marx Plan Of Treatment Next Appt Details Provider Name:Von Marx, 03/25/2025 08:30:00 AM, [address], [place], [phone], Progress Notes * Diane HANDLEY MDOB:[birth year] (44 yo F)Acc No.[id number]:11/28/2024 Medical Note Patient: Diane HENSLEY Provider: Lisa Marx :1980 A ge:44 Y S ex:Female Date:11/28/2024 Address:[address] [place] [id number] Subjective: * Chief Complaints: * 1 . Anxiety / Arthritis. * Medical History: Objective: * Vitals: Assessment: Plan: * Treatment: * Billing Information: * Visit Code: * Procedure Codes: * Electronic signature of CLAUDE Joy on 12/30/2024 at 10:37 PM EDT Sign off status: Pending * Provider: Lisa Marx Date: 0 11/28/2024 Generated for Printi ng/Kalyn/Thongitting on: 0 12/30/2024 10:37 PM EDT
--- OUTSIDE RECORDS SUMMARY | 2024-11-28 08:22 | XMS_ITS ---
Author Name Auto Generated Organization [facility] Support Name Relationship Address Phone JOSEFINA RAMIREZ Next of Kin Unknown [phone] Josefina Ramirez Next of Kin Unknown [phone] James, Josefina Next of Kin Unknown [phone] JAMES, JOSEFINA Next of Kin [address] [place] [address] + RAMIREZ, JOSEFINA Next of Kin [address] [place] [address] + RAMIREZ, JOSEFINA Next of Kin [address] [place] [address] + RAMIREZ, JOSEFINA Next of Kin [address] [place] [address] + RAMIREZ, JOSEFINA Next of Kin [address] [place] [address] + RAMIREZ, JOSEFINA Next of Kin [address] [place] [address] + RAMIREZ, JOSEFINA Next of Kin [address] [place] [address] + RAMIRZE, JOSEFINA Next of Kin [address] [place] [address] + RAMIREZ, JOSEFINA Next of Kin [address] [place] [address] + [place] [address] [phone] JAMES, JOSEFINA Next of Kin [address] [place] [address] + RAMIREZ, JOSEFINA Next of Kin [address] [place] [address] + [place] [address] [phone] JOSEFINA RAMIREZ Next of Kin [address] [place] [address] + JOSEFINA RAMIREZ Next of Tony [address] [place] [address] + Care Team Providers Care Risk Assessment Analyst Name Role Phone KADIE SHAH Attending Unavailable NO PCP, NO PCP Primary Care Unavailable JOANN RAYGOZA Attending Unavailable ILIANA MCWILLIAMS Attending Unavailable ELMO MCWILLIAMS Referring Unavailable NO PCP, NO PCP Primary Care Unavailable ELMO GIRON Attending Unavailable MIGUEL ACEVEDO Referring Unavailable NO PCP, NO PCP Primary Care Unavailable NO PCP, NO PCP Primary Care Unavailable YEN SHARP Attending Unavailable ELMO MCWILLIAMS Attending Unavailable CANNON, VIKTORIYA Referring Unavailable NO PCP, NO PCP Primary Care Unavailable ESTEFANI RODRIGUEZ Attending Unavailable NO PCP, NO PCP Primary Care Unavailable NO PCP, NO PCP Primary Care Unavailable CASTRO TURK Attending Unavailable CANNON, VIKTORIYA Attending Unavailable CANNON, VIKTORIYA Primary Care Unavailable CANNON, VIKTORIYA Attending Unavailable CANNON, VIKTORIYA Referring Unavailable CANNON, VIKTORIYA Primary Care Unavailable CANNON, VIKTORIYA Referring Unavailable CANNON, VIKTORIYA Primary Care Unavailable CALISTA BROOKS Attending Unavailabl e CANNON, VIKTORIYA Referring Unavailable CANNON, VIKTORIYA Primary Care Unavailable Jovon Daniel Admitting Unavailable Jovon Daniel Attending Unavailable Cannon, Viktoriya K Primary Care Unavailable Jayden Pedroza Attending Unavailable Cannon, Viktoriya K Primary Care Unavailable Jayden Pedroza Admitting Unavailable PROBLEMS DATE TYPE CONDITION / CODE ATTENDING STATUS [facility] 11/12/2024 Unknown Urinary tract infection, site not specified / N39.0(ICD-10) Jovon Daniel Active [facility] 10/28/2024 Unknown Nausea / R11.0(ICD-10) Jayden Pedroza Ac tive [facility] 10/11/2024 Unknown Cardiac murmur, unspecified / R01.1(ICD-10) TODD, [facility] 10/11/2024 Unknown Shortness of kenney ath / R06.02(ICD-10) [facility] 06/02/2020 Unknown Morbid (severe) obesity due to excess calories / E66.01(ICD-10) [facility] 06/02/2020 Unknown Body mass index (BMI) 45.0-49.9, adult / Z68.42(ICD-10) [facility] 10/11/2024 Unknown New Patient / FREETEXT(AOF) [facility] 08/29/2024 Unknown Follow-up / FREETEXT(AOF) [facility] 07/31/2024 [facility] findings / Z00.00(ICD-10) [facility] 07/31/2024 Unknown Deficiency of ot her specified B group vitamins / E53.8(ICD-10) [facility] 07/31/2024 Unknown Vitamin D defici ency, unspecified / E55.9(ICD-10) [facility] 07/31/2024 Unknown Other fatigue / R53.83(ICD-10) [facility] 07/31/2024 Unknown Iron deficiency anemia, unspecified / D50.9(ICD-10) [facility] 07/31/2024 Unknown Unspecified abno rmal findings in urine / R82.90(ICD-10) [facility] 07/31/2024 Unknown Establish Care / FREETEXT(AOF) [facility] 06/18/2024 Unknown Diarrhea, unspec ified / R19.7(ICD-10) BREWIS, CASTRO [facility] 06/18/2024 Unknown Adverse effect o f unspecified drugs, medicaments and biological substances, initial encounter / T50.905A(ICD-10) CASTRO TURK [facility] 06/18/2024 Unknown Diarrhea / FREETEXT(AOF) CASTRO TURK [facility] 06/18/2024 Unknown Fever / FREETEXT(AOF) CASTRO TURK [facility] 06/08/2024 Unknown Influenza due to other identified influenza virus with other respiratory manifestations / J10.1(ICD-10) MICHAEL ESTEFANI N [facility] 06/08/2024 Unknown Cold Like Sympto ms / FREETEXT(AOF) JDJUNIOR ESTEFANI N [facility] 06/04/2024 Unknown Bilateral primar y osteoarthritis of knee / M17.0(ICD-10) ELMO ALVARENGA [facility] 06/04/2024 Unknown Back Pain / FREETEXT(AOF) POPPY ELMO Mcgovern [facility] 05/05/2023 Unknown Unilateral prima ry osteoarthritis, right knee / M17.11(ICD-10) ILIANA MCWILLIAMS [facility] 04/11/2022 Unknown Unilateral prima ry osteoarthritis, left knee / M17.12(ICD-10) ILIANA MCWILLIAMS [facility] 12/04/2019 Unknown Pain in right kn ee / M25.561(ICD-10) ILIANA MCWILLIAMS [facility] 12/04/2019 Unknown Other chronic pa in / G89.29(ICD-10) ILIANA MCWILLIAMS [facility] 12/04/2019 Unknown Pain in left kne e / M25.562(ICD-10) ILIANA MCWILLIAMS [facility] 12/04/2019 Unknown Unspecified osteoarthritis, unspecified site / M19.90(ICD-10) JOANN RAYGOZA [facility] 01/29/2024 Unknown Knee Pain / FREETEXT(AOF) [facility] 01/29/2024 Unknown Knee Pain / UNK(Unknown) [facility] PROCEDURES No Procedure Records Found RESULTS DIPSTICK AND MICROSCOPIC Collected: 03/2025 6:46 PM Status: F Source: [facility] Order Comment: Name Collecti on Type:: Voided TYPE CODE TESTS RESULT OUT OF RANGE REFERENCE UNITS LAB UCOL Color,Urine Yellow Yellow LAB UAPP Appearance,Uri ne Cloudy Abnormal Alert Clear LAB USG Specificy [place],Urine 1.043 High 1.001-1.030 LAB UPH pH,Urine 5.5 Normal 5.0-9.0 LAB ULE Leukocyte Esterase,Urine 1+ Negative LAB UNIT Nitrite,Urine Negative Negative LAB UPRO Protein,Urine 30 Negative mg/dL LAB UGL Glucose,Urine (UA) Normal Normal mg/dL LAB UKET Ketones,Urine Negative Negative LAB UURO Urobilinogen,U rine 3 Normal mg/dL LAB UBIL Bilirubin,Urin e Negative Negative LAB UBLD Occult Blood,Urine Negative Negative LAB URBC RBC,Urine 5-9 0-4 [HPF] LAB UWBC WBC,Urine 5-9 0-4 [HPF] LAB USQEPI Squamous Epithelial Cell,Urine 20-49 0-2 [HPF] LAB UBACT Bacteria,Urine None Seen None Seen [HPF] LAB UHYALC Hyaline Casts,Urine None 0-8 [LPF] LAB MUCUS Mucus,Urine 4+ Abnormal Alert [LPF] Performed By: #### UHCG, URD S, CUU, ADDONUAPLUS #### [address] HCG,URINE Collected: 6:46 PM Status: F Source: [facility] Order Comment: Name Collecti on Type:: Voided TYPE CODE TESTS RESULT OUT OF RANGE REFERENCE UNITS LAB UHCGQ HCG Qualitative, Urine Negative Result Comment: PERFORMED BY : [place] [address] PATHOLOGIST RN RESOURCE NURSE CASEY BOLDEN M.D. Performed By: #### UHCG, URD S, CUU, ADDONUAPLUS #### [facility] [address] [place] [address] [facility] DRUG SCREEN,URINE Collected: 11/12/2024 6:46 PM Stat us: F Source: [facility] TYPE CODE TESTS RESULT OUT OF RANGE REFERENCE UNITS LAB URAMPS Amphetamine Screen,Urine Negative Negative LAB URBARBS Barbiturate Screen,Urine Negative Negative LAB URBENZS Benzodiazepines Screen,Urine Negative Negative LAB URCOCS Cocaine Screen,Urine Negative Negative LAB UROPIS Opiate Screen,Urine Negative Negative LAB URPCPS Phencyclidine Screen,Urine Negative Negative LAB URTHCS Cannabinoid Screen,Urine Negative Negative Result Comment: These are un confirmed results and should not be used for legal purposes. Drug Cut-Off Concentration: AMPH 1000 ng/mL GISELA 200 ng/mL JERRELL 200 ng/mL COCM 300 ng/mL OP 300 ng/mL PCP 25 ng/mL THC 20 ng/mL PERFORMED BY: [place] [address] PATHOLOGIST RN RESOURCE NURSE CASEY BOLDEN M.D. Performed By: #### UHCG, JANETTED S, [facility], [facility] #### [facility] [address] [place] [id number] [facility] URINE CULTURE Observed: 11/12/2024 6:46 PM Status: F Source: [facility] ORGANISM: Escherichia coli ( O:ESCCOL) [place] Count 30,000 Aerobic JASON Charge ([id number]) SUSCEPTIBILITY ORGANISM: O:ESCCOL ANTIBIOTIC INTERPRETATION JASON Amikacin S <16 Amoxacillin/K Clavulanate S <8 Ampicillin S <8 Ampicillin/Sulbactam S <4 Aztreonam S <4 Cefazolin S <2 Cefepime S <2 Ceftazidime S <1 Ceftazidime/Avibactam S <4 Ceftolozane/Tazobactam S <2 Ceftriaxone S <1 Cefuroxime S <4 Ciprofloxacin S <0.25 Ertapenem S <0.5 Gentamicin S <2 Levofloxacin S <0.5 Meropenem S <1 Meropenem/Vaborbactam S <2 Nitrofurantoin S <32 Piperacillin/Tazobactam S <8 Tetracycline R >8 Tigecycline S <2 Tobramycin S <2 Trimethoprim/Sulfamethoxazole S <0.5 S = SUSCEPTIBLE I = INTERMEDIATE R = RESISTANT BLANK = DATA NOT AVAILABLE, OR DRUG NOT ADVISABLE OR TESTED R* = RESISTANCE DUE TO EXTENDED SPECTRUM BETA-LACTAMASES ESBL = EXTENDED SPECTRUM BETA-LACTAMASE TFG = THYMIDINE-DEPENDENT STRAIN NICOLE = BETA-LACTAMASE POSITIVE IB = INDUCIBLE BETA-LACTAMASE. APPEARS IN PLACE OF 'S' WITH SPECIES KNOWN TO POSSESS INDUCIBLE BETA-LACTAMASES. POTENTIALLY THEY MAY BECOME RESISTANT TO ALL B-LACTAM DRUGS. PERFORMED BY: [place] [address] PATHOLOGIST RN RESOURCE NURSE CASEY BOLDEN M.D. Performed By: #### UHCG, LIZ S, CUU, ADDONUAPLUS #### [facility] [address] COMPLETE BLOOD COUNT AUTO DIFF Collected: 11/12/2024 6:46 PM Status: F Source: F [facility] TYPE CODE TESTS RESULT OUT OF RANGE REFERENCE UNITS LAB WBC White Blood Count 9.4 Normal 3.8-11.6 [CFU]/mL LAB UNWBC Uncorrected WBC 9.4 Normal 3.8-11.6 10*3/uL LAB RBC Red Blood Count 4.41 Normal 3.60-5.00 10*6/u L LAB HGB Hemoglobin 13.2 Normal 11.8-15.4 g/dL LAB HCT Hematocrit 39.9 Normal 34.0-46.4 % LAB MCV Mean Corpuscular Volume 90.6 Normal 80-100 fL LAB MCH Mean Corpuscular Hemoglobin 30.0 Normal 24.7-34.3 pg LAB MCHC Mean Corpuscular HGB Conc 33.1 Normal 32.0-35.0 g/dL LAB RDW Red Cell Distribution Width 12.9 Normal 11.9-15.3 % LAB PLT Platelet Count 332 Normal 150-450 10*3/uL LAB MPV Mean Platelet Volume 8.1 Normal 6.3-10.7 fL LAB MDW Monocyte Distribution Width 17.67 Normal 0.00-20.00 % LAB NE% Neutrophils % (Auto) 65.9 . % LAB LY% Lymphocytes % (Auto) 23.3 . % LAB MO% Monocytes % (Auto) 7.9 . % LAB EO% Eosinophils % (Auto) 1.7 . % LAB BA% Basophils % (Auto) 1.2 . % LAB NRBC% NRBC% 0.1 Normal 0-0.5 /100{WBC } LAB NE# Neutrophils # (Auto) 6.2 Normal 1.8-7.7 10*3/uL LAB LY# Lymphocytes # (Auto) 2.2 Normal 1.00-4.8 10*3/uL LAB MO# Monocytes # (Auto) 0.7 Normal 0.0-0.8 10*3/uL LAB EO# Eosinophils # (Auto) 0.2 Normal 0.0-0.45 10*3/uL LAB BA# Basophils # (Auto) 0.1 Normal 0.0-0.2 10*3/uL Result Comment: PERFORMED BY : [place] [address] PATHOLOGIST RN RESOURCE NURSE CASEY BOLDEN M.D. Performed By: #### ETOH, CBC , CMP #### [facility] [address] [place] [address] ETHYL ALCOHOL PROFILE Collected: 11/12/2024 6:46 PM Status: F Source: [facility] TYPE CODE TESTS RESULT OUT OF RANGE REFERENCE UNITS LAB ETHYALC Ethanol <10 mg/dL LAB ETHYLALC% Percent Ethanol Test not performed % Result Comment: PERFORMED BY : [place] [address] PATHOLOGIST RN RESOURCE NURSE CASEY BOLDEN M.D. Performed By: #### ETOH, CBC , CMP #### [facility] [address] [place], [place] [id number] [facility] COMPREHENSIVE METABOLIC PANEL Collected: 11/12/2024 6 :46 PM Status: F Source: [facility] TYPE CODE TESTS RESULT OUT OF RANGE REFERENCE UNITS LAB GLU Glucose 90 Normal 70-100 mg/dL Result Comment: Random Gluco se Reference Range is dependent on time and content of last meal. Glucose of more than 200 mg/dL in a nonstressed, ambulatory subject supports the diagnosis of Diabetes Mellitus. ADA recommended reference range LAB BUN Blood Urea Nitrogen 16 Normal 7-25 mg/d L LAB CREATT Creatinine 0.65 Normal 0.60-1.20 mg/dL LAB GFReNR Estimated GFR >60.0 LAB NA Sodium 139 Normal 136-145 mmol/L LAB K Potassium 3.7 Normal 3.5-5.1 mmol/L LAB CL Chloride 107 Normal 98-107 mmol/L LAB CO2 Carbon Dioxide 26.4 Normal 21.0-31.0 mmol/L LAB GAP Anion Gap 9.3 Normal 6.0-15.0 LAB CA Calcium 9.2 Normal 8.6-10.3 mg/dL LAB TP Total Protein 7.2 Normal 6.4-8.9 g/dL LAB ALB Albumin Level 4.2 Normal 3.5-5.7 g/dL LAB GLOB Globulin 3.0 g/dL LAB AGRATIO Albumin/Globulin Ratio 1.4 LAB BILIT Bilirubin,Total 0.4 Normal 0.3-1.0 mg/dL LAB AST Aspartate Amino Transferase 21 Normal 13-39 U/L LAB ALT Alanine Aminotransferase 13 Normal 7-52 U/L LAB ALP Alkaline Phosphatase 64 Normal 34-104 U/L LAB CRCLPHA Creatinine Clr [facility] 118.04 Result Comment: PERFORMED BY : [place] [address] PATHOLOGIST RN RESOURCE NURSE CASEY BOLDEN M.D. Performed By: #### ETOH, CBC , CMP #### [address] COMPLETE BLOOD COUNT AUTO DIFF Collected: 10/28/2024 10:15 PM Status: F Source: [facility] TYPE CODE TESTS RESULT OUT OF RANGE REFERENCE UNITS LAB WBC White Blood Count 15.0 High 3.8-11.6 [CFU]/mL LAB UNWBC Uncorrected WBC 15.0 High 3.8-11.6 10*3/uL LAB RBC Red Blood Count 4.79 Normal 3.60-5.00 10*6/u L LAB HGB Hemoglobin 14.3 Normal 11.8-15.4 g/dL LAB HCT Hematocrit 43.4 Normal 34.0-46.4 % LAB MCV Mean Corpuscular Volume 90.7 Normal 80-100 fL LAB MCH Mean Corpuscular Hemoglobin 29.8 Normal 24.7-34.3 pg LAB MCHC Mean Corpuscular HGB Conc 32.9 Normal 32.0-35.0 g/dL LAB RDW Red Cell Distribution Width 13.0 Normal 11.9-15.3 % LAB PLT Platelet Count 297 Normal 150-450 10*3/uL LAB MPV Mean Platelet Volume 8.6 Normal 6.3-10.7 fL LAB MDW Monocyte Distribution Width 16.48 Normal 0.00-20.00 % LAB NE% Neutrophils % (Auto) 79.9 . % LAB LY% Lymphocytes % (Auto) 11.7 . % LAB MO% Monocytes % (Auto) 7.3 . % LAB EO% Eosinophils % (Auto) 0.3 . % LAB BA% Basophils % (Auto) 0.8 . % LAB NRBC% NRBC% 0.1 Normal 0-0.5 /100{WBC } LAB NE# Neutrophils # (Auto) 12.0 High 1.8-7.7 10*3/uL LAB LY# Lymphocytes # (Auto) 1.7 Normal 1.00-4.8 10*3/uL LAB MO# Monocytes # (Auto) 1.1 High 0.0-0.8 10*3/uL LAB EO# Eosinophils # (Auto) 0.1 Normal 0.0-0.45 10*3/uL LAB BA# Basophils # (Auto) 0.1 Normal 0.0-0.2 10*3/uL Result Comment: PERFORMED BY : [place] [address] PATHOLOGIST RN RESOURCE NURSE CASEY BOLDEN M.D. Performed By: #### CMP, CBC #### [address] COMPREHENSIVE METABOLIC PANEL Collected: 10/28/2024 1 0:15 PM Status: F Source: [facility] TYPE CODE TESTS RESULT OUT OF RANGE REFERENCE UNITS LAB GLU Glucose 111 High 70-100 mg/dL Result Comment: Random Gluco se Reference Range is dependent on time and content of last meal. Glucose of more than 200 mg/dL in a nonstressed, ambulatory subject supports the diagnosis of Diabetes Mellitus. ADA recommended reference range LAB BUN Blood Urea Nitrogen 16 Normal 7-25 mg/d L LAB CREATT Creatinine 0.83 Normal 0.60-1.20 mg/dL LAB GFReNR Estimated GFR >60.0 LAB NA Sodium 137 Normal 136-145 mmol/L LAB K Potassium 4.1 Normal 3.5-5.1 mmol/L LAB CL Chloride 103 Normal 98-107 mmol/L LAB CO2 Carbon Dioxide 26.5 Normal 21.0-31.0 mmol/L LAB GAP Anion Gap 11.6 Normal 6.0-15.0 LAB CA Calcium 9.6 Normal 8.6-10.3 mg/dL LAB TP Total Protein 7.6 Normal 6.4-8.9 g/dL LAB ALB Albumin Level 4.3 Normal 3.5-5.7 g/dL LAB GLOB Globulin 3.3 g/dL LAB AGRATIO Albumin/Globulin Ratio 1.3 LAB BILIT Bilirubin,Total 0.3 Normal 0.3-1.0 mg/dL LAB AST Aspartate Amino Transferase 19 Normal 13-39 U/L LAB ALT Alanine Aminotransferase 8 Normal 7-52 U/L LAB ALP Alkaline Phosphatase 74 Normal 34-104 U/L LAB CRCLPHA Creatinine Clr [facility] 94.75 Result Comment: PERFORMED BY : [place] [address] PATHOLOGIST RN RESOURCE NURSE CASEY BOLDEN M.D. Performed By: #### CMP, CBC #### [address] GLUCOSE POCT GLUCOMETERS Collected: 10/28/2024 9:27 P M Status: F Source: [facility] TYPE CODE TESTS RESULT OUT OF RANGE REFERENCE UNITS LAB GLUPOC Glucose Poc Glucometers 138 mg/dL Result Comment: Random Gluco se Reference Range is dependent on time and content of last meal. Glucose of more than 200 mg/dL in a nonstressed, ambulatory subject supports the diagnosis of Diabetes Mellitus. PERFORMED BY: [place] [address] PATHOLOGIST RN RESOURCE NURSE CASEY BOLDEN M.D. Performed By: #### GLULS ### # Point of Care testing , CBC WITH AUTO DIFFERENTIAL Collected: 0 10/11/2024 6:45 AM Status: COMPLETED Source: [facility] TYPE CODE TESTS RESULT OUT OF RANGE REFERENCE UNITS LAB WBC WBC 8.6 4-11 x10E9/L LAB RBC RBC COUNT 4.47 3.8-5.2 X10E12/L LAB HGB HEMOGLOBIN 13.3 11.7-15.5 g/dL LAB HCT HEMATOCRIT 40.4 35-47 % LAB MCV MCV 91 80-100 fL LAB MCH MCH 29.7 27-34 pg LAB MCHC MCHC 32.9 32-36 g/dL LAB RDW RDW 13.4 11.5-15 % LAB PLTC PLATELET COUNT 296 150-450 X10E9/L LAB MPV MPV 8.8 7-12 fL LAB NEUT NEUTROPHILS RELATIVE PERCENT BY AUTOMATED COUNT 68.7 % LAB LYMP LYMPHOCYTES RELATIVE PERCENT BY AUTOMATED COUNT 20.8 % LAB MONO MONOCYTES RELATIVE PERCENT BY AUTOMATED COUNT 8.4 % LAB EOS EOSINOPHILS RELATIVE PERCENT BY AUTOMATED COUNT 1.0 % LAB BASO BASOPHILS RELATIVE PERCENT BY AUTOMATED COUNT 1.1 % LAB ANEUT NEUTROPHILS ABSOLUTE COUNT BY AUTOMATED COUNT 5.9 1.5-6.6 10*3/uL LAB ALYMP LYMPHOCYTES ABSOLUTE COUNT (10*3/UL) BY AUTOMATED COUNT 1.8 1.0-3.5 10*3/uL LAB AMONO MONOCYTES ABSOLUTE COUNT (10*3/UL) BY AUTOMATED COUNT 0.7 0.0-0.9 10*3/uL LAB AEOS EOSINOPHILS ABSOLUTE COUNT (10*3/UL) BY AUTOMATED COUNT 0.1 0.0-0.4 10*3/uL LAB ABASO BASOPHILS ABSOLUTE COUNT (10*3/UL) BY AUTOMATED COUNT 0.1 0.0-0.2 10*3/uL LAB DTYPE CELLAVISION DIFFERENTIAL TYPE AUTOMATED DIFFERENTIAL Performed By: #### CBCA #### [facility] ([facility]) [address] [place] [address] [address] [place] [address] VIR THYROID PROFILE INCLUDES TSH FT4 Collected: 10/11/2024 6:45 AM Status: COMPLETED Source: [facility] TYPE CODE TESTS RESULT OUT OF RANGE REFERENCE UNITS LAB FT4 FREE T4 0.93 0.61-1.60 ng/dL LAB TSH TSH 2.68 0.49-4.67 uIU/mL Performed By: #### THYR #### [facility] ([facility]) [facility] [address]TR[address] [place], [place] [id number] VIR VITAMIN B12 Collected: 10/11/2024 6:45 AM S tatus: COMPLETED Source: [facility] TYPE CODE TESTS RESULT OUT OF RANGE REFERENCE UNITS LAB B12 VITAMIN B12 253 180-914 pg/mL Performed By: #### B12 #### [facility] ([facility]) [address] [place] [address] [address] [place] [id number] VIR VITAMIN D 25 HYDROXY Collected: 10/11/2024 6:45 AM Status: COMPLETED Source: [facility] Order Comment: Vitamin D sta tus 25 [place] Vitamin D Deficiency <20 ng/mL Insufficiency 20-29 ng/mL Sufficiency 30-100 ng/mL Toxicity >100 ng/mL NOTE: A pediatric reference range has not been established by the price analyst of this kit. The [place] [employer] recommends a Vitamin D level of = or >20ng/mL in infants and children. TYPE CODE TESTS RESULT OUT OF RANGE REFERENCE UNITS LAB VITD VITAMIN D 25 HYD TOT 17.6 Low 30.0-100.0 ng/mL Performed By: #### VITD #### [facility] ([facility]) [address] [place] [address] [address] [place] [id number] VIR COMPREHENSIVE METABOLIC PANEL Collected: 2024 6:45 AM Status: COMPLETED Source: [facility] TYPE CODE TESTS RESULT OUT OF RANGE REFERENCE UNITS LAB NA SODIUM 141 134-146 mmol/L LAB K POTASSIUM 3.8 3.5-5.0 mmol/L LAB CL CHLORIDE 106 98-109 mmol/L LAB CO2 CARBON DIOXIDE 24 22-32 mmol/L LAB AGAP ANION GAP 11 5-15 mmol/L LAB BUN BLOOD UREA NITROGEN 20 5-23 mg/dL LAB CRET CREATININE 0.69 0.40-1.00 mg/dL Result Comment: METHOD TRACE ABLE TO IDMS STANDARD LAB GLU GLUCOSE 81 65-99 mg/dL LAB CA CALCIUM 9.4 8.5-10.5 mg/dL LAB TP TOTAL PROTEIN 7.1 6.0-8.0 g/dL LAB ALB ALBUMIN 4.2 3.2-5.3 g/dL LAB ALK ALKALINE PHOSPHATASE 71 39-130 U/L LAB AST AST 28 <=41 U/L LAB ALT ALT 14 <=31 U/L LAB TBIL BILIRUBIN,TOTAL 0.5 0.3-1.2 mg/dL LAB EGFR EGFR (CKD-EPI) NON-RACE DEPENDENT >^90 >=60 ml/min/1 .73sq.m Result Comment: Reported eGF R is based on the CKD-EPI 2020 equation that does not use a race coefficient. Performed By: #### CMP #### [facility] ([facility]) [address] [place] [address] [address] [place] [id number] VIR LIPID PROFILE Collected: 10/11/2024 6:45 AM Status: COMPLETED Source: [facility] TYPE CODE TESTS RESULT OUT OF RANGE REFERENCE UNITS LAB CHOL CHOLESTEROL 152 150-200 mg/dL LAB TRIG TRIGLYCERIDE 55 27-150 mg/dL LAB HDL HDL CHOLESTEROL 68 >39 mg/dL Result Comment: HDL <40 mg/d L - High Risk HDL > or = 40mg/dL- Desirable HDL >60 mg/dL - Negative Risk LAB LDL LDL (CALC) 73 <130 mg/dL Result Comment: LDL <100 mg/ dL - Desirable LDL >160 mg/dL - High Risk LAB CHDL CHOLESTEROL:HDL 2.2 1.0-5.0 NA LAB VLDL VERY LOW LIPOPROTEIN 11 0-30 mg/dL Performed By: #### LIPR #### [facility] ([facility]) [address] [place] [address] [address] [place] [id number] VIR IRON AND TIBC Collected: 6:45 AM Status: COMPLETED Source: [facility] TYPE CODE TESTS RESULT OUT OF RANGE REFERENCE UNITS LAB FE IRON 99 50-170 ug/dL LAB TRF TRANSFERRIN 306 168-336 mg/dL LAB TIBC IRON BINDING 428 High 250-425 ug/dL LAB SAT IRON SATURATION 23 15-50 % SATURATION Performed By: #### FEPR #### [facility] ([facility]) [address] [place] [address] [address] [place] [id number] VIR XR CHEST 2 VWS Observed: 06/08/2024 9:46 AM Status: COMPLETED Source: [facility] XR CHEST 2 VWS Chest 2 views History: RLL pneumonia? Comparison: 12/12/2008 Findings: Chest 2 views. Stable cardiac mediastinal silhouette. No focal opacity, effusion or pneumothorax. Impression: No evident acute cardiopulmonary process. Finalized by Skinny Marion MD on 06/08/2024 9:49 AM SARS/FLU A+B/RSV BY NAAT/MOLECULAR Observed: 06/08/2024 8:37 AM Status: COMPLETED Source: [facility] FLU A PCR Positive (qualifier value) FLU B PCR Negative (qualifier value) RSV by PCR Negative (qualifier value) SARS CoV 2 Not detected (qualifier value) NOTE The Xpert Xpress SARS-CoV-2/Flu/RSV Plus test is a rapid, multiplexed real-time RT-PCR test intended for the simultaneous qualitative detection and differentiation of SARS-CoV-2, influenza A, influenza B and respiratory syncytial virus (RSV) viral RNA from individuals suspected of respiratory viral infection consistent with COVID-19 by their healthcare provider. This test has not been validated in asymptomatic patients. The Xpert Xpress SARS-CoV-2 test is intended for use by qualified and trained operators who are performing tests using either [employer] or [employer] systems and is limited to laboratories that meet the CLIA requirements to perform high and moderate complexity tests. The Xpert Xpress SARS-CoV-2/Flu/RSV Plus is only for use under the Food and Drug Administration's Emergency Use Authorization. Results are for the simultaneous detection and differentiation of SARS-CoV-2, influenza A, influenza B and RSV nucleic acids in clinical specimens. SARS-CoV-2, influenza A, influenza B and RSV RNA identified by this test are generally detectable in upper respiratory samples during the acute phase of infection. Positive results are indicative of the presence of the identified virus, but do not rule out bacterial infection or co-infection with other pathogens not detected by this test. Clinical correlation with patient history and other diagnostic information is necessary to determine patient infection status. The agent detected may not be the definite cause of disease. Negative results do not preclude SARS-CoV-2, influenza A, influenza B and RSV infection and should not be used as the sole basis for treatment or other patient management decisions. Negative results must be combined with clinical observations, patient history and epidemiological information. An Invalid result may occur with specimen-associated inhibition unable to be resolved with specimen repeat. Fact Sheet for Healthcare Providers: https://www.fda.gov/media/414781/download Fact Sheet for Patients: https://www.fda.gov/media/680272/download Performed By: #### COVFLR ## ## [facility] ([id number]) [address] [place] [address], [place] [address] XR KNEE LT 3 VWS Observed: 06/03/2024 1:50 AM Status: COMPLETED Source: [facility] XR KNEE LT 3 VWS XR KNEE LT 3 VWS INDICATION: Pain COMPARISON: None FINDINGS: No acute fracture or dislocation. Tricompartmental degenerative changes, advanced. No significant effusion. IMPRESSION: Advanced osteoarthrosis without definitive acute abnormality. Finalized by Skinny Borja MD on 06/03/2024 2:24 AM ALLERGIES DATE TYPE / CODE NAME / CODE REACTION SEVERITY SOURCE 11/12/2024 Drug Allergy/21396093 2(SNOMED CT) No Known Allergies/[id number] (RXNORM) Unknown [facility] Drug Class/984189677( SNOMED CT) NO KNOWN ALLERGIES [facility] ENCOUNTERS ADMIT/DISCHARGE ACCOUNT NUMBER ADMITTING ENCOUNTER CLASS LOCATION SOURCE 11/28/2024/11/29/19 [id number] Ambulatory Building:[facility] 11/12/2024/11/13/19 25 [id number] [facility] 10/28/2024/10/29/19 25 [id number] [facility] 10/11/2024/10/12/19 25 [id number] Ambulatory Buildin 4 [facility] 10/11/2024 [id number] Ambulatory Building:PF M _LAB [facility] 08/29/2024/08/30/19 25 [id number] Ambulatory Buildin A [facility] 07/31/2024/08/01/19 25 [id number] Ambulatory Buildin A [facility] 06/18/2024/06/19/19 25 [id number] Emergency Building:PFM _EDRoom: 11Bed: 11 [facility] 06/08/2024/06/09/19 25 [id number] Emergency Building:PFM _EDRoom: 9Bed: 09 [facility] 06/04/2024/06/05/19 25 [id number] Ambulatory Building:[facility] 06/03/2024/06/04/19 25 [id number] Emergency Building:PFM _EDRoom: 10Bed: 10 [facility] 05/15/2024/05/15/19 25 [id number] Ambulatory Building:[facility] 04/18/2024/04/18/19 25 [id number] Ambulatory Building:[facility] 01/29/2024/01/29/20 24 [id number] Emergency Building:PFM _EDRoom: 2Bed: 02 [facility] PAYERS ENCOUNTER GUARANTOR PAYER SUBSCRIBER SOURCE 11/28/2024 DIANE HERNANDEZ: [place] [address]Rvh: (HP) Primary Insurance:InCrowdPolicy Number: [id number] Date:2024-04-03 DIANE DUEÑASB: [id number] [place] [address] [facility] 11/12/2024 [place] [address]Ogh: (HP) Primary Insurance:Astech ACAPolicy Number: [id number] Date:[id number] [address] [place] [address]BX: Diane DueñasB: [id number] [place] [address]Nko: (HP) [facility] 11/12/2024 Secondary Insura nce:Self PayPolicy Number: Effective Date:2024-11-12 NOT GIVENUNK [facility] 10/28/2024 Diane Mcgovern [id number] [address]Eul: (HP) Primary Insurance:[employer] ACAPolicy Number: [id number] Date:[id number] [address] [place] [address]UM: Diane Shaniqua Emanuel: [id number] [place] [address]Mod: (HP) [facility] 10/28/2024 Secondary Insura nce:Self PayPolicy Number: Effective Date:2024-10-28 NOT GIVENUNK [facility] 10/11/2024 DIANE HERNANDEZ: [facility] [place] [address]Qkm: (HP) Primary Insurance:NEWMAN BRONZEPolicy Number: [id number] Date:2024-08-01 DIANE HERNANDEZ: [id number] [place], [place] [address]Bhd: (WP) [facility] 10/11/2024 DIANE HERNANDEZ: [place], [place] [address]Dgs: (HP) Primary Insurance:NEWMAN BRONZEPolicy Number: [id number] Date:2024-08-01 DIANE HERNANDEZ: [id number] [facility], [place] [address]Zzz: (WP) [facility] 08/29/2024 DIANE HERNANDEZ: [place], [place] [address]Cst: (HP) Primary Insurance:YANDEL Whitmany Number: [id number] Date:2024-08-01 DIANE HERNANDEZ: [id number] [address] [place], [place] [address]Est: (HP) (WP) [facility] 07/31/2024 DIANE HERNANDEZ: [place] [address]Uwn: (HP) Primary Insurance:[employer] MEDICAID HMOPolicy Number: [id number] Date:2016-08-082016-08-08 DIAEN DUEÑASB: [id number] [place], [place] [address]Ozy: (HP) (WP) [facility] 07/31/2024 Secondary Insura nce:[place] MEDICAIDPolicy Number: [id number] Date:2018-04-03 - 2018-04-03 DIANE HERNANDEZ: [id number] [place], [place] [address]Qjo: (HP) (WP) [facility] 07/31/2024 Tertiary Insuran ce:[facility] MARKETPLACE-MARÍA CALLEPolicy Number: [id number] Date:2023-05-042023-05-31 DIANE HERNANDEZ: [id number] [place], [place] [address]Anc: (HP) (WP) [facility] 07/31/2024 Tertiary Insurance:GARRET MARTINEZPolicy Number: [id number] Date:2023-09-022024-07-01 DIANE HERNANDEZ: [id number] [place], [place] [address]Mov: (WP) [facility] 06/18/2024 DIANE HERNANDEZ: [place], [place] [address]Zap: (HP) Primary Insurance:GARRET GALAN Yanely Number: [id number] Date:2023-09-02 DIANE DUEÑASB: [id number] [place], [place] [address]Pnb: (WP) [facility] 06/08/2024 DIANE HERNANDEZ: [place], [place] [address]Iym: (HP) Primary Insurance:EDNAJUSTICE DORANTESEFRAINAlonso Yanely Number: [id number] Date:2023-09-02 DIANE DUEÑASB: [id number] [place], [place] [address]Aks: (WP) [facility] 06/04/2024 DIANE HERNANDEZ: [place], [place] [address]Kod: (HP) Primary Insurance:GARRET GALAN Yanely Number: [id number] Date:2023-09-02 DIANE HERNANDEZ: [id number] [place], [place] [address]Fmu: (HP) (WP) [facility] 06/03/2024 DIANE HERNANDEZ: [place], [place] [address]Ujl: (HP) Primary Insurance:GARRET DORANTESEFRAINAlonso Yanely Number: [id number] Date:2023-09-02 DIANE HERNANDEZ: [id number] [facility] [place] [address]Mhs: (HP) () [facility] 05/15/2024 DIANE MCKEONGORDONB: [place] [address]Kdt: (HP) Primary Insurance:GARRET Ny Number: [id number] Date:2023-09-02 DIANE CONTRERAS LEANAB: [id number] [facility], [place] [address]Qhz: (HP) (WP) [facility] 04/18/2024 DIANE CONTRERAS LEANAB: [facility] [place] [address]Vln: (HP) Primary Insurance:EDNAJUSTICE DORANTESLYNDON Ny Number: [id number] Date:2023-09-02 DIANE CONTRERAS LEANAB: [id number] [facility] [place] [address]Xfz: (HP) (WP) [facility] 01/29/2024 DIANE CONTRERAS LEANAB: [place], [place] [address]Zvj: (HP) Primary Insurance:EDNAJUSTICE DORANTESLYNDON Ny Number: [id number] Date:2023-09-02 - 2023-12-30 DIANE CONTRERAS LEANAB: [id number] [facility] [place] [address]Gqb: (HP) () [facility]
--- OUTSIDE RECORDS SUMMARY | 2024-12-10 06:00 | XMS_ITS ---
Author Organization [facility] vices Address [address] [place] [id number] Care Team Providers Care Waterfront Director Name Role Phone Von Marx Primary Care Provider REASON FOR VISIT Wellness Social History Sex Assigned At : Social History Observation Description Sex Assigned At Unknown Encounters Encounter Location Date Provider Diagnosis Main [address] [place] [id number] 12/10/2024 Von Marx Plan Of Treatment Next Appt Details Provider Name:Von Marx, 03/25/2025 08:30:00 AM, [address] [place], [phone], Progress Notes * Diane HANDLEY MDOB:[birth year] (44 yo F)Acc No.[id number]:12/10/2024 Medical Note Patient: Diane HENSLEY Provider: Lisa Marx :1980 A ge:44 Y S ex:Female Date:12/10/2024 Address:[address] [place], [place] [address] Subjective: * Chief Complaints: * 1 . Wellness. * Medical History: Objective: * Vitals: Assessment: Plan: * Treatment: * Billing Information: * Visit Code: * Procedure Codes: * Electronic signature of CLAUDE Joy on 12/30/2024 at 10:37 PM EDT Sign off status: Pending * Provider: Lisa Marx Date: 0 12/10/2024 Generated for Shobha regan/Kalyn/Thongitting on: 0 12/30/2024 10:37 PM EDT
--- OUTSIDE RECORDS SUMMARY | 2024-12-25 06:15 | XMS_ITS ---
Author Organization [facility] vices Address [address] [place], [place] [address] Care Team Providers Care Parts Facilitator Name Role Von Melendez Primary Care Provider [phone] Sandra Valentine Unavailable [phone] REASON FOR VISIT possible urinary tract infection Social History Sex Assigned At : Social History Observation Description Sex Assigned At Unknown Encounters Encounter Location Date Provider Diagnosis Main [address] [place] [id number] 12/25/2024 Sandra Bueno Plan Of Treatment Next Appt Details Provider Name:Von Marx, 03/25/2025 08:30:00 AM, [address], [phone], Progress Notes * Diane HANDLEY MDOB:[birth year] (44 yo F)Acc No.[id number]:12/25/2024 Medical Note Patient: Diane HENSLEY Provider: Sandi Bueno :1980 A ge:44 Y S ex:Female Date:12/25/2024 Address:[address] [place], [place] [address] Pcp:Von Marx Subjective: * Chief Complaints: * 1 . Possible urinary tract infection. * Medical History: Objective: * Vitals: Assessment: Plan: * Treatment: * Billing Information: * Visit Code: * Procedure Codes: * Electronic signature of KELSEA Sims sa on 12/30/2024 at 10:37 PM EDT Sign off status: Pending * Provider: Sandi Bueno Date: 0 12/25/2024 Generated for Shobha regan/Kalyn/Chelsea on: 0 12/30/2024 10:37 PM EDT
[2024-12-30 22:10] VITALS: BP 144/91; PULSE 71; TEMP 36.5; O2SAT 98; BMI 43.9
--- OUTSIDE RECORDS SUMMARY | 2024-12-30 22:37 | XMS_ITS | Encounter Summary ---
Author Organization [facility] Address [address] [place] [address] Care Team Providers Care Blow Machine Tender Starch Spraying Name Role Phone Nyla Rivers MD Primary Care Provider [phone] Encounter Details Date Type Department Care Team (Late st Contact Info) Description 05/26/2023 Abstract [facility] [address] [address] Azam Garcia, ANNUAL CAMPAIGN MANAGER [address] [place], [place] [id number] Social History Tobacco Use Types Packs/Day Years Used Date Smoking Tobacco: Never Smokeless Tobacco: Never Alcohol Use Standard Drinks/Week Comments Not Currently 0 (1 standard drink = 0.6 oz pur e alcohol) Comments Unknown Sex and Gender Information Value Date Recorded Sex Assigned at Not on file Legal Sex Female 11:14 PM EDT Gender Identity Not on file Sexual Orientation Not on file documented as of this encounter Plan of Treatment Not on file documented as of this encounter Visit Diagnoses Not on filedocumented in this encounter Care Teams Blow Machine Tender Starch Spraying Relationship Specialty Start Date End Date Nyla Rivers MD [address] [place] [address] PCP - General Family Medicine 11/19/24 documented as of this encounter
--- OUTSIDE RECORDS SUMMARY | 2024-12-30 22:37 | XMS_ITS | Patient Health Record ---
Author Organization [facility] Address [address] [place] [address] Care Team Providers Care Automotive Parts Counter Associate Name Role Phone Physician, Non-Staff Primary Care Provider UnaJonh Florian Unavailable [phone] Reason For Referral No Information Problems Problem Type SNOMED Code ICD Code Onset Dates Problem Status W/U Status Risk Notes Problem 589875543310592 Primary osteoarthritis of right knee (M17.11) Active confirmed Plan Of Treatment Pending Test Test Name Order Date SCC- KNEE 4 VIEW RIGHT [id number] 09/25/2023 SCC- KNEE 4 VIEW LEFT-97266 09/25/2023 Insurance Providers Payer Name Payer Address Payer Phone Subscriber Number Group Number Insured Name Patient Relationship to Insured Coverage Start Date Coverage End Date [facility] [address] Attn Claim HOMAR Zamudio [phone] [id number] MARIBELL HANDLEY Self - patient is the insured
--- OUTSIDE RECORDS SUMMARY | 2024-12-30 22:38 | XMS_ITS | Encounter Summary ---
Author Organization [facility] Address [address] [place] [address] Care Team Providers Care Title Investigator Name Role Phone Nyla Rivers MD Primary Care Provider [phone] Reason for Visit * Reason Onset Date Comments JOSE J is telling Diane that she needs an approval request 12/17/2024 Encounter Details Date Type Department Care Team (Late st Contact Info) Description 12/17/2024 Telephone [facility] [address] [place] [address] Kadie Shah NP [address] [place] [address] JOSE J is telling Diane that she needs an approval request Social History Tobacco Use Types Packs/Day Years [...] on file documented as of this encounter Miscellaneous Notes * Addendum Note - Kadie Shah NP - 12/18/2024 3:27 PM EDTAddended by: KADIE SHAH on: 12/18/2024 03:27 PM Modules accepted: Orders * Telephone Encounter - Kadie Shah NP - 12/18/2024 3:26 PM EDT Im going to try a different version of Naproxen and see if that will be covered. Sometimes they only cover a specific version of the medication. Have her call and check the pharmacy again with the new rx. * Telephone Encounter - Laverne Diaz - 12/18/2024 3:13 PM EDT Diane called asked if we can change her prescription to taking 1 a day instead the script is still 80.00 and she said that she can't afford that. Please advise * Telephone Encounter - Laverne Diaz - 12/17/2024 2:14 PM EDT Emailed the patient with the information, since her phone isn't working at the moment. * Telephone Encounter - Laverne Diaz - 12/17/2024 1:37 PM EDT Patient stopped by and said that she just from the pharmacy to pick up worker her Naproxen, they are telling her that she needs an approval, please advise, we can't call her to let her know but she can get emails [email or web address] Please advise documented in this encounter Plan of Treatment Not on file documented as of this encounter Visit Diagnoses Diagnosis Primary osteoarthritis of right knee- Primary Primary osteoarthritis of left knee documented in this encounter Care Teams Title Investigator Relationship Specialty Start Date End Date Nyla Rivers MD [address], [place] [address] PCP - General Family Medicine 11/19/24 documented as of this encounter
--- OUTSIDE RECORDS SUMMARY | 2024-12-30 22:38 | XMS_ITS | Clinical Summary ---
Author Organization [facility] Address [address] [place] [place] [address] Care Team Providers Care Anesthesiologist And Critical Care Name Role Phone Nyla Rivers MD Primary Care Provider [phone] Allergies No known active allergies Medications ARIPiprazole (Abilify) 5 MG tablet 1 (one) time each day at the same time Active naproxen (Naprosyn) 500 MG tabletIndications: Primary osteoarthritis of right knee,Primary osteoarthritis of left knee Take 1 tablet (500 mg) by mouth in the morning and 1 tablet (500 mg) before bedtime. 60 tablet 5 5 06/17/19 26 Active naproxen (EC Naprosyn) 500 MG EC tabletIndications: Primary osteoarthritis of right knee,Primary osteoarthritis of left knee Take 1 tablet (500 mg) by mouth in the morning and 1 tablet (500 mg) in the evening. Take with meals. Do not crush, chew, or split. 180 tablet 3 5 12/19/19 25 Discontin ued(Cost of medicatio n) Encounters Date Type Department Care Team Description 12/17/2024 Telephone [facility] [address] [place] [address] Azam Garcia, MICHEAL [facility] is telling Diane that she needs an approval request 11/28/2024 8:15 AM EDT Office Visit [facility] [address] [place] [address] Azam Garcia, MICHEAL Primary osteoarthritis of right knee (Primary Dx); Primary osteoarthritis of left knee 11/28/2024 Bamboo flowsheet [facility] [address] [place] [address] Azam Garcia NP 11/28/2024 Travel from Last 3 Months Family History Medical History Relation Name Comments Stroke Father Hypertension Mother Relation Name Status Comments Father Alive Maternal Grandfather Maternal Grandmother Mother Alive Paternal Grandfather Paternal Grandmother Social History Tobacco Use Types Packs/Day Years Used Date Smoking Tobacco: Never Smokeless Tobacco: Never Tobacco Cessation:Counseling Given: Not Answered Alcohol Use Standard Drinks/Week Comments Not Currently 0 (1 standard drink = 0.6 oz pur e alcohol) Comments Unknown Sex and Gender Information Value Date Recorded Sex Assigned at Not on file Legal Sex Female 11:14 PM EDT Gender Identity Not on file Sexual Orientation Not on file Last Filed Vital Signs Vital Sign Reading Time Taken Comments Blood Pressure - - Pulse - - Temperature - - Respiratory Rate - - Oxygen Saturation - - Inhaled Oxygen Concentration - - Weight 118 kg (260 lb) 05/22/2023 10:05 AM EST Height 154.9 cm (5' 1 ) 05/22/2023 10:05 AM EST Body Mass Index 49.13 05/22/2023 10:05 AM EST Plan of Treatment Not on file Procedures Procedure Name Priority Date/Time Associated Diagnosis Comments RI ARTHROCENTESIS ASPIR&/INJ MAJOR JT/BURSA W/O US Routine 11/28/2024 8:51 AM EDT Primary osteoarthritis of right knee RI ARTHROCENTESIS ASPIR&/INJ MAJOR JT/BURSA W/O US Routine 11/28/2024 8:51 AM EDT Primary osteoarthritis of left knee from Last 3 Months Results * RI ARTHROCENTESIS ASPIR&/INJ MAJOR JT/BURSA W/O US (11/28/2024 8:51 AM EDT) Narrative Azam Garcia NP - 11/28/2024 8:51 AM EDT Azam Garcia NP 11/28/2024 8:52 AM L Inj/Asp: R knee on 11/28/2024 8:51 AM Indications: pain Details: 21 G needle, anterolateral approach Medications: 40 mg methylPREDNISolone acetate 40 MG/ML Outcome: tolerated well, no immediate complications Site cleaned with isopropyl alcohol Procedure, treatment alternatives, risks and benefits explained, specific risks discussed. Consent was given by the patient. Azam Garcia NP IN CLINIC/BEDSIDE ORDERABLES Fi nal Result * RI ARTHROCENTESIS ASPIR&/INJ MAJOR JT/BURSA W/O US (11/28/2024 8:51 AM EDT) Narrative Azam Garcia NP - 11/28/2024 8:51 AM EDT Azam Garcia NP 11/28/2024 8:52 AM L Inj/Asp: L knee on 11/28/2024 8:51 AM Indications: pain Details: 21 G needle, anterolateral approach Medications: 40 mg methylPREDNISolone acetate 40 MG/ML Outcome: tolerated well, no immediate complications Site was cleaned with isopropyl alcohol Procedure, treatment alternatives, risks and benefits explained, specific risks discussed. Consent was given by the patient. Azam Garcia NP IN CLINIC/BEDSIDE ORDERABLES Fi nal Result from Last 3 Months Insurance [employer]ETH[employer]E [employer] Care Teams Anesthesiologist And Critical Care Relationship Specialty Start Date End Date Nyla Rivers MD [address] [place] [address] PCP - General Family Medicine 11/19/24
--- NOTE | 2024-12-30 22:47 | ED.GENADUL1 ---
HPI HPI - General Adult General Chief complaint: Headache Stated complaint: FEVER, WEAK, Time Seen by Provider: 12/30/24 22:15 Source: patient Mode of arrival: walk-in Limitations: no limitations History of Present Illness HPI narrative: This 44-year-old female presents for evaluation of feeling weak for the past several days. She also states she has a global headache. She has been taking ibuprofen and Excedrin. She states she feels like she has a fever inside. She is not having any chills or sweats but states she feels hot inside her body. She does not have any focal neurologic deficits. She denies any thunderclap presentation of the headache. She does not have any neck pain or stiffness. She denies any abdominal pain. She denies any urinary symptoms. She denies any sore throat runny nose or cough. She states she generally just feels weak with a headache. 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 She does not know if anybody there may be sick. Related Data Home Medications ?Medication ?Instructions ?Recorded ?Confirmed aripiprazole 5 mg tablet 5 mg PO DAILY 06/28/23 12/30/24 naproxen 500 mg tablet 500 mg PO Q12H 05/27/24 12/30/24 Allergies Allergy/AdvReac Type Severity Reaction Status Date / Time codeine Allergy Unknown constipatio Verified 12/30/24 22:18 n Opioid HPI Opioid Management Most Recent Opioid Data: Last Pain Scale 10 Today, 23:16 Last JUN Pain Assessment Today, 23:16 Review of Systems ROS Status of ROS 10 or more systems reviewed and unremarkable except as noted in history and below PFSH PFSH Social History Smoking status: Never smoker Little interest or pleasure in doing things: not at all Feeling down, depressed, or hopeless: not at all Exam Narrative Exam Narrative: Vital signs and Nursing Notes reviewed: Patient is afebrile with a normal pulse, blood pressure is mildly elevated 144/91, she is not hypoxic with pulse ox of 98% on room air General: Awake, alert, oriented, obese adult female, no acute distress, lying comfortably on the stretcher HEENT: Normocephalic atraumatic, mucous membranes are moist and pink, eyes are clear, normal conjunctiva, vision is grossly intact, posterior pharynx is normal in appearance. Neck: Supple, no meningeal signs, no anterior or posterior cervical lymphadenopathy Chest: Lungs are clear to auscultation with good air entry, there is no wheezing rhonchi or rales appreciated no accessory muscle use, patient is speaking in complete sentences CVS: Regular rate and rhythm S1-S2, no murmurs rubs or gallops, pulses are brisk and equal bilaterally ABD: Obese, soft, nondistended, nontender, no rebound guarding or rigidity, bowel sounds are normal Extremities: Moving all extremities, no lower extremity tenderness or swelling noted, negative Homans' sign, pulses are brisk and equal bilaterally Skin: Normal in appearance without rash,pallor, petechiae or purpura Neuro: No focal deficits, speech is clear, there is no facial droop, patient is ambulatory with a steady gait, upper and lower extremity strength and sensation is intact Constitutional Vital Signs, click to edit/add: Last Vital Signs Temp 97.7 F 12/30/24 22:10 Pulse 12/30/24 22:10 Resp 12/30/24 22:10 BP 144/91 H 12/30/24 22:10 Pulse Ox 98 12/30/24 22:10 O2 Del Method Room Air 12/30/24 22:10 Course Vital Signs Vital signs: Vital Signs Temperature 97.7 F 12/30/24 22:10 Pulse Rate 12/30/24 22:10 Respiratory Rate 12/30/24 22:10 Blood Pressure 144/91 H 12/30/24 22:10 Pulse Oximetry 98 12/30/24 22:10 Oxygen Delivery Method Room Air 12/30/24 22:10 Temperature 97.7 F 12/30/24 22:10 Pulse Rate 12/30/24 22:10 Respiratory Rate 12/30/24 22:10 Blood Pressure 144/91 H 12/30/24 22:10 Pulse Oximetry 98 12/30/24 22:10 Oxygen Delivery Method Room Air 12/30/24 22:10 Medical Decision Making MDM Narrative Medical decision making narrative: This 44-year-old female presents for evaluation of feeling weak with an intermittent headache. She states she feels like she has a fever inside. She does not have an elevated temperature upon arrival. She has no focal neurologic symptoms. She states she has been taking Excedrin and ibuprofen without significant improvement. She is not having any nausea or vomiting. She has no abdominal pain or back pain. She has no lower extremity pain or swelling. 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 She does not know if anybody there is sick. She was medicated with Tylenol. Her COVID-19 testing is negative. She has a normal white count and hemoglobin. Electrolytes are normal. She does have a urinary tract infection positive for nitrites, bacteria and 5-10 white blood cells per high-power field. Culture is pending at this time. She will be started on oral Keflex pending culture results. She is feeling better after the Tylenol. She will be discharged home with a prescription for 5 days of the Keflex and a note for work. She was encouraged to rest, drink plenty of fluids and follow-up closely with her family physician. Lab Data Lab results reviewed: Yes I reviewed the patient's lab results Labs: Lab Results 12/30/24 12/30/24 12/30/24 Range/Units 23:00 23:10 23:12 WBC 9.7 (4.0-11.0) 10^3/uL RBC 4.47 (4.20-5.40) 10^6/uL Hgb 13.6 (12.0-16.0) g/dL Hct 41.0 (36.0-48.0) % MCV 91.7 (81.0-99.0) fL MCH 30.4 (26.7-34.0) pg MCHC 33.2 (29.9-35.2) g/dL RDW 12.5 (11.0-15.0) % Plt Count 330 (150-450) 10^3/uL MPV 9.6 (9.5-13.5) fL Neut % (Auto) 59.9 (43.0-75.0) % Lymph % (Auto) 29.5 (20.5-60.0) % [place] % (Auto) 8.5 (1.7-12.0) % Eos % (Auto) 0.9 (0.9-7.0) % Baso % (Auto) 0.9 (0.2-2.0) % Neut # (Auto) 5.8 (1.4-6.5) 10^3/uL Lymph # (Auto) 2.9 (1.2-3.8) 10^3/uL [place] # (Auto) 0.8 (0.3-0.8) 10^3/uL Eos # (Auto) 0.1 (0.0-0.7) 10^3/uL Baso # (Auto) 0.1 (0.0-0.1) 10^3/uL Abs Immat Gran (auto) 0.03 (0.00-0.03) 10^3/uL Imm/Tot Granulo (auto) 0.3 (0.0-0.5) % Sodium 140 (136-145) mmol/L Potassium 3.8 (3.5-5.1) mmol/L Chloride 104 (98-107) mmol/L Carbon Dioxide 28.4 (21.0-32.0) mmol/L Anion Gap 11.4 BUN 20.0 H (7.0-18.0) mg/dL Creatinine 0.62 (0.55-1.02) mg/dL Est GFR ( Amer) >60 (>=60 mL/min/1.73m^2) Est GFR (Non-Af Amer) >60 (>=60 mL/min/1.73m^2) BUN/Creatinine Ratio 32.3 Glucose 82 (74-106) mg/dL Calcium 9.4 (8.5-10.1) mg/dL Total Bilirubin 0.2 (0.2-1.0) mg/dL AST 19 (15-37) U/L ALT 20 (14-59) U/L Alkaline Phosphatase 88 (46-116) U/L Total Protein 7.9 (6.4-8.2) g/dL Albumin 3.7 (3.4-5.0) g/dL Globulin 4.2 g/dL Albumin/Globulin Ratio 0.9 Urine Color Lt. yellow (YELLOW) Urine Clarity Clear (CLEAR) Urine pH 6.0 (5.0-9.0) Ur Specific [place] 1.015 (1.005-1.025) Urine Protein Negative (NEG/TRACE) mg/dL Urine Glucose (UA) Negative (NEGATIVE) mg/dL Urine Ketones Negative (NEGATIVE) mg/dL Urine Occult Blood Negative (NEGATIVE) Urine Nitrite Positive A (NEGATIVE) Urine Bilirubin Negative (NEGATIVE) Urine Urobilinogen 0.2 (0.2-1.0) EU/dL Ur Leukocyte Esterase Small A (NEGATIVE) Urine RBC None seen (0-2) #/HPF Urine WBC 5-10 A (NONE SEEN) #/HPF Ur Squamous Epith Cells Moderate A (NONE/RARE) #/LPF Urine Crystals None seen (None Seen) #/HPF Urine Bacteria Moderate A (NONE SEEN) #/HPF Urine Casts None seen (NONE SEEN) #/LPF Urine Mucus None seen (NONE SEEN) Ur Culture Indicated[place] [place] SARS-CoV-2 Ag (CV2AG) Negative (NEGATIVE) Discharge Plan Discharge Chief Complaint: Headache Clinical Impression: UTI (urinary tract infection) Patient Disposition: Home, Self-Care Time of Disposition Decision: 23:47 Condition: Good Prescriptions / Home Meds: No Action aripiprazole 5 mg tablet 5 mg PO DAILY naproxen 500 mg tablet 500 mg PO Q12H Print Language: Albanian Instructions: Urinary Tract Infection in Women (ED) Referrals: Nyla Rivers NP [Primary Care Provider] - 1 week
[2024-12-30] MEDS: ACETAMINOPHEN 325 MG TABLET 650 MG PO (23:16)
[2024-12-30 23:18] LABS: Hematocrit 41.0 % (36.0-48.0); Hemoglobin 13.6 g/dL (12.0-16.0); Immature Granulocytes Abs Auto 0.03 10^3/uL (0.00-0.03); Immature Granulocytes Pct Auto 0.3 % (0.0-0.5); Lymphocytes Absolute Auto 2.9 10^3/uL (1.2-3.8); Mean Corpuscular HGB Conc 33.2 g/dL (29.9-35.2); Mean Corpuscular Hemoglobin 30.4 pg (26.7-34.0); Mean Corpuscular Volume 91.7 fL (81.0-99.0); Platelet Count 330 10^3/uL (150-450); Red Blood Count 4.47 10^6/uL (4.20-5.40); White Blood Count 9.7 10^3/uL (4.0-11.0)
[2024-12-30 23:20] LABS: Glucose Urine UA NEGATIVE (NEGATIVE)
[2024-12-30 23:27] LABS: Cast Seen? NONE SEEN #/LPF (NONE SEEN); Crystals Seen? None Seen #/HPF (None Seen); Urine Culture Indicated YES-FRMC
[2024-12-30 23:32] LABS: SARS-CoV-2 Ag NEGATIVE (NEGATIVE)
[2024-12-30 23:34] LABS: Alanine Aminotransferase 20 U/L (14-59); Albumin Globulin Ratio 0.9; Albumin Level 3.7 g/dL (3.4-5.0); Alkaline Phosphatase 88 U/L (46-116); Anion Gap 11.4; Aspartate Amino Transferase 19 U/L (15-37); Blood Urea Nitrogen 20.0 mg/dL (7.0-18.0); Calcium 9.4 mg/dL (8.5-10.1); Carbon Dioxide 28.4 mmol/L (21.0-32.0); Chloride 104 mmol/L (98-107); Estimated GFR (African America >60 (>=60 mL/min/1.73m^2); Estimated GFR (Non-African Ame >60 (>=60 mL/min/1.73m^2); Globulin 4.2 g/dL; Glucose 82 mg/dL (74-106); Potassium 3.8 mmol/L (3.5-5.1); Sodium 140 mmol/L (136-145); Total Protein 7.9 g/dL (6.4-8.2)
[2024-12-31] MEDS: CEPHALEXIN 500 MG CAPSULE PO (00:03)
== END 2024-12-31 00:15 | disposition home or self-care (01) ==
PROVIDERS: Emergency Provider Emergency Medicine; PCP Nurse Practitioner Family
DX: N39.0 Urinary tract infection, site not specified (principal)
CPT/HCPCS: 36415; 80053; 81001; 85025; 87086; 87088; 87186; 87811; 99285

== ENCOUNTER 2025-01-15 16:29 | Emergency (ER) | payer MEDICAID, SELFPAY ==
[2025-01-15 16:34] VITALS: BP 120/78; PULSE 79; TEMP 36.6; O2SAT 97; BMI 45.3
--- OUTSIDE RECORDS SUMMARY | 2025-01-15 16:37 | XMS_ITS | CCD ---
Author Organization [facility] Care Team Providers Care Duck Operator Name Role Phone PHYSICIAN, DEFAULT Unavailable Unavailable PHYSICIAN, DEFAULT Unavailable Unavailable DANA, SUMMON Unavailable Unavailable DANA, SUMMON Unavailable Unavailable SELF, REFERRED Unavailable Unavailable SELF, REFERRED Unavailable Unavailable NON, STAFF, Primary Care Provider Unavailabl e [facility] Unava ilable KAYLEN, DR SWANN Admitting Unavailable KAYLEN, DR SWANN Attending Unavailable USAMA, DR VIRGILIO Gupta Consulting Unavailable CLAUDE MAYORGA Consulting Unavailable [facility] Unava ilable APRIL, DR ELODIA Gupta Admitting Unavailable APRIL, DR ELODIA Gupta Attending Unavailable APRIL, DR ELODIA Gupta Consulting Unavailable [facility] Unava ilable MARKER, DR LONG Admitting Unavailable MARKER, DR LONG Attending Unavailable MARKER, DR LONG Consulting Unavailable JAYLA KEBEDE Consulting Unavailable Laverne Emerson Unavailable No Pcp, No Pcp Primary Care Provider UnavailChiki Olguin PA-C Primary Care Provider Chiki Coombs PA-C Primary Care Provider Riversjose HENDERSON-YUE, Viktoriya Primary Care Provider RIVERS, VIKTORIYA Attending Unavailable RIVERS, VIKTORIYA Primary Care Unavailable RIVERS, VIKTORIYA Attending Unavailable RIVERS, VIKTORIYA Referring Unavailable RIVERS, VIKTORIYA Primary Care Unavailable NO PCP, NO PCP Primary Care Unavailable JOANN RAYGOZA Attending Unavailable ILIANA MCWILLIAMS Attending Unavailable LILIA MCWILLIAMS Referring Unavailable NO PCP, NO PCP Primary Care Unavailable ELMO NEWELL Attending Unavailable JOEY MENDEZ Referring Unavailable NO PCP, NO PCP Primary Care Unavailable NO PCP, NO PCP Primary Care Unavailable YEN SHARP Attending Unavailable LILIA MCWILLIAMS Attending Unavailable RIVERS, VIKTORIYA Referring Unavailable NO PCP, NO PCP Primary Care Unavailable ESTEFANI RODRIGUEZ Attending Unavailable NO PCP, NO PCP Primary Care Unavailable NO PCP, NO PCP Primary Care Unavailable CASTRO TURK Attending Unavailable VIKTORIYA RIVERS Referring Unavailable RIVERS, VIKTORIYA Primary Care Unavailable CALISTA BROOKS Attending UnavailVIKTORIYA Shields Referring Unavailable RIVERS, VIKTORIYA Primary Care Unavailable Jayden Pedroza MD Emergency Provider [phone] Silvestre BURTON-C, Viktoriya Ramos Primary Care Provider [phone] Jovon Daniel DO Emergency Provider [phone] Silvestre QUEEN, Viktoriya Primary Care Provider KADIE SHAH Attending Unavailable Jenna Olmedo DO Attending Provider [phone] Francisco J ARCE-CVon Primary Care Provider [phone] Brooklyn Elena APRN Emergency Provider Viktoriya Rivers Primary Care Unavailable Jovon Daniel Attending Unavailable Jovon Daniel Admitting Unavailable Jayden Pedroza Attending Unavailable Jayden Pedroza Admitting Unavailable Viktoriay Rivers Primary Care Unavailable Jenna Olmedo Attending Unavailable Jenna Olmedo Admitting Unavailable Von Marx Primary Care Unavailable Brooklyn Elena Attending Unavailable Brooklyn Elena Admitting Unavailable Unavailable Unavailable Unavailable Medications Current Medications Medication Drug Class(es) Dates Sig (Normalized) Sig (Original) acetaminophen 500 mg oral tablet (13 sources) Start: 05-15-2023 End: 10-11-2024 take 2 tablets by mouth every six hours as needed for pain acetaminophen (TYLENOL EXTRA STRENGTH) 500 mg tablet Take 2 tablets (1,000 mg total) by mouth every 6 (six) hours as needed for pain. 30 tablet 05/15/2023 10/11/2024 Discontinued (Therapy completed) [id number] 200 actuat albuterol 0.09 mg/actuat metered dose inhaler (9 sources) beta2-Adrenergic Agonist Start: 06-08-2024 take 2 puff(s) by inhalation every four hours as needed for wheezing albuterol (PROVENTIL HFA;VENTOLIN HFA) 90 mcg/actuation inhaler Indications: Influenza A Inhale 2 puffs every 4 (four) hours as needed for wheezing. 18 g 06/08/2024 Active amitriptyline hydrochloride 10 mg oral tablet (7 sources) Tricyclic Antidepressant Start: 09-10-2024 take 1 tablet by mouth once daily amitriptyline (ELAVIL) 10 mg tablet Take 1 tablet (10 mg total) by mouth nightly. 30 tablet 1 09/10/2024 Active ARIPiprazole 5 mg oral tablet (4 sources) Atypical Antipsychotic ARIPiprazole (Abilify) 5 MG tablet 1 (one) time each day at the same time Active benzonatate 100 mg oral capsule (7 sources) Non-narcotic Antitussive Start: 06-08-2024 End: 10-11-2024 take 1 capsule by mouth every eight hours benzonatate (TESSALON PERLES) 100 mg capsule Take 1 capsule (100 mg total) by mouth every 8 (eight) hours. 21 capsule 06/08/2024 10/11/2024 Discontinued (Therapy completed) cephalexin 500 mg oral capsule (1 source) Cephalosporin Antibacterial Start: 07-31-2024 End: 08-05-2024 take 1 capsule by mouth three times daily CEPHalexin (KEFLEX) 500 mg capsule Take 1 capsule (500 mg total) by mouth 3 (three) times a day for 5 days. 15 capsule 07/31/2024 08/05/2024 Active cholecalciferol 0.025 mg oral tablet (9 sources) Vitamin D Start: 07-31-2024 take 2 tablets by mouth in the morning cholecalciferol 1,000 units tablet Indications: Healthcare maintenance Take 2 tablets (2,000 Units total) by mouth in the morning. 60 tablet 11 07/31/2024 Active cyclobenzaprine hydrochloride 10 mg oral tablet (7 sources) Muscle Relaxant Start: 07-12-2023 End: 08-11-2023 take 1 tablet by mouth twice daily as needed for muscle spasms cyclobenzaprine (FLEXERIL) 10 mg tablet Take 1 tablet (10 mg total) by mouth 2 (two) times a day as needed for muscle spasms for up to 30 days. 10 tablet 07/12/2023 08/11/2023 Active cyclobenzap-irri tant cntr irr2 10 mg kit 1 tablet 0 Active diclofenac sodium 0.01 mg/mg topical gel (20 sources) Nonsteroidal Anti-inflammatory Drug Start: 10-28-2022 End: 10-11-2024 diclofenac sodium (VOLTAREN) 1 % gel Apply 2 g topically in the morning and 2 g at noon and 2 g in the evening and 2 g before bedtime. 100 g 10/28/2022 Active dicyclomine hydrochloride 20 mg oral tablet (6 sources) Anticholinergic Start: 08-30-2022 take 1 tablet by mouth in the morning, then take 1 tablet by mouth at bedtime dicyclomine (BENTYL) 20 mg tablet Take 1 tablet (20 mg total) by mouth in the morning and 1 tablet (20 mg total) before bedtime. 20 tablet 08/30/2022 Active docusate sodium 100 mg oral capsule (6 sources) Start: 10-14-2019 docusate sodium (COLACE) 100 mg capsule 10/14/2019 Active ferrous sulfate 325 mg oral tablet (17 sources) Start: 07-31-2024 take 1 tablet by mouth in the morning ferrous sulfate 325 (65 FE) MG tablet Take 1 tablet (325 mg total) by mouth in the morning. 30 tablet 11 07/31/2024 Active Start: 10-08-2019 ferrous sulfat e 325 (65 FE) mg tablet 10/08/2019 Active Ferrous Sulfate Active fluticasone propionate 0.05 mg/actuat metered dose nasal spray (6 sources) Corticosteroid Start: 04-14-2021 take 1 spray(s) nasal route once daily fluticasone propionate (FLONASE) 50 mcg/actuation nasal spray Administer 1 spray into each nostril daily. 16 g 04/14/2021 Active ibuprofen 600 mg oral tablet (19 sources) Nonsteroidal Anti-inflammatory Drug Start: 10-28-2022 End: 10-11-2024 take 1 tablet by mouth every eight hours as needed for pain ibuprofen (MOTRIN) 600 mg tablet Take 1 tablet (600 mg total) by mouth every 8 (eight) hours as needed for pain. 30 tablet 10/28/2022 10/11/2024 Discontinued (Therapy completed) Start: 12-12-2013 take 1 tablet by katherine th every six hours at mealtime Ibuprofen 400 MG 1 tablet Orally every 6 hrs,ttake with food, over alcohol and all other NSAIDs while taking this medication for 10 days Dec, Not-Taking take 1 tablet by katherine th every six hours as needed for pain ibuprofen (ADVIL,MOTRIN) 200 mg tablet Take 1 tablet (200 mg total) by mouth every 6 (six) hours as needed for pain. Active loperamide hydrochloride 2 mg oral capsule (7 sources) Opioid Agonist Start: 06-18-2024 End: 10-11-2024 take 1 capsule by mouth four times daily as needed for diarrhea loperamide (IMODIUM) 2 mg capsule Take 1 capsule (2 mg total) by mouth 4 (four) times a day as needed for diarrhea. 12 capsule 06/18/2024 10/11/2024 Discontinued (Therapy completed) magnesium oxide 400 mg oral tablet (9 sources) Start: 07-31-2024 take 1 tablet by mouth at bedtime magnesium oxide (MAGOX) 400 mg tablet Take 1 tablet (400 mg total) by mouth before bedtime. 30 tablet 2 07/31/2024 Active 24 hr metFORMIN hydrochloride 500 mg extended release oral tablet (2 sources) Biguanide Start: 10-05-2022 take 1 tablet by mouth every week at dinner, then take 2 tablets by mouth once daily metFORMIN HCl ER 500 MG 1 tablet with evening meal 1st week, then 2 tablets with evening meal Orally Once a day for 30 day(s) Oct, Active methocarbamol 500 mg oral tablet (9 sources) Muscle Relaxant Start: 01-29-2024 take 1 tablet by mouth in the morning, then take 1 tablet by mouth at bedtime methocarbamoL (ROBAXIN) 500 mg tablet Take 1 tablet (500 mg total) by mouth in the morning and 1 tablet (500 mg total) before bedtime. 20 tablet 01/29/2024 Active Start: 02-28-2020 take 1 tablet by mouth every e ight hours as needed nabumetone 750 mg oral tablet (1 source) Nonsteroidal Anti-inflammatory Drug Start: 01-02-2025 take 1 tablet by mouth twice daily naproxen 500 mg delayed release oral tablet (20 sources) Nonsteroidal Anti-inflammatory Drug Start: 11-28-2024 End: 11-28-2025 take 1 tablet by mouth in the morning naproxen (EC Naprosyn) 500 MG EC tablet Indications: Primary osteoarthritis of right knee , Primary osteoarthritis of left knee Take 1 tablet (500 mg) by mouth in the morning and 1 tablet (500 mg) in the evening. Take with meals. Do not crush, chew, or split. 180 tablet 3 11/28/2024 11/28/2025 Active Start: 01-05-2023 End: 04-18-2024 take 1 tablet by mouth in the morning, then take 1 tablet by mouth at mealtime naproxen (NAPROSYN) 500 mg tablet Take 1 tablet (500 mg total) by mouth in the morning and 1 tablet (500 mg total) in the evening. Take with meals. 60 tablet 2 04/18/2024 Active take 1 tablet by katherine th every twenty-four hours Naproxen 375 MG 1 Tablet Orally daily Active take 1 tablet by katherine th every twelve hours at mealtime as needed Naproxen 500 MG 1 tablet with food or milk as needed Orally every 12 hrs PRN Active ondansetron 4 mg disintegrat ing oral tablet (10 sources) Serotonin-3 Receptor Antagonist Start: 10-28-2024 Start: 03-13-2023 take 1 tablet by katherine th every eight hours as needed for nausea ondansetron ODT (ZOFRAN ODT) 4 mg disintegrating tablet Dissolve 1 tablet (4 mg total) on tongue every 8 (eight) hours as needed for nausea for up to 10 doses. 10 tablet 03/13/2023 Active sertraline 50 mg oral tablet (6 sources) Serotonin Reuptake Inhibitor take 1 tablet by mouth in the morning sertraline (ZOLOFT) 50 mg tablet Take 1 tablet (50 mg total) by mouth in the morning. Active vitamin b12 1 mg oral tablet (9 sources) Vitamin B12 Start: take 1 tablet by mouth in the morning cyanocobalamin (vitamin B-12) 1000 MCG tablet Indications: Healthcare maintenance Take 1 tablet (1,000 mcg total) by mouth in the morning. 30 tablet 11 07/31/2024 Active Completed/Discontinued Medications Medication Drug Class(es) Dates Sig (Normalized) Sig (Original) 30 ml bupivacaine hydrochloride 2.5 mg/ml injection (2 sources) Amide Local Anesthetic Start: 06-04-2024 End: 06-04-2024 BUPivacaine (PF) (MARCAINE) 0.25 % (2.5 mg/mL) injection 10 mg Start: 06-04-2024 End: 06-04-2024 10 mg (4 mL), dental, Once, On Mon06/04/24 at 1415, For 1 dose 1 ml methylPREDNISolone acetate 40 mg/ml injection (8 sources) Corticosteroid Start: 11-28-2024 End: 11-28-2024 methylPREDNISolone acetate (DEPO-Medrol) injection 40 mg Start: 11-28-2024 End: 11-28-2024 40 mg, Intra-articular, Once PRN Procedure, Starting on Alicia 11/28/24 at 0851, For 1 dose penicillin v potassium 500 mg oral tablet (2 sources) Start: 12-12-2013 take 1 tablet by mouth every eight hours Penicillin V Potassium 500 MG 1 tablet Orally Three times a day for 10 days Dec, Not-Taking 1 ml triamcinolone acetonide 40 mg/ml injection (6 sources) Corticosteroid Start: 06-04-2024 End: 06-04-2024 triamcinolone acetonide (KENALOG-40) injection 40 mg Start: 06-04-2024 End: 06-04-2024 40 mg, intra-articular, Once , On Mon06/04/24 at 1445, For 1 dose Start: 06-04-2024 End: 06-04-2024 triamcinolone acetonide (JAYLA ALOG-40) injection 40 mg Start: 06-04-2024 End: 06-04-2024 40 mg, intra-articular, Once , On Mon06/04/24 at 1415, For 1 dose Triamcinolone Ac etonide 0.1 % APPLY 1 APPLICATION TO AFFECTED AREA EXTERNALLY TWICE A DAY FOR 14 DAYS External for 30 Days Active 24 hr venlafaxine 37.5 mg extended release oral capsule (3 sources) Serotonin and Norepinephrine Reuptake Inhibitor Start: 07-31-2024 End: 09-10-2024 take 1 capsule by mouth every twenty-four hours in the morning venlafaxine XR (EFFEXOR XR) 37.5 mg 24 hr capsule Take 1 capsule (37.5 mg total) by mouth in the morning. 30 capsule 2 07/31/2024 09/10/2024 Discontinued (Alternate therapy) Problems Active Problems Problem Classification Problem Date Documented Date Episodic/Chronic Administrative/social admission (1 source) First encounter by subject; Translations: [Persons encountering health services in other specified circumstances] 08-04-2024 Episodic Anxiety disorders (6 sources) Anxiety; Translations: [Anxiety disorder, unspecified] Chronic Coma; stupor; and brain damage (3 sources) Excessive daytime sleepiness - normal night sleep; Translations: [Somnolence] Episodic Deficiency and other anemia (1 source) Anemia, unspecified Episodic Deficiency and other anemia (1 source) Iron deficiency anemia; Translations: [Iron deficiency anemia, unspecified] 07-31-2024 Episodic Deficiency and other anemia (2 sources) Iron deficiency anemia, unspecified; Translations: [Iron deficiency anemia, unspecified] Onset: 07-31-2024 Episodic E Codes: Natural/environment (1 source) Overexertion from strenuous movement or load, initial encounter; Translations: [OVEREXERT STRENUOUS MVMT/LOAD INIT] Onset: 02-02-2022 Episodic Genitourinary symptoms and ill-defined conditions (2 sources) Malodorous urine; Translations: [Unspecified abnormal findings in urine] Onset: 07-31-2024 07-31-2024 Episodic Heart valve disorders (10 sources) Heart murmur; Translations: [Cardiac murmur, unspecified] Onset: 07-31-2024 08-04-2024 Episodic Malaise and fatigue (3 sources) Fatigue; Translations: [Other fatigue] Onset: 07-31-2024 07-31-2024 Episodic Mood disorders (20 sources) Bipolar disorder; Translations: [Bipolar disorder, unspecified] Onset: 12-04-2019 Chronic Nausea and vomiting (5 sources) Nausea and vomiting; Translations: [Nausea with vomiting, unspecified] Onset: 10-28-2024 10-28-2024 Episodic Nutritional deficiencies (3 sources) Vitamin D deficiency; Translations: [Vitamin D deficiency, unspecified] Onset: 07-31-2024 07-31-2024 Chronic Nutritional deficiencies (3 sources) Cobalamin deficiency; Translations: [Deficiency of other specified B group vitamins] Onset: 07-31-2024 07-31-2024 Episodic Osteoarthritis (20 sources) Bilateral primary osteoarthritis of knee; Translations: [Unspecified osteoarthritis, unspecified site] Onset: 10-17-2017 Chronic Other aftercare (1 source) Other rat exterminator (current) drug therapy; Translations: [OTH JAIL CURRENT DRUG THERAPY] Onset: 02-02-2022 Episodic Other connective tissue disease (3 sources) Pain in left leg; Translations: [PAIN IN LEFT LEG] Onset: 01-17-2022 Episodic Other female genital disorders (16 sources) Abnormal uterine bleeding; Translations: [Abnormal uterine and vaginal bleeding, unspecified] Onset: 05-10-2019 05-10-2019 Chronic Other lower respiratory disease (1 source) Snoring Episodic Other lower respiratory disease (5 sources) Dyspnea; Translations: [Shortness of breath] Onset: 10-11-2024 10-11-2024 Episodic Other lower respiratory disease (1 source) Shortness of breath; Translations: [Shortness of breath] Onset: 10-11-2024 Episodic Other nervous system disorders (2 sources) Other chronic pain; Translations: [OTHER CHRONIC PAIN] Onset: 12-04-2019 Chronic Other non-traumatic joint disorders (3 sources) Pain in unspecified knee; Translations: [PAIN IN UNSPECIFIED KNEE] Onset: 10-17-2017 Episodic Other non-traumatic joint disorders (8 sources) Pain in right shoulder; Translations: [Acute pain of right shoulder] Onset: 02-01-2022 Episodic Other non-traumatic joint disorders (3 sources) Pain in left knee; Translations: [PAIN IN LEFT KNEE] Onset: 12-04-2019 Episodic Other nutritional; endocrine; and metabolic disorders (2 sources) Morbid (severe) obesity due to excess calories; Translations: [MORBID SEVERE OBES D/T EXCESS SCOTTIE] Onset: 06-02-2020 Chronic Other nutritional; endocrine; and metabolic disorders (1 source) Body mass index (BMI) 50.0-59.9, adult; Translations: [BODY MASS INDEX BMI 50.0-59.9 ADULT] Onset: 02-02-2022 Chronic Other nutritional; endocrine; and metabolic disorders (2 sources) Obesity; Translations: [Obesity, unspecified] Chronic Other nutritional; endocrine; and metabolic disorders (1 source) Obesity, unspecified Chronic Other nutritional; endocrine; and metabolic disorders (18 sources) Body mass index 40+ - severely obese; Translations: [Morbid (severe) obesity due to excess calories] Onset: 06-02-2020 06-02-2020 Chronic Other nutritional; endocrine; and metabolic disorders (1 source) Body mass index (BMI) 45.0-49.9, adult; Translations: [Body mass index (BMI) 45.0-49.9, adult] Onset: 06-02-2020 Chronic Sprains and strains (2 sources) Strain of unspecified muscle, fascia and tendon at shoulder and upper arm level, right arm, initial encounter; Translations: [Sprain of left knee] Onset: 02-02-2022 01-02-2025 Episodic Suicide and intentional self-inflicted injury (3 sources) Suicidal thoughts; Translations: [Suicidal ideations] 11-12-2024 Episodic Unclassified (2 sources) Unknown / UNK(Unknown) Onset: 10-17-2017 Unclassified (1 source) Bilateral chronic knee pain 05-15-2024 Unclassified (1 source) Establish Care Onset: 07-31-2024 Unclassified (1 source) New Patient Onset: 10-11-2024 Unclassified (1 source) Cold Like Symptoms Onset: 06-08-2024 Urinary tract infections (1 source) Urinary tract infection, site not specified; Translations: [Urinary tract infection, site not specified] Onset: 11-12-2024 Episodic Past or Other Problems Problem Classification Problem Date Documented Da te Episodic/Chronic E Codes: Adverse effects of medical drugs (1 source) Adverse effect of unspecified drugs, medicaments and biological substances, initial encounter; Translations: [Adverse effect of unspecified drugs, medicaments and biological substances, initial encounter] Onset: 06-18-2024 Episodic Fever of unknown origin (1 source) Fever Onset: 06-18-2024 Episodic Influenza (1 source) Influenza due to other identified influenza virus with other respiratory manifestations; Translations: [Influenza due to other identified influenza virus with other respiratory manifestations] Onset: 06-08-2024 Episodic Intestinal infection (16 sources) Viral gastroenteritis; Translations: [Viral intestinal infection, unspecified] Onset: 05-25-2022 05-25-2022 Episodic Mood disorders (9 sources) Mood disorders Onset: 07-31-2024 Resolved: 08-29-2024 07-31-2024 Other gastrointestinal disorders (1 source) Diarrhea, unspecified; Translations: [Diarrhea, unspecified] Onset: 06-18-2024 Episodic Other gastrointestinal disorders (1 source) Diarrhea Onset: 06-18-2024 Episodic Other non-traumatic joint disorders (1 source) Shoulder pain; Translations: [Acute pain of right shoulder] Episodic Other non-traumatic joint disorders (20 sources) Pain in right knee; Translations: [Pain in joint, lower leg] Onset: 10-22-2017 Episodic Other non-traumatic joint disorders (2 sources) Knee pain Onset: 01-29-2024 Episodic Spondylosis; intervertebral disc disorders; other back problems (1 source) Backache Onset: 06-04-2024 Episodic Unclassified (9 sources) Onset: 08-04-2024 08-04-2024 Results Test Name Value Interpretation Reference Range Facility X-ray reportOrdered By: Matteo Day on 01-02-2025 Study report [facility] Main [address] [address] XRay Report Signed Patient: Maribell Handley MR#: [id number] : 1980 Acct:[id number] Age/Sex: 44 / F ADM Date: 5 Loc: ER Room: Type: [facility] ER Attending Dr: Copies to: Brooklyn Elena APRN~ Ordering Provider: Brooklyn Elena APRN Date of Service: 01/02/25 XR/XR knee LT 4V*: Extremity Injury, Lower 4 views left knee plain film COMPARISON: None HISTORY: Left knee pain. Fell one week ago. ACUTE FINDINGS: No acute findings DEGENERATIVE CHANGE: Extensive patellofemoral and medial degeneration with subluxation SOFT TISSUE FINDINGS: Unremarkable JOINT EFFUSION: Small POSTOP CHANGES: None BONE MINERALIZATION: Adequate XR/XR knee LT 4V* IMPRESSION: No acute displaced fracture. Extensive degenerative changes. Impression dictated by: Des Day M.D. 01/02/2025 8:32 PM Dictation Location: [place] [address] Transcribed By: [facility] 01/02/252031 Dictated By: Des Day DO 01/02/252026 Signed By: 01/02/252031 [facility] XR knee LT 4V*on 01-02-2025 XR knee LT 4V* [facility] Main [address] [address] XRay Report Signed Patient: Maribell Handley MR#: [id number] : 1980 Acct:[id number] Age/Sex: 44 / F ADM Date: 01/02/25 Loc: ER Room: Type: [facility] ER Attending Dr: Copies to: Brooklyn Elena APRN Ordering Provider: Brooklyn Elena APRN Date of Service: 01/02/25 XR/XR knee LT 4V*: Extremity Injury, Lower 4 views left knee plain film COMPARISON: None HISTORY: Left knee pain. Fell one week ago. ACUTE FINDINGS: No acute findings DEGENERATIVE CHANGE: Extensive patellofemoral and medial degeneration with subluxation SOFT TISSUE FINDINGS: Unremarkable JOINT EFFUSION: Small POSTOP CHANGES: None BONE MINERALIZATION: Adequate XR/XR knee LT 4V* IMPRESSION: No acute displaced fracture. Extensive degenerative changes. Impression dictated by: Des Day M.D. 01/02/2025 8:32 PM Dictation Location: [place] [address] Transcribed By: [facility] 01/02/252031 Dictated By: Des Day DO 01/02/252026 Signed By: 01/02/252031 Normal [facility] Urine Cultureon 12-30-2024 Bacteria identified Cx Nom (U) ORGANISM: Escherichia coli (O:ESCCOL) [place] Count >100,000 Aerobic JASON Charge ([id number]) ---- SUSCEPTIBILITY --- ORGANISM: O:ESCCOL ANTIBIOTIC INTERPRETATION JASON Amikacin S <16 Amoxacillin/K Clavulanate S <8 Ampicillin S <8 Ampicillin/Sulbactam S <4 Aztreonam S <4 Cefazolin S <2 Cefepime S <2 Ceftazidime S <1 Ceftazidime/Avibactam S <4 Ceftolozane/Tazobacta m S <2 Ceftriaxone S <1 Cefuroxime S <4 Ciprofloxacin S <0.25 Ertapenem S <0.5 Gentamicin S <2 Levofloxacin S <0.5 Meropenem S <1 Meropenem/Vaborbactam S <2 Nitrofurantoin S <32 Piperacillin/Tazobact am S <8 Tetracycline R >8 Tigecycline S <2 Tobramycin S <2 Trimethoprim/Sulfamet hoxazole S <0.5 S = SUSCEPTIBLE I = [...] RESISTANT TO ALL B-LACTAM DRUGS. PERFORMED BY: [place] [address] PATHOLOGIST LENS HARDENER CASEY BOLDEN M.D. Normal [facility] Comment on above: Performed By: #### C UU #### [address] Urine cultureOrdered By: Farheen Olmedo on 12-30-2024 Bacteria identified Cx Nom (U) Escherichia coli Abnormal [facility] No Panel Informationon 11-28 Kadie Shah NP 11/28/2024 8:52 AM L Inj/Asp: R knee on 11/28/2024 8:51 AM Indications: pain Details: 21 G needle, anterolateral approach Medications: 40 mg methylPREDNISolone acetate 40 MG/ML Outcome: tolerated well, no immediate complications Site cleaned with isopropyl alcohol Procedure, treatment alternatives, risks and benefits explained, specific risks discussed. Consent was given by the patient. [facility] Kadie Shah NP 11/28/2024 8:52 AM L Inj/Asp: L knee on 11/28/2024 8:51 AM Indications: pain Details: 21 G needle, anterolateral approach Medications: 40 mg methylPREDNISolone acetate 40 MG/ML Outcome: tolerated well, no immediate complications Site was cleaned with isopropyl alcohol Procedure, treatment alternatives, risks and benefits explained, specific risks discussed. Consent was given by the patient. [facility] Alanine aminotransferase [En zymatic activity/volume] in Serum or PlasmaOrdered By: Jovon Daniel on 11-12-2024 ALT [Catalytic activity/Vol] 13 U/L Normal [facility] Comment on above: Performed By: #### G LULS #### Point of Care testing , Albumin [Mass/volume] in Ser um or Plasma by Bromocresol green (BCG) dye binding methoOrdered By: Jovon Daniel on 11-12-2024 Albumin BCG dye [Mass/Vol] 4.2 g/dL 3.5-5.7 [facility] Alkaline phosphatase [Enzyma tic activity/volume] in Serum or PlasmaOrdered By: Jovon Daniel on 11-12-2024 ALP [Catalytic activity/Vol] 64 U/L Normal 34-104 [facility] Comment on above: Performed By: #### G LULS #### Point of Care testing , Amphetamine Screen Ql (U)Ord ered By: Jovon Daniel on 11-12-2024 Amphetamines Ql (U) Negative Negative [facility] Appearance of UrineOrdered B y: Jovon Daniel on 11-12-2024 Appearance (U) Cloudy Critically abnormal Clear [facility] Comment on above: Order Comment: Name Collection Type:: Voided Performed By: #### U HCG, URDS, CUU, ADDONUAPLUS #### [facility] [address] Aspartate aminotransferase [ Enzymatic activity/volume] in Serum or PlasmaOrdered By: Jovon Daniel on 11-12-2024 AST [Catalytic activity/Vol] 21 U/L Normal 13-39 [facility] Comment on above: Performed By: #### G LULS #### Point of Care testing , Bacteria [Presence] in Urine by AutomatedOrdered By: Jovon Daniel on 11-12-2024 Bacteria Auto Ql (U) None seen [HPF] None Seen [facility] Barbiturates [Presence] in U rine by Screen methodOrdered By: Jovon Daniel on 11-12-2024 Barbiturates Screen Ql (U) Negative Negative [facility] Basophils [#/volume] in Bloo d by Automated countOrdered By: Jovon Daniel on 11-12-2024 Basophils (Bld) [#/Vol] 0.1 10*3/uL Normal 0.0-0.2 [facility] Comment on above: Result Comment: PERF ORMED BY: [facility] [address] [place] [address] PATHOLOGIST LENS HARDENER CASEY BOLDEN M.D. Performed By: #### E JESSICA, CBC, CMP #### [facility] [address] Basophils/100 leukocytes in Blood by Automated countOrdered By: Jovon Daniel on 11-12-2024 Basophils/100 WBC (Bld) 1.2 % Normal . [facility] Comment on above: Performed By: #### E JESSICA, CBC, CMP #### [facility] [address] Benzodiazepines Screen Ql (U )Ordered By: Jovon Daniel on 11-12-2024 Benzodiazepines Ql (U) Negative Negative [facility] Benzoylecgonine [Presence] i n Urine by Screen methodOrdered By: Jovon Daniel on 11-12-2024 Benzoylecgonine Screen Ql (U) Negative Negative [facility] Bilirubin Test strip Ql (U)O rdered By: Jovon Daniel on 11-12-2024 Bilirubin Ql (U) Negative Negative [facility] Bilirubin.total [Mass/volume ] in Serum or PlasmaOrdered By: Jovon Daniel on 11-12-2024 Bilirubin [Mass/Vol] 0.4 mg/dL Normal 0.3-1.0 [facility] Comment on above: Performed By: #### G LULS #### Point of Care testing , Calcium [Mass/volume] in Ser um or PlasmaOrdered By: Jovon Daniel on 11-12-2024 Calcium [Mass/Vol] 9.2 mg/dL Normal 8.6-10.3 [facility] Comment on above: Performed By: #### G LULS #### Point of Care testing , Cannabinoids [Presence] in U rine by Screen methodOrdered By: Jovon Daniel on 11-12-2024 Cannabinoids Screen Ql (U) Negative Negative [facility] Comment on above: These are unconfirme d results and should not be used for legal purposes. Drug Cut-Off Concentration: AMPH 1000 ng/mL GISELA 200 ng/mL JERRELL 200 ng/mL COCM 300 ng/mL OP 300 ng/mL PCP 25 ng/mL THC 20 ng/mL Carbon dioxide, total [Moles /volume] in Serum or PlasmaOrdered By: Jovon Daniel on 11-12-2024 CO2 [Moles/Vol] 26.4 mmol/L Normal 21.0-31.0 [facility] Comment on above: Performed By: #### G LULS #### Point of Care testing , Chloride [Moles/volume] in S santy or PlasmaOrdered By: Jovon Daniel on 11-12-2024 Chloride [Moles/Vol] 107 mmol/L Normal 98-107 [facility] Comment on above: Performed By: #### G LUNOEMI #### Point of Care testing , Color of Urine by AutoOrdere d By: Jovon Daniel on 11-12-2024 Color (U) Yellow Normal Yellow [facility] Comment on above: Order Comment: Name Collection Type:: Voided Performed By: #### U HCG, URDS, CUU, ADDONUAPLUS #### [address] Complete Blood Count Auto Di ffon 11-12-2024 Mean Corpuscular HGB Conc 33.1 g/dL Normal 32.0-35.0 [facility] Comment on above: Performed By: #### E JESSICA, CBC, CMP #### [address] Monocytes/100 WBC (Bld) 17.67 % Normal 0.00-20.00 [facility] Comment on above: Performed By: #### E JESSICA, CBC, CMP #### [address] NRBC% 0.1 /100{WBC} Normal 0-0.5 [facility] Comment on above: Performed By: #### E JESSICA, CBC, CMP #### [address] White Blood Count 9.4 [CFU]/mL Normal 3.8-11.6 [facility] Comment on above: Performed By: #### E JESSICA, CBC, CMP #### [address] Comprehensive Metabolic Pane conner 11-12-2024 Albumin [Mass/Vol] 4.2 g/dL Normal 3.5-5.7 [facility] Comment on above: Performed By: #### G LULS #### Point of Care testing , Creatinine Clr Calc Pharmacy 118.04 Normal [facility] Comment on above: Result Comment: PERF ORMED BY: [place] [address] PATHOLOGIST LENS HARDENER CASEY BOLDEN M.D. Performed By: #### G LULS #### Point of Care testing , GFR/1.73 sq M.predicted MDRD (S/P/Bld) [Vol rate/Area] mL/min/{1.73_m2} Normal [facility] Comment on above: Performed By: #### G LULS #### Point of Care testing , Creatinine [Mass/volume] in Serum or PlasmaOrdered By: Jovon Dainel on 11-12-2024 Creatinine [Mass/Vol] 0.65 mg/dL Normal 0.60-1.20 [facility] Comment on above: Performed By: #### G LULS #### Point of Care testing , Dipstick and Microscopicon 0 11-12-2024 Bacteria,Urine None Seen Normal None Seen [facility] Comment on above: Order Comment: Name Collection Type:: Voided Performed By: #### U HCG, URDS, CUU, ADDONUAPLUS #### [facility] [address] [place] [address] Bilirubin,Urine Negative Normal Negative [facility] Comment on above: Order Comment: Name Collection Type:: Voided Performed By: #### U HCG, URDS, CUU, ADDONUAPLUS #### [facility] [address] Glucose Ql (U) Normal Normal Normal [facility] Comment on above: Order Comment: Name Collection Type:: Voided Performed By: #### U HCG, URDS, CUU, ADDONUAPLUS #### [facility] [address] [place] [address] Hyaline Casts,Urine None Normal 0-8 [facility] Comment on above: Order Comment: Name Collection Type:: Voided Performed By: #### U HCG, URDS, CUU, ADDONUAPLUS #### [address] Mucus,Urine 4+ [LPF] Critically abnormal [facility] Comment on above: Order Comment: Name Collection Type:: Voided Performed By: #### U HCG, URDS, CUU, ADDONUAPLUS #### [address] Nitrite,Urine Negative Normal Negative [facility] Comment on above: Order Comment: Name Collection Type:: Voided Performed By: #### U HCG, URDS, CUU, ADDONUAPLUS #### [address] Occult Blood,Urine Negative Normal Negative [facility] Comment on above: Order Comment: Name Collection Type:: Voided Performed By: #### U HCG, URDS, CUU, ADDONUAPLUS #### [address] RBC,Urine 5-9 Normal 0-4 [facility] Comment on above: Order Comment: Name Collection Type:: Voided Performed By: #### U HCG, URDS, CUU, ADDONUAPLUS #### [address] Specificy [place],Urine 1.043 High 1.001-1.030 [facility] Comment on above: Order Comment: Name Collection Type:: Voided Performed By: #### U HCG, URDS, CUU, ADDONUAPLUS #### [address] Squamous Epithelial Cell,Urine 20-49 Normal 0-2 [facility] Comment on above: Order Comment: Name Collection Type:: Voided Performed By: #### U HCG, URDS, CUU, ADDONUAPLUS #### [address] Urobilinogen,Urine 3 mg/dL Normal Normal [facility] Comment on above: Order Comment: Name Collection Type:: Voided Performed By: #### U HCG, URDS, CUU, ADDONUAPLUS #### [address] WBC,Urine 5-9 Normal 0-4 [facility] Comment on above: Order Comment: Name Collection Type:: Voided Performed By: #### U HCG, URDS, CUU, ADDONUAPLUS #### [address] Drug Screen,Urineon 11-13-19 25 Amphetamine Screen,Urine Negative Normal Negative [facility] Comment on above: Performed By: #### U HCG, URDS, CUU, ADDONUAPLUS #### [address] Barbiturate Screen,Urine Negative Normal Negative [facility] Comment on above: Performed By: #### U HCG, URDS, CUU, ADDONUAPLUS #### [address] Benzodiazepines Screen,Urine Negative Normal Negative [facility] Comment on above: Performed By: #### U HCG, URDS, CUU, ADDONUAPLUS #### [address] Cannabinoid Screen,Urine Negative Normal Negative [facility] Comment on above: Result Comment: Thes e are unconfirmed results and should not be used for legal purposes. Drug Cut-Off Concentration: AMPH 1000 ng/mL GISELA 200 ng/mL JERRELL 200 ng/mL COCM 300 ng/mL OP 300 ng/mL PCP 25 ng/mL THC 20 ng/mL PERFORMED BY: [place] [address] PATHOLOGIST LENS HARDENER CASEY BOLDEN M.D. Performed By: #### U HCG, URDS, CUU, ADDONUAPLUS #### [address] Cocaine Screen,Urine Negative Normal Negative [facility] Comment on above: Performed By: #### U HCG, URDS, CUU, ADDONUAPLUS #### [address] Opiate Screen,Urine Negative Normal Negative [facility] Comment on above: Performed By: #### U HCG, URDS, CUU, ADDONUAPLUS #### [facility] [address] Phencyclidine Screen,Urine Negative Normal Negative [facility] Comment on above: Performed By: #### U HCG, URDS, CUU, ADDONUAPLUS #### [address] Eosinophils [#/volume] in Bl ood by Automated countOrdered By: Jovon Daniel on 11-12-2024 Eosinophils (Bld) [#/Vol] 0.2 10*3/uL Normal 0.0-0.45 [facility] Comment on above: Performed By: #### E JESSICA, CBC, CMP #### [address] Eosinophils/100 leukocytes i n Blood by Automated countOrdered By: Jovon Daniel on 11-12-2024 Eosinophils/100 WBC (Bld) 1.7 % Normal . [facility] Comment on above: Performed By: #### E JESSICA, CBC, CMP #### [address] Epithelial cells.squamous [# /area] in Urine sediment by Automated countOrdered By: Jovon Daniel on 11-12-2024 Epithelial cells.squamous Auto (Urine sed) [#/Area] 20-49 [HPF] High 0-2 [facility] Erythrocyte distribution wid th [Ratio] by Automated countOrdered By: Jovon Daniel on 11-12-2024 Erythrocyte distribution width (RBC) [Ratio] 12.9 % Normal 11.9-15.3 [facility] Comment on above: Performed By: #### E JESSICA, CBC, CMP #### [address] Erythrocytes [#/area] in Uri ne sediment by Automated countOrdered By: Jovon Daniel on 11-12-2024 RBC Auto (Urine sed) [#/Area] 5-9 [HPF] High 0-4 [facility] Erythrocytes [#/volume] in B lood by Automated countOrdered By: Jovon Daniel on 11-12-2024 RBC (Bld) [#/Vol] 4.41 10*6/uL Normal 3.60-5.00 [facility] Comment on above: Performed By: #### E JESSICA, CBC, CMP #### [facility] [address] Ethanol [Mass/volume] in Ser um or PlasmaOrdered By: Jovon Daniel on 11-12-2024 Ethanol [Mass/Vol] mg/dL Normal [facility] Comment on above: Performed By: #### G LULS #### Point of Care testing , Ethyl Alcohol Profileon 11-01 Percent Ethanol Not performed Normal [facility] Comment on above: Result Comment: PERF ORMED BY: [facility] [address] [place] [address] PATHOLOGIST LENS HARDENER CASEY BOLDEN M.D. Performed By: #### G LULS #### Point of Care testing , Glucose [Mass/volume] in Ser um or PlasmaOrdered By: Jovon Daniel on 11-12-2024 Glucose [Mass/Vol] 90 mg/dL Normal 70-100 [facility] Comment on above: ADA recommended refe rence rangeRandom Glucose Reference Range is dependent on time and content of last meal. Glucose of more than 200 mg/dL in a nonstressed, ambulatory subject supports the diagnosis of Diabetes Mellitus. Result Comment: [place] Glucose Reference Range is dependent on time and content of last meal. Glucose of more than 200 mg/dL in a nonstressed, ambulatory subject supports the diagnosis of Diabetes Mellitus. ADA recommended reference range Performed By: #### G LULS #### Point of Care testing , Glucose [Mass/volume] in Uri ne by Test stripOrdered By: Jovon Daniel on 11-12-2024 Glucose Test strip (U) [Mass/Vol] Normal mg/dL Normal [facility] HCG ( test) IA.rapi d Ql (U)Ordered By: Jovon Daniel on 11-12-2024 HCG ( test) Ql (U) Negative [facility] HCG,Urineon 11-12-2024 Beta HCG ( test) Ql (U) Negative Normal [facility] Comment on above: Order Comment: Name Collection Type:: Voided Result Comment: PERF ORMED BY: [place] [address] PATHOLOGIST LENS HARDENER CASEY BOLDEN M.D. Performed By: #### U HCG, URDS, CUU, ADDONUAPLUS #### [address] Hematocrit [Volume Fraction] of Blood by Automated countOrdered By: Jovon Daniel on 11-12-2024 Hematocrit (Bld) [Volume fraction] 39.9 % Normal 34.0-46.4 [facility] Comment on above: Performed By: #### E JESSICA, CBC, CMP #### [address] Hemoglobin Test strip Ql (U) Ordered By: Jovon Daniel on 11-12-2024 Hemoglobin Ql (U) Negative Negative [facility] Hemoglobin [Mass/volume] in BloodOrdered By: Jovon Daniel on 11-12-2024 Hemoglobin (Bld) [Mass/Vol] 13.2 g/dL Normal 11.8-15.4 [facility] Comment on above: Performed By: #### E JESSICA, CBC, CMP #### [place] [address] [place] Hyaline casts [#/area] in Ur ine sediment by Automated countOrdered By: Jovon Daniel on 11-12-2024 Hyaline casts Auto (Urine sed) [#/Area] None [LPF] 0-8 [facility] Ketones [Presence] in Urine by Test stripOrdered By: Jovon Daniel on 11-12-2024 Ketones Ql (U) Negative Normal Negative [facility] Comment on above: Order Comment: Name Collection Type:: Voided Performed By: #### U HCG, URDS, CUU, ADDONUAPLUS #### [address] [place] [address] [place] Leukocyte esterase [Presence ] in Urine by Test stripOrdered By: Jovon Daniel on 11-12-2024 Leukocyte esterase Test strip Ql (U) 1+ Normal Negative [facility] Comment on above: Order Comment: Name Collection Type:: Voided Performed By: #### U HCG, URDS, CUU, ADDONUAPLUS #### [facility] [address] [place] [address] [place] Leukocytes [#/area] in Urine sediment by Automated countOrdered By: Jovon Daniel on 11-12-2024 WBC Auto (Urine sed) [#/Area] 5-9 [HPF] High 0-4 [facility] Leukocytes [#/volume] correc gage for nucleated erythrocytes in Blood by Automated counOrdered By: Jovon Daniel on 11-12-2024 WBC corrected for nucl RBC Auto (Bld) [#/Vol] 9.4 10*3/uL 3.8-11.6 [facility] Leukocytes [#/volume] in Blo od by Automated countOrdered By: Jovon Daniel on 11-12-2024 WBC (Bld) [#/Vol] 9.4 10*3/uL Normal 3.8-11.6 [facility] Comment on above: Performed By: #### E JESSICA, CBC, CMP #### [place] [address] [place] Lymphocytes [#/volume] in Bl ood by Automated countOrdered By: Jovon Daniel on 11-12-2024 Lymphocytes (Bld) [#/Vol] 2.2 10*3/uL Normal 1.00-4.8 [facility] Comment on above: Performed By: #### E JESSICA, CBC, CMP #### [facility] [address] [place] [address] [place] Lymphocytes/100 leukocytes i n Blood by Automated countOrdered By: Jovon Daniel on 11-12-2024 Lymphocytes/100 WBC (Bld) 23.3 % Normal . [facility] Comment on above: Performed By: #### E JESSICA, CBC, CMP #### [place] [address] [place] MCH [Entitic mass] by Automa gage countOrdered By: Jovon Daniel on 11-12-2024 MCH (RBC) [Entitic mass] 30.0 pg Normal 24.7-34.3 [facility] Comment on above: Performed By: #### E JESSICA, CBC, CMP #### [facility] [address] MCHC Auto (RBC) [Mass/Vol]Or dered By: Jovon Daniel on 11-12-2024 MCHC (RBC) [Mass/Vol] 33.1 g/dL 32.0-35.0 [facility] MCV [Entitic volume] by Auto mated countOrdered By: Jovon Daniel on 11-12-2024 MCV (RBC) [Entitic vol] 90.6 fL Normal 80-100 [facility] Comment on above: Performed By: #### E JESSICA, CBC, CMP #### [facility] [address] Monocyte distribution width [Entitic volume] in Blood by AutomatedOrdered By: Jovon Daniel on 11-12-2024 Monocyte distribution width Auto (Bld) [Entitic vol] 17.67 % 0.00-20.00 [facility] Monocytes [#/volume] in Bloo d by Automated countOrdered By: Jovon Daniel on 11-12-2024 Monocytes (Bld) [#/Vol] 0.7 10*3/uL Normal 0.0-0.8 [facility] Comment on above: Performed By: #### E JESSICA, CBC, CMP #### [facility] [address] [place] [address] [place] Monocytes/100 leukocytes in Blood by Automated countOrdered By: Jovon Daniel on 11-12-2024 Monocytes/100 WBC (Bld) 7.9 % Normal . [facility] Comment on above: Performed By: #### E JESSICA, CBC, CMP #### [facility] [address] [place] [address] Mucus [Presence] in Urine by AutomatedOrdered By: Jovon Daniel on 11-12-2024 Mucus Auto Ql (U) 4+ [LPF] Abnormal [facility] Neutrophils [#/volume] in Bl ood by Automated countOrdered By: Jovon Daniel on 11-12-2024 Neutrophils (Bld) [#/Vol] 6.2 10*3/uL Normal 1.8-7.7 [facility] Comment on above: Performed By: #### E JESSICA, CBC, CMP #### [facility] [address] Neutrophils/100 leukocytes i n Blood by Automated countOrdered By: Jovon Daniel on 11-12-2024 Neutrophils/100 WBC (Bld) 65.9 % Normal . [facility] Comment on above: Performed By: #### E JESSICA, CBC, CMP #### [facility] [address] Nitrite Test strip Ql (U)Ord ered By: Jovon Daniel on 11-12-2024 Nitrite Ql (U) Negative Negative [facility] No Panel InformationOrdered By: Jovon Daniel on 11-12-2024 Estimated GFR (CKD-EPI) > 60.0 mL/Min [facility] Creatinine Clearance (Chem 118.04 [facility] Nucleated erythrocytes [Pres ence] in Blood by Automated countOrdered By: Jovon Daniel on 11-12-2024 Nucleated RBC Auto Ql (Bld) 0.1 /100{WBC} 0-0.5 [facility] Opiates [Presence] in Urine by Screen methodOrdered By: Jovon Daniel on 11-12-2024 Opiates Screen Ql (U) Negative Negative [facility] Phencyclidine Screen Ql (U)O rdered By: Jovon Daniel on 11-12-2024 Phencyclidine Ql (U) Negative Negative [facility] Platelet mean volume [Entiti c volume] in Blood by Automated countOrdered By: Jovon Daniel on 11-12-2024 Platelet mean volume (Bld) [Entitic vol] 8.1 fL Normal 6.3-10.7 [facility] Comment on above: Performed By: #### E JESSICA, CBC, CMP #### [facility] [address] [place] [address] Platelets [#/volume] in Bloo d by Automated countOrdered By: Jovon Daniel on 11-12-2024 Platelets (Bld) [#/Vol] 332 10*3/uL Normal 150-450 [facility] Comment on above: Performed By: #### E JESSICA, CBC, CMP #### [facility] [address] Potassium [Moles/volume] in Serum or PlasmaOrdered By: Jovon Daniel on 11-12-2024 Potassium [Moles/Vol] 3.7 mmol/L Normal 3.5-5.1 [facility] Comment on above: Performed By: #### G LULS #### Point of Care testing , Protein [Mass/volume] in Ser um or PlasmaOrdered By: Jovon Daniel on 11-12-2024 Protein [Mass/Vol] 7.2 g/dL Normal 6.4-8.9 [facility] Comment on above: Performed By: #### G LULS #### Point of Care testing , Protein [Mass/volume] in Uri ne by Test stripOrdered By: Jovon Daniel on 11-12-2024 Protein (U) [Mass/Vol] 30 mg/dL Normal Negative [facility] Comment on above: Order Comment: Name Collection Type:: Voided Performed By: #### U HCG, URDS, CUU, ADDONUAPLUS #### [facility] [address] [place] [address] Serum globulin measurement b y calculation (mass/volume)Ordered By: Jovon Daniel on 11-12-2024 Globulin (S) [Mass/Vol] 3.0 g/dL Normal [facility] Comment on above: Performed By: #### G LULS #### Point of Care testing , Serum or plasma albumin/glob ulin mass ratioOrdered By: Jovon Daniel on 11-12-2024 Albumin/Globulin [Mass ratio] 1.4 {ratio} Normal [facility] Comment on above: Performed By: #### G LULS #### Point of Care testing , Serum or plasma anion gap de terminationOrdered By: Jovon Daniel on 11-12-2024 Anion gap [Moles/Vol] 9.3 mmol/L Normal 6.0-15.0 [facility] Comment on above: Performed By: #### G ONDINA #### Point of Care testing , Serum or plasma ethanol kasandra urement (mass/volume)Ordered By: Jovon Daniel on 11-12-2024 Ethanol [Mass/Vol] TNP [facility] Comment on above: Test not performed Sodium [Moles/volume] in Ser um or PlasmaOrdered By: Jovon Daniel on 11-12-2024 Sodium [Moles/Vol] 139 mmol/L Normal 136-145 [facility] Comment on above: Performed By: #### G ONDINA #### Point of Care testing , Specific gravity Test strip (U) [Rel density]Ordered By: Jovon Daniel on 11-12-2024 Specific gravity (U) [Rel density] 1.043 High 1.001-1.030 [facility] Urea nitrogen [Mass/volume] in Serum or PlasmaOrdered By: Jovon Daniel on 11-12-2024 Urea nitrogen [Mass/Vol] 16 mg/dL Normal 7-25 [facility] Comment on above: Performed By: #### G ONDINA #### Point of Care testing , Urine Cultureon 11-12-2024 Bacteria identified Cx Nom (U) ORGANISM: Escherichia coli (O:ESCCOL) [place] Count 30,000 Aerobic JASON Charge (NMIC56) ---- SUSCEPTIBILITY --- ORGANISM: O:ESCCOL ANTIBIOTIC INTERPRETATION JASON Amikacin S <16 Amoxacillin/K Clavulanate S <8 Ampicillin S <8 Ampicillin/Sulbactam S <4 Aztreonam S <4 Cefazolin S <2 Cefepime S <2 Ceftazidime S <1 Ceftazidime/Avibactam S <4 Ceftolozane/Tazobacta m S <2 Ceftriaxone S <1 Cefuroxime S <4 Ciprofloxacin S <0.25 Ertapenem S <0.5 Gentamicin S <2 Levofloxacin S <0.5 Meropenem S <1 Meropenem/Vaborbactam S <2 Nitrofurantoin S <32 Piperacillin/Tazobact am S <8 Tetracycline R >8 Tigecycline S <2 Tobramycin S <2 Trimethoprim/Sulfamet hoxazole S <0.5 S = SUSCEPTIBLE I = [...] RESISTANT TO ALL B-LACTAM DRUGS. PERFORMED BY: [place] [address] PATHOLOGIST LENS HARDENER CASEY BOLDEN M.D. Normal [facility] Comment on above: Performed By: #### U HCG, URDS, CUU, ADDONUAPLUS #### [address] Urine cultureOrdered By: Day Daniel on 11-12-2024 Bacteria identified Cx Nom (U) Escherichia coli Abnormal [facility] Urobilinogen Test strip (U) [Mass/Vol]Ordered By: Jovon Daniel on 11-12-2024 Urobilinogen (U) [Mass/Vol] 3 mg/dL High Normal [facility] pH of Urine by Test stripOrd ered By: Jovon Daniel on 11-12-2024 pH (U) 5.5 [pH] Normal 5.0-9.0 [facility] Comment on above: Order Comment: Name Collection Type:: Voided Performed By: #### U HCG, URDS, CUU, ADDONUAPLUS #### [address] Alanine aminotransferase [En zymatic activity/volume] in Serum or PlasmaOrdered By: Jayden Pedroza on 10-28-2024 ALT [Catalytic activity/Vol] 8 U/L Normal 7-52 [facility] Comment on above: Performed By: #### C MP, CBC #### [address] [place] [address] [place] Albumin [Mass/volume] in Ser um or Plasma by Bromocresol green (BCG) dye binding methoOrdered By: Jayden Pedroza on 10-28-2024 Albumin BCG dye [Mass/Vol] 4.3 g/dL 3.5-5.7 [facility] Alkaline phosphatase [Enzyma tic activity/volume] in Serum or PlasmaOrdered By: Jayden Pedroza on 10-28-2024 ALP [Catalytic activity/Vol] 74 U/L Normal 34-104 [facility] Comment on above: Performed By: #### C MP, CBC #### [address] Aspartate aminotransferase [ Enzymatic activity/volume] in Serum or PlasmaOrdered By: Jayden Pedroza on 10-28-2024 AST [Catalytic activity/Vol] 19 U/L Normal 13-39 [facility] Comment on above: Performed By: #### C MP, CBC #### [place] [address] [place] Basophils [#/volume] in Bloo d by Automated countOrdered By: Jayden Pedroza on 10-28-2024 Basophils (Bld) [#/Vol] 0.1 10*3/uL Normal 0.0-0.2 [facility] Comment on above: Result Comment: PERF ORMED BY: [place] [address] PATHOLOGIST LENS HARDENER CASEY BOLDEN M.D. Performed By: #### C MP, CBC #### [place] [address] [place] Basophils/100 leukocytes in Blood by Automated countOrdered By: Jayden Pedroza on 10-28-2024 Basophils/100 WBC (Bld) 0.8 % Normal . [facility] Comment on above: Performed By: #### C MP, CBC #### [place] [address] [place] Bilirubin.total [Mass/volume ] in Serum or PlasmaOrdered By: Jayden Pedroza on 10-28-2024 Bilirubin [Mass/Vol] 0.3 mg/dL Normal 0.3-1.0 [facility] Comment on above: Performed By: #### C MP, CBC #### [facility] [address] Calcium [Mass/volume] in Ser um or PlasmaOrdered By: Jayden Pedroza on 10-28-2024 Calcium [Mass/Vol] 9.6 mg/dL Normal 8.6-10.3 [facility] Comment on above: Performed By: #### C MP, CBC #### [facility] [address] Capillary blood glucose kasandra urement by glucometer (mass/volume)Ordered By: ANETA TRAN on 10-28-2024 Glucose [Mass/Vol] 138 mg/dL Normal [facility] Comment on above: Random Glucose Refer ence Range is dependent on time and content of last meal. Glucose of more than 200 mg/dL in a nonstressed, ambulatory subject supports the diagnosis of Diabetes Mellitus. Result Comment: [place] [facility] Glucose Reference Range is dependent on time and content of last meal. Glucose of more than 200 mg/dL in a nonstressed, ambulatory subject supports the diagnosis of Diabetes Mellitus. PERFORMED BY: [address] [place] [address] PATHOLOGIST LENS HARDENER CASEY BOLDEN M.D. Performed By: #### G ONDINA #### Point of Care testing , Carbon dioxide, total [Moles /volume] in Serum or PlasmaOrdered By: Jayden Pedroza on 10-28-2024 CO2 [Moles/Vol] 26.5 mmol/L Normal 21.0-31.0 [facility] Comment on above: Performed By: #### C MP, CBC #### [facility] [address] [place] [address] [place] Chloride [Moles/volume] in S santy or PlasmaOrdered By: Jayden Pedroza on 10-28-2024 Chloride [Moles/Vol] 103 mmol/L Normal 98-107 [facility] Comment on above: Performed By: #### C MP, CBC #### [facility] [address] Complete Blood Count Auto Di ffon 10-28-2024 Mean Corpuscular HGB Conc 32.9 g/dL Normal 32.0-35.0 [facility] Comment on above: Performed By: #### C MP, CBC #### [address] Monocytes/100 WBC (Bld) 16.48 % Normal 0.00-20.00 [facility] Comment on above: Performed By: #### C MP, CBC #### [address] NRBC% 0.1 /100{WBC} Normal 0-0.5 [facility] Comment on above: Performed By: #### C MP, CBC #### [address] White Blood Count 15.0 [CFU]/mL High 3.8-11.6 [facility] Comment on above: Performed By: #### C MP, CBC #### [address] Comprehensive Metabolic Pane conner 10-28-2024 Albumin [Mass/Vol] 4.3 g/dL Normal 3.5-5.7 [facility] Comment on above: Performed By: #### C MP, CBC #### [address] Creatinine Clr Calc Pharmacy 94.75 Normal [facility] Comment on above: Result Comment: PERF ORMED BY: [place] [address] PATHOLOGIST LENS HARDENER CASEY BOLDEN M.D. Performed By: #### C MP, CBC #### [place] [address] [place] GFR/1.73 sq M.predicted MDRD (S/P/Bld) [Vol rate/Area] mL/min/{1.73_m2} Normal [facility] Comment on above: Performed By: #### C MP, CBC #### [address] Creatinine [Mass/volume] in Serum or PlasmaOrdered By: Jayden Pedroza on 10-28-2024 Creatinine [Mass/Vol] 0.83 mg/dL Normal 0.60-1.20 [facility] Comment on above: Performed By: #### C MP, CBC #### [address] Eosinophils [#/volume] in Bl ood by Automated countOrdered By: Jayden Pedroza on 10-28-2024 Eosinophils (Bld) [#/Vol] 0.1 10*3/uL Normal 0.0-0.45 [facility] Comment on above: Performed By: #### C MP, CBC #### [facility] [address] [place] [address] [place] Eosinophils/100 leukocytes i n Blood by Automated countOrdered By: Jayden Pedroza on 10-28-2024 Eosinophils/100 WBC (Bld) 0.3 % Normal . [facility] Comment on above: Performed By: #### C MP, CBC #### [address] Erythrocyte distribution wid th [Ratio] by Automated countOrdered By: Jayden Pedroza on 10-28-2024 Erythrocyte distribution width (RBC) [Ratio] 13.0 % Normal 11.9-15.3 [facility] Comment on above: Performed By: #### C MP, CBC #### [address] Erythrocytes [#/volume] in B lood by Automated countOrdered By: Jayden Pedroza on 10-28-2024 RBC (Bld) [#/Vol] 4.79 10*6/uL Normal 3.60-5.00 [facility] Comment on above: Performed By: #### C MP, CBC #### [address] Glucose [Mass/volume] in Ser um or PlasmaOrdered By: Jayden Pedroza on 10-28-2024 Glucose [Mass/Vol] 111 mg/dL High 70-100 [facility] Comment on above: ADA recommended refe rence rangeRandom Glucose Reference Range is dependent on time and content of last meal. Glucose of more than 200 mg/dL in a nonstressed, ambulatory subject supports the diagnosis of Diabetes Mellitus. Result Comment: [facility] Glucose Reference Range is dependent on time and content of last meal. Glucose of more than 200 mg/dL in a nonstressed, ambulatory subject supports the diagnosis of Diabetes Mellitus. ADA recommended reference range Performed By: #### C MP, CBC #### [address] Hematocrit [Volume Fraction] of Blood by Automated countOrdered By: Jayden Pedroza on 10-28-2024 Hematocrit (Bld) [Volume fraction] 43.4 % Normal 34.0-46.4 [facility] Comment on above: Performed By: #### C MP, CBC #### [address] Hemoglobin [Mass/volume] in BloodOrdered By: Jayden Pedroza on 10-28-2024 Hemoglobin (Bld) [Mass/Vol] 14.3 g/dL Normal 11.8-15.4 [facility] Comment on above: Performed By: #### C MP, CBC #### [address] Leukocytes [#/volume] correc gage for nucleated erythrocytes in Blood by Automated counOrdered By: Jayden Pedroza on 10-28-2024 WBC corrected for nucl RBC Auto (Bld) [#/Vol] 15.0 10*3/uL High 3.8-11.6 [facility] Leukocytes [#/volume] in Blo od by Automated countOrdered By: Jayden Pedroza on 10-28-2024 WBC (Bld) [#/Vol] 15.0 10*3/uL High 3.8-11.6 [facility] Comment on above: Performed By: #### C MP, CBC #### [place] [address] [place] Lymphocytes [#/volume] in Bl ood by Automated countOrdered By: Jayden Pedroza on 10-28-2024 Lymphocytes (Bld) [#/Vol] 1.7 10*3/uL Normal 1.00-4.8 [facility] Comment on above: Performed By: #### C MP, CBC #### [address] Lymphocytes/100 leukocytes i n Blood by Automated countOrdered By: Jayden Pedroza on 10-28-2024 Lymphocytes/100 WBC (Bld) 11.7 % Normal . [facility] Comment on above: Performed By: #### C MP, CBC #### [address] MCH [Entitic mass] by Automa gage countOrdered By: Jayden Pedroza on 10-28-2024 MCH (RBC) [Entitic mass] 29.8 pg Normal 24.7-34.3 [facility] Comment on above: Performed By: #### C MP, CBC #### [address] MCHC Auto (RBC) [Mass/Vol]Or dered By: Jayden Pedroza on 10-28-2024 MCHC (RBC) [Mass/Vol] 32.9 g/dL 32.0-35.0 [facility] MCV [Entitic volume] by Auto mated countOrdered By: Jayden Pedroza on 10-28-2024 MCV (RBC) [Entitic vol] 90.7 fL Normal 80-100 [facility] Comment on above: Performed By: #### C MP, CBC #### [place] [address] [place] Monocyte distribution width [Entitic volume] in Blood by AutomatedOrdered By: Jayden Pedroza on 10-28-2024 Monocyte distribution width Auto (Bld) [Entitic vol] 16.48 % 0.00-20.00 [facility] Monocytes [#/volume] in Bloo d by Automated countOrdered By: Jayden Pedroza on 10-28-2024 Monocytes (Bld) [#/Vol] 1.1 10*3/uL High 0.0-0.8 [facility] Comment on above: Performed By: #### C MP, CBC #### [place] [address] [place] Monocytes/100 leukocytes in Blood by Automated countOrdered By: Jayden Pedroza on 10-28-2024 Monocytes/100 WBC (Bld) 7.3 % Normal . [facility] Comment on above: Performed By: #### C MP, CBC #### [facility] [address] [place] [address] [place] Neutrophils [#/volume] in Bl ood by Automated countOrdered By: Jayden Pedroza on 10-28-2024 Neutrophils (Bld) [#/Vol] 12.0 10*3/uL High 1.8-7.7 [facility] Comment on above: Performed By: #### C MP, CBC #### [facility] [address] [place] [address] [place] Neutrophils/100 leukocytes i n Blood by Automated countOrdered By: Jayden Pedroza on 10-28-2024 Neutrophils/100 WBC (Bld) 79.9 % Normal . [facility] Comment on above: Performed By: #### C MP, CBC #### [facility] [address] [place] [address] No Panel InformationOrdered By: Jayden Pedroza on 10-28-2024 Estimated GFR (CKD-EPI) > 60.0 mL/Min [facility] Creatinine Clearance (Chem 94.75 [facility] Nucleated erythrocytes [Pres ence] in Blood by Automated countOrdered By: Jayden Pedroza on 10-28-2024 Nucleated RBC Auto Ql (Bld) 0.1 /100{WBC} 0-0.5 [facility] Platelet mean volume [Entiti c volume] in Blood by Automated countOrdered By: Jayden Pedroza on 10-28-2024 Platelet mean volume (Bld) [Entitic vol] 8.6 fL Normal 6.3-10.7 [facility] Comment on above: Performed By: #### C MP, CBC #### [facility] [address] [place] [address] [place] Platelets [#/volume] in Bloo d by Automated countOrdered By: Jayden Pedroza on 10-28-2024 Platelets (Bld) [#/Vol] 297 10*3/uL Normal 150-450 [facility] Comment on above: Performed By: #### C MP, CBC #### [facility] [address] [place] [address] [place] Potassium [Moles/volume] in Serum or PlasmaOrdered By: Jayden Pedroza on 10-28-2024 Potassium [Moles/Vol] 4.1 mmol/L Normal 3.5-5.1 [facility] Comment on above: Performed By: #### C MP, CBC #### [address] Protein [Mass/volume] in Ser um or PlasmaOrdered By: Jayden Pedroza on 10-28-2024 Protein [Mass/Vol] 7.6 g/dL Normal 6.4-8.9 [facility] Comment on above: Performed By: #### C MP, CBC #### [address] Serum globulin measurement b y calculation (mass/volume)Ordered By: Jayden Pedroza on 10-28-2024 Globulin (S) [Mass/Vol] 3.3 g/dL Normal [facility] Comment on above: Performed By: #### C MP, CBC #### [address] Serum or plasma albumin/glob ulin mass ratioOrdered By: Jayden Pedroza on 10-28-2024 Albumin/Globulin [Mass ratio] 1.3 {ratio} Normal [facility] Comment on above: Performed By: #### C MP, CBC #### [address] Serum or plasma anion gap de terminationOrdered By: Jayden Pedroza on 10-28-2024 Anion gap [Moles/Vol] 11.6 mmol/L Normal 6.0-15.0 [facility] Comment on above: Performed By: #### C MP, CBC #### [place] [address] [place] Sodium [Moles/volume] in Ser um or PlasmaOrdered By: Jayden Pedroza on 10-28-2024 Sodium [Moles/Vol] 137 mmol/L Normal 136-145 [facility] Comment on above: Performed By: #### C MP, CBC #### [address] Urea nitrogen [Mass/volume] in Serum or PlasmaOrdered By: Jayden Pedroza on 10-28-2024 Urea nitrogen [Mass/Vol] 16 mg/dL Normal 7-25 [facility] Comment on above: Performed By: #### C MP, CBC #### [facility] [address] [place] [id number] [facility] CBC WITH AUTO DIFFERENTIALon 10-11-2024 BASOPHILS ABSOLUTE COUNT (10*3/UL) BY AUTOMATED COUNT 0.1 10*3/uL Normal 0.0-0.2 [facility] Comment on above: Performed By: #### C BCA #### [facility] ([facility]) [address] [place] [address] VIR BASOPHILS RELATIVE PERCENT BY AUTOMATED COUNT 1.1 % Normal [facility] Comment on above: Performed By: #### C BCA #### [facility] ([facility]) [address] [place] [address] VIR CELLAVISION DIFFERENTIAL TYPE AUTOMATED DIFFERENTIAL Normal [facility] Comment on above: Performed By: #### C BCA #### [facility] ([facility]) [address] [place] [address] VIR Eosinophils (Bld) [#/Vol] 0.1 10*3/uL Normal 0.0-0.4 [facility] Comment on above: Performed By: #### C BCA #### [facility] ([facility]) [address] [place] [address] VIR EOSINOPHILS RELATIVE PERCENT BY AUTOMATED COUNT 1.0 % Normal [facility] Comment on above: Performed By: #### C BCA #### [facility] ([facility]) [address] [place] [address] VIR Erythrocyte distribution width (RBC) [Ratio] 13.4 % Normal 11.5-15 [facility] Comment on above: Performed By: #### C BCA #### [facility] ([facility]) [address] [place] [address] VIR Hematocrit (Bld) [Volume fraction] 40.4 % Normal 35-47 [facility] Comment on above: Performed By: #### C BCA #### [facility] ([facility]) [address] [place] [address] VIR Hemoglobin (Bld) [Mass/Vol] 13.3 g/dL Normal 11.7-15.5 [facility] Comment on above: Performed By: #### C BCA #### [facility] ([facility]) [address] [place] [address] VIR LYMPHOCYTES ABSOLUTE COUNT (10*3/UL) BY AUTOMATED COUNT 1.8 10*3/uL Normal 1.0-3.5 [facility] Comment on above: Performed By: #### C BCA #### [facility] ([facility]) [address] [place] [address] VIR LYMPHOCYTES RELATIVE PERCENT BY AUTOMATED COUNT 20.8 % Normal [facility] Comment on above: Performed By: #### C BCA #### [facility] ([facility]) [address] [place] [address] VIR MCH (RBC) [Entitic mass] 29.7 pg Normal 27-34 [facility] Comment on above: Performed By: #### C BCA #### [facility] ([facility]) [address] [place] [address] VIR MCHC (RBC) [Mass/Vol] 32.9 g/dL Normal 32-36 [facility] Comment on above: Performed By: #### C BCA #### [facility] ([facility]) [address] [place] [address] VIR MCV (RBC) [Entitic vol] 91 fL Normal 80-100 [facility] Comment on above: Performed By: #### C BCA #### [facility] ([facility]) [address] [place] [address] VIR MONOCYTES ABSOLUTE COUNT (10*3/UL) BY AUTOMATED COUNT 0.7 10*3/uL Normal 0.0-0.9 [facility] Comment on above: Performed By: #### C BCA #### [facility] ([facility]) [address] [place] [address] VIR MONOCYTES RELATIVE PERCENT BY AUTOMATED COUNT 8.4 % Normal [facility] Comment on above: Performed By: #### C BCA #### [facility] ([facility]) [address] [place] [address] VIR NEUTROPHILS ABSOLUTE COUNT BY AUTOMATED COUNT 5.9 10*3/uL Normal 1.5-6.6 [facility] Comment on above: Performed By: #### C BCA #### [facility] ([facility]) [address] [place] [address] VIR NEUTROPHILS RELATIVE PERCENT BY AUTOMATED COUNT 68.7 % Normal [facility] Comment on above: Performed By: #### C BCA #### [facility] ([facility]) [address] [place] [address] VIR Platelet mean volume (Bld) [Entitic vol] 8.8 fL Normal 7-12 [facility] Comment on above: Performed By: #### C BCA #### [facility] ([facility]) [address] [place] [address] VIR Platelets (Bld) [#/Vol] 296 10*3/uL Normal 150-450 [facility] Comment on above: Performed By: #### C BCA #### [facility] ([facility]) [address] [place] [address] VIR RBC COUNT 4.47 X10E12/L Normal 3.8-5.2 [facility] Comment on above: Performed By: #### C BCA #### [facility] ([facility]) [address] [place] [address] VIR WBC (Bld) [#/Vol] 8.6 10*3/uL Normal 4-11 [facility] Comment on above: Performed By: #### C BCA #### [facility] ([facility]) [address] [place] [address] VIR COMPREHENSIVE METABOLIC PANE Conner 10-11-2024 Albumin [Mass/Vol] 4.2 g/dL Normal 3.2-5.3 [facility] Comment on above: Performed By: #### C MP #### [facility] ([facility]) [address] [place] [address] VIR ALP [Catalytic activity/Vol] 71 U/L Normal 39-130 [facility] Comment on above: Performed By: #### C MP #### [facility] ([facility]) [address] [place] [address] VIR ALT [Catalytic activity/Vol] 14 U/L Normal <=31 [facility] Comment on above: Performed By: #### C MP #### [facility] ([facility]) [address] [place] [address] VIR Anion gap [Moles/Vol] 11 mmol/L Normal 5-15 [facility] Comment on above: Performed By: #### C MP #### [facility] ([facility]) [address] [place] [address] VIR AST [Catalytic activity/Vol] 28 U/L Normal <=41 [facility] Comment on above: Performed By: #### C MP #### [facility] ([facility]) [address] [place] [address] VIR Bilirubin [Mass/Vol] 0.5 mg/dL Normal 0.3-1.2 [facility] Comment on above: Performed By: #### C MP #### [facility] ([facility]) [address] [place] [address] VIR Calcium [Mass/Vol] 9.4 mg/dL Normal 8.5-10.5 [facility] Comment on above: Performed By: #### C MP #### [facility] ([facility]) [address] [place] [address] VIR Chloride [Moles/Vol] 106 mmol/L Normal 98-109 [facility] Comment on above: Performed By: #### C MP #### [facility] ([facility]) [address] [place] [address] VIR CO2 [Moles/Vol] 24 mmol/L Normal 22-32 [facility] Comment on above: Performed By: #### C MP #### [facility] ([facility]) [address] [place] [address] VIR Creatinine [Mass/Vol] 0.69 mg/dL Normal 0.40-1.00 [facility] Comment on above: Result Comment: METH OD TRACEABLE TO IDMS STANDARD Performed By: #### C MP #### [facility] ([facility]) [address] [place] [address] VIR EGFR (CKD-EPI) NON-RACE DEPENDENT >^90 Normal >=60 [facility] Comment on above: Result Comment: Repo rted eGFR is based on the CKD-EPI 2020 equation that does not use a race coefficient. Performed By: #### C MP #### [facility] ([facility]) [address] [place] [address] VIR Glucose [Mass/Vol] 81 mg/dL Normal 65-99 [facility] Comment on above: Performed By: #### C MP #### [facility] ([facility]) [address] [place] [address] VIR Potassium [Moles/Vol] 3.8 mmol/L Normal 3.5-5.0 [facility] Comment on above: Performed By: #### C MP #### [facility] ([facility]) [address] [place] [address] VIR Protein [Mass/Vol] 7.1 g/dL Normal 6.0-8.0 [facility] Comment on above: Performed By: #### C MP #### [facility] ([facility]) [address] [place] [address] VIR Sodium [Moles/Vol] 141 mmol/L Normal 134-146 [facility] Comment on above: Performed By: #### C MP #### [facility] ([facility]) [address] [place] [address] VIR Urea nitrogen [Mass/Vol] 20 mg/dL Normal 5-23 [facility] Comment on above: Performed By: #### C MP #### [facility] ([facility]) [address] [place] [address] VIR IRON AND TIBCon 10-11-2024 Iron [Mass/Vol] 99 ug/dL Normal 50-170 [facility] Comment on above: Performed By: #### F EPR #### [facility] ([facility]) [address] [place] [address] VIR IRON BINDING 428 ug/dL High 250-425 [facility] Comment on above: Performed By: #### F EPR #### [facility] ([facility]) [address] [place] [address] VIR IRON SATURATION 23 % SATURATION Normal 15-50 [facility] Comment on above: Performed By: #### F EPR #### [facility] ([facility]) [address] [place] [address] VIR Transferrin [Mass/Vol] 306 mg/dL Normal 168-336 [facility] Comment on above: Performed By: #### F EPR #### [facility] ([facility]) [address] [place] [address] VIR LIPID PROFILEon 10-11-2024 Cholesterol [Mass/Vol] 152 mg/dL Normal 150-200 [facility] Comment on above: Performed By: #### L IPR #### [facility] ([facility]) [address] [place] [address] VIR Cholesterol in HDL [Mass/Vol] 68 mg/dL Normal >39 [facility] Comment on above: Result Comment: HDL <40 mg/dL - High Risk HDL > or = 40mg/dL- Desirable HDL >60 mg/dL - Negative Risk Performed By: #### L IPR #### [facility] ([facility]) [address] [place] [address] VIR Cholesterol in LDL [Mass/Vol] 73 mg/dL Normal <130 [facility] Comment on above: Result Comment: LDL <100 mg/dL - Desirable LDL >160 mg/dL - High Risk Performed By: #### L IPR #### [facility] ([facility]) [address] [place] [address] VIR CHOLESTEROL:HDL 2.2 Normal 1.0-5.0 [facility] Comment on above: Performed By: #### L IPR #### [facility] ([facility]) [address] [place] [address] VIR Triglyceride [Mass/Vol] 55 mg/dL Normal 27-150 [facility] Comment on above: Performed By: #### L IPR #### [facility] ([facility]) [address] [place] [address] VIR VERY LOW LIPOPROTEIN 11 mg/dL Normal 0-30 [facility] Comment on above: Performed By: #### L IPR #### [facility] ([facility]) [address] [place] [address] VIR POCT EKGOrdered By: Micaela galdamez on 10-11-2024 [facility] THYROID PROFILE INCLUDES TSH FT4on 10-11-2024 Free T4 [Mass/Vol] 0.93 ng/dL Normal 0.61-1.60 [facility] Comment on above: Performed By: #### T HYR #### [facility] ([facility]) [address] [place] [address] VIR TSH 2.68 uIU/mL Normal 0.49-4.67 [facility] Comment on above: Performed By: #### T HYR #### [facility] ([facility]) [address] [place] [address] VIR VITAMIN B12on 10-11-2024 Cobalamin (Vitamin B12) [Mass/Vol] 253 pg/mL Normal 180-914 [facility] Comment on above: Performed By: #### B 12 #### [facility] ([facility]) [address] [place] [address] VIR VITAMIN D 25 HYDROXYon 10-11 VITAMIN D 25 HYD TOT 17.6 ng/mL Low 30.0-100.0 [facility] Comment on above: Order Comment: Vitam in D status 25 [place] Vitamin D Deficiency <20 ng/mL Insufficiency 20-29 ng/mL Sufficiency 30-100 ng/mL Toxicity >100 ng/mL NOTE: A pediatric reference range has not been established by the betting agency counter clerk of this kit. The [place] [employer] recommends a Vitamin D level of = or >20ng/mL in infants and children. Performed By: #### V ITD #### [facility] ([facility]) [address] [place] [address] VIR POCT urinalysis dipstick onl yon 07-31-2024 Appearance (U) Cloudy [facility] External Poct Urine Bilirubin Negative [facility] External Poct Urine Blood Negative [facility] External Poct Urine Character No Odor [facility] External Poct Urine Color Sherry [facility] External Poct Urine Glucose Negative [facility] External Poct Urine Ketones Negative [facility] External Poct Urine Leukocyte Esterase Negative [facility] External Poct Urine Nitrite Positive [facility] External Poct Urine Ph 5 Pr [facility] External Poct Urine Protein 1+ [facility] External Poct Urine Specific [place] [facility] External Poct Urine Urobilinogen 0.2 [facility] Interpretation and review of laboratory results Abnormal [facility] SARS/FLU A+B/RSV by NAAT/Mol ecularon 06-08-2024 SARS/FLU A+B/RSV by NAAT/Molecular FLU A PCR Positive (qualifier value) FLU [...] operators who are performing tests using either [employer] or [employer] systems and is limited to laboratories that [...] specimen repeat. Fact Sheet for Healthcare Providers: https://www.fda.gov/m edia/826292/download Fact Sheet for Patients: https://www.fda.gov/m edia/275375/download [facility] Comment on above: Performed By: #### C OVFLR #### [facility] ([id number]) [address] [facility] [place] [address] XR CHEST 2 VWSon 06-08-2024 XR CHEST 2 VWS XR CHEST 2 VWS Chest 2 views History: RLL pneumonia? Comparison: 12/12/2008 Findings: Chest 2 views. Stable cardiac mediastinal silhouette. No focal opacity, effusion or pneumothorax. Impression: No evident acute cardiopulmonary process. Finalized by Skinny Marion MD on 06/08/2024 9:49 AM [facility] XR KNEE LT 3 VWSon XR KNEE LT 3 VWS XR KNEE LT 3 VWS XR KNEE LT 3 VWS INDICATION: Pain COMPARISON: None FINDINGS: No acute fracture or dislocation. Tricompartmental degenerative changes, advanced. No significant effusion. IMPRESSION: Advanced osteoarthrosis without definitive acute abnormality. Finalized by Skinny Borja MD on 06/03/2024 2:24 AM [facility] XR SHOULDER RT 2V or >on [...] by: JAYLA KEBEDE Date: 2022-02-01 00:56 Normal [facility] KNEE LEFT 4VWSon 10-17-2017 KNEE LEFT 4VWS [facility] [place] [address] Patient Name: MARIBELL HANDLEY : 1980Sex: FAge: Race: WhiteMRN: [id number]. Location: 93Patient Status: OVisit #: [id number] Date: 10/17/2017 3:25:00 PMCompleted Date: 10/17/2017 03:47 PMRequesting Provider: JOSUE CORTEZ Attending Provider: JOSUE CORTEZ Report Copy To: SELF, REFERRED Signs & Symptoms: M25.569 Pain in unspecified knee [id number]: AthenaComments: , Views (X-RAY, KNEE): AP, Lateral, Tunnel, [place] , Weight Bearing?: Y , With Magnification Marker?: N , Views (X-RAY, KNEE): AP, Lateral, Tunnel, [place] , Weight Bearing?: Y , With Magnification Marker?: N , , , Ordering Provider - JOSUE CORTEZ MD , Exam: KNEE LEFT 4VWSAccession #: [id number] PEL VIS 1 OR 2 VWS, KNEE LEFT 4VWS, [...] System PROTOCOL: AP(PA) view was obtained. (accession [id number]), AP,Lateral,Tunnel and Tangential views were obtained. (accession [id number]), AP,Lateral,Tunnel and Tangential views were obtained. (accession [id number]) COMPARISON: None FINDINGS: Pelvis: No acute abnormality. [...] loss2. Intact pelvis and hips Electronically signed by:Bernadine Albert. Transcribed by: [email or web address], User Resident: Electronically Signed by: BERNADINE ALBERT @ 10/17/2017 04:35 PM Normal [facility] Comment on above: Order Comment: , Rossye ws (X-RAY, KNEE): AP, Lateral, Tunnel, [place] , Weight Bearing?: Y , With Magnification Marker?: N , Views (X-RAY, KNEE): AP, Lateral, Tunnel, [place] , Weight Bearing?: Y , With Magnification Marker?: N , , , Ordering Provider - JOSUE CORTEZ MD , KNEE RIGHT 4 [facility] 8 KNEE RIGHT 4 [facility] [address] [place] [address] Patient Name: MARIBELL HANDLEY : 1980Sex: FAge: Race: WhiteMRN: [id number]. Location: 93Patient Status: OVisit #: [id number] Date: 10/17/2017 3:25:00 PMCompleted Date: 10/17/2017 03:40 PMRequesting Provider: JOSUE CORTEZ Attending Provider: JOSUE CORTEZ Report Copy To: SELF, REFERRED Signs & Symptoms: M25.569 Pain in unspecified knee [id number]: AthenaComments: , Views (X-RAY, KNEE): AP, Lateral, Tunnel, [place] , Weight Bearing?: Y , With Magnification Marker?: N , Views (X-RAY, KNEE): AP, Lateral, Tunnel, [place] , Weight Bearing?: Y , With Magnification Marker?: N , , , Ordering Provider - JOSUE CORTEZ MD , Exam: KNEE RIGHT 4 VWSAccession #: [id number] PEL VIS 1 OR 2 VWS, KNEE LEFT 4VWS, [...] System PROTOCOL: AP(PA) view was obtained. (accession [id number]), AP,Lateral,Tunnel and Tangential views were obtained. (accession [id number]), AP,Lateral,Tunnel and Tangential views were obtained. (accession [id number]) COMPARISON: None FINDINGS: Pelvis: No acute abnormality. [...] loss2. Intact pelvis and hips Electronically signed by:Bernadine Albert. Transcribed by: [email or web address], User Resident: Electronically Signed by: BERNADINE ALBERT @ 10/17/2017 04:35 PM Normal [facility] Comment on above: Order Comment: , Rossychicho ws (X-RAY, KNEE): AP, Lateral, Tunnel, [place] , Weight Bearing?: Y , With Magnification Marker?: N , Views (X-RAY, KNEE): AP, Lateral, Tunnel, [place] , Weight Bearing?: Y , With Magnification Marker?: N , , , Ordering Provider - JOSUE CORTEZ MD , PELVIS 1 OR 2 VWSon 10-18-19 18 PELVIS 1 OR 2 VWS [facility] [address] [place] [address] Patient Name: MARIBELL HANDLEY : 1980Sex: FAge: Race: WhiteMRN: [id number]. Location: 93Patient Status: OVisit #: [id number] Date: 10/17/2017 3:25:00 PMCompleted Date: 10/17/2017 03:40 PMRequesting Provider: JOSUE CORTEZ Attending Provider: JOSUE CORTEZ Report Copy To: SELF, REFERRED Signs & Symptoms: M25.569 Pain in unspecified knee [id number]: AthenaComments: , Views (X-RAY, PELVIS): AP , Weight Bearing?: Y , With Magnification Marker?: Y , Views (X-RAY, PELVIS): AP , Weight Bearing?: Y , With Magnification Marker?: Y , , , Ordering Provider - JOSUE CORTEZ MD , Exam: PELVIS 1 OR 2 VWSAccession #: [id number] PEL VIS 1 OR 2 VWS, KNEE LEFT 4VWS, [...] System PROTOCOL: AP(PA) view was obtained. (accession [id number]), AP,Lateral,Tunnel and Tangential views were obtained. (accession [id number]), AP,Lateral,Tunnel and Tangential views were obtained. (accession [id number]) COMPARISON: None FINDINGS: Pelvis: No acute abnormality. [...] loss2. Intact pelvis and hips Electronically signed by:Bernadine Albert. Transcribed by: [email or web address], User Resident: Electronically Signed by: BERNADINE ALBERT @ 10/17/2017 04:35 PM Normal [facility] Comment on above: Order Comment: , Vichicho ws (X-RAY, PELVIS): AP , Weight Bearing?: Y , With Magnification Marker?: Y , Views (X-RAY, PELVIS): AP , Weight Bearing?: Y , With Magnification Marker?: Y , , , Ordering Provider - JOSUE CORETZ MD , Vital Signs Date Time Vital Sign Value Performing Clinician Facility 01-02-2025 19:44-0400 Body height 152.4 cm Jayden Pedroza MD Work Phone: [facility] 01-02-2025 19:44-0400 Body temperature 98.1 [degF] Jayden Pedroza MD Work Phone: [facility] 01-02-2025 19:44-0400 Body weight 106 kg Jayden Pedroza MD Work Phone: [facility] 01-02-2025 19:44-0400 Diastolic blood pressure 84 mm[Hg] Jayden Pedroza MD Work Phone: [facility] 01-02-2025 19:44-0400 Heart rate 74 /min Jayden Pedroza MD Work Phone: [facility] 01-02-2025 19:44-0400 Respiratory rate 18 /min Jayden Pedroza MD Work Phone: [facility] 01-02-2025 19:44-0400 SaO2% (BldA) [Mass fraction] 98 % Jayden Pedroza MD Work Phone: [facility] 01-02-2025 19:44-0400 Systolic blood pressure 132 mm[Hg] Jayden Pedroza MD Work Phone: [facility] 11-12-2024 18:07-0400 Body height 152.4 cm Jayden Pedroza MD Work Phone: [facility] 11-12-2024 18:07-0400 Body temperature 98.1 [degF] Jayden Pedroza MD Work Phone: [facility] 11-12-2024 18:07-0400 Body weight 104.6 kg Jayden Pedroza MD Work Phone: [facility] 11-12-2024 18:07-0400 Diastolic blood pressure 77 mm[Hg] Jayden Pedroza MD Work Phone: [facility] 11-12-2024 18:07-0400 Heart rate 71 /min Jayden Pedroza MD Work Phone: [facility] 11-12-2024 18:07-0400 Respiratory rate 16 /min Jayden Pedroza MD Work Phone: [facility] 11-12-2024 18:07-0400 SaO2% (BldA) [Mass fraction] 98 % Jayden Pedroza MD Work Phone: [facility] 11-12-2024 18:07-0400 Systolic blood pressure 115 mm[Hg] Jayden Pedroza MD Work Phone: [facility] 10-28-2024 23:26-0400 Diastolic blood pressure 91 mm[Hg] Jayden Pedroza MD Work Phone: [facility] 10-28-2024 23:26-0400 Heart rate 72 /min Jayden Pedroza MD Work Phone: [facility] 10-28-2024 23:26-0400 Respiratory rate 18 /min Jayden Pedroza MD Work Phone: [facility] 10-28-2024 23:26-0400 SaO2% (BldA) [Mass fraction] 96 % Jayden Pedroza MD Work Phone: [facility] 10-28-2024 23:26-0400 Systolic blood pressure 136 mm[Hg] Jayden Pedroza MD Work Phone: [facility] 10-28-2024 21:23-0400 Body height 154.94 cm Jayden Pedroza MD Work Phone: [facility] 10-28-2024 21:23-0400 Body temperature 97.5 [degF] Jayden Pedroza MD Work Phone: [facility] 10-28-2024 21:23-0400 Body weight 103.6 kg Jayden Pedroza MD Work Phone: [facility] 10-11-2024 09:12-0400 Body height 152.4 cm Calista Brooks MD Work Phone: [employer] [facility] 10-11-2024 09:12-0400 Body mass index (BMI) [Ratio] 44.33 kg/m2 Calista Brooks MD Work Phone: [employer] [facility] 10-11-2024 09:12-0400 Body weight 102.97 kg Calista Brooks MD Work Phone: [facility] [employer] [facility] 10-11-2024 09:12-0400 Diastolic blood pressure 80 mm[Hg] Calista Brooks MD Work Phone: [facility] [employer] [facility] 10-11-2024 09:12-0400 Heart rate 81 /min Calista Brooks MD Work Phone: [facility] 10-11-2024 09:12-0400 SaO2% (BldA) [Mass fraction] 95 % Calista Brooks MD Work Phone: [facility] 10-11-2024 09:12-0400 Systolic blood pressure 122 mm[Hg] Calista Brooks MD Work Phone: [facility] 08-29-2024 08:26-0400 Body height 154.9 cm Viktoriya Rivers [employer] Work Phone: [facility] 08-29-2024 08:26-0400 Body mass index (BMI) [Ratio] 43.9 kg/m2 Viktoriya Rivers [employer] Work Phone: [facility] 08-29-2024 08:26-0400 Body temperature 97.9 [degF] Viktoriya Rivers [employer] Work Phone: [facility] 08-29-2024 08:26-0400 Body weight 105.33 kg Viktoriya Rivers [employer] Work Phone: [facility] 08-29-2024 08:26-0400 Diastolic blood pressure 76 mm[Hg] Viktoriya Rivers [employer] Work Phone: [facility] 08-29-2024 08:26-0400 Heart rate 67 /min Viktoriya Rivers [employer] Work Phone: [facility] 08-29-2024 08:26-0400 SaO2% (BldA) [Mass fraction] 98 % Viktoriya Rivers [employer] Work Phone: [facility] 08-29-2024 08:26-0400 Systolic blood pressure 122 mm[Hg] Viktoriya Rivers [employer] Work Phone: [facility] 07-31-2024 08:11-0400 Body height 154.9 cm Viktoriya Rivers [employer] Work Phone: [facility] 07-31-2024 08:11-0400 Body mass index (BMI) [Ratio] 44.21 kg/m2 Viktoriya Rivers [employer] Work Phone: [facility] 07-31-2024 08:11-0400 Body temperature 97.7 [degF] Viktoriya Rivers [employer] Work Phone: [facility] 07-31-2024 08:11-0400 Body weight 106.14 kg Viktoriya Rivers [employer] Work Phone: [facility] 07-31-2024 08:11-0400 Diastolic blood pressure 70 mm[Hg] Viktoriya Rivers [employer] Work Phone: [facility] 07-31-2024 08:11-0400 Heart rate 79 /min Viktoriya Rivers [employer] Work Phone: [facility] 07-31-2024 08:11-0400 SaO2% (BldA) [Mass fraction] 99 % Viktoriya Rivers [employer] Work Phone: [facility] 07-31-2024 08:11-0400 Systolic blood pressure 120 mm[Hg] Viktoriya Rivers [employer] Work Phone: [facility] 06-04-2024 14:05-0500 Diastolic blood pressure 84 mm[Hg] Lilia Mcwilliams [employer] Work Phone: [facility] 06-04-2024 14:05-0500 Heart rate 83 /min Lilia Mcwilliams [employer] Work Phone: [facility] [employer] [facility] 06-04-2024 14:05-0500 Systolic blood pressure 143 mm[Hg] Lilia Mcwilliams [employer] Work Phone: [facility] 06-04-2024 13:32-0500 Respiratory rate 20 /min Lilia Roqueenberg [employer] Work Phone: [facility] 05-15-2024 08:07-0500 Diastolic blood pressure 76 mm[Hg] Elmo Verhoff PA-C Work Phone: [facility] [employer] [facility] 05-15-2024 08:07-0500 Heart rate 72 /min Elmo Verhoff PA-C Work Phone: [facility] 05-15-2024 08:07-0500 Respiratory rate 18 /min Elmo Verhoff PA-C Work Phone: [facility] 05-15-2024 08:07-0500 SaO2% (BldA) [Mass fraction] 99 % Elmo Verhoff PA-C Work Phone: [facility] [employer] [facility] 05-15-2024 08:07-0500 Systolic blood pressure 137 mm[Hg] Elmo Verhoff PA-C Work Phone: [facility] 04-18-2024 08:51-0500 Body height 157.5 cm Iliana Mcwilliams PA Work Phone: [facility] 04-18-2024 08:51-0500 Body mass index (BMI) [Ratio] 43.71 kg/m2 Iliana Mcwilliams PA Work Phone: [facility] [employer] [facility] 04-18-2024 08:51-0500 Body weight 108.41 kg Iliana Mcwilliams PA Work Phone: [facility] 04-18-2024 08:51-0500 Diastolic blood pressure 81 mm[Hg] Iliana Mcwilliams PA Work Phone: [facility] 04-18-2024 08:51-0500 Heart rate 80 /min Iliana Nienberg PA Work Phone: [facility] [employer] [facility] 04-18-2024 08:51-0500 Respiratory rate 16 /min Iliana Nienberg PA Work Phone: [facility] 04-18-2024 08:51-0500 SaO2% (BldA) [Mass fraction] 100 % Iliana Nienberg PA Work Phone: [facility] 04-18-2024 08:51-0500 Systolic blood pressure 128 mm[Hg] Iliana Nienberg PA Work Phone: [facility] 08-10-2023 10:10-0400 Body height 154.9 cm Iliana Nienberg PA Work Phone: [facility] 08-10-2023 10:10-0400 Body mass index (BMI) [Ratio] 48.37 kg/m2 Iliana Nienberg PA Work Phone: [facility] 08-10-2023 10:10-0400 Body weight 116.12 kg Iliana Nienberg PA Work Phone: [facility] 08-10-2023 10:10-0400 Diastolic blood pressure 81 mm[Hg] Iliana Nienberg PA Work Phone: [facility] 08-10-2023 10:10-0400 Heart rate 82 /min Iliana Nienberg PA Work Phone: [facility] 08-10-2023 10:10-0400 Respiratory rate 20 /min Iliana Nienberg PA Work Phone: [facility] [employer] [facility] 08-10-2023 10:10-0400 Systolic blood pressure 132 mm[Hg] Iliana Nienberg PA Work Phone: [facility] 05-18-2023 12:56-0500 Diastolic blood pressure 89 mm[Hg] Iliana Nienberg PA Work Phone: [facility] 02-15-2024 12:56-0500 Heart rate 85 /min Iliana Mcwilliams PA Work Phone: [employer] 05-18-2023 12:56-0500 Respiratory rate 16 /min Iliana Mcwilliams PA Work Phone: [employer] 05-18-2023 12:56-0500 SaO2% (BldA) [Mass fraction] 100 % Iliana Mcwilliams PA Work Phone: [employer] 05-18-2023 12:56-0500 Systolic blood pressure 137 mm[Hg] Iliana Mcwilliams PA Work Phone: [employer] 10-05-2022 13:15-0400 Body height 152.4 cm Laverne Missler Other [employer] Other 10-05-2022 13:15-0400 Body mass index (BMI) [Ratio] 48.25 kg/m2 Laverne Missler Other [employer] Other 10-05-2022 13:15-0400 Body weight 112.08 kg Laverne Missler Other [employer] Other 10-05-2022 13:15-0400 Diastolic blood pressure 76 mm[Hg] Laverne Missler Other [employer] Other 10-05-2022 13:15-0400 Respiratory rate 20 /min Laverne Missler Other [employer] Other 10-05-2022 13:15-0400 SaO2% (BldA) [Mass fraction] 97 % Laverne Missler Other [employer] Other 10-05-2022 13:15-0400 Systolic blood pressure 122 mm[Hg] Laverne Missler Other [employer] Other 02-28-2020 13:090500 Body Temperature 97.5 [degF] STAFF, [facility] 02-28-2020 13:09-0500 BP Diastolic 83 mm[Hg] STAFF, [facility] 02-28-2020 13:09-0500 BP Systolic 149 mm[Hg] STAFF, [facility] 02-28-2020 13:09-0500 Pulse (Heart Rate) 83 /min STAFF, [facility] 02-28-2020 13:09-0500 Pulse Oximetry 98 % STAFF, [facility] 02-28-2020 13:09-0500 Respiratory Rate 18 /min STAFF, [facility] 02-28-2020 13:06-0500 BMI (Body Mass Index) 46.3 kg/m2 STAFF, [facility] 02-28-2020 13:06-0500 Body weight 111.13 kg STAFF, [facility] 02-28-2020 13:06-0500 Height 154.94 cm STAFF, [facility] Encounters Encounter Date Encounter Type Care Provider Facility Start: 01-02-2025 End: 01-02-2025 Emergency department patient visit Jayden Pedroza MD Work Phone: -Emergency Room Work Phone: Start: 12-30-2024 End: 12-30-2024 ambulatory Jayden Pedroza MD Work Phone: [facility] Work Phone: Start: 12-30-2024 End: 12-30-2024 Departed Referred Jenna Samuel Marker DO -[facility] Start: 12-17-2024 End: 12-17-2024 Telephone encounter Kadie Shah NP Work Phone: [facility] Comment on above: JOSE J is telling Maribell that she needs an approval request Start: 11-28-2024 End: 11-28-2024 Bamboo flowsheet Kadie Shah COMMUNICATIONS AND SIGNALS SUPERVISOR Work Phone: [facility] Start: 11-28-2024 End: 11-28-2024 Bamboo flowsheet Kadie Shah COMMUNICATIONS AND SIGNALS SUPERVISOR Work Phone: [facility] Start: 11-28-2024 End: 11-28-2024 ambulatory KADIE SHAH Not Available Start: 11-28-2024 End: 11-28-2024 Office outpatient visit 25 minutes Kadie Shah COMMUNICATIONS AND SIGNALS SUPERVISOR Work Phone: [facility] Comment on above: Primary osteoarthrit is of right knee (Primary Dx); Primary osteoarthritis of left knee Start: 11-12-2024 End: 11-12-2024 Emergency department patient visit Jayden Pedroza MD Work Phone: -Emergency Room Work Phone: Start: 10-28-2024 End: 10-28-2024 Emergency department patient visit Jayden Pedroza MD Work Phone: -Emergency Room Work Phone: Start: 10-15-2024 End: 10-15-2024 Telephone encounter Monse Howard RN [facility] Comment on above: echo Start: 10-12-2024 End: 12-12-2024 Follow-up encounter Viktoriya LANDRUM Work Phone: [facility] Comment on above: CBC auto differentia l, Vitamin B12, Comprehensive metabolic panel, Additional followed-up results: 4 Start: 10-11-2024 End: 10-11-2024 Office outpatient new 30 minutes India Benitez MD [facility] Comment on above: Morbid obesity with body mass index of 45.0-49.9 in adult ([facility]) (Primary Dx); Shortness of breath; Heart murmur Start: 10-11-2024 End: 10-11-2024 ambulatory [facility] Start: 10-11-2024 ambulatory VIKTORIYA RIVERS [facility] Start: 10-11-2024 Encounter for julieta l adult medical examination without abnormal findings NO [facility] Start: 10-10-2024 End: 10-10-2024 Telephone encounter Dorcas [facility] Start: 10-03-2024 End: 10-03-2024 Chart abstracting Scanning Provider External [facility] Start: 09-10-2024 End: 09-10-2024 Orders Only Viktoriya Rivers [employer] Work Phone: [facility] Start: 08-29-2024 End: 08-29-2024 ambulatory [facility] Start: 08-29-2024 End: 08-29-2024 Office outpatient visit 15 minutes Viktoriya Rivers [employer] Work Phone: [facility] Comment on above: Heart murmur (Primar y Dx); Bilateral chronic knee pain; Major depressive disorder with current active episode, unspecified depression episode severity, unspecified whether recurrent Start: 07-31-2024 End: 07-31-2024 Office outpatient new 30 minutes Viktoriya Rivers [employer] Work [facility]: [facility] Comment on above: Heart murmur (Primar y Dx); Healthcare maintenance; Vitamin B 12 deficiency; Vitamin D deficiency; Fatigue, unspecified type; Iron deficiency anemia, unspecified iron deficiency anemia type; Malodorous urine; Encounter to establish care Start: 07-31-2024 End: 07-31-2024 Patient encounter status [facility] [employer] Work Phone: [facility] Start: 07-31-2024 End: 07-31-2024 ambulatory [facility] Start: 07-31-2024 Encounter for genera l adult medical examination without abnormal findings [facility] Start: 06-18-2024 End: 06-18-2024 Emergency department patient visit NO PCP [facility] Start: 06-08-2024 End: 06-08-2024 Emergency department patient visit ESTEFANI RODRIGUE[facility] Start: 06-04-2024 End: 06-04-2024 Patient encounter procedure Elmo Newell PA-C Work Phone: [facility] Comment on above: Bilateral chronic kn ee pain (Primary Dx); Bilateral primary osteoarthritis of knee [M17.0] Start: 06-04-2024 End: 06-04-2024 ambulatory [facility] Start: 06-03-2024 End: 06-03-2024 Emergency department patient visit NO PCP [facility] Start: 05-15-2024 End: 05-15-2024 Office outpatient visit 25 minutes Elmo Newell PA-C Work Phone: [facility] Comment on above: Bilateral chronic kn ee pain (Primary Dx); Primary osteoarthritis of right knee; Primary osteoarthritis of left knee Start: 05-15-2024 End: 05-15-2024 ambulatory [facility] Start: 05-01-2024 End: 05-10-2024 Telephone encounter Iliana ARCE Work Phone: [facility] Start: 04-18-2024 End: 04-18-2024 ambulatory ILIANA S [facility] Start: 04-18-2024 End: 04-18-2024 Office outpatient visit 25 minutes Lilia Mcwilliams BULK RECEIVER-[employer] Work Phone: [facility] Comment on above: Bilateral chronic kn ee pain (Primary Dx); Primary osteoarthritis of right knee; Primary osteoarthritis of left knee Start: 01-29-2024 End: 01-29-2024 Emergency department patient visit NO PCP [facility] Start: 08-10-2023 End: 08-10-2023 Office outpatient visit 15 minutes Iliana ARCE Work Phone: [facility] Comment on above: Primary osteoarthrit is of right knee (Primary Dx) Start: 05-18-2023 End: 05-18-2023 Office outpatient visit 25 minutes Iliana ARCE Work Phone: [facility] Comment on above: Primary osteoarthrit is of right knee (Primary Dx) Start: 03-22-2023 Telephone encounter Imani Wood RN [facility] Start: 11-16-2022 End: 11-16-2022 ambulatory Laverne Emerson Other [facility] Other Start: 11-16-2022 [facility] Start: 10-05-2022 End: 10-05-2022 ambulatory Laverne Emerson Other [facility] Other Start: 10-05-2022 Nutrition therapy Laverne Emerson [facility] Start: 02-01-2022 End: 02-01-2022 [facility] Facility: Start: 01-17-2022 End: 01-17-2022 [facility] Facility:[facility] Start: 10-19-2021 End: 10-20-2021 [facility] Facility: Start: 02-28-2020 End: 02-28-2020 Emergency department patient visit STAFF, [facility] Start: 10-17-2017 End: 10-18-2017 Patient encounter TANIA COTREZ Facility:[facility] Start: 02-07-2017 End: 02-08-2017 Patient encounter DEFAULT PHYSICIAN Facility:[facility] Procedures Date Procedure Procedure Detail Performing Clinician Start: 01-02-2025 X-ray of left knee, four views Jayden Pedroza MD Work Phone: Start: 12-30-2024 Urine culture Jayden taylor MD Work Phone: Start: 11-28-2024 Arthrocentesis aspir &/inj major jt/bursa w/o us Kadie Shah COMMUNICATIONS AND SIGNALS SUPERVISOR Work Phone: Start: 11-28-2024 Arthrocentesis aspir &/inj major jt/bursa w/o us Kadie Shah COMMUNICATIONS AND SIGNALS SUPERVISOR Work Phone: Start: 11-12-2024 Urine culture Jayden taylor MD Work Phone: Start: 10-11-2024 Ecg routine ecg w/le ast 12 lds w/i&r Calista Brooks MD Work Phone: Start: 08-29-2024 Follow-up visit Follow-up JEANNIE RIVERS Start: 08-29-2024 Adult depression scr eening assessment Viktoriya Rivers [facility]K RECEIVER[facility] Work Phone: Start: 07-31-2024 Urnls dip stick/tabl et rgnt non-auto w/o micrscp Viktoriya Rivers BULK RECEIVER-[employer] Work Phone: Start: 07-31-2024 Adult depression scr eening assessment Viktoriya Rivers BULK RECEIVER[employer] Work Phone: Plan of Treatment Date Care Activity Detail Author Start: 10-11-2025 Adult BMI Screening Adult BMI Screening [facility] Start: 10-11-2025 Tobacco Screening Tobacco Screening [facility] Start: 08-29-2025 Adult BMI Screening Adult BMI Screening [facility] Start: 08-29-2025 Depression Screening Depression Screening [facility] Start: 08-29-2025 Tobacco Screening Tobacco Screening [facility] Start: 07-31-2025 Adult BMI Follow Up Plan Adult BMI Follow Up Plan [facility] Start: 07-31-2025 Adult BMI Screening Adult BMI Screening [facility] Start: 07-31-2025 Depression Screening Depression Screening [facility] Start: 07-31-2025 Tobacco Screening Tobacco Screening [facility] Start: 06-04-2025 Tobacco Screening Tobacco Screening [facility] Start: 06-03-2025 Adult BMI Screening Adult BMI Screening [facility] Start: 05-15-2025 Tobacco Screening Tobacco Screening [facility] Start: 04-18-2025 Adult BMI Screening Adult BMI Screening [facility] Start: 04-18-2025 Tobacco Screening Tobacco Screening [facility] Start: 12-30-2024 Urine culture [facility] Start: 12-30-2024 Bacteria identified in Urine by Culture Urine Culture [facility] Start: 12-02-2024 Influenza vaccination Influenza Vaccine [facility] Start: 11-12-2024 Urine culture [facility] Start: 11-12-2024 Bacteria identified in Urine by Culture Urine Culture [facility] Start: 11-08-2024 End: 11-08-2024 Patient encounter procedure 11/08/2024 8:30 AM EDT Appointment [facility] [address] [place] [address] Calista Brooks MD [address] [place] [address] [facility] Start: 10-23-2024 End: 10-23-2024 Patient encounter procedure 10/23/2024 7:40 AM EDT Office Visit [facility] [address] [place] [address] [place] [address] Viktoriya Rivers APRN-ADJUSTER [employer] [address] [place] [address], [place] [address] [facility] Start: 10-11-2024 End: 10-11-2025 Echo complete W/O contrast Echo complete W/O contrast Echocardiography Routine Morbid obesity with body mass index of 45.0-49.9 in adult ([facility]) Shortness of breath Heart murmur Expected: 10/11/2024, Expires: 10/11/2025 [facility] Work Phone: Comment on above: Expected: 10/11/2024, Expires: Start: 10-11-2024 End: 10-11-2024 Patient encounter procedure [facility] Start: 09-30-2024 End: 09-30-2024 Patient encounter procedure 09/30/2024 7:40 AM EDT Office Visit [facility] [address] [place] [address] Viktoriya Rivers APRN-ADJUSTER [employer] [address] [place] [phone] [facility] Start: 08-09-2024 Adult BMI Screening Adult BMI Screening [facility] Start: 08-09-2024 Tobacco Screening Tobacco Screening [facility] Start: 07-31-2024 End: 07-31-2025 Echo complete W/O contrast Echo complete W/O contrast Echocardiography Routine Heart murmur Expected: 07/31/2024, Expires: 07/31/2025 [facility] Comment on above: Expected: 07/31/2024, Expires: Start: 07-18-2024 End: 07-18-2024 Patient encounter procedure 07/18/2024 1:20 PM EDT Office Visit [facility] [address] [place] [phone] [facility] [address] [place] [phone] [facility] Start: 07-03-2024 End: 07-03-2024 Patient encounter procedure 07/03/2024 8:45 AM EDT Office Visit [facility] [address] [place] [phone] Elmo Newell PA-C [address], [address] [place] [phone] [facility] Start: 05-22-2024 End: 05-22-2024 Patient encounter procedure 05/22/2024 8:00 AM EST Office Visit [facility] [address] [place] [phone] Elmo Newell PA-C [address] [place] [address] [facility] Start: 05-18-2024 Tobacco Screening Tobacco Screening [facility] Start: 05-15-2024 Adult BMI Screening Adult BMI Screening [facility] Start: 05-14-2024 End: 05-14-2024 Patient encounter procedure 05/14/2024 8:45 AM EST Office Visit [facility] [address] [place] [address] Iliana Mcwilliams, PA [address] [place] [address] [facility] Start: 03-22-2024 Tobacco Screening Tobacco Screening [facility] Start: 03-13-2024 Adult BMI Screening Adult BMI Screening [facility] Start: 12-03-2023 Influenza vaccination Influenza Vaccine [facility] Start: 05-30-2023 End: 05-30-2023 Patient encounter procedure [facility] Start: 12-02-2022 Influenza vaccination Influenza Vaccine [facility] Start: 11-03-1999 Screening for malignant neoplasm of cervix Pap Smear [facility] Start: 1997 DTaP,Tdap and Td Vaccines (1 - Tdap) DTaP,Tdap and Td Vaccines (1 - Tdap) [facility] Start: 1996 Adult BMI Follow Up Plan Adult BMI Follow Up Plan [facility] Start: 1990 Depression Screening Depression Screening [facility] End: 07-31-2025 CBC W Auto Differential panel - Blood CBC auto differential Lab Routine Healthcare maintenance Fatigue, unspecified type Iron deficiency anemia, unspecified iron deficiency anemia type 1 Occurrences starting 07/31/2024 until 07/31/2025 [employer] Work Phone: Comment on above: 1 Occurrences starting 07/31/2024 until 07/31/2025 End: 07-31-2025 Comprehensive metabolic 2000 panel - Serum or Plasma Comprehensive metabolic panel Lab Routine Healthcare maintenance 1 Occurrences starting 07/31/2024 until 07/31/2025 [employer] Comment on above: 1 Occurrences starting 07/31/2024 until 07/31/2025 End: 07-31-2025 Cyanocobalamin vitamin b-12 Vitamin B12 Lab Routine Healthcare maintenance Vitamin B 12 deficiency Fatigue, unspecified type 1 Occurrences starting 07/31/2024 until 07/31/2025 [employer] Comment on above: 1 Occurrences starting 07/31/2024 until 07/31/2025 Injection aa&/strd genicular nrv branches w/img [place] [facility] Injection aa&/strd genicular nrv branches w/img INJECTION BLOCK NERVE KNEE Primary osteoarthritis of right knee [employer] End: 07-31-2025 Iron and TIBC Iron and TIBC Lab Routine Healthcare maintenance Fatigue, unspecified type Iron deficiency anemia, unspecified iron deficiency anemia type 1 Occurrences starting 07/31/2024 until 07/31/2025 [employer] Comment on above: 1 Occurrences starting 07/31/2024 until 07/31/2025 End: 07-31-2025 Lipid panel Lipid panel Lab Routine Healthcare maintenance 1 Occurrences starting 07/31/2024 until 07/31/2025 [employer] Comment on above: 1 Occurrences starting 07/31/2024 until 07/31/2025 Patient Education [facility] Patient referral [facility] End: 07-31-2025 Thyroid profile includes TSH FT4 Thyroid profile includes TSH FT4 Lab Routine Healthcare maintenance Fatigue, unspecified type 1 Occurrences starting 07/31/2024 until 07/31/2025 [employer] Comment on above: 1 Occurrences starting 07/31/2024 until 07/31/2025 End: 07-31-2025 Vitamin D 25 hydroxy Vitamin D 25 hydroxy Lab Routine Healthcare maintenance Vitamin D deficiency Fatigue, unspecified type 1 Occurrences starting 07/31/2024 until 07/31/2025 [employer] Comment on above: 1 Occurrences starting 07/31/2024 until 07/31/2025 Payers Date Payer Category Payer Self-pay [id number] 2024 Private Health Insurance [employer] [id number] 2024 Unknown [id number] 2023 Managed Care HMO (unspecified) [id number] 2023 Unknown [id number] 2023 Unknown [id number] 2022 Medicaid [facility] [place] HMO [id number] 2022-Present [phone] [address] [place] [address] [id number] 2018 Medicaid [id number] 1978 Unknown [id number] 2.16840.1.486428.3.579.2. 593 1978 Unknown [id number] 2.16840.1.958303.3.579.2. 593 1978 Unknown [id number] 2.16840.1.041558.3.579.2. 593 1978 Unknown [id number] 2.16.840.1.585627.3.579.2. 1286 1978 Unknown [id number] 2.16.840.1.037331.3.579.2. 1286 1978 Unknown [id number] 2.16.840.1.715529.3.579.2. 1286 1978 Unknown [id number] 2.16.840.1.788297.3.579.2. 1286 1978 Unknown [id number] 2.16.840.1.871983.3.579.2. 1286 1978 Unknown [id number] 2.16.840.1.578907.3.579.2. 1285 1978 Unknown [id number] 2.16.840.1.951488.3.579.2. 1286 1978 Unknown [id number] 2.16.840.1.793492.3.579.2. 128 1978 Unknown [id number] 2.16840.1.176141.3.579.2. 1286 1978 Unknown [id number] 2.840.1.511289.3.579.2. 128 1978 Unknown [id number] 2.16840.1.179333.3.579.2. 1286 1978 Unknown [id number] 2.16840.1.542067.3.579.2. 1259 1959 Medicaid [id number] Unknown Unknown [id number] 2.16840.1.730281.3.579.2. 531 Unknown [id number] 2.16840.1.905405.3.579.2. 531 Unknown [id number] 2.16840.1.414221.3.579.2. 531 Unknown [id number] 2.16840.1.810685.3.579.2. 531 Social History Date Type Detail Facility Tobacco smoking status ILIS Unknown if ever smoked [facility] Start: 1980 Sex Assigned At Female F [facility] Start: 04-18-2024 End: 11-28-2024 Sex Assigned At [facility] Start: 01-26-2022 End: 01-02-2025 Tobacco smoking status ILIS Never smoked tobacco [facility] Start: 01-26-2022 End: 05-22-2023 Tobacco use and exposure Smokeless tobacco non-user [facility] Start: 04-18-2024 End: 10-11-2024 Alcoholic beverage intake Current non-drinker of alcohol (finding) [facility] Start: 04-18-2024 End: 11-28-2024 History of Social function [facility] Childcare Unknown [facility] Start: 1980 Sex assigned at Not on file P [facility] Start: 11-06-2014 Sex Female (finding) [facility] Start: 08-08-2023 Gender identity Identifies as female gender (finding) [facility] Start: 08-08-2023 Sexual orientation Heterosexual (fin ding) [facility] Start: 05-26-2023 End: 11-28-2024 Alcoholic beverage intake Ex-drinker (finding) [facility] NEGATED: Highlighted row Not [facility] NEGATED: Highlighted row N [facility] Goals Date Patient Goal Desired Activity /State Clinical Notes 10-20-2021 to 12-17-2024 Telephone Encounter - Laverne Riley - 12/17/2024 2:14 PM EDTTelephone Encounter - [facility] - 12/17/2024 2:14 PM EDTTelephone Encounter - [facility] - 12/17/2024 1:37 PM EDTPatient Instructions Note Date & Type Note Facility 12-17-2024 Telephone encounter Note Emailed the patient with the information, since her phone isn't working at the moment. [facility] 12-17-2024 Miscellaneous Notes Emailed the patient with the information, since her phone isn't working at the moment. Patient stopped by and said that she just from the pharmacy to berry picker her Naproxen, they are telling her that she needs an approval, please advise, we can't call her to let her know but she can get emails [email or web address] Please advise documented in this encounter [facility] 12-17-2024 Telephone encounter Note Patient stopped by and said that she just from the pharmacy to berry picker her Naproxen, they are telling her that she needs an approval, please advise, we can't call her to let her know but she can get emails [email or web address] Please advise [facility] 11-28-2024 History of Present illness Narrative Associated Order(s): L Inj/Asp: L knee; L Inj/Asp: R knee Post-Procedure Diagnose(s): Primary osteoarthritis of left knee; Primary osteoarthritis of right knee Images from the original note were not included. HISTORY OF PRESENT ILLNESS: EST PT Maribell Handley is an 44 y.o. @ female. (EST PT) B/L KNEE PAIN. RT>LT. PAIN FOR YEARS, CONTINUES TO GET WORSE. XRAY LT KNEE [facility] 06/03/24 XRAY RT KNEE [facility] 05/15/23 XRAY RT KNEE [facility] 01/19/22 XRAY B/L KNEE [facility] 06/02/20 DEPO INJECTION RT KNEE 05/22/23 PAIN MGMT [facility] B/L KNEE 06/04/24 PAIN ANTERIOR AND POSTERIOR ON RT KNEE. ANTERIOR ON LT KNEE. DENIES RADIATION. NO PAIN MEDS, NOTHING HELPS. DENIES N/T. +POPPING. GIVING OUT SENSATION. WAKES AT HS. ALLERGIES: No Known Allergies HOME MEDICATIONS: Current Outpatient Medications Medication Instructions ARIPiprazole (Abilify) 5 MG tablet Every 24 hours naproxen (EC NAPROSYN) 500 mg, Oral, 2 times daily with meals, Do not crush, chew, or split. PHYSICAL EXAM: Right Knee Exam Tenderness The patient is experiencing tenderness in the medial joint line and patella. Range of Motion Extension: 5 Flexion: 110 Tests Ariel: Medial - negative Nai: Anterior - negative Other Erythema: absent Sensation: normal Pulse: present Swelling: mild Comments: Crepitus with ROM Left Knee Exam Tenderness The patient is experiencing tenderness in the medial joint line. Range of Motion Extension: 0 Flexion: 110 Tests Varus: negative Valgus: negative Other Erythema: absent Scars: absent Sensation: normal Pulse: present Swelling: mild Comments: Crepitus with ROM Vitals: There is no height or weight on file to calculate BMI. Tobacco Use: Low Risk (11/28/2024) Patient History Smoking Tobacco Use: Never Smokeless Tobacco Use: Never Passive Exposure: Not on file Alcohol Use: Not on file IMAGING: L Inj/Asp: L knee on 11/28/2024 8:51 AM Indications: pain Details: 21 G needle, anterolateral approach Medications: 40 mg methylPREDNISolone acetate 40 MG/ML Outcome: tolerated well, no immediate complications Site was cleaned with isopropyl alcohol Procedure, treatment alternatives, risks and benefits explained, specific risks discussed. Consent was given by the patient. L Inj/Asp: R knee on 11/28/2024 8:51 AM Indications: pain Details: 21 G needle, anterolateral approach Medications: 40 mg methylPREDNISolone acetate 40 MG/ML Outcome: tolerated well, no immediate complications Site cleaned with isopropyl alcohol Procedure, treatment alternatives, risks and benefits explained, specific risks discussed. Consent was given by the patient. No orders of the defined types were placed in this encounter. ASSESSMENT: ICD-10-CM 1. Primary osteoarthritis of right knee M17.11 naproxen (EC Naprosyn) 500 MG EC tablet 2. Primary osteoarthritis of left knee M17.12 naproxen (EC Naprosyn) 500 MG EC tablet PLAN: I reviewed exam findings with the patient and discussed treatment options, answered questions. I discussed with the patient the option of an injection as she is not ready for surgery at this time. I advised the patient of risks associated with an injection including a reaction to medication, infection, failure to improve and possible worsening. The patient demonstrated understanding. Patient requesting injection. Skin Cleansed with alcohol swab. Utilizing aseptic technique patient given 40mg Depomedrol was injected into both knees. Patient tolerated this well. Neurovasc intact s/p injection. Post injection care instructions discussed. I also discussed using naproxen for daily pain. I discussed with the patient the risks associated with nonsteroidal anti-inflammatory medication. This included the risk of bleeding, GI ulceration, renal failure and sudden cardiac event. The patient was instructed on the proper way to take the medication. The patient was advised to stop the medication if any side effects occur. The patient was advised to contact their primary care physician or us or go to the ER if the patient is experiencing side effects. Questions answered in laymen terms at the bedside. The diagnosis, home exercise plan and any ongoing restrictions/ recommendations reviewed. If unable to be reached in office, I recommend evaluation at nearest Emergency Room if any symptoms worsened or new symptoms develop for requiring urgent evaluation. documented in this encounter [facility] 10-15-2024 Miscellaneous Notes Received a call from [employer] and [facility] is out of network for patient so her echo will need to be scheduled elsewhere to avoid out of pocket cost. Spoke w/patient and she will call her insurance company to see where she can have an echo done. She will call us back to let us know where we can fax the echo order and if she needs any assistance getting scheduled. documented in this encounter [facility] [email or web address] 10-15-2024 Telephone encounter Note Received a call from [employer] and [facility] is out of network for patient so her echo will need to be scheduled elsewhere to avoid out of pocket cost. [facility] 10-15-2024 Telephone encounter Note Spoke w/patient and she will call her insurance company to see where she can have an echo done. She will call us back to let us know where we can fax the echo order and if she needs any assistance getting scheduled. [facility] 10-11-2024 History of Present illness Narrative Maribell Handley Date of visit: 10/11/2024 Date of : 1980 Age: 43 y.o. Patient Active Problem List Diagnosis Abnormal uterine bleeding Primary osteoarthritis of right knee Depression Arthritis Bilateral chronic knee pain Primary osteoarthritis of left knee Morbid obesity with body mass index of 45.0-49.9 in adult ([facility]) Viral gastroenteritis No Known Allergies Current Outpatient Medications Medication Sig Dispense Refill acetaminophen (TYLENOL EXTRA STRENGTH) 500 mg tablet Take 2 tablets (1,000 mg total) by mouth every 6 (six) hours as needed for pain. (Patient not taking: Reported on 06/04/2024) 30 tablet 0 albuterol (PROVENTIL HFA;VENTOLIN HFA) 90 mcg/actuation inhaler Inhale 2 puffs every 4 (four) hours as needed for wheezing. 18 g 0 amitriptyline (ELAVIL) 10 mg tablet Take 1 tablet (10 mg total) by mouth nightly. 30 tablet 1 benzonatate (TESSALON PERLES) 100 mg capsule Take 1 capsule (100 mg total) by mouth every 8 (eight) hours. (Patient not taking: Reported on 08/29/2024) 21 capsule 0 cholecalciferol 1,000 units tablet Take 2 tablets (2,000 Units total) by mouth in the morning. 60 tablet 11 cyanocobalamin (vitamin B-12) 1000 MCG tablet Take 1 tablet (1,000 mcg total) by mouth in the morning. 30 tablet 11 diclofenac sodium (VOLTAREN) 1 % gel Apply 2 g topically in the morning and 2 g at noon and 2 g in the evening and 2 g before bedtime. 100 g 0 diclofenac sodium (VOLTAREN) 1 % gel Apply 2 g topically in the morning and 2 g at noon and 2 g in the evening and 2 g before bedtime. (Patient not taking: Reported on 08/29/2024) 100 g 0 ferrous sulfate 325 (65 FE) MG tablet Take 1 tablet (325 mg total) by mouth in the morning. 30 tablet 11 ibuprofen (MOTRIN) 600 mg tablet Take 1 tablet (600 mg total) by mouth every 8 (eight) hours as needed for pain. (Patient not taking: Reported on 06/04/2024) 30 tablet 0 loperamide (IMODIUM) 2 mg capsule Take 1 capsule (2 mg total) by mouth 4 (four) times a day as needed for diarrhea. (Patient not taking: Reported on 08/29/2024) 12 capsule 0 magnesium oxide (MAGOX) 400 mg tablet Take 1 tablet (400 mg total) by mouth before bedtime. 30 tablet 2 naproxen (NAPROSYN) 500 mg tablet Take 1 tablet (500 mg total) by mouth in the morning and 1 tablet (500 mg total) in the evening. Take with meals. 60 tablet 2 No current facility-administered medications for this visit. 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 Records are reviewed. She is unaccompanied. She is a 43-year-old obese woman with chronic pain, degenerative joint disease with particularly ongoing pain in both knees, dysfunctional uterine bleeding, and ongoing depression. She was noted on routine physical exam to have heart murmur and self-referred. She has no prior cardiac history herself although she thinks perhaps her mother told her she had a heart murmur in the past although she was unsure whether her mother was speaking about her mother having a heart murmur. She denies any particular chest pain or undue breathlessness. Denies palpitations syncope or near-syncope. She has not had failure symptoms. She reports her depression is under reasonable control Past Medical History: Diagnosis Date Arthritis Arthritis Chronic pain disorder Depression Joint pain marcia knees Knee pain Migraines Obesity No data recorded No data recorded No data recorded Past Surgical History: Procedure Laterality Date ABLATION ENDOMETRIAL NOVASURE N/A 05/10/2019 Performed by Josefina Murguia MD at [facility] D AND C HYSTEROSCOPY N/A 05/10/2019 Performed by Josefina Murguia MD at [facility] D AND C HYSTEROSCOPY N/A 03/08/2019 Performed by Josefina Murguia MD at [facility] INJECTION BLOCK KNEE GENICULAR Left 11/15/2019 Performed by Joey Mendez MD at [facility] INJECTION BLOCK NERVE KNEE Right Genicular Right 05/05/2023 Performed by Joey Mendez MD at [facility] INJECTION BLOCK NERVE KNEE Left Genicular Left 03/04/2022 Performed by Joey Mendez MD at [facility] INJECTION BLOCK NERVE KNEE Left Genicular Left 06/25/2021 Performed by Joey Mendez MD at [facility] RADIOFREQUENCY ABLATION GENICULAR Left 04/29/2022 Performed by Joey Mendez MD at [facility] TUBAL LIGATION Family History Problem Relation Age of Onset Hypertension Mother Uterine cancer Mother Heart disease Father Heart attack Father Uterine cancer Sister Breast cancer Neg Hx Social History Socioeconomic History Marital status: Spouse name: Not on file Number of children: Not on file Years of education: Not on file Highest education level: Not on file Occupational History Not on file Tobacco Use Smoking status: Never Smokeless tobacco: Never Vaping Use Vaping status: Never Used Substance and Sexual Activity Alcohol use: No Drug use: No Sexual activity: Defer Other Topics Concern Not on file Social History Narrative Not on file Social Drivers of Health Financial Resource Strain: Not on file Food Insecurity: No Food Insecurity (08/29/2024) Hunger Screening Food Insecurity - Worry: Never True Food Insecurity - Inability: Never True Transportation Needs: Not on file Physical Activity: Not on file Stress: Not on file Social Connections: Not on file Interpersonal Safety: Not on file Housing Instability: Not on file Review of Systems Review of Systems Constitutional: Negative. HENT: Negative. Eyes: Negative. Respiratory: Negative. Hematologic/Lymphatic: Bruises/bleeds easily. Skin: Negative. Musculoskeletal: Positive for arthritis. Gastrointestinal: Negative. Neurological: Positive for headaches. Psychiatric/Behavioral: Positive for depression. The patient is nervous/anxious. Allergic/Immunologic: Negative. CARDIOVASCULAR: Please review HPI. Physical Examination General appearance: Alert, oriented and cooperative. In no acute distress. Skin: Warm and dry to touch. Head: Normocephalic, without obvious abnormality, atraumatic. Ears, Nose, Mouth, Throat: Throat clear without erythema or exudate. Dentition intact. Eyes: Conjunctivae unremarkable, EOM intact. Neck: No JVD, No carotid bruit. Neck supple, trachea midline. Respiratory: Clear to auscultation bilaterally, no use of accessory muscles. Cardiovascular: RRR with normal S1 and S2 with 2/6 holosystolic murmur Gastrointestinal: Soft, non-tender. Bowel sounds normal. Musculoskeletal: No peripheral edema. Neurologic: Oriented to time, person and place, affect appropriate. No focal/major motor defects noted. Psychiatric: Appropriate mood, memory and judgement. VITAL SIGNS: Ht 152.4 cm (5') BMI 45.35 kg/m No orders of the defined types were placed in this encounter. There are no discontinued medications. IMPRESSIONS/PLAN There are no diagnoses linked to this encounter. 1. She may have some degree of MR and I would schedule echocardiogram. She has no evidence of failure and I would not add particular therapy at present TODAYS ORDERS No orders of the defined types were placed in this encounter. FOLLOW UP No follow-ups on file. PCP: Viktoriya Rivers, [employer] Referring Physician: DIALLO Monsalve [address] [place] [address], [place] [address] documented in this encounter [facility] 10-10-2024 Miscellaneous Notes Left message for patient to remind them to bring their most current medication list with them to their appointment. documented in this encounter [facility] 10-10-2024 Telephone encounter Note Left message for patient to remind them to bring their most current medication list with them to their appointment. [facility] 09-10-2024 Miscellaneous Notes Patient called into office wanting to let provider know that the venlafaxine is making her very sick and nauseous. Wanting to if she should stop taking this or if there is anything else PCP recommends. Please advise? She can stop. I sent in amitriptyline instead for bedtime. This should help with anxiety/depression, sleep, pain and migraine prevention. Attempted to call patient with provider response, no answer. Left voicemail to call office. documented in this encounter [facility] 09-10-2024 Telephone encounter Note Patient called into office wanting to let provider know that the venlafaxine is making her very sick and nauseous. Wanting to if she should stop taking this or if there is anything else PCP recommends. Please advise? [facility] 09-10-2024 Telephone encounter Note She can stop. I sent in amitriptyline instead for bedtime. This should help with anxiety/depression, sleep, pain and migraine prevention. [facility] 09-10-2024 Telephone encounter Note Attempted to call patient with provider response, no answer. Left voicemail to call office. [facility] 08-29-2024 History of Present illness Narrative Subjective Patient ID: Maribell Handley is a 43 y.o. female. HPI Maribell presents to the office to discuss FMLA. She reports she is concerned about cardiac murmur and since she has to have test and additional appointments she would like to have FMLA paperwork so that way she can leave work without difficulty. She reports she also has history of chronic knee pain in which she follows up with pain management routinely and she has had to leave work due to this condition as well. She also has depression in which I started Effexor at last visit 1 month ago. She reports she is tolerating medication well however PHQ-9 is still a 12. She reports she also has additional stress as she is trying to help her has been take care of his health as well he has uncontrolled diabetes. The following portions of the patient's history were reviewed and updated as appropriate: allergies, current medications, past family history, past medical history, past social history, past surgical history, problem list, and medication reconciliation was completed including current medication and post discharge medication. Review of Systems Constitutional: Positive for fatigue. Negative for chills, diaphoresis and fever. HENT: Negative. Eyes: Negative. Respiratory: Negative for cough, chest tightness, shortness of breath and wheezing. Cardiovascular: Negative for chest pain, palpitations and leg swelling. Gastrointestinal: Negative for abdominal pain, diarrhea, nausea and vomiting. Endocrine: Negative for polydipsia, polyphagia and polyuria. Genitourinary: Negative for difficulty urinating, frequency, hematuria and urgency. Musculoskeletal: Negative for arthralgias, gait problem, joint swelling and neck pain. Skin: Negative. Neurological: Negative for dizziness, syncope, weakness, light-headedness and numbness. Psychiatric/Behavioral: Negative for self-injury and suicidal ideas. Objective Physical Exam Vitals and nursing note reviewed. Constitutional: General: She is not in acute distress. Appearance: Normal appearance. She is well-developed. She is not ill-appearing. HENT: Head: Normocephalic and atraumatic. Right Ear: External ear normal. Left Ear: External ear normal. Neck: Vascular: No carotid bruit. Cardiovascular: Rate and Rhythm: Normal rate and regular rhythm. Pulses: Normal pulses. Heart sounds: Murmur heard. Pulmonary: Effort: Pulmonary effort is normal. No respiratory distress. Breath sounds: Normal breath sounds. No wheezing, rhonchi or rales. Chest: Chest wall: No tenderness. Musculoskeletal: General: Normal range of motion. Cervical back: Normal range of motion and neck supple. No tenderness. Right lower leg: No edema. Left lower leg: No edema. Comments: Abnormal gait, limping d/t knee Skin: General: Skin is warm and dry. Capillary Refill: Capillary refill takes less than 2 seconds. Findings: No rash. Neurological: General: No focal deficit present. Mental Status: She is alert and oriented to person, place, and time. Motor: No weakness. Psychiatric: Mood and Affect: Mood normal. Behavior: Behavior normal. Assessment/Plan Discussed with patient we can complete [facility] paperwork. However she does not have paperwork with her today she will request from . Discussed and due to multiple conditions she can be excuse 2-3 days monthly 1 day per episode for appointments and chronic conditions. Maribell was seen today for follow-up. Diagnoses and all orders for this visit: Heart murmur Bilateral chronic knee pain Major depressive disorder with current active episode, unspecified depression episode severity, unspecified whether recurrent DIALLO Monsalve 08/29/24 0844 documented in this encounter [facility] [employer] 07-31-2024 History of Present illness Narrative Subjective Patient ID: Maribell Handley is a 43 y.o. female. HPI Maribell presents to the office to establish care. Hx: Arthritis of knees- following with pain management But has made adjustment to lifestyle and helpful. Naproxen as needed. Depression- Son was 9 years old and had drown in 2012. She lost her dog 2 years later. She says she is still suffering. Has been on zoloft, and oher medication but does not recall. She would be agreeable to trial alternative medication today. Migraines- since about the age of 23. They were able to go away but returned and have been worse the last few months. Hx of repeat UTI's. Hx of anemia. Hx of vitamin D deficiency She reports she has had history of lesion to breast, but was not there on further work up. Patient Active Problem List Diagnosis Abnormal uterine bleeding Primary osteoarthritis of right knee Depression Arthritis Bilateral chronic knee pain Primary osteoarthritis of left knee Morbid obesity with body mass index of 45.0-49.9 in adult ([facility]) Viral gastroenteritis Current Outpatient Medications on File Prior to Visit Medication Sig Dispense Refill acetaminophen (TYLENOL EXTRA STRENGTH) 500 mg tablet Take 2 tablets (1,000 mg total) by mouth every 6 (six) hours as needed for pain. (Patient not taking: Reported on 06/04/2024) 30 tablet 0 albuterol (PROVENTIL HFA;VENTOLIN HFA) 90 mcg/actuation inhaler Inhale 2 puffs every 4 (four) hours as needed for wheezing. 18 g 0 benzonatate (TESSALON PERLES) 100 mg capsule Take 1 capsule (100 mg total) by mouth every 8 (eight) hours. 21 capsule 0 diclofenac sodium (VOLTAREN) 1 % gel Apply 2 g topically in the morning and 2 g at noon and 2 g in the evening and 2 g before bedtime. 100 g 0 diclofenac sodium (VOLTAREN) 1 % gel Apply 2 g topically in the morning and 2 g at noon and 2 g in the evening and 2 g before bedtime. 100 g 0 ibuprofen (MOTRIN) 600 mg tablet Take 1 tablet (600 mg total) by mouth every 8 (eight) hours as needed for pain. (Patient not taking: Reported on 06/04/2024) 30 tablet 0 loperamide (IMODIUM) 2 mg capsule Take 1 capsule (2 mg total) by mouth 4 (four) times a day as needed for diarrhea. 12 capsule 0 naproxen (NAPROSYN) 500 mg tablet Take 1 tablet (500 mg total) by mouth in the morning and 1 tablet (500 mg total) in the evening. Take with meals. 60 tablet 2 No current facility-administered medications on file prior to visit. Past Surgical History: Procedure Laterality Date ABLATION ENDOMETRIAL NOVASURE N/A 05/10/2019 Performed by Josefina Murguia MD at [facility] D AND C HYSTEROSCOPY N/A 05/10/2019 Performed by Josefina Murguia MD at [facility] D AND C HYSTEROSCOPY N/A 03/08/2019 Performed by Josefina Murguia MD at [facility] INJECTION BLOCK KNEE GENICULAR Left 11/15/2019 Performed by Joey Mendez MD at [facility] INJECTION BLOCK NERVE KNEE Right Genicular Right 05/05/2023 Performed by Joey Mendez MD at [facility] INJECTION BLOCK NERVE KNEE Left Genicular Left 03/04/2022 Performed by Joey Mendez MD at [facility] INJECTION BLOCK NERVE KNEE Left Genicular Left 06/25/2021 Performed by Joey Mendez MD at [facility] RADIOFREQUENCY ABLATION GENICULAR Left 04/29/2022 Performed by Joey Mendez MD at [facility] TUBAL LIGATION Family History Problem Relation Age of Onset Hypertension Mother No Known Problems Father Breast cancer Neg Hx The following portions of the patient's history were reviewed and updated as appropriate: allergies, current medications, past family history, past medical history, past social history, past surgical history, problem list, and medication reconciliation was completed including current medication and post discharge medication. Review of Systems Constitutional: Positive for fatigue (Increased fatigue.) and unexpected weight change. Negative for chills, diaphoresis and fever. HENT: Negative. Eyes: Negative. Respiratory: Negative for cough, chest tightness, shortness of breath and wheezing. Cardiovascular: Negative for chest pain, palpitations and leg swelling. Gastrointestinal: Negative for abdominal pain, diarrhea, nausea and vomiting. Endocrine: Negative for polydipsia, polyphagia and polyuria. Genitourinary: Positive for dysuria. Negative for difficulty urinating, frequency, hematuria and urgency. Musculoskeletal: Negative for arthralgias, gait problem, joint swelling and neck pain. Skin: Negative. Neurological: Positive for headaches (She reports migraines returned for the last few months). Negative for dizziness, syncope, weakness, light-headedness and numbness. Psychiatric/Behavioral: Negative for self-injury and suicidal ideas. Depression. She reports she lost her son in 2013 and has been dealing with depression ever since Objective Physical Exam Vitals and nursing note reviewed. Constitutional: General: She is not in acute distress. Appearance: Normal appearance. She is well-developed. She is not ill-appearing. HENT: Head: Normocephalic and atraumatic. Right Ear: External ear normal. Left Ear: External ear normal. Eyes: Extraocular Movements: Extraocular movements intact. Pupils: Pupils are equal, round, and reactive to light. Neck: Vascular: No carotid bruit. Cardiovascular: Rate and Rhythm: Normal rate and regular rhythm. Pulses: Normal pulses. Heart sounds: Murmur heard. Pulmonary: Effort: Pulmonary effort is normal. No respiratory distress. Breath sounds: Normal breath sounds. No wheezing, rhonchi or rales. Chest: Chest wall: No tenderness. Abdominal: General: Bowel sounds are normal. Palpations: Abdomen is soft. Tenderness: There is no abdominal tenderness. Musculoskeletal: General: Normal range of motion. Cervical back: Normal range of motion and neck supple. No tenderness. Right lower leg: No edema. Left lower leg: No edema. Comments: Abnormal gait, limping d/t knee Skin: General: Skin is warm and dry. Capillary Refill: Capillary refill takes less than 2 seconds. Findings: No rash. Neurological: General: No focal deficit present. Mental Status: She is alert and oriented to person, place, and time. Motor: No weakness. Psychiatric: Mood and Affect: Mood normal. Behavior: Behavior normal. Assessment/Plan Care established. She is due for wellness and labs orders place. Discussed pending lab results we can discuss further medication for weight management. We had discussed possible order for Adipex to aid in weight management, however I auscultate a murmur would like to further evaluate with echo. She reports she is concerned about a UTI I will place order for urine. POCT UA shows nitrites and protein I will go ahead and treat for UTI with Keflex. We will start Effexor for depression and see if this aids with migraine prevention. Also start magnesium. She has history of vitamin-D and B deficiency supplements sent. She has history of anemia supplement sent. Patient noted to have elevated BMI and the following intervention(s) were applied: encouragement to exercise. Follow up in 2 months to review labs, discuss weight options, and re-evaluate migraines/ mental health. Maribell was seen today for establish care. Diagnoses and all orders for this visit: Healthcare maintenance - CBC auto differential; Future - Vitamin B12; Future - Comprehensive metabolic panel; Future - Lipid panel; Future - cyanocobalamin (vitamin B-12) 1000 MCG tablet; Take 1 tablet (1,000 mcg total) by mouth in the morning. - Thyroid profile includes TSH FT4; Future - cholecalciferol 1,000 units tablet; Take 2 tablets (2,000 Units total) by mouth in the morning. - Iron and TIBC; Future - Vitamin D 25 hydroxy; Future Vitamin B 12 deficiency - Vitamin B12; Future Vitamin D deficiency - Vitamin D 25 hydroxy; Future Fatigue, unspecified type - CBC auto differential; Future - Vitamin B12; Future - Thyroid profile includes TSH FT4; Future - Iron and TIBC; Future - Vitamin D 25 hydroxy; Future Iron deficiency anemia, unspecified iron deficiency anemia type - CBC auto differential; Future - Iron and TIBC; Future Heart murmur - Echo complete W/O contrast; Future Malodorous urine - POCT urinalysis dipstick only Other orders - ferrous sulfate 325 (65 FE) MG tablet; Take 1 tablet (325 mg total) by mouth in the morning. - venlafaxine XR (EFFEXOR XR) 37.5 mg 24 hr capsule; Take 1 capsule (37.5 mg total) by mouth in the morning. - CEPHalexin (KEFLEX) 500 mg capsule; Take 1 capsule (500 mg total) by mouth 3 (three) times a day for 5 days. - magnesium oxide (MAGOX) 400 mg tablet; Take 1 tablet (400 mg total) by mouth before bedtime. DIALLO Monsalve 08/04/244 documented in this encounter [facility] 06-04-2024 History of Present illness Narrative [facility] [address] [place] [address] Patient: Maribell Handley Sex: female : 1980 Age: 43 y.o. PCP: NO PCP, NO PCP 06/04/2024 Maribell Handley is here for a(n) in office procedure for bilateral knee steroid injections. Chief Complaint Patient presents with Back Pain HPI: 05/05/2023 right genicular nerve block [...] in the left knee and right knee (anterior and posterior aspects). The quality of the pain is described as aching, stabbing and shooting. The pain is at a severity of 10/10. The pain is severe. The pain has been Worsening (wakes her up at night, unable to sleep at night) since onset. Associated symptoms include muscle weakness (BLE). Pertinent negatives include no inability to bear weight or numbness. Associated symptoms comments: Pain increases with weight bearing. Popping in knees. It is unknown if a foreign body is present. The symptoms are aggravated by movement, weight bearing and palpation. Treatments tried: Synvisc, cortisone inj,NSAIDs: (meloxicam, naproxen,volteran) ibuprofen, tiz/flexiril, with no relief. 11/15/2019 Left knee NB 80-90% relief, anibal no relief, lyrica. mobic no relief. The treatment provided no relief. The effect of pain on patient's ADLS: Moderate Impairment. Past Medical History: Diagnosis Date Arthritis Arthritis Chronic pain disorder Depression Joint pain marcia knees Knee pain Migraines Obesity Past Surgical History: Procedure Laterality Date ABLATION ENDOMETRIAL NOVASURE N/A 05/10/2019 Performed by Josefina Murguia MD at [facility] D AND C HYSTEROSCOPY N/A 05/10/2019 Performed by Josefina Murguia MD at [facility] D AND C HYSTEROSCOPY N/A 03/08/2019 Performed by Josefina Murguia MD at [facility] INJECTION BLOCK KNEE GENICULAR Left 11/15/2019 Performed by Joey Mendez MD at [facility] INJECTION BLOCK NERVE KNEE Right Genicular Right 05/05/2023 Performed by Joey Mendez MD at [facility] INJECTION BLOCK NERVE KNEE Left Genicular Left 03/04/2022 Performed by Joey Mendez MD at [facility] INJECTION BLOCK NERVE KNEE Left Genicular Left 06/25/2021 Performed by Joey Mendez MD at [facility] RADIOFREQUENCY ABLATION GENICULAR Left 04/29/2022 Performed by Joey Mendez MD at [facility] TUBAL [...] Never Smokeless tobacco: Never Vaping Use Vaping status: Never Used Substance and Sexual Activity Alcohol use: No Drug use: No Sexual activity: Defer Other Topics Concern Not on file Social History Narrative Not on file Social Drivers of Health Financial Resource Strain: Not on file Food Insecurity: No Food Insecurity (06/04/2024) Hunger Screening Food Insecurity - Worry: Never True Food Insecurity - Inability: Never True Transportation Needs: Not on file Physical Activity: Not on file Stress: Not on file Social Connections: Not on file Interpersonal Safety: Not on file Housing Instability: Not on file Review of Systems Constitutional: Negative. Negative for chills and fever. HENT: Negative. Eyes: Negative. Respiratory: Negative. Negative for cough and shortness of breath. Cardiovascular: Negative. Gastrointestinal: Negative. Endocrine: Negative. Genitourinary: Negative. Musculoskeletal: Positive for arthralgias. Skin: Negative. Allergic/Immunologic: Negative. Neurological: Negative. Negative for numbness. Hematological: Negative. Psychiatric/Behavioral: Negative. Vital Signs: BP 143/84 (BP Site: Left Arm, BP Postition: Sitting) Pulse 83 Resp 20 Physical Exam: GENERAL - Healthy patient that [...] obvious deficits in memory, reasoning, or intellect. Assessment/Treatment Plan: Maribell was seen today for back pain. Diagnoses and all orders for this visit: Bilateral chronic knee pain - triamcinolone acetonide (KENALOG-40) injection 40 mg - BUPivacaine (PF) (MARCAINE) 0.25 % (2.5 mg/mL) injection 10 mg Bilateral primary osteoarthritis of knee [M17.0] Today: In Office Procedure - Intraarticular injection of the Bilateral Knee Indication - Knee Osteoarthritis / Knee Pain Procedure: Risks, Benefits, and Alternatives of the procedure were reviewed. All questions were answered appropriately, and informed consent was obtained both written and verbal prior to the procedure. Patient was placed in the sitting position with knees flexed to a position of comfort. Landmarks were palpated for an anterior approach above the tibial tuberosity of the painful knee(s). The area was prepped with alcohol and draped in usual sterile fashion. Then 25 gauge needle was passed into the knee atraumatically. At this point, a total of 8cc of 0.25% bupivacaine combined with 80mg triamcinolone was slowly injected after negative aspiration in the above noted knee(s). The procedure was concluded with withdrawal of the needles and placement of a sterile bandage as needed. The patient tolerated the procedure well. Post procedure vital signs were taken and noted to be stable and the patient was observed in the pain management clinic for 10min without adverse sequela. The patient was released to their own accord and will follow up as scheduled. Follow up 4 weeks The medications I have prescribed have been reviewed for medication interactions/contraindications and/or for upcoming procedures: continue current medication regimen without any changes. DISCUSSION: Treatment options discussed with patient and all questions answered to patient's satisfaction. Xray was reviewed and used to explain the condition. Chronic conditions not treated during this visit that affected my overall medical decision making: [place] OARRS: Reviewed. Scribe Statement: Dorcas Ramírez CNA, scribed for and in the presence of DIALLO SANTANA who performed the above service. Provider Statement: LILIA Ramírez APRN-CNP, personally performed the services described in the documentation, as scribed by Dorcas Gottlieb CNA in my presence, and it is both accurate and complete. Dorcas Gottlieb CNA 06/04/24 1413 DIALLO Santana 06/04/24 1540 documented in this encounter [facility] 05-15-2024 History of Present illness Narrative [facility] [address] [place] [address] Patient: Maribell Handley Sex: female : 1980 Age: 43 y.o. PCP: NO PCP, NO PCP 05/15/2024 Maribell Handley is here for a(n)1 month follow up after Biilateral Genicular Nerve Blocks were denied by insurance. She repors her knee pain is increasing. Chief Complaint Patient presents with Knee Pain [...] in the left knee and right knee (anterior and posterior aspects). The quality of the pain is described as aching. The pain is at a severity of 10/10. The pain is severe. The pain has been Worsening (wakes her up at night, unable to sleep at night) since onset. Associated symptoms include muscle weakness (BLE). Pertinent negatives include no inability to bear weight, numbness or tingling. Associated symptoms comments: Pain increases with weight bearing Popping in knees. Right knee worse then left . It is unknown if a foreign body is present. The symptoms are aggravated by movement, weight bearing and palpation. Treatments tried: Synvisc, cortisone inj,NSAIDs: (meloxicam, naproxen,volteran) ibuprofen, tiz/flexiril, with no relief. 11/15/2019 Left knee NB 80-90% relief, anibal no relief, lyrica. mobic no relief. The treatment provided no relief. The effect of pain on patient's ADLS: Moderate Impairment. Past Medical History: Diagnosis Date Arthritis Arthritis Chronic pain disorder Depression Joint pain marcia knees Knee pain Migraines Obesity Past Surgical History: Procedure Laterality Date ABLATION ENDOMETRIAL NOVASURE N/A 05/10/2019 Performed by Josefina Murguia MD at [facility] D AND C HYSTEROSCOPY N/A 05/10/2019 Performed by Josefina Murguia MD at [facility] D AND C HYSTEROSCOPY N/A 03/08/2019 Performed by Josefina Murguia MD at [facility] INJECTION BLOCK KNEE GENICULAR Left 11/15/2019 Performed by Joey Mendez MD at [facility] INJECTION BLOCK NERVE KNEE Right Genicular Right 05/05/2023 Performed by Joey Mendez MD at [facility] INJECTION BLOCK NERVE KNEE Left Genicular Left 03/04/2022 Performed by Joey Mendez MD at [facility] INJECTION BLOCK NERVE KNEE Left Genicular Left 06/25/2021 Performed by Joey Mendez MD at [facility] RADIOFREQUENCY ABLATION GENICULAR Left 04/29/2022 Performed by oJey Mendez MD at [facility] TUBAL [...] Never Smokeless tobacco: Never Vaping Use Vaping status: Never Used Substance and Sexual Activity Alcohol use: No Drug use: No Sexual activity: Defer Other Topics Concern Not on file Social History Narrative Not on file Social Drivers of Health Financial Resource Strain: Not on file Food Insecurity: No Food Insecurity (05/15/2024) Hunger Screening Food Insecurity - Worry: Never True Food Insecurity - Inability: Never True Transportation Needs: Not on file Physical Activity: Not on file Stress: Not on file Social Connections: Not on file Interpersonal Safety: Not on file Housing Instability: Not on file Review of Systems Constitutional: Negative for chills and fever. HENT: Negative. Eyes: Negative. Respiratory: Negative. Cardiovascular: Negative. Gastrointestinal: Negative. Genitourinary: Negative. Musculoskeletal: Positive for arthralgias. Skin: Negative. Neurological: Negative for tingling and numbness. Vital Signs: BP 137/76 (BP Site: Left Arm, BP Postition: Sitting) Pulse 72 Resp 18 SpO2 99% Physical Exam: GENERAL - Healthy patient that [...] in the overlying dermatomal distributions. Gait remains antalgic. Examination of the Bilateral knee reveals tenderness to palpation over the superior, inferior, lateral, and medial aspect of the knee. Some swelling is noted without significant erythema. Pain is elicited with flexion and extension of the knee both actively and passively. Some grinding is noted with these motions. There is no notable ligamental laxity or instability and drawer test is negative. Assessment/Treatment Plan: Maribell was seen today for knee pain. Diagnoses and all orders for this visit: Bilateral chronic knee pain - Ambulatory referral to Orthopedic Surgery; Future Primary osteoarthritis of right knee - Ambulatory referral to Orthopedic Surgery; Future Primary osteoarthritis of left knee Continue Naproxen 500 mg BID Orthopedic surgery Referral - It is felt that due to the severity of the patient s symptoms and lack of response to conservative treatment, surgical options need to be reviewed at this time. Hopefully this will provide more definitive treatment strategies for these symptoms. PLAN: In Office Procedure - Noting the severity of the patients pain and failure to respond to conservative therapy, it is felt that an office injection will be helpful. We will plan to perform a Bilateral steroid knee injections Indication - Bilateral chronic knee pain/Primary osteoarthritis of right knee/Primary osteoarthritis left knee It is hopeful that the described procedure [...] not limited to bleeding, infection, nerve damage, paralysis, and medication reaction. The patient expressed understanding regarding the risks and benefits and wishes to proceed. Follow up 2 weeks after procedure The medications I have prescribed have been reviewed for medication interactions/contraindications and/or for upcoming procedures: continue current medication regimen without any changes. DISCUSSION: Treatment options discussed with patient and all questions answered to patient's satisfaction. Discussed the rules and regulations surrounding prescription of opioids and compliance at length. Failure to follow the rules and regulation will result in tapering and discontinuation of medications if applicable. The patient has been instructed as to the type of medication prescribed along with directions for use. Potential side effects have been discussed, along with risks and benefits of taking this medication. (S)he was instructed as to what to do if (s)he experiences side effects, including when to discontinue the medication. (S)he was advised to call this office in this event. Also discussed at length safety and security of RX and medications. Prescribed medication that requires intensive monitoring for toxicity We do not currently prescribe any controlled substance from this practice. Xray was reviewed and used to explain [...] them with the patient for these reasons. OARRS: Reviewed. Scribe Statement: Dorcas Ramírez CNA, scribed for and in the presence of ELMO NEWELL PA-C who performed the above service. Provider Statement: ELMO Ramírez PA-C, personally performed the services described in the documentation, as scribed by Dorcas Gottlieb CNA in my presence, and it is both accurate and complete. Dorcas Gottlieb CNA 05/15/24 1006 lEmo Newell PA-C 05/15/24 1040 documented in this encounter [facility] 05-01-2024 Miscellaneous Notes Genicular NB was denied by insurance. Letter states The limited evidence regarding genicular nerve blocks for determining appropriateness of treatment with genicular RFA has reached conflicting results. A few small studies suggest that genicular radiofrequency neurotomy may be effective for relief of pain, but further research is needed to establish safety and efficacy. How do you want to proceed? Nothing further at this time. Please let patient know that the nerve blocks are not an option at this point due to insurance. Can discuss in OV vs a referral to ortho (which we already discussed as patient was made aware that her insurance may not cover genicular) Call and left VM for pt Pt has been scheduled for 05/14 @ 8:15a documented in this encounter [facility] 05-01-2024 Telephone encounter Note Genicular NB was denied by insurance. Letter states The limited evidence regarding genicular nerve blocks for determining appropriateness of treatment with genicular RFA has reached conflicting results. A few small studies suggest that genicular radiofrequency neurotomy may be effective for relief of pain, but further research is needed to establish safety and efficacy. How do you want to proceed? [facility] 05-01-2024 Telephone encounter Note Nothing further at this time. Please let patient know that the nerve blocks are not an option at this point due to insurance. Can discuss in OV vs a referral to ortho (which we already discussed as patient was made aware that her insurance may not cover genicular) [facility] 05-01-2024 Telephone encounter Note Call and left VM for pt [facility] 05-01-2024 Telephone encounter Note Pt has been scheduled for 05/14 @ 8:15a [facility] 04-18-2024 History of Present illness Narrative [facility] [address] [place] [address] Patient: Maribell Handley Sex: female : 1980 Age: 43 y.o. PCP: NO PCP, NO PCP 04/18/2024 Maribell Handley is here for a(n) follow up for bilateral knee pain. Patient was prescribed Naproxen 500 mg BID at last OV. Patient reports significant pain relief with Naproxen. Chief Complaint Patient presents with Knee Pain [...] in the left knee and right knee (anterior and posterior aspects). The quality of the pain is described as aching. The pain is at a severity of 10/10. The pain is severe. The pain has been Worsening (wakes her up at night, unable to sleep at night) since onset. Associated symptoms include muscle weakness (BLE). Pertinent negatives include no inability to bear weight, numbness or tingling. Associated symptoms comments: Pain increases with weight bearing . It is unknown if a foreign body is present. The symptoms are aggravated by movement, weight bearing and palpation. Treatments tried: Synvisc, cortisone inj,NSAIDs: (meloxicam, naproxen,volteran) ibuprofen, tiz/flexiril, with no relief. 11/15/2019 Left knee NB 80-90% relief, anibal no relief, lyrica. mobic no relief. The treatment provided no relief. The effect of pain on patient's ADLS: Moderate Impairment. Past Medical History: Diagnosis Date Arthritis Arthritis Chronic pain disorder Depression Joint pain marcia knees Knee pain Migraines Obesity Past Surgical History: Procedure Laterality Date ABLATION ENDOMETRIAL NOVASURE N/A 05/10/2019 Performed by Josefina Murguia MD at [facility] D AND C HYSTEROSCOPY N/A 05/10/2019 Performed by Josefina Murguia MD at [facility] D AND C HYSTEROSCOPY N/A 03/08/2019 Performed by Josefina Murguia MD at [facility] INJECTION BLOCK KNEE GENICULAR Left 11/15/2019 Performed by Joey Mendez MD at [facility] INJECTION BLOCK NERVE KNEE Right Genicular Right 05/05/2023 Performed by Joey Mendez MD at [facility] INJECTION BLOCK NERVE KNEE Left Genicular Left 03/04/2022 Performed by Joey Mendez MD at [facility] INJECTION BLOCK NERVE KNEE Left Genicular Left 06/25/2021 Performed by Joey Mendez MD at [facility] RADIOFREQUENCY ABLATION GENICULAR Left 04/29/2022 Performed by Joey Mendez MD at [facility] TUBAL [...] Never Smokeless tobacco: Never Vaping Use Vaping status: Never Used Substance and Sexual Activity Alcohol use: No Drug use: No Sexual activity: Defer Other Topics Concern Not on file Social History Narrative Not on file Social Drivers of Health Financial Resource Strain: Not on file Food Insecurity: No Food Insecurity (04/18/2024) Hunger Screening Food Insecurity - Worry: Never True Food Insecurity - Inability: Never True Transportation Needs: Not on file Physical Activity: Not on file Stress: Not on file Social Connections: Not on file Interpersonal Safety: Not on file Housing Instability: Not on file Review of Systems HENT: Negative. Respiratory: Negative. Cardiovascular: Negative for chest pain. Gastrointestinal: Negative. Genitourinary: Negative. Musculoskeletal: Bilateral knees Skin: Negative. Neurological: Negative for tingling and numbness. Psychiatric/Behavioral: Negative. Vital Signs: BP 128/81 Pulse 80 Resp 16 Ht 157.5 cm (5' 2 ) Wt 108.4 kg (239 lb) SpO2 100% BMI 43.71 kg/m Physical Exam: GENERAL - Healthy patient that [...] in the overlying dermatomal distributions. Gait remains antalgic. Examination of the Bilateral knee reveals tenderness to palpation over the superior, inferior, lateral, and medial aspect of the knee. Some swelling is noted without significant erythema. Pain is elicited with flexion and extension of the knee both actively and passively. Some grinding is noted with these motions. There is no notable ligamental laxity or instability and drawer test is negative. Assessment/Treatment Plan: Maribell was seen today for knee pain. Diagnoses and all orders for this visit: Bilateral chronic knee pain Primary osteoarthritis of right knee - Case request operating room: INJECTION BLOCK NERVE KNEE: right genic Primary osteoarthritis of left knee - Case request operating room: INJECTION BLOCK NERVE KNEE: left genic Other orders - naproxen (NAPROSYN) 500 mg tablet; Take 1 tablet (500 mg total) by mouth in the morning and 1 tablet (500 mg total) in the evening. Take with meals. Refill Naproxen 500 mg BID PRN Right then Left Genicular Nerve Block - under fluoroscopy It [...] year. Follow up 2 weeks after procedure The medications I have prescribed have been reviewed for medication interactions/contraindications and/or for upcoming procedures: continue current medication regimen without any changes. DISCUSSION: Treatment options discussed with patient and all questions answered to patient's satisfaction. The patient has been instructed as to the type of medication prescribed along with directions for use. Potential side effects have been discussed, along with risks and benefits of taking this medication. (S)he was instructed as to what to do if (s)he experiences side effects, including when to discontinue the medication. (S)he was advised to call this office in this event. Also discussed at length safety and security of RX and medications. Prescribed medication that requires intensive monitoring for toxicity We do not currently prescribe any controlled substance from this practice. Treatment plans discussed but not opted for at this time: Genicular RFA and/or Orthopedic consult. Patient would like to proceed with the [...] for further evaluation. OARRS: Reviewed. Scribe Statement: Dorcas Ramírez CNA, scribed for and in the presence of CLAUDE IVAN who performed the above service. Provider Statement: ILIANA Ramírez PA, personally performed the services described in the documentation, as scribed by Dorcas Gottlieb CNA in my presence, and it is both accurate and complete. Dorcas Gottlieb CNA 04/18/24 0938 CLAUDE Ivan 04/18/24 1453 documented in this encounter [facility] 04-18-2024 Instructions Dorcas Gottlieb CNA - 04/18/2024 8:30 AM EST Epidural Steroid Injection (TONYA) / Nerve [...] a safety precaution, you must have a parts delivery driver after a lumbar nerve root injection, [...] back to normal. documented in this encounter [facility] [employer] [facility] 08-10-2023 History of Present illness Narrative [facility] [address] [place] [address] Patient: Maribell Handley Sex: female : 1980 Age: 42 y.o. PCP: Chiki Coombs PA-C 08/10/2023 Maribell Handley is here for a(n) follow up. Patient reports he insurance has lapsed and she is truing to get it reinstated. Chief Complaint Patient presents with Knee Pain [...] present in the left knee and right knee. The quality of the pain is described as aching (sharp shooting down from right knee to foot). The pain is at a severity of 10/10. The pain is severe. The pain has been Worsening (wakes her up at night, unable to sleep at night) since onset. Associated symptoms include [...] The effect of pain on patient's ADLS: Moderate Impairment. Past Medical History: Diagnosis Date Arthritis Arthritis Chronic pain disorder Depression Joint pain marcia knees Knee pain Migraines Obesity Past Surgical History: Procedure Laterality Date ABLATION ENDOMETRIAL NOVASURE N/A 05/10/2019 Performed by Josefina Murguia MD at [facility] D AND C HYSTEROSCOPY N/A 05/10/2019 Performed by Josefina Murguia MD at [facility] D AND C HYSTEROSCOPY N/A 03/08/2019 Performed by Josefina Murguia MD at [facility] INJECTION BLOCK KNEE GENICULAR Left 11/15/2019 Performed by Joey Mendez MD at [facility] INJECTION BLOCK NERVE KNEE Right Genicular Right 05/05/2023 Performed by Joey Mendez MD at [facility] INJECTION BLOCK NERVE KNEE Left Genicular Left 03/04/2022 Performed by Joey Mendez MD at [facility] INJECTION BLOCK NERVE KNEE Left Genicular Left 06/25/2021 Performed by Joey Mendez MD at [facility] RADIOFREQUENCY ABLATION GENICULAR Left 04/29/2022 Performed by Joey Mendez MD at [facility] TUBAL [...] Never Smokeless tobacco: Never Vaping Use Vaping status: Never Used Substance and Sexual Activity Alcohol use: No Drug use: No Sexual activity: Defer Other Topics Concern Not on file Social History Narrative Not on file Social Determinants of Health Financial Resource Strain: Not on file Food Insecurity: No Food Insecurity (08/10/2023) Hunger Screening Food Insecurity - Worry: Never True Food Insecurity - Inability: Never True Transportation Needs: Not on file Physical Activity: Not on file Stress: Not on file Social Connections: Not on file Interpersonal Safety: Not on file Housing Instability: Not on file Review of Systems Constitutional: Negative. Negative for chills, fatigue and fever. HENT: Negative. Eyes: Negative. Respiratory: Negative. Negative for cough and shortness of breath. Cardiovascular: Negative. Negative for chest pain. Gastrointestinal: Negative. Negative for constipation and diarrhea. Endocrine: Negative. Genitourinary: Negative. Negative for difficulty urinating and frequency. Musculoskeletal: Negative. Knee pain bilaterally Skin: Negative for rash and wound. Allergic/Immunologic: Negative. Neurological: Positive for weakness (legs). Negative for tingling and numbness. Hematological: Negative. Psychiatric/Behavioral: Negative. Negative for agitation and suicidal ideas. Vital Signs: BP 132/81 (BP Site: Right Arm, BP Postition: Sitting) Pulse 82 Resp 20 Ht 154.9 cm (5' 1 ) Wt 116.1 kg (256 lb) BMI 48.37 kg/m Physical Exam: GENERAL - Healthy patient that [...] in the overlying dermatomal distributions. Gait remains antalgic. Examination of the Right knee reveals tenderness to palpation over the superior, inferior, lateral, and medial aspect of the knee. Some swelling is noted without significant erythema. Pain is elicited with flexion and extension of the knee both actively and passively. Some grinding is noted with these motions. There is no notable ligamental laxity or instability and drawer test is negative. Assessment/Treatment Plan: Maribell was seen today for knee pain. Diagnoses and all orders for this visit: Primary osteoarthritis of right knee Other orders - naproxen (NAPROSYN) 500 mg tablet; Take 1 tablet (500 mg total) by mouth in the morning and 1 tablet (500 mg total) in the evening. Take with meals. Naproxen 500 mg BID With Regard to medication management, it is felt that the patient would benefit from the changes mentioned above. This should provide symptomatic pain relief as part of the comprehensive pain management strategy outlined. Risks, Benefits, Side effects, and possible interactions of these medications were reviewed and the medication agreement has been discussed, agreed upon, and signed. The patient understands compliance concerns and the requirement of pill counts and drug screens while taking medications prescribed by this clinic. Monitor Follow up PRN The medications I have prescribed have been reviewed for medication interactions/contraindications and/or for upcoming procedures: continue current medication regimen without any changes. DISCUSSION: Treatment options discussed with patient and [...] but not opted for at this time: Genicualr nerve block injection. Patient unable to afford due to current financial situation. The spine model was demonstrated and Xray was reviewed and used to explain the condition. OARRS: Reviewed. Scribe Statement: Scribed for and in the presence of CLAUDE IVAN by Dorcas Gottlieb CNA. Provider Statement: I, CLAUDE IVAN, personally performed the services described in the documentation, as scribed by Dorcas Gottlieb CNA in my presence, and it is both accurate and complete. Dorcas Gottlieb CNA 08/10/23 1259 CLAUDE Ivan 08/10/23 1344 documented in this encounter [facility] 05-18-2023 History of Present illness Narrative [facility] [address] [place] [address] Patient: Maribell Handley Sex: female : 1980 Age: 42 y.o. PCP: Chiki Coombs PA-C 05/18/2023 Maribell Handley is here for a(n) post procedure [...] 05/10/2019 Performed by Josefina Murguia MD at [facility] D AND C HYSTEROSCOPY N/A 05/10/2019 Performed by Josefina Murguia MD at [facility] D AND C HYSTEROSCOPY N/A 03/08/2019 Performed by Josefina Murguia MD at [facility] INJECTION BLOCK KNEE GENICULAR Left 11/15/2019 Performed by Joey Mendez MD at [facility] INJECTION BLOCK NERVE KNEE Right Genicular Right 05/05/2023 Performed by Joey Mendez MD at [facility] INJECTION BLOCK NERVE KNEE Left Genicular Left 03/04/2022 Performed by Joey Mendez MD at [facility] INJECTION BLOCK NERVE KNEE Left Genicular Left 06/25/2021 Performed by Joey Mendez MD at [facility] RADIOFREQUENCY ABLATION GENICULAR Left 04/29/2022 Performed by Joey Mendez MD at [facility] TUBAL [...] and drawer test is negative. Assessment/Treatment Plan: Maribell was seen today for knee pain. Diagnoses [...] Ivan 05/18/23 1536 documented in this encounter [facility] [employer] 05-18-2023 Instructions Dorcas Gottlieb CNA - 05/18/2023 [...] a safety precaution, you must have a parts delivery driver after a lumbar nerve root injection, [...] back to normal. [facility] Miscellaneous Notes Patient called to request a work note for today. Patient states she did not go to work today. Service Desk Agent spoke with Elmo who approves work note for today. Patient asks that note be sent to [email or web address]. Done. [facility] this encounter [facility]-22-2023 Telephone encounter Note Patient called to request a work note for today. Patient states she did not go to work today. Service Desk Agent spoke with Elmo who approves work note for today. Patient asks that note be sent to [email or web address]. Done. [facility] 10-05-2022 Evaluation note Encounter Date Diagnosis [...] Strongly encouraged to take advantage of our zoogler available at [facility] that can help work around limitations. [...] will perform surveillance through out our visits. [employer] Other 07-20-2022 NotePROCEDURE: XR KNEE RT 4V [...] authenticated by: VIRGILIO FORRESTER Date: 2021-10-19 22:25[facility] noteNo InformationNort [employer] Other Evaluation noteNo assessment information available [facility] Work Phone: Evaluation note* Diagnosis Bilateral chronic knee pain- Primary Primary osteoarthritis of right knee Primary osteoarthritis of left knee documented in this encounter [facility] [employer] SystemEvaluation note* Diagnosis Primary osteoarthritis of right knee- Primary documented in this encounter [facility] [employer] System[facility] note* Diagnosis Bilateral chronic knee pain- Primary Primary osteoarthritis of right knee Primary osteoarthritis of left knee documented in this encounter [facility] [employer] System[facility] note* Diagnosis Primary osteoarthritis of right knee- Primary documented in this encounter [facility] Diagnosis Bilateral chronic knee pain- Primary Bilateral primary osteoarthritis of knee [M17.0] documented in this [facility] Diagnosis Heart murmur- Primary Undiagnosed cardiac murmurs Healthcare maintenance Vitamin B 12 deficiency Other B-complex deficiencies Vitamin D deficiency Fatigue, unspecified type Iron deficiency anemia, unspecified iron deficiency anemia type Malodorous urine Encounter to establish care [facility] Heart murmur- Primary Undiagnosed cardiac murmurs Bilateral chronic knee pain Major depressive disorder with current active episode, unspecified depression episode severity, unspecified whether recurrent [facility] Diagnosis Morbid obesity with body mass index of 45.0-49.9 in adult ([facility])- Primary Shortness of breath Heart murmur Undiagnosed cardiac murmurs [facility] Diagnosis Primary osteoarthritis of right knee- Primary Primary osteoarthritis of left knee documented [facility] this encounter [facility] N[facility] - Reported* Type Description Date Medical History Osteoarthritis Medical History Anxiety Medical History Arthritis of bilateral knees Medical History Depression Medical History Panic attacks Medical History Anemia Medical History Bipolar Surgical History tubal ligation Surgical History Uterine ablation 11/2019 Surgical History [place] teeth extraction Hospitalization History child Hospitalization History See above [facility] Other Hospital Discharge instructions Additional Instructions Follow up with mental health as directed.[facility] Work Phone: Hospital Discharge instructions Additional Instructions Wear George wrap for support for the next 3 to 5 days Stop your Naprosyn Start Relafen You can take Tylenol if needed for pain Relafen if needed for pain Follow Ortho call tomorrow for your follow-up appointment Return here if any problems persist or worsen Make sure you [facility] and [facility] Work Phone: InstructionsNot on filedocumented in this encounter [facility] [employer] SystemInstructionsNot on filedocumented in this encounter [facility]InstructionsNot on filedocumented in this encounter [facility]* Attachments The following attachments cannot be sent through Care Everywhere. * Good Food Sources of Iron (Colombian) documented in [facility] SystemInstructionsNot on file documented in [place] encounterPro[place] SystemInstructionsNot on file documented in this encounterProCent[place] SystemInstructionsNot on file documented in this encounterProCent[place] SystemInstructionsNot on file documented in this encounterPro[place] SystemInstructionsNot on file documented in this encounterPro[facility] SystemReason for referral (narrative)No reason for referral information availableClinton [facility] Work Phone: Summary Purpose Family History No Family History Records Found Relationship Condition Age at Onset Recorded Date/T harpreet father History of stroke Unknown mother Hypertension Unknown son Family history of mental disorder Unknown Advance Directives No Advanced Directives Records Found Advance Directive Response Recorded Date/ Time Advance Directives No February 1:20pm Advance Directive Response Recorded Date/ Time Advance Directives No February 2:20pm Chief Complaint and Reason for Visit Chief Complaint Right shoulder pain Chief Complaint Admit Date nauseous October 28, 2024 9:18 pm Chief Complaint Admit Date nauseous October 28, 2024 9:18 pm Mental Health November 12, 2024 5: 37pm Chief Complaint Admit Date nauseous October 28, 2024 9:18 pm Mental Health November 12, 2024 5: 37pm Unknown December 30, 2024 11:00pm Chief Complaint Admit Date nauseous October 28, 2024 9:18 pm Mental Health November 12, 2024 5: 37pm Unknown December 30, 2024 11:00pm L knee injury January 02, 2025 7: 37pm Assessments No Assessments Information Available Discharge Instructions Additional Instructions Use [id number] pain control as needed Robaxin is a muscle relaxer and can make you drowsy. Do not drive or drink alcohol on this medication. Follow-up with your family doctor Reason for Referral Specialty Diagnoses / Procedures Referred By Alexandr berman Referred To Contact Diagnoses Primary osteoarthritis of right knee Procedures Case request operating room: INJECTION BLOCK NERVE KNEE Iliana Mcwilliams PA [address], [address] [place] [address] Referral ID Status Reason Start Date Expiration Date V isits Requested Visits Authorized [id number] Pending Review 05/18/2023 05/17/2024 1 1 Additional Source Comments INFORMATION SOURCE (unrecogn ized section and content) DATE CREATED AUTHOR 10/21/2017 [facility] DATE CREATED AUTHOR AUTHOR'S ORGANIZ ATION 03/02/2022 [facility] DATE CREATED AUTHOR AUTHOR'S ORGANIZ ATION 08/31/2024 [facility] DATE CREATED AUTHOR AUTHOR'S ORGANIZ ATION 10/15/2024 [facility] DATE CREATED AUTHOR AUTHOR'S ORGANIZ ATION 11/30/2024 [facility] DATE CREATED AUTHOR AUTHOR'S ORGANIZ ATION 01/14/2025 [facility] REASON FOR VISIT (unrecogniz ed section and content) Reason Comments Knee Pain Reason Comments Knee Pain Reason Comments Knee Pain Reason Comments Back Pain Reason Comments Establish Care Reason Comments Follow-up Reason Comments 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 SELF REFERRAL CAR DIAC MURMUR Reason Onset Date Comments echo 10/15/2024 Reason Comments Pain Reason Onset Date Comments JOSE J is telling Maribell that she needs an approval request 12/17/2024 Goals (unrecognized section and content) Goals may be documented in a n alternate section Care Teams (unrecognized sec tion and content) Duck Operator Relationship Specialty Start Date End Date No Pcp, [place] [address] PCP - General Family Medicine 01/29/24 Duck Operator Relationship Specialty Start Date End Date No Pcp, [place] [address] PCP - General Family Medicine 01/29/24 Duck Operator Relationship Specialty Start Date End Date Chiki Coombs PA-C [address] [place] [address] [id number] PCP - General Physician Celery Wrapper 09/06/22 Duck Operator Relationship Specialty Start Date End Date Chiki Coombs PA-C [address] [place] [address] [id number] PCP - General Physician Celery Wrapper 05/15/23 Duck Operator Relationship Specialty Start Date End Date Chiki Coombs PA-C [address] [place] [address] [id number] PCP - General Physician Celery Wrapper 05/15/23 Duck Operator Relationship Specialty Start Date End Date No Pcp, [place] [address] PCP - General Family Medicine 01/29/24 Duck Operator Relationship Specialty Start Date End Date Randee RiversndBEATRIZ donahue-[facility] [address] [place] [address], [facility] [place] [phone] PCP - General Family Medicine 07/31/24 Duck Operator Relationship Specialty Start Date End Date Viktoriya Rivers APRN-[facility] [address] [place] [address], [facility] [place] [phone] PCP - General Family Medicine 07/31/24 Duck Operator Relationship Specialty Start Date End Date Viktoriya Rivers APRN-[facility] [address] [place] [address], [facility] [place] [phone] PCP - General Family Medicine 07/31/24 Duck Operator Relationship Specialty Start Date End Date RiversViktoriya garcia APRN-[facility] [address] [place] [address], [facility] [place] [phone] PCP - General Family Medicine 07/31/24 Duck Operator Relationship Specialty Start Date End Date Viktoriya Rivers APRN-[facility] [address] [place] [address], [facility] [place] [phone] PCP - General Family Medicine 07/31/24 Duck Operator Relationship Specialty Start Date End Date Viktoriya Rivers APRN-[employer] [address] [place] [address], [facility] [place] [phone] PCP - General Family Medicine 07/31/24 Duck Operator Relationship Specialty Start Date End Date Viktoriya Rivers APRN-[employer] [address], [place] [phone] PCP - General Family Medicine 07/31/24 Team Status: Active Member Role Status Dates Viktoriya Rivers COMMUNICATIONS AND SIGNALS SUPERVISOR-C Primary Care Provider Active Team Status: Inactive Member Role Status Dates Jayden Pedroza MD Emergency Provider Active Star t: October 28, 2024 End: October 28, 2024 Viktoriya Rivers COMMUNICATIONS AND SIGNALS SUPERVISOR-C Primary Care Provider Active Start: October 28, 2024 End: October 28, 2024 Team Status: Inactive Member Role Status Dates Viktoriya Rivers COMMUNICATIONS AND SIGNALS SUPERVISOR-C Primary Care Provider Active Start: November 12, 2024 End: November 12, 2024 Jovon Daniel DO Emergency Provider Active Start: November 12, 2024 End: November 12, 2024 Duck Operator Relationship Specialty Start Date End Date Viktoriya Rivers MD [address], [place] [address] PCP - General Family Medicine 11/19/24 Duck Operator Relationship Specialty Start Date End Date Viktoriya Rivers MD [address] [facility], [place], [place] [phone] PCP - General Family Medicine 11/19/24 Duck Operator Relationship Specialty Start Date End Date Viktoriya Rivers APRN-[employer] [address] [place], [facility] Jose [facility] [place] [phone] PCP - General Family Medicine 07/31/24 Duck Operator Relationship Specialty Start Date End Date Viktoriya Rivers MD [address], [facility] D [place], [place] [phone] PCP - General Family Medicine 11/19/24 Team Status: Inactive Member Role Status Dates Jennacrystal Rodriguezchicho Olmedo DO Attending Provider Active Start: December 30, 2024 End: December 30, 2024 Team Status: Active Member Role Status Dates Von Marx PA-C Primary Care Provider Active Team Status: Inactive Member Role Status Dates Von Marx PA-C Primary Care Provider Active Start: January 02, 2025 End: January 02, 2025 Brooklyn Elena APRN Emergency Provider Active Start: January 02, 2025 End: January 02, 2025 FOR RECORDS PERTAINING TO PATIENTS WHO ARE [...] BE BASED ON THE PRIMARY CLINICAL RECORDS. [email or web address] [facility]. provides no warranty or guarantee of the accuracy or completeness of information in this document.
[2025-01-15 17:05] LABS: SARS-CoV-2 Ag NEGATIVE (NEGATIVE)
--- NOTE | 2025-01-15 17:28 | ED.GENADUL1 ---
HPI HPI - General Adult General Chief complaint: Weakness Stated complaint: Weakness Time Seen by Provider: 01/15/25 16:42 Source: patient Mode of arrival: walk-in Limitations: no limitations History of Present Illness HPI narrative: Presenting to us with almost 1 week history of cough productive associated with generalized body ache runny nose and the sore throat Has a history of smoking mentioned that she has history of chronic anemia although she did just have WORKUP done a week ago that she need to go to her primary care to check that out Related Data Home Medications ?Medication ?Instructions ?Recorded ?Confirmed amoxicillin 500 mg tablet 500 mg PO Q12H 01/15/25 01/15/25 lidocaine 4 % topical patch patch topical 01/15/25 Previous Rx's ?Medication ?Instructions ?Recorded guaifenesin 600 mg tablet, 600 mg PO BID PRN cough #20 tabs 01/15/25 extended release 12 hr (Mucinex) Allergies Allergy/AdvReac Type Severity Reaction Status Date / Time codeine Allergy Unknown constipatio Verified 01/15/25 16:34 n Opioid HPI Opioid Management Most Recent Opioid Data: Last Pain Scale 10 12/30/24, 23:16 Review of Systems ROS Status of ROS 10 or more systems reviewed and unremarkable except as noted in history and below PFSH PFSH Social History Smoking status: Never smoker Little interest or pleasure in doing things: not at all Feeling down, depressed, or hopeless: not at all Exam Narrative Exam Narrative: Nurses notes and vital signs reviewed and patient is not hypoxic. General: Well-appearing and in no apparent distress. Skin: Warm, dry, no pallor noted. No rash. Head: Normocephalic, atraumatic. Neck: Supple, non-tender. Eye: Pupils are equal, round and EOMI. No scleral icterus. Ears, Nose, Mouth, and Throat: mild oropharynx erythema, uvula is mid-line Cardiovascular: Regular Rate and Rhythm without murmur, gallop or rub. Respiratory: No accessory muscle use or respiratory distress. Lungs are clear to auscultation, no wheezing, rales or rhonchi Chest Wall: no tenderness Back: No midline thoracic or lumbar vertebral tenderness. No CVA tenderness Musculoskeletal: normal ROM, no calf or popliteal tenderness, no lower extremity edema/swelling GI: Abdomen is soft, non-distended. Normal bowel sounds. No masses appreciated. No tenderness to palpation. No rebound, guarding, or rigidity noted. Neurological: A&O x4. No cranial nerve dysfunction observed. No truncal ataxia. Moves all extremities. Sensation intact. Psychiatric: Cooperative and interactive. Normal mood and affect. Constitutional Vital Signs, click to edit/add: Last Vital Signs Temp 97.9 F 01/15/25 16:34 Pulse 79 01/15/25 16:34 Resp 16 01/15/25 16:34 BP 120/78 01/15/25 16:34 Pulse Ox 97 01/15/25 16:34 O2 Del Method Room Air 01/15/25 16:34 Course Vital Signs Vital signs: Vital Signs Temperature 97.9 F 01/15/25 16:34 Pulse Rate 79 01/15/25 16:34 Respiratory Rate 16 01/15/25 16:34 Blood Pressure 120/78 01/15/25 16:34 Pulse Oximetry 97 01/15/25 16:34 Oxygen Delivery Method Room Air 01/15/25 16:34 Temperature 97.9 F 01/15/25 16:34 Pulse Rate 79 01/15/25 16:34 Respiratory Rate 16 01/15/25 16:34 Blood Pressure 120/78 01/15/25 16:34 Pulse Oximetry 97 01/15/25 16:34 Oxygen Delivery Method Room Air 01/15/25 16:34 Medical Decision Making [facility] Narrative Medical decision making narrative: Patient was already started on amoxicillin by her primary care which she will lease picker and start taking The patient presented to us with viral bronchitis she will be treated with Mucinex The patient is to follow up with primary care physician in next 2-3 days or to return to the emergency department should any of the signs or symptoms worsen or new symptoms develop. The patient agrees with the following Diagnosis and Treatment plan and the patient will be discharged home. Lab Data Labs: Lab Results 01/15/25 Range/Units 16:38 Influenza Type A Ag Negative Influenza Type B Ag Negative SARS-CoV-2 Ag (CV2AG) Negative (NEGATIVE) Discharge Plan Discharge Chief Complaint: Weakness Clinical Impression: Acute viral bronchitis, Pharyngitis Patient Disposition: Home, Self-Care Time of Disposition Decision: 17:28 Condition: Good Mode of Transportation: Private Vehicle Prescriptions / Home Meds: New guaifenesin [Mucinex] 600 mg tablet extended release 12hr 600 mg PO BID PRN (Reason: cough) Qty: 20 0RF No Action amoxicillin 500 mg tablet 500 mg PO Q12H lidocaine 4 % adhesive patch,medicated TOPICAL Print Language: Serbian Instructions: Acute Bronchitis (ED) Referrals: [facility] [Primary Care Provider, Unknown] - 1 week Discharge Date/Time: 01/15/25 17:42
[2025-01-15] MEDS: PREDNISONE 20 MG TABLET 40 MG PO (17:42)
== END 2025-01-15 17:42 | disposition home or self-care (01) ==
PROVIDERS: Emergency Provider Emergency Medicine
DX: J20.9 Acute bronchitis, unspecified (principal); J02.9 Acute pharyngitis, unspecified
CPT/HCPCS: 87804; 87811; 99284; J7512